=== PATIENT | male | born 1955 | race Caucasian/White ===

== ENCOUNTER → 2017-08-24 | Outpatient (CLI) | payer OTHER | END | disposition home or self-care (01) | LOC: RADCTMAIN 14:17 | PROVIDERS: ATTEND Internal Medicine Cardiovascular Disease | DX: I71.1 Thoracic aortic aneurysm, ruptured (principal) | CPT/HCPCS: 82565; 84520 ==

== ENCOUNTER → 2017-08-31 | Outpatient (CLI) | payer OTHER ==
--- NOTE | 2017-09-01 09:30 | CT ---
EXAMINATION TYPE: CT abdomen pelvis wo con DATE OF EXAM: 08/31/2017 COMPARISON: NONE INDICATION: History of stent, elevated bun/cr, no contrast. DLP: 1183 mGycm, Automated exposure control for dose reduction was used. CONTRAST: No IV contrast. Study performed without Oral Contrast TECHNIQUE: Axial images were obtained from above the diaphragm to the pubic rami in the axial plane a t 5 mm thick sections. Reconstructed images are reviewed on the computer in the coronal plane. FINDINGS: Limited CT sections are obtained the lung bases. The lung bases are clear. Coronary artery calcific ations present. CT ABDOMEN: Liver: There is moderate fatty infiltration present to the liver. No discrete masses or cysts are merlene dent. Spleen: Normal Pancreas: Normal Adrenal glands: The adrenal glands are normal. Gallbladder: Normal Kidneys: No masses are evident. No hydronephrosis is present. There is a 1.8 cm cyst on the superio r anterior left kidney measuring 1.6 Hounsfield units. Subtle cortical cyst may be on the medial righ t mid kidney. This too small to classify. Some vascular calcification may be within the right kidney Aorta: Vascular calcification is within the aorta. There is a prior aneurysm repair. Study could not be performed with intravenous contrast at this time due to elevated renal function and low GFR. [facility] attempts to reschedule this patient with a more normal renal function for contrast was unsuccess ful. Study was performed noncontrast for gross evaluation of endovascular leak. However, greatest AP diameter of the previous aneurysms 4.6 cm which is slightly smaller than the prior study suggesting s ignificant leaking into the aneurysm is not identified. Small subtle endovascular leak however is not excluded at this time. If renal function can be more normalized a later time, contrast evaluation ca n be performed. Inferior vena cava: Normal. CT PELVIS: Loops of bowel within the abdomen and pelvis are normal. There are scattered diverticular changes to the sigmoid colon. No acute diverticulitis is evident. Appendix: Normal as visualized. Urinary bladder: Decompressed with limited evaluation. Genitourinary structures: Prostate is prominent. Osseous structures: No suspicious lytic or sclerotic lesions. Facet degenerative changes are within t he lumbar spine. IMPRESSIONS: 1. Study is noncontrast due to continued poor renal function. 2. Status post aneurysm repair with stent placement. No increasing size of the aneurysm is evident. 3. Moderate fatty infiltration of the liver. 4 prostate hypertrophy. 5. Diverticulosis without acute diverticulitis. 6. 1.8 cm simple cyst superior left kidney.
== END | disposition home or self-care (01) ==
LOC: RADCTMAIN 16:09
PROVIDERS: ATTEND Internal Medicine Cardiovascular Disease
DX: K57.90 Diverticulosis of intestine, part unspecified, without perforation or abscess without bleeding (principal); K76.0 Fatty (change of) liver, not elsewhere classified; N40.0 Benign prostatic hyperplasia without lower urinary tract symptoms; N28.1 Cyst of kidney, acquired; Z95.828 Presence of other vascular implants and grafts; Z98.890 Other specified postprocedural states
CPT/HCPCS: 36415; 74176; 82565; 84520

== ENCOUNTER → 2018-05-21 | Outpatient (CLI) | payer MEDICARE ==
--- NOTE | 2018-05-21 16:13 | FL ---
EXAMINATION TYPE: FL sniff test without CXR DATE OF EXAM: 05/21/2018 COMPARISON: Radiograph 05/17/2018 HISTORY: 63-year-old male with disorder of diaphragm, long time shortness of breath, trouble breathin g. TECHNIQUE: Real-time fluoroscopy during quiet breathing, deep breathing, and sniffing maneuver. Total images: 6. FINDINGS: There is right hemidiaphragmatic elevation. During quiet breathing, there is delayed initiation in movement of the right hemidiaphragm but with s ymmetric movement of the hemidiaphragms and relatively similar excursion. During deep breathing, there is again delayed initiation in movement of the right hemidiaphragm and w ith decreased overall excursion on the right. During sniffing maneuver, there is tarah paradoxical movement of the right hemidiaphragm. IMPRESSION: Findings compatible with right hemidiaphragmatic paralysis.
== END | disposition home or self-care (01) ==
LOC: RADFLWHC 10:18
PROVIDERS: ATTEND Internal Medicine Critical Care Medicine
DX: J98.6 Disorders of diaphragm (principal)
CPT/HCPCS: 76000

== ENCOUNTER → 2019-10-09 | Outpatient (CLI) | payer MEDICARE ==
--- NOTE | 2019-10-09 13:53 | FL ---
EXAMINATION TYPE: FL sniff test without CXR DATE OF EXAM: 10/09/2019 COMPARISON: Chest x-ray October 03, 2019 and older x-rays. Prior fluoroscopic sniff test May 21, 2018. HISTORY: History of diaphragm paralysis with interval surgery to expand long presents with shortness of breath and recurrent abnormal x-ray suspicious for diaphragm paralysis. TECHNIQUE: Fluoroscopic assisted sniff test. Total 77 images saved to PACS. 16 seconds of fluoroscopi c time utilized. FINDINGS: There is redemonstration of elevated right hemidiaphragm correlating with most recent and o lder x-rays. Dynamic sniff test shows patient to have limited volume of inspiration and expiration. There is asymm etric diminished motion of the right hemidiaphragm versus left hemidiaphragm on attempted deep breath ing with similar findings noted on prior study report. IMPRESSION: Findings consistent with right hemidiaphragm paralysis redemonstrated.
== END | disposition home or self-care (01) ==
LOC: RADCTMAIN 10:21
PROVIDERS: ATTEND Internal Medicine Critical Care Medicine
DX: J98.6 Disorders of diaphragm (principal); R06.02 Shortness of breath
CPT/HCPCS: 76000

== ENCOUNTER → 2019-12-23 | Outpatient (CLI) | payer MEDICARE ==
--- NOTE | 2019-12-23 09:11 | CT ---
EXAMINATION TYPE: CT chest wo con DATE OF EXAM: 12/23/2019 COMPARISON: Sniff test dated 10/09/2019 and chest x-ray dated 06/07/2017. HISTORY: disorder of diaphragm CT DLP: 1178.4 mGycm. Automated Exposure Control for Dose Reduction was Utilized. TECHNIQUE: CT scan of the thorax is performed without IV contrast. High-resolution noncontiguous sli odessa technique limits evaluation for pulmonary nodules. FINDINGS: LUNGS: There is redemonstration of right hemidiaphragm elevation. Linear consolidation is seen within the right middle lobe on both prone and supine imaging likely on the basis of atelectasis from the r ight hemidiaphragm known paresis. Other strand-like areas of atelectasis are seen of the right lung base and within the lingula that appear linear in morphology. There is some respiratory and/or patien t motion at the lung bases slightly limiting evaluation. Within the peripheral right lower lobe there is a calcified granuloma measuring 6 mm on soft tissue algorithm series 7 image 15. There is no pleu ral effusion or pneumothorax seen. On the first prone image on series 4 there is a 7 mm nodule along the left lateral trachea. This could relate to secretions or polyp. Direct visualization recommended. There is a questionable 1.2 cm nodule at the right lung base on supine series 8 image 17 of lung algo rithm. This is closely opposed to other adjacent vasculature and CT with contrast would provide stephanie r characterization. Right basilar mild cylindrical bronchiectasis and right middle lobe mild cylindrical bronchiectasis a re present. No interlobular septal thickening or honeycombing seen. No pleural effusion or pneumothor ax. MEDIASTINUM: Lack of IV contrast is noted to limit evaluation for mediastinal and especially hilar ad enopathy. There are no definitive greater than 1 cm hilar or mediastinal lymph nodes. The heart is mi ldly enlarged. There are severe coronary artery calcifications. No pericardial effusion seen. OTHER: Portions of the known abdominal or aortic aneurysm with stent graft placement are seen. An exo phytic 2.1 cm left superior pole renal cyst is demonstrated. This is fluid attenuated. Hepatic steato sis is seen in combination with hepatomegaly with the elongated liver measuring over 26 cm. Degenerat bridger changes of the spine are only partially visualized with no coronal or sagittal reformats. IMPRESSION: 1. Right hemidiaphragm elevation partially relates to the known right hemidiaphragmatic paresis howev er hepatomegaly may also contribute to the elevation as there is hepatomegaly and hepatic steatosis. Resultant right lower lobe and right middle lobe atelectasis is seen. 2. 8mm nodular density along the left lateral supraclavicular trachea that could represent secretions or polyp. Endoscopy is recommended. 3. Possible 1.2 cm right basilar pulmonary nodule that is closely apposed with the adjacent poorly se parated unenhanced vasculature. CT thorax with contrast would better delineate this structure and pro vide better characterization. 4. Mild right lower lobe and middle lobe cylindrical bronchiectasis. 5. Partially visualized known abdominal aortic aneurysm with postsurgical change. 6. Severe coronary artery calcifications, a marker of coronary artery disease.
== END | disposition home or self-care (01) ==
LOC: RADCTMAIN 08:17
PROVIDERS: ATTEND Internal Medicine Critical Care Medicine
DX: J47.9 Bronchiectasis, uncomplicated (principal); J98.11 Atelectasis; R91.1 Solitary pulmonary nodule; I25.10 Atherosclerotic heart disease of native coronary artery without angina pectoris
CPT/HCPCS: 71250

== ENCOUNTER → 2019-12-31 | Outpatient (CLI) | payer MEDICARE | END | disposition home or self-care (01) | LOC: LABWHC1 12:27 | PROVIDERS: ATTEND Internal Medicine Critical Care Medicine | DX: Z11.59 Encounter for screening for other viral diseases (principal) | CPT/HCPCS: 87635 ==

== ENCOUNTER 2020-01-01 09:45 | Day surgery (SDC) | payer MEDICARE ==
[2019-12-31 09:06] VITALS: BMI 32.5
[~2020-01-01 09:45] MED LIST: ALBUTEROL NEB (CONC) 2.5 MG/0.5 ML INHALATION ONE; ATROPINE SULFATE 0.4 MG/ML 1 ML VIAL IM ONE; LIDOCAINE 2% (PF) 20 MG/ML 5 ML VIAL INHALATION ONE; LIDOCAINE VISCOUS 300 MG/15 ML CUP MUCOUS MEM ONE; SODIUM CHLORIDE 0.9% 1,000 ML IV SCH
[2020-01-01 10:43] LABS: Glucose,Whole Blood 146 mg/dL (75-99)
[2020-01-01] MEDS ORDERED: LACTATED RINGERS 1,000 ML IV ONE (10:47)
[2020-01-01 10:49] VITALS: TEMP 97.3
[2020-01-01] MEDS ORDERED: GLYCOPYRROLATE 0.2 MG/ML 2 ML VIAL ONE (11:32)
[2020-01-01] MEDS ORDERED: MIDAZOLAM 2 MG/2 ML VIAL ONE (11:32)
[2020-01-01] MEDS ORDERED: LIDOCAINE 1% INJ 10MG/ML (20 ML MDV) ONE (11:32)
[2020-01-01] MEDS ORDERED: ROCURONIUM BROMIDE 10 MG/ML 5 ML VIAL IV ONE (11:32)
[2020-01-01] MEDS ORDERED: PROPOFOL 10 MG/ML 20 ML VIAL IV ONE (11:32)
[2020-01-01] MEDS ORDERED: NEOSTIGMINE 1 MG/ML 10 ML VIAL ONE (11:32)
[2020-01-01] MEDS ORDERED: SUCCINYLCHOLINE CHLORIDE 100 MG/5 ML SYR IV ONE (11:32)
[2020-01-01] MEDS ORDERED: fentaNYL (PF) 50 MCG/ML 2 ML AMP ONE (11:32)
[2020-01-01] MEDS ORDERED: ePHEDrine SULFATE/0.9% NACL/PF 50 MG/5 ML SYRINGE IV ONE (11:32)
[2020-01-01] MEDS ORDERED: LACTATED RINGERS 1,000 ML IV SCH (12:10)
--- NOTE | 2020-01-01 12:47 | PCN ---
PROCEDURE NOTE PREOPERATIVE DIAGNOSIS: Bronchiectasis right middle lobe, right lower lobe, possible tracheal mass. POSTOPERATIVE DIAGNOSIS: Bronchiectasis right middle lobe, right lower lobe, possible tracheal mass. The patient's procedure was done in the endoscopy room #1 under general anesthesia. SECURITIES SUPERVISOR: Dr. Carlson and Zion Cornejo. There was informed consent, there was universal timeout. After the patient was anesthetized and on the mechanical ventilator, the bronchoscope was inserted through the bronchoscope adapter connected to the endotracheal tube. We did a quick inspection of both the left lung and the right lung. There was no mass in the trachea noted. The tracheal chencho was sharp. The left side, including the left upper lobe proper, lingula, left lower lobe appeared completely normal. On the right side, the right upper lobe appeared normal as was the right lower lobe. Interestingly, there was a fish-mouth deformity noted in the right middle lobe in this patient likely suffers from some right middle lobe syndrome. Anyway, under fluoroscopic guidance, brushes were performed in the right lower lobe. We did multiple transbronchial biopsies of the right lower lobe under fluoroscopic guidance. We got at least 7 good pieces. Finally, we did a BAL in the right lower lobe as well. The patient tolerated the procedure well. There were no immediate complication. There was minimal bleeding. The patient was stable throughout the procedure, according to the anesthesiologist and nurse general assignment reporter. I will talk to the family. The specimens we sent to the laboratory for analysis. There was no immediate complication. There was no obvious pneumothorax on fluoroscopy. A formal chest x-ray will be done. MMODL / IJN: [id number] /
--- NOTE | 2020-01-01 12:50 | FL ---
EXAMINATION TYPE: FL bronchoscopy DATE OF EXAM: 01/01/2020 COMPARISON: NONE HISTORY: Bronchoscopy TECHNIQUE: Fluoroscopy. FINDINGS: Fluoroscopy time of 25 seconds provided. IMPRESSION: As Above.
--- NOTE | 2020-01-01 13:27 | XR ---
EXAMINATION TYPE: XR chest 1V portable DATE OF EXAM: 01/01/2020 COMPARISON: 10/03/2019 HISTORY: POST BRONCHOSCOPY-RLL TECHNIQUE: Single frontal view of the chest is obtained. FINDINGS: Bilateral consolidation seen with right hilar prominence. Postsurgical change overlying th e cervical spine. No pneumothorax. Small right pleural effusion. Elevated right hemidiaphragm. IMPRESSION: 1. No evidence of pneumothorax. 2. Bilateral consolidation and right hilar soft tissue prominence.
[2020-01-01 13:51] LABS: Glucose,Whole Blood 120 mg/dL (75-99)
[2020-01-01 14:03] VITALS: BP 134/67; PULSE 67; RESP 18
[2020-01-02 00:43] LABS: Appearance,BF Hazy; Color,BF Colorless; Nucleated Cells, Body Fluid 1 /uL; RBC, Body Fluid 0 /uL
== END 2020-01-01 14:33 | disposition home or self-care (01) ==
LOC: ORWHC2ENDO 09:45
PROVIDERS: ATTEND Internal Medicine Critical Care Medicine
DX: J47.9 Bronchiectasis, uncomplicated (principal); I10 Essential (primary) hypertension; E78.5 Hyperlipidemia, unspecified; E11.9 Type 2 diabetes mellitus without complications; G25.81 Restless legs syndrome; I71.4 Abdominal aortic aneurysm, without rupture; J98.6 Disorders of diaphragm; M70.20 Olecranon bursitis, unspecified elbow; K21.9 Gastro-esophageal reflux disease without esophagitis; Z79.82 Long term (current) use of aspirin; Z79.899 Other long term (current) drug therapy; Z79.84 Long term (current) use of oral hypoglycemic drugs; Z83.3 Family history of diabetes mellitus; Z87.891 Personal history of nicotine dependence; Z98.1 Arthrodesis status; Z98.890 Other specified postprocedural states
CPT/HCPCS: 94640; 87798 ×3; 87496; 87498; 87529; 88104; 88108; 88305; 89050; 87252; 87502; 87634; 87070; 87205; 87116; 87102; 87206; 71045; 31628; 31623; 31624; J2250; J0461; J2710; J2001 ×2; J3010; J0330; J2704

== ENCOUNTER → 2020-01-13 | Outpatient (CLI) | payer MEDICARE | END | disposition home or self-care (01) | LOC: CPPFTMAIN 11:38 | PROVIDERS: ATTEND Internal Medicine Critical Care Medicine | DX: R94.2 Abnormal results of pulmonary function studies (principal); J98.4 Other disorders of lung | CPT/HCPCS: 94060; 94726; 94729 ==

== ENCOUNTER 2020-05-27 11:51 | Inpatient (IN) | payer MEDICARE ==
[2020-05-27 12:12] LABS: Glucose,Whole Blood 221 mg/dL (75-99)
[2020-05-27] MEDS ORDERED: IBUPROFEN 600 MG TAB PO STA (12:16)
--- NOTE | 2020-05-27 12:24 | ED ---
SOB HPI - General Chief Complaint: Shortness of Breath Stated Complaint: SOB, diarrhea Time Seen by Provider: 05/27/20 12:00 Source: patient Mode of arrival: ambulatory Limitations: no limitations - History of Present Illness Initial Comments: She is a 65-year-old male with past medical history of right paralyzed hemidiaphragm, bronchiectasis of the right middle and lower lobe, asthma who presents the emergency room with reported shortness of breath. States that yesterday he began having shortness of breath and chills. Denies sick contacts with similar symptoms. No recent travel. No covid exposure. Patient has had a mild cough. Denies chest pain. Patient presented to the hospital was found to have 102 fever. Pulse ox was in the 50s. Patient denies any nausea or vomiting. No diarrhea. No abdominal pain. Follows with Dr. Carlson from [facility]. Currently does not smoke. Denies previous cardiac history. No other alleviating, precipitating or modifying factors - Related Data Home Medications Medication Instructions Recorded Confirmed Acetaminophen-Codeine 300-30mg 1 tab PO Q6H PRN 12/31/19 05/27/20 [Tylenol w/codeine #3] Aspirin 325 mg PO BID 12/31/19 05/27/20 Atorvastatin [Lipitor] 20 mg PO HS 12/31/19 05/27/20 Budesonide-Formot 160-4.5 Mcg 2 puff INHALATION RT-BID 12/31/19 05/27/20 [Symbicort 160-4.5 Mcg Inhaler] Citalopram Hydrobromide 20 mg PO DAILY 12/31/19 05/27/20 [Citalopram HBr] Ergocalciferol [Vitamin D2] 50,000 unit PO QMONTH 12/31/19 05/27/20 Fenofibrate,Micronized 200 mg PO HS 12/31/19 05/27/20 [Fenofibrate] Gabapentin [Neurontin] 100 mg PO HS 12/31/19 05/27/20 Montelukast [Singulair] 10 mg PO DAILY 12/31/19 05/27/20 Niacin [Niaspan] 1,000 mg PO DAILY 12/31/19 05/27/20 Omeprazole 20 mg PO DAILY 12/31/19 05/27/20 Tiotropium [place] [Spiriva] 1 cap INHALATION RT-DAILY 12/31/19 05/27/20 amLODIPine [Norvasc] 10 mg PO DAILY 12/31/19 05/27/20 carvediloL [Coreg] 12.5 mg PO BID 12/31/19 05/27/20 metFORMIN HCL [Glucophage] 1,000 mg PO BID 12/31/19 05/27/20 rOPINIRole HCL [Requip] 5 mg PO HS 12/31/19 05/27/20 Allergies Allergy/AdvReac Type Severity Reaction Status Date / Time No Known Allergies Allergy Verified 05/27/20 12:34 Review of Systems ROS Statement: Those systems with pertinent positive or pertinent negative responses have been documented in the HPI. ROS Other: All systems not noted in ROS Statement are negative. Past Medical History Past Medical History: Asthma, Coronary Artery Disease (CAD), Diabetes Mellitus, GERD/Reflux, Hypertension, Sleep Apnea/CPAP/BIPAP Additional Past Medical History / Comment(s): HX OF AAA WITH STENT (2011), BACK PAIN, RLS, SOB, HX OF PARALYSIS OF DIAPHRAM WITH PLICATION. History of Any Multi-Drug Resistant Organisms: None Reported Past Surgical History: Back Surgery Additional Past Surgical History / Comment(s): BACK AND NECK SURGERY, AAA WITH 3 PIECE STENT (2011), LUNG SURGERY. PLICATION OF DIAPHRAM Past Anesthesia/Blood Transfusion Reactions: No Reported Reaction Past Psychological History: No Psychological Hx Reported Smoking Status: Former smoker Past Alcohol Use History: None Reported Past Drug Use History: None Reported - Past Family History Mother Family Medical History: No Reported History General Exam Limitations: no limitations General appearance: alert, in no apparent distress Head exam: Present: atraumatic, normocephalic, normal inspection Eye exam: Present: normal appearance, PERRL, EOMI. Absent: scleral icterus, conjunctival injection, periorbital swelling Neck exam: Present: normal inspection. Absent: tenderness, meningismus, lymphadenopathy Respiratory exam: Present: rales, decreased breath sounds, other (tachypneic) Cardiovascular Exam: Present: normal rhythm, tachycardia Neurological exam: Present: alert, oriented X3, CN II-XII intact Psychiatric exam: Present: normal affect, normal mood Skin exam: Present: diaphoretic, pallor Course Vital Signs 05/27/20 05/27/20 05/27/20 12:01 12:06 12:07 Temperature 102.2 F H Pulse Rate 115 H Respiratory 24 24 Rate Blood Pressure 165/98 O2 Sat by Pulse 54 L 71 L Oximetry 05/27/20 05/27/20 05/27/20 12:15 12:30 12:45 Temperature Pulse Rate 109 H 115 H 112 H Respiratory 40 H 40 H Rate Blood Pressure 155/93 149/83 156/87 O2 Sat by Pulse 82 L 80 L 87 L Oximetry 05/27/20 05/27/20 05/27/20 13:15 13:45 13:54 Temperature 99.1 F Pulse Rate 107 H 101 H Respiratory 34 H 34 H Rate Blood Pressure 144/78 156/88 O2 Sat by Pulse 86 L 84 L Oximetry 05/27/20 05/27/20 05/27/20 14:30 14:57 14:58 Temperature 99.3 F Pulse Rate 97 Respiratory 34 H 30 H Rate Blood Pressure 134/81 O2 Sat by Pulse 86 L 85 L Oximetry 05/27/20 05/27/20 15:00 15:16 Temperature 98.8 F Pulse Rate 96 Respiratory 32 H Rate Blood Pressure 136/82 O2 Sat by Pulse 87 L 88 L Oximetry Medical Decision Making - Medical Decision Making Upon arrival the patient is placed into trauma bay 2. A thorough history and physical exam was performed. Patient does have presenting pulse ox saturation of 51%. Because of this the patient was placed on a nonrebreather. Lung sounds are auscultated and demonstrate rales at the bases. Patient does not have a significant work of breathing. We do attempt him on BiPAP however the patient fails as his oxygen saturations go down to 69% from 75% which was achieved on a nonrebreather. The patient is then moved to an OptiFlow with a nonrebreather which does have improvement in saturations to 86%. Patient is given a dose of Decadron. Laboratory says her conducted and a chest x-ray was performed. Lab studies are remarkable for a lactic of 2.4. Troponin is 0.107. Influenza A and B are negative. Patient is swabbed for cold. Chest x-ray does demonstrate bilateral airspace disease correlating with pneumonia. There is a high concern for Covid and therefore patient's restricted. I recommended ICU admission for which patient did agree to. Discuss case with Dr. Hinds and Dr. Carlson. Patient remained with stable saturations around 86% and was transferred to the unit - Lab Data Result diagrams: 06/03/20 04:30 06/03/20 04:30 Lab Results 05/27/20 05/27/20 05/27/20 Range/Units 12:09 12:20 12:20 WBC 6.5 (3.8-10.6) k/uL RBC 4.54 (4.30-5.90) m/uL Hgb 14.8 (13.0-17.5) gm/dL Hct 44.1 (39.0-53.0) % MCV 97.0 (80.0-100.0) fL MCH 32.6 (25.0-35.0) pg MCHC 33.6 (31.0-37.0) g/dL RDW 13.1 (11.5-15.5) % Plt Count 230 (150-450) k/uL Neutrophils % 85 % Lymphocytes % 10 % Monocytes % 3 % Eosinophils % 0 % Basophils % 1 % Neutrophils # 5.5 (1.3-7.7) k/uL Lymphocytes # 0.7 L (1.0-4.8) k/uL Monocytes # 0.2 (0-1.0) k/uL Eosinophils # 0.0 (0-0.7) k/uL Basophils # 0.1 (0-0.2) k/uL PT 10.3 (9.0-12.0) sec INR 1.0 (<1.2) APTT 29.4 (22.0-30.0) sec D-Dimer 0.40 (<0.60) mg/L FEU Sodium (137-145) mmol/L Potassium (3.5-5.1) mmol/L Chloride (98-107) mmol/L Carbon Dioxide (22-30) mmol/L Anion Gap mmol/L BUN (9-20) mg/dL Creatinine (0.66-1.25) mg/dL Est GFR (CKD-EPI)AfAm (>60 ml/min/1.73 sqM) Est GFR (CKD-EPI)NonAf (>60 ml/min/1.73 sqM) Glucose (74-99) mg/dL POC Glucose (mg/dL) 221 H (75-99) mg/dL POC Glu Education Courses Sales Representative ID JackEnzo Lactic Ac Sepsis Rflx Plasma Lactic Acid Bak[place] (0.7-2.0) mmol/L Calcium (8.4-10.2) mg/dL Magnesium (1.6-2.3) mg/dL Ferritin (22.0-322.0) ng/mL Total Bilirubin (0.2-1.3) mg/dL AST (17-59) U/L ALT (4-49) U/L Alkaline Phosphatase (38-126) U/L Lactate Dehydrogenase (313-618) U/L Troponin I (0.000-0.034) ng/mL C-Reactive Protein (<10.0) mg/L NT-Pro-B Natriuret Pep pg/mL Total Protein (6.3-8.2) g/dL Albumin (3.5-5.0) g/dL Procalcitonin (0.02-0.09) ng/mL Coronavirus (PCR) (Not Detected) Influenza Type A RNA (Not Detectd) Influenza Type B (PCR) (Not Detectd) 05/27/20 05/27/20 05/27/20 Range/Units 12:20 12:20 12:20 WBC (3.8-10.6) k/uL RBC (4.30-5.90) m/uL Hgb (13.0-17.5) gm/dL Hct (39.0-53.0) % MCV (80.0-100.0) fL MCH (25.0-35.0) pg MCHC (31.0-37.0) g/dL RDW (11.5-15.5) % Plt Count (150-450) k/uL Neutrophils % % Lymphocytes % % Monocytes % % Eosinophils % % Basophils % % Neutrophils # (1.3-7.7) k/uL Lymphocytes # (1.0-4.8) k/uL Monocytes # (0-1.0) k/uL Eosinophils # (0-0.7) k/uL Basophils # (0-0.2) k/uL PT (9.0-12.0) sec INR (<1.2) APTT (22.0-30.0) sec D-Dimer (<0.60) mg/L FEU Sodium 136 L (137-145) mmol/L Potassium 4.7 (3.5-5.1) mmol/L Chloride 99 (98-107) mmol/L Carbon Dioxide 25 (22-30) mmol/L Anion Gap 12 mmol/L BUN 30 H (9-20) mg/dL Creatinine 1.76 H (0.66-1.25) mg/dL Est GFR (CKD-EPI)AfAm 45 (>60 ml/min/1.73 sqM) Est GFR (CKD-EPI)NonAf 39 (>60 ml/min/1.73 sqM) Glucose 220 H (74-99) mg/dL POC Glucose (mg/dL) (75-99) mg/dL POC Glu Education [employer] Sales Representative ID Lactic Ac Sepsis Rflx Plasma Lactic Acid Bakari 2.4 H* (0.7-2.0) mmol/L Calcium 9.2 (8.4-10.2) mg/dL Magnesium 1.1 L (1.6-2.3) mg/dL Ferritin 2053.0 H (22.0-322.0) ng/mL Total Bilirubin 0.7 (0.2-1.3) mg/dL AST 73 H (17-59) U/L ALT 59 H (4-49) U/L Alkaline Phosphatase 46 (38-126) U/L Lactate Dehydrogenase 1056 H (313-618) U/L Troponin I (0.000-0.034) ng/mL C-Reactive Protein 333.3 H (<10.0) mg/L NT-Pro-B Natriuret Pep pg/mL Total Protein 7.5 (6.3-8.2) g/dL Albumin 4.6 (3.5-5.0) g/dL Procalcitonin (0.02-0.09) ng/mL Coronavirus (PCR) Detected H (Not Detected) Influenza Type A RNA (Not Detectd) Influenza Type B (PCR) (Not Detectd) 05/27/20 05/27/20 05/27/20 Range/Units 12:20 12:20 12:20 WBC (3.8-10.6) k/uL RBC (4.30-5.90) m/uL Hgb (13.0-17.5) gm/dL Hct (39.0-53.0) % MCV (80.0-100.0) fL MCH (25.0-35.0) pg MCHC (31.0-37.0) g/dL RDW (11.5-15.5) % Plt Count (150-450) k/uL Neutrophils % % Lymphocytes % % Monocytes % % Eosinophils % % Basophils % % Neutrophils # (1.3-7.7) k/uL Lymphocytes # (1.0-4.8) k/uL Monocytes # (0-1.0) k/uL Eosinophils # (0-0.7) k/uL Basophils # (0-0.2) k/uL PT (9.0-12.0) sec INR (<1.2) APTT (22.0-30.0) sec D-Dimer (<0.60) mg/L FEU Sodium (137-145) mmol/L Potassium (3.5-5.1) mmol/L Chloride (98-107) mmol/L Carbon Dioxide (22-30) mmol/L Anion Gap mmol/L BUN (9-20) mg/dL Creatinine (0.66-1.25) mg/dL Est GFR (CKD-EPI)AfAm (>60 ml/min/1.73 sqM) Est GFR (CKD-EPI)NonAf (>60 ml/min/1.73 sqM) Glucose (74-99) mg/dL POC Glucose (mg/dL) (75-99) mg/dL POC Glu Education [employer]ourses Sales Representative ID Lactic Ac Sepsis Rflx Plasma Lactic Acid Bakari (0.7-2.0) mmol/L Calcium (8.4-10.2) mg/dL Magnesium (1.6-2.3) mg/dL Ferritin (22.0-322.0) ng/mL Total Bilirubin (0.2-1.3) mg/dL AST (17-59) U/L ALT (4-49) U/L Alkaline Phosphatase (38-126) U/L Lactate Dehydrogenase (313-618) U/L Troponin I (0.000-0.034) ng/mL C-Reactive Protein (<10.0) mg/L NT-Pro-B Natriuret Pep 615 pg/mL Total Protein (6.3-8.2) g/dL Albumin (3.5-5.0) g/dL Procalcitonin 0.72 H (0.02-0.09) ng/mL Coronavirus (PCR) (Not Detected) Influenza Type A RNA Not Detected (Not Detectd) Influenza Type B (PCR) Not Detected (Not Detectd) 05/27/20 05/27/20 Range/Units 12:20 12:56 WBC (3.8-10.6) k/uL RBC (4.30-5.90) m/uL Hgb (13.0-17.5) gm/dL Hct (39.0-53.0) % MCV (80.0-100.0) fL MCH (25.0-35.0) pg MCHC (31.0-37.0) g/dL RDW (11.5-15.5) % Plt Count (150-450) k/uL Neutrophils % % Lymphocytes % % Monocytes % % Eosinophils % % Basophils % % Neutrophils # (1.3-7.7) k/uL Lymphocytes # (1.0-4.8) k/uL Monocytes # (0-1.0) k/uL Eosinophils # (0-0.7) k/uL Basophils # (0-0.2) k/uL PT (9.0-12.0) sec INR (<1.2) APTT (22.0-30.0) sec D-Dimer (<0.60) mg/L FEU Sodium (137-145) mmol/L Potassium (3.5-5.1) mmol/L Chloride (98-107) mmol/L Carbon Dioxide (22-30) mmol/L Anion Gap mmol/L BUN (9-20) mg/dL Creatinine (0.66-1.25) mg/dL Est GFR (CKD-EPI)AfAm (>60 ml/min/1.73 sqM) Est GFR (CKD-EPI)NonAf (>60 ml/min/1.73 sqM) Glucose (74-99) mg/dL POC Glucose (mg/dL) (75-99) mg/dL POC Glu Education [employer] Sales Representative ID Lactic Ac Sepsis Rflx Y Plasma Lactic Acid Bakari (0.7-2.0) mmol/L Calcium (8.4-10.2) mg/dL Magnesium (1.6-2.3) mg/dL Ferritin (22.0-322.0) ng/mL Total Bilirubin (0.2-1.3) mg/dL AST (17-59) U/L ALT (4-49) U/L Alkaline Phosphatase (38-126) U/L Lactate Dehydrogenase (313-618) U/L Troponin I 0.107 H* (0.000-0.034) ng/mL C-Reactive Protein (<10.0) mg/L NT-Pro-B Natriuret Pep pg/mL Total Protein (6.3-8.2) g/dL Albumin (3.5-5.0) g/dL Procalcitonin (0.02-0.09) ng/mL Coronavirus (PCR) (Not Detected) Influenza Type A RNA (Not Detectd) Influenza Type B (PCR) (Not Detectd) - EKG Data EKG Comments: EKG demonstrates sinus tachycardia with a ventricular rate of 111. OH interval 172. QRS 90. QTC of 443. No acute ST segment elevations or depressions Critical Care Time Critical Care Time: Yes Critical Care Time: 45 minutes Disposition Clinical Impression: Shortness of breath, Suspected COVID-19 virus infection, Hypoxia, NSTEMI (non- ST elevated myocardial infarction), Asthma Disposition: ADMITTED IP TO THIS HOSP Condition: Serious Is patient prescribed a controlled substance at d/c from ED?: No Decision to Admit Reason: Admit from EC Decision Date: 05/27/20 Decision Time: 14:33
[2020-05-27 12:44] LABS: Basophils # (A) 0.1 k/uL (0-0.2); Basophils % (A) 1 %; Eosinophils % (A) 0 %; HCT 44.1 % (39.0-53.0); HGB 14.8 gm/dL (13.0-17.5); Lymphocytes # (A) 0.7 k/uL (1.0-4.8); Lymphocytes % (A) 10 %; MCH 32.6 pg (25.0-35.0); MCHC 33.6 g/dL (31.0-37.0); Mean Platelet Volume 7.7; Monocytes # (A) 0.2 k/uL (0-1.0); Monocytes % (A) 3 %; Neutrophils # (A) 5.5 k/uL (1.3-7.7); Neutrophils % (A) 85 %; Platelet Count 230 k/uL (150-450); RBC 4.54 m/uL (4.30-5.90); RDW 13.1 % (11.5-15.5); WBC 6.5 k/uL (3.8-10.6)
[2020-05-27 12:47] LABS: D-Dimer 0.4 mg/L FEU (<0.60); Partial Thromboplastin Time 29.4 sec (22.0-30.0); Prothrombin Time 10.3 sec (9.0-12.0)
[2020-05-27] MEDS ORDERED: DEXAMETHASONE SOD PHOSPHATE 4 MG/ML 1 ML VIAL IV STA (12:47)
[2020-05-27 12:55] LABS: Albumin 4.6 g/dL (3.5-5.0); Calcium 9.2 mg/dL (8.4-10.2); Magnesium 1.1 mg/dL (1.6-2.3); Potassium 4.7 mmol/L (3.5-5.1); Total Bilirubin 0.7 mg/dL (0.2-1.3); Total Protein 7.5 g/dL (6.3-8.2)
[2020-05-27] MEDS: SODIUM CHLORIDE 0.9% 1,000 ML IV SCH ×2 (13:09→20:56)
--- NOTE | 2020-05-27 13:11 | XR ---
EXAMINATION TYPE: XR chest 1V portable DATE OF EXAM: 05/27/2020 COMPARISON: Prior chest x-ray 01/01/2020 HISTORY: Shortness of breath, suspected Covid 19 pneumonia TECHNIQUE: Single frontal view of the chest is obtained. FINDINGS: Bilateral airspace disease is present. No evident pneumothorax or pleural effusion. There is persistent elevation of right hemidiaphragm. Heart size is likely accentuated by rotation. Postop changes are noted to the cervical spine. IMPRESSION: Correlate for pneumonia, edema
[2020-05-27 13:43] LABS: C Reactive Protein 333.3 mg/L (<10.0)
[2020-05-27] MEDS ORDERED: NALOXONE 0.4 MG/ML 1 ML VIAL IV PRN ×2 (14:33→15:46)
[2020-05-27 15:42] LABS: Glucose,Whole Blood 198 mg/dL (75-99)
[2020-05-27] MEDS ORDERED: AZITHROMYCIN 500 MG in SODIUM CHLORIDE 0.9% 250 ML IVPB STA (15:43)
[2020-05-27] MEDS ORDERED: ALBUTEROL HFA INHALER INHALATION PRN (15:45)
[2020-05-27 15:57] LABS: ABG Base Excess -1.9 mmol/L; ABG HCO3 23 mmol/L (21-25); ABG Oxygen Saturation 84.7 % (94-97); ABG PCO2 37 mmHg (35-45); ABG TCO2 24 mmol/L (19-24); Allen Test Performed? Yes
[2020-05-27 16:11] LABS: ABG PO2 49 mmHg (83-108)
--- NOTE | 2020-05-27 17:07 | P.CNPUL ---
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 She developed shortness of breath, chills yesterday. He's had no recent travel history, he denies any sick contacts or Covid 19 exposure. Patient reports a mild cough, he was febrile on presentation with a temp of 10 2F, his pulse ox was 51% on room air, he denied any nausea or vomiting, no diarrhea no abdominal pain. He does not smoke. His chest x-ray showed bilateral airspace disease, and persistent elevation of the right hemidiaphragm. His lab work shows normal white count of 6.5, lymphopenia with lymphocyte, 0.7, d-dimer was 0.4, sodium is 136, electrolytes are within normal limits, B1 is 30 creatinine is 1.76, plasma lactic acid was 2.4, AST was 73, ALT was 59, LDH was 1056, troponin was elevated at 0.107, CRP is 333, proBNP is 615, and influenza screen was negative, Covid 19 PCR was sent and pending at this time. Blood gas was obtained on aerosol currently at 60 L and FiO2 of 95% in addition to 100% per nonrebreather mask and patient's pO2 is 49, pCO2 37, pH is 7.40. he was started on antibiotics in the form of azithromycin and Rocephin, he was given a dose of IV dexamethasone in the emergency department he was started on IV hydration, and placed in the intensive care unit. Does not appear to be in any significant respiratory distress, Pox 84% on Airvo. Review of Systems All systems: negative Constitutional: Denies chills, Denies fever Eyes: denies blurred vision, denies pain Ears, nose, mouth and throat: Denies headache, Denies sore throat Cardiovascular: Denies chest pain, Denies shortness of breath Respiratory: Reports cough, Reports dyspnea Gastrointestinal: Denies abdominal pain, Denies diarrhea, Denies nausea, Denies vomiting Musculoskeletal: Denies myalgias Integumentary: Denies pruritus, Denies rash Neurological: Denies numbness, Denies weakness Psychiatric: Denies anxiety, Denies depression Endocrine: Denies fatigue, Denies weight change Past Medical History Past Medical History: Asthma, Coronary Artery Disease (CAD), Diabetes Mellitus, GERD/Reflux, Hypertension, Sleep Apnea/CPAP/BIPAP Additional Past Medical History / Comment(s): HX OF AAA WITH STENT (2011), BACK PAIN, RLS, SOB, HX OF PARALYSIS OF DIAPHRAM WITH PLICATION. History of Any Multi-Drug Resistant Organisms: None Reported Past Surgical History: Back Surgery Additional Past Surgical History / Comment(s): BACK AND NECK SURGERY, AAA WITH 3 PIECE STENT (2011), LUNG SURGERY. PLICATION OF DIAPHRAM Past Anesthesia/Blood Transfusion Reactions: No Reported Reaction Past Psychological History: No Psychological Hx Reported Smoking Status: Former smoker Past Alcohol Use History: None Reported Past Drug Use History: None Reported - Past Family History Mother Family Medical History: No Reported History Medications and Allergies Home Medications Medication Instructions Recorded Confirmed Type Acetaminophen-Codeine 300-30mg 1 tab PO Q6H PRN 12/31/19 05/27/20 History [Tylenol w/codeine #3] Aspirin 325 mg PO BID 12/31/19 05/27/20 History Atorvastatin [Lipitor] 20 mg PO HS 12/31/19 05/27/20 History Budesonide-Formot 160-4.5 Mcg 2 puff INHALATION RT-BID 12/31/19 05/27/20 History [Symbicort 160-4.5 Mcg Inhaler] Citalopram Hydrobromide 20 mg PO DAILY 12/31/19 05/27/20 History [Citalopram HBr] Ergocalciferol [Vitamin D2] 50,000 unit PO QMONTH 12/31/19 05/27/20 History Fenofibrate,Micronized 200 mg PO HS 12/31/19 05/27/20 History [Fenofibrate] Gabapentin [Neurontin] 100 mg PO HS 12/31/19 05/27/20 History Montelukast [Singulair] 10 mg PO DAILY 12/31/19 05/27/20 History Niacin [Niaspan] 1,000 mg PO DAILY 12/31/19 05/27/20 History Omeprazole 20 mg PO DAILY 12/31/19 05/27/20 History Tiotropium Barney [Spiriva] 1 cap INHALATION RT-DAILY 12/31/19 05/27/20 History amLODIPine [Norvasc] 10 mg PO DAILY 12/31/19 05/27/20 History carvediloL [Coreg] 12.5 mg PO BID 12/31/19 05/27/20 History metFORMIN HCL [Glucophage] 1,000 mg PO BID 12/31/19 05/27/20 History rOPINIRole HCL [Requip] 5 mg PO HS 12/31/19 05/27/20 History Allergies Allergy/AdvReac Type Severity Reaction Status Date / Time No Known Allergies Allergy Verified 05/27/20 12:34 Physical Exam Vitals: Vital Signs Temp Pulse Resp BP Pulse Ox 05/27/20 15:16 88 L 05/27/20 15:00 98.8 F 96 32 H 136/82 87 L 05/27/20 14:58 85 L 05/27/20 14:30 97 34 H 134/81 86 L 05/27/20 13:54 99.1 F 05/27/20 13:45 101 H 34 H 156/88 84 L 05/27/20 13:15 107 H 34 H 144/78 86 L 05/27/20 12:45 112 H 156/87 87 L 05/27/20 12:30 115 H 40 H 149/83 80 L 05/27/20 12:15 109 H 40 H 155/93 82 L 05/27/20 12:07 24 05/27/20 12:06 71 L 05/27/20 12:01 102.2 F H 115 H 24 165/98 54 L Intake and Output 05/27/20 05/27/20 05/27/20 06:59 14:59 22:59 Other: Weight 108.409 kg GENERAL EXAM: Alert, 65-year-old white male on Airvo at 60 L and FiO2 of 95% and 100% per NRB with a pulse ox of 84% comfortable in no apparent distress. HEAD: Normocephalic/atraumatic. EYES: Normal reaction of pupils, equal size. Conjunctiva pink, sclera white. NOSE: Clear with pink turbinates. THROAT: No erythema or exudates. NECK: No masses, no JVD, no thyroid enlargement, no adenopathy. CHEST: No chest wall deformity. Symmetrical expansion. LUNGS: Equal air entry with no crackles, wheeze, rhonchi or dullness. CVS: Regular rate and rhythm, normal S1 and S2, no gallops, no murmurs, no rubs ABDOMEN: Soft, nontender. No hepatosplenomegaly, normal bowel sounds, no guarding or rigidity. EXTREMITIES: No clubbing, no edema, no cyanosis, 2+ pulses and upper and lower extremities. MUSCULOSKELETAL: Muscle strength and tone normal. SPINE: No scoliosis or deformity SKIN: No rashes CENTRAL NERVOUS SYSTEM: Alert and oriented -3. No focal deficits, tone is normal in all 4 extremities. PSYCHIATRIC: Alert and oriented -3. Appropriate affect. Intact judgment and insight. Results - Laboratory Findings CBC and BMP: 05/27/20 12:20 05/27/20 12:20 ABG ABG pH 7.40 (7.35-7.45) 05/27/20 15:55 ABG pCO2 37 mmHg (35-45) 05/27/20 15:55 ABG pO2 49 mmHg (83-108) L* 05/27/20 15:55 ABG O2 Saturation 84.7 % (94-97) L 05/27/20 15:55 PT/INR, D-dimer PT 10.3 sec (9.0-12.0) 05/27/20 12:20 INR 1.0 (<1.2) 05/27/20 12:20 D-Dimer 0.40 mg/L FEU (<0.60) 05/27/20 12:20 Abnormal lab findings: Abnormal Labs 05/27/20 05/27/20 05/27/20 12:09 12:20 12:20 Lymphocytes # 0.7 L ABG pO2 ABG O2 Saturation Sodium 136 L BUN 30 H Creatinine 1.76 H Glucose 220 H POC Glucose (mg/dL) 221 H Plasma Lactic Acid Bakari Magnesium 1.1 L AST 73 H ALT 59 H Lactate Dehydrogenase 1056 H Troponin I C-Reactive Protein 333.3 H 05/27/20 05/27/20 05/27/20 12:20 12:20 15:40 Lymphocytes # ABG pO2 ABG O2 Saturation Sodium BUN Creatinine Glucose POC Glucose (mg/dL) 198 H Plasma Lactic Acid Bakari 2.4 H* Magnesium AST ALT Lactate Dehydrogenase Troponin I 0.107 H* C-Reactive Protein 05/27/20 15:55 Lymphocytes # ABG pO2 49 L* ABG O2 Saturation 84.7 L Sodium BUN Creatinine Glucose POC Glucose (mg/dL) Plasma Lactic Acid Bakari Magnesium AST ALT Lactate Dehydrogenase Troponin I C-Reactive Protein - Diagnostic Findings Chest x-ray: report reviewed, image reviewed Additional studies: EKG reviewed Assessment and Plan Plan: Assessment: #1. Acute and severe hypoxic respiratory failure related to bilateral pneumonia, possibly community acquired, rule out possibility of COVID 19 related pneumonia. Influenza screen was negative, Covid 19 is pending, chest x-ray shows bilateral airspace disease #2. History of right diaphragm paralysis status post surgical plication #3. Elevated inflammatory markers including LDH and CRP possibly related to COVID 19 pneumonia #4. Elevated troponin, possibly related to severe hypoxemia #5. History of chronic bronchial asthma, unspecified #6. History of coronary artery disease #7. GERD/reflux #8. History of sleep apnea #9. History of AAA with stenting in 2011 #10. History of back pain #11. Restless leg syndrome #12. Former smoker Plan: Awaiting results of the Covid 19 PCR, maintain droplet precautions, the patient in droplet isolation. Blood gas has been reviewed showing severe hypoxemia, patient remains on AIRVO at FiO2 of 95% in addition to her percent per a nonrebreather mask, and he is satting only 95%, but clinically patient does not appear to be in any acute respiratory distress, despite being severely hypoxic. We'll continue with azithromycin and Rocephin, will continue Decadron, we'll start the patient on prophylactic doses of Lovenox, IV hydration, zinc supplement, vitamin C supplement, vitamin D supplement, melatonin. Inflammatory markers have been noted. We'll send a pro-calcitonin, we'll send a Legionella urine antigen, follow-up CBC and CMP tomorrow, follow up chest x-ray in the morning. We'll start the patient on Remdesivir if his COVID 19 PCR comes back positive. We'll continue to closely follow I performed a history & physical examination of the patient and discussed their management with my nurse practitioner, Laura Cornejo. I reviewed the nurse practitioner's note and agree with the documented findings and plan of care. Lung sounds are positive for diminished breath sounds. The findings and the impression was discussed with the patient. I attest to the documentation by the nurse practitioner. Time with Patient: Greater than 30
[2020-05-27] MEDS: ENOXAPARIN 40 MG/0.4 ML SYRINGE SQ SCH (17:26)
[2020-05-27] MEDS: CHOLECALCIFEROL 400 UNIT TAB PO SCH (17:27)
[2020-05-27] MEDS: ZINC SULFATE 220 MG CAP PO SCH (17:27)
[2020-05-27] MEDS ORDERED: LORazepam 2 MG/ML INJ IV PRN (19:00)
[2020-05-27] MEDS: FAMOTIDINE 20 MG TAB PO SCH (20:56)
[2020-05-27 21:27] LABS: ABG Base Excess -2.1 mmol/L; ABG HCO3 23 mmol/L (21-25); ABG Oxygen Saturation 79.1 % (94-97); ABG PCO2 38 mmHg (35-45); ABG PH 7.39 (7.35-7.45); ABG TCO2 24 mmol/L (19-24); Allen Test Performed? Yes
[2020-05-27 21:35] LABS: ABG PO2 44 mmHg (83-108); Amorphous Sediment,Urine Rare /hpf; Appearance,Urine Clear (Clear); Bacteria,Urine Occasional /hpf; Bilirubin,Urine Negative (Negative); Blood,Urine Small (Negative); Color,Urine Yellow; Glucose,Urine (UA) 4+ (Negative); Granular Casts,Urine 7 /lpf (0); Hyaline Casts,Urine 6 /lpf (0-2); Ketones,Urine 1+ (Negative); Leukocyte Esterase,Urine Negative (Negative); Mucus,Urine Occasional /hpf; Nitrite,Urine Negative (Negative); PH, Urine 5.5 (5.0-8.0); Protein,Urine 1+ (Negative); RBC,Urine <1 /hpf (0-5); Specific Gravity,Urine 1.022 (1.001-1.035); Urobilinogen,Urine <2.0 mg/dL (<2.0); WBC,Urine 1 /hpf (0-5)
[2020-05-27] MEDS ORDERED: PROPOFOL 10 MG/ML 20 ML VIAL IV ONE (21:54)
[2020-05-27] MEDS ORDERED: SUCCINYLCHOLINE CHLORIDE VIAL 200 MG/10 ML VIAL IV ONE (21:54)
[2020-05-27] MEDS: MELATONIN 5 MG TABLET PO SCH (21:56)
--- NOTE | 2020-05-27 22:33 | XR ---
EXAMINATION TYPE: XR chest 1V portable DATE OF EXAM: 05/27/2020 COMPARISON: Today HISTORY: Tube placement TECHNIQUE: Single view FINDINGS: There is endotracheal tube 5 cm from the chencho. There is nasogastric tube with the tip madeleine se to the gastroesophageal junction. Tip is probably in the distal esophagus. There is extensive patchy airspace bilateral pulmonary edema. There are chest leads. IMPRESSION: Severe pulmonary edema unchanged compared to exam earlier today. This could relate to RDS . NG tube is not apparently in the stomach.
[2020-05-27 22:51] LABS: ABG Base Excess -3.4 mmol/L; ABG HCO3 25 mmol/L (21-25); ABG PCO2 62 mmHg (35-45); ABG TCO2 27 mmol/L (19-24); Allen Test Performed? Yes
[2020-05-27 23:55] LABS: ABG PO2 51 mmHg (83-108)
[2020-05-28] MEDS ORDERED: methylPREDNISolone SOD SUCCI 40 MG/ML 1 ML VIAL IV SCH
[2020-05-28 00:53] LABS: Glucose,Whole Blood 228 mg/dL (75-99)
[2020-05-28] MEDS: INSULIN ASPART (NovoLOG) 100 UNIT/ML VIAL SQ SCH ×5 (01:17→23:24)
[2020-05-28] MEDS: CISATRACURIUM 200 MG in SODIUM CHLORIDE 0.9% 180 ML IV SCH ×2 (01:28→23:27)
[2020-05-28 04:25] LABS: ABG Base Excess -2.6 mmol/L; ABG HCO3 25 mmol/L (21-25); ABG PCO2 57 mmHg (35-45); ABG PH 7.25 (7.35-7.45); ABG PO2 64 mmHg (83-108); ABG TCO2 26 mmol/L (19-24); Allen Test Performed? Yes
[2020-05-28] MEDS: SODIUM CHLORIDE 0.9% 1,000 ML IV SCH ×3 (05:06→20:07)
[2020-05-28 06:27] LABS: Glucose,Whole Blood 223 mg/dL (75-99)
[2020-05-28 06:39] LABS: Basophils % (A) 0 %; Eosinophils % (A) 0 %; HCT 41.8 % (39.0-53.0); HGB 13.8 gm/dL (13.0-17.5); Lymphocytes # (A) 0.4 k/uL (1.0-4.8); Lymphocytes % (A) 5 %; MCH 32.5 pg (25.0-35.0); MCHC 33.1 g/dL (31.0-37.0); MCV 98.3 fL (80.0-100.0); Mean Platelet Volume 7.5; Monocytes # (A) 0.2 k/uL (0-1.0); Monocytes % (A) 2 %; Neutrophils # (A) 7.8 k/uL (1.3-7.7); Neutrophils % (A) 92 %; Platelet Count 245 k/uL (150-450); RBC 4.26 m/uL (4.30-5.90); RDW 13.3 % (11.5-15.5); WBC 8.5 k/uL (3.8-10.6)
[2020-05-28 06:49] LABS: Calcium 7.9 mg/dL (8.4-10.2); Magnesium 1.3 mg/dL (1.6-2.3); Potassium 4.8 mmol/L (3.5-5.1)
--- NOTE | 2020-05-28 08:53 | XR ---
EXAMINATION TYPE: XR chest 1V portable DATE OF EXAM: 05/28/2020 Comparison: 05/27/2020 Clinical History: 65-year-old male Tube placement Findings: ET tube tip at the level of the medial clavicular heads. NG tube courses below the diaphragm. Heart l imits of normal in size. Patchy and confluent bilateral airspace opacity, left greater than right per sists. There is been slight improvement in aeration from prior exam. No sizable effusion. Impression: Redemonstrated patchy and confluent bilateral airspace disease, left greater than right with slight i nterval improvement.
[2020-05-28] MEDS ORDERED: REMDESIVIR (EUA) 200 MG in SODIUM CHLORIDE 0.9% 250 ML IVPB ONE (09:00)
[2020-05-28] MEDS ORDERED: dexAMETHasone 2 MG TAB PO SCH (09:00)
[2020-05-28] MEDS: DEXAMETHASONE SOD PHOSPHATE 4 MG/ML 1 ML VIAL IV SCH (09:09)
[2020-05-28] MEDS: FAMOTIDINE 20 MG TAB PO SCH ×2 (09:09→20:08)
[2020-05-28] MEDS: ENOXAPARIN 40 MG/0.4 ML SYRINGE SQ SCH (09:09)
[2020-05-28] MEDS: ZINC SULFATE 220 MG CAP PO SCH (09:10)
[2020-05-28] MEDS: CHOLECALCIFEROL 400 UNIT TAB PO SCH (09:10)
[2020-05-28] MEDS: CEFEPIME 1 GM in SODIUM CHLORIDE 0.9% 50 ML IVPB SCH ×2 (09:10→20:08)
[2020-05-28] MEDS: ASCORBIC ACID 500 MG TAB PO SCH (09:10)
[2020-05-28] MEDS: CHLORHEXIDINE GLUCONATE 15 ML CUP MUCOUS MEM SCH ×2 (09:10→20:08)
[2020-05-28 09:16] LABS: Albumin 3.6 g/dL (3.5-5.0); Calcium 7.9 mg/dL (8.4-10.2); Total Bilirubin 0.5 mg/dL (0.2-1.3); Total Protein 6.2 g/dL (6.3-8.2)
[2020-05-28] MEDS: MAGNESIUM SULFATE-D5W PMX 1 GM in DEXTROSE/WATER 1 100ML.BAG IVPB SCH ×3 (09:20→13:29)
[2020-05-28 09:36] LABS: D-Dimer 0.43 mg/L FEU (<0.60)
[2020-05-28 09:37] LABS: C Reactive Protein 219.1 mg/L (<10.0)
--- NOTE | 2020-05-28 11:20 | XR ---
EXAMINATION TYPE: XR chest 1V portable DATE OF EXAM: 05/28/2020 COMPARISON: 05/28/2020 HISTORY: Line placement TECHNIQUE: Single frontal view of the chest is obtained. FINDINGS: ET and NG tube in good position. PICC line noted. Diffuse bilateral airspace disease with cardiomegaly. Small bilateral effusions. No pneumothorax. Postsurgical change overlying the cervical spine. Left-sided central line appears new with tip overlying the SVC. No pneumothorax. IMPRESSION: 1. Diffuse pleural-parenchymal changes are stable. 2. New central line with tip overlying SVC and no sizable pneumothorax.
--- NOTE | 2020-05-28 11:59 | PN ---
PROGRESS NOTE PULMONARY/CRITICAL CARE PROGRESS NOTE: DATE OF SERVICE: 05/28/2020 Critical care time 34 minutes. This is a 65-year-old male who was admitted to the hospital with a diagnosis of respiratory failure and pneumonia. The patient has a history of right hemidiaphragm paralysis, status post diaphragmatic plication at [facility], bronchiectasis involving the right middle lobe and right lower lobe, asthma, who presented to the emergency department with shortness of breath. He also had some chills. He had symptoms for a couple days prior to admission. He apparently had no clear-cut exposure to COVID-19 patients. In addition, he had mild cough which was mostly nonproductive and also temperature of a 102 degrees. His pulse oximetry on room air was only 51%. He was admitted to the ICU after being evaluated by Dr. Antonio in the emergency department yesterday. We were very concerned that he might have COVID-19 pneumonia. This morning his COVID-19 test came back positive. Unfortunately, over the night, he became more short of breath, more tachypneic and dyspneic and eventually required intubation and mechanical ventilation. Prior to this, he was on AIRVO at 95% and a non- rebreather and was doing reasonably well. Currently, he is on the volume assist- control mode rate of 30, tidal volume 450, FiO2 of 100%, PEEP of 13. Blood gases show PO2 of 664, pCO2 of 57, and a pH of 7.23. He is getting saline at 130 mL an hour, propofol at 65 mcg/kg/per minute, Nimbex at 1 mcg/kg per minute with train of 4 monitoring. We are going to start tube feeds as well. His peak airway pressure is 33. His plateau pressure is 27. His COVID-19 test was positive. His chest x-ray this morning looks a bit better. Likely because of the positive-pressure ventilation. PAST MEDICAL HISTORY: Includes chronic bronchial asthma, CAD, diabetes, GERD, hypertension, sleep apnea, AAA with stent back in 2011, chronic back pain, restless legs syndrome, right diaphragm paralysis, status post plication, as well as bronchiectasis of the right middle and right lower lobe. SURGICAL HISTORY: Includes back and neck surgery, AAA stent placement, and plication of the right diaphragm. SOCIAL HISTORY: Positive for previous tobacco use. Denies any alcohol or illicit drug use. FAMILY HISTORY: Noncontributory. Mother was apparently healthy. HOME MEDICATIONS: Include Tylenol with codeine, aspirin, Lipitor, Symbicort, citalopram, vitamin D2, fenofibrate, gabapentin, Singulair, niacin, omeprazole, Spiriva, amlodipine, Coreg, metformin, and Requip. ALLERGIES: Denied. REVIEW OF SYSTEMS: Cannot be obtained. Current vital signs reviewed. Temperature 99.9, heart rate 88, respiratory rate 30, blood pressure 131/70 mean 90, saturations are in the mid to high 80s. Appears in no acute distress. Currently sedated and paralyzed. HEENT: Examination is grossly unremarkable. An orally placed endotracheal tube and NG tube. NECK: Supple, full range of motion. No adenopathy. Neck veins are flat. CARDIOVASCULAR: Examination reveals regular rhythm and rate. Heart rate mid to high 80s. LUNGS: Reveal diffuse coarse rhonchi. ABDOMEN: Soft. EXTREMITIES: Intact. No cyanosis, clubbing, or edema. SKIN: Without rash. NEUROLOGIC: Examination cannot be adequately assessed as he is currently sedated and paralyzed. His prior neurologic examination yesterday, was normal. CURRENT LABS: Reviewed. White count 8.5, hemoglobin 13.8, hematocrit 41.8, platelet count 345,000, blood gases have been noted. Blood gases prior to this included a pO2 of 51, pCO2 of 62, pH of 7.20. Sodium, potassium, chloride, CO2 normal. Anion gap normal. BUN and creatinine were 40 and 1.54. Most recent glucose was 215, magnesium 1.3, calcium 7.9. His urine was yellow and clear, 1+ protein, 1+ ketones, rare sediment, occasional bacteria. Inflammatory markers have been ordered. His most recent lactic acid was 1.1. His procalcitonin was elevated at 0.72. His C-reactive protein was 333. His most recent D- dimer was 0.4. Microbiology is currently negative. Chest x-ray shows improvement in bilateral infiltrates primarily because of positive- pressure ventilation. He has bilateral diffuse patchy infiltrates. Again, his COVID test by PCR was positive. CURRENT MEDICATIONS: Reviewed. He is on Tylenol, vitamin C, cefepime, chlorhexidine, vitamin D3, Nimbex, Decadron, Lovenox, famotidine, insulin p.r.n., melatonin, Narcan, propofol, Remdesivir, and zinc. ASSESSMENT: 1. Acute hypoxemic respiratory failure secondary to COVID-19 pneumonitis with intubation and mechanical ventilation this morning, May 28, 2020. 2. History of right diaphragm paralysis, status post plication at [facility]. 3. History of chronic bronchial asthma. 4. Bronchiectasis right middle, right lower lobe. 5. History of coronary artery disease. 6. Gastroesophageal reflux disease. 7. History of sleep apnea syndrome. 8. History of AAA stenting 2011. 9. History of chronic back pain. 10.Restless legs syndrome. 11.Previous history of tobacco use. PLAN: The patient was intubated based on worsening respiratory status and worsening arterial blood gases. The patient will have an art line and central line placed this morning. He was started on Remdesivir today. He will get 200 mg. He will get 100 mg IV for the next 4 days after today. We checked an L6 level to see if he would be a candidate for tocilizumab or Actemra. In addition, proinflammatory markers are measured. He was started on vitamin D, vitamin C, zinc, Pepcid, and melatonin. He is also on Decadron 6 mg IV daily. We are going to check with the blood bank about convalescent plasma. Additional recommendations and suggestions forthcoming. Critical care time 34 minutes. MMAJITL / ASHLEYN: [id number] /
[2020-05-28 12:04] LABS: Glucose,Whole Blood 228 mg/dL (75-99)
--- NOTE | 2020-05-28 14:50 | PCN ---
PROCEDURE NOTE RIGHT RADIAL ART LINE: OPERATORS: Dr. Carlson and Dr. Salinas PREOPERATIVE DIAGNOSIS: Frequent blood gases and blood gas monitoring POSTOPERATIVE DIAGNOSIS: Frequent blood gases and blood gas monitoring A time-out was completed verifying correct patient, procedure, site, positioning, and implant(s) or special equipment if applicable. Kofi's test was performed to ensure adequate perfusion. The patient's right/left wrist or right/left groin was prepped and draped in sterile fashion. 1% Lidocaine was used to anesthetize the area. An 18G Arrow arterial line was introduced into the radial/femoral artery. The catheter was threaded over the guide wire and the needle was removed with appropriate pulsatile blood return. Blood loss was minimal. The catheter was then sutured in place to the skin and a sterile dressing applied. Perfusion to the extremity distal to the point of catheter insertion was checked and found to be adequate. There was informed consent and universal timeout. The patient tolerated the procedure well. There was no immediate complication. The catheter was sutured in place and sterile dressing was applied by the nurse. LEFT SUBCLAVIAN TRIPLE-LUMEN CATHETER: Again, the operators were Dr. Carlson and Dr. Salinas. The left subclavian site was used. There was informed consent and universal timeout. The patient tolerated the procedure well. There was good blood return from all 3 ports. The catheter was sutured into place. A sterile dressing was applied by the nurse. The tip of the catheter was noted to be in the right atrium. A chest x-ray was ordered. There was no immediate complication. MMODL / IJN: [id number] /
[2020-05-28 16:43] LABS: Hemoglobin A1C 6.6 % (4.0-6.0)
[2020-05-28 17:17] LABS: Glucose,Whole Blood 226 mg/dL (75-99)
[2020-05-28 17:55] LABS: Ferritin 1808.3 ng/mL (22.0-322.0)
[2020-05-28] MEDS: MELATONIN 5 MG TABLET PO SCH (20:08)
[2020-05-28 23:20] LABS: Glucose,Whole Blood 192 mg/dL (75-99)
--- NOTE | 2020-05-29 00:02 | P.HPIM ---
History of Present Illness H&P Date: 05/27/20 Chief Complaint: Shortness of breath History of presenting complaint: This is a 65-year-old patient of Dr. Demond Harper. Chronic stable medical conditions include coronary artery disease, diabetes, GERD, hypertension, obstructive sleep apnea, chronic back pain, restless leg syndrome, history of diaphragmatic analysis. Patient presented to the ER with shortness of breath. Symptoms started about 24 hours ago. Also chills. He had no obvious cold exposure travel or contact with sick people. He's had a cough. She was febrile in the ER and hypoxic. No nausea vomiting or diarrhea. Has a history of diaphragmatic plication. He also has known bronchiectasis of the right middle and lower lobe. Patient was initially put on a nonrebreather mask start antibiotics steroids and over the ICU. Placed on Airvo Review of systems: GEN.: Tired EYES: None HEENT: None NECK: None RESPIRATORY: As above CARDIOVASCULAR: None GASTROINTESTINAL: None GENITOURINARY: None MUSCULOSKELETAL: Some joint pains] LYMPHATICS: None HEMATOLOGICAL: None PSYCHIATRY: None NEUROLOGICAL: None Past medical history to include: Asthma, coronary artery disease, diabetes, GERD, hypertension, obstructive sleep apnea, AAA with stent in 2012, restless leg syndrome, paralysis of diaphragmatic plication, back and neck surgery. Social history: Unable to obtain from the patient. Patient smoked pack and a half a day study age of 18 stop smoking 16 years ago. Family history: Unable to obtain because of patient's poor respiratory status Physical examination: VITAL SIGNS: 102.2, 115, 24, 165/98, 54% on room air-on presentation] GENERAL: BMI 32.4,. Short of breath on nonrebreather EYES: Pupils equal. Conjunctiva normal. HEENT: External appearance of nose and ears normal, oral cavity grossly normal. NECK: JVD unable to assess; masses not palpable. HEART: First and second heart sounds are normal; no edema. LUNGS: Respiratory rate increased, unable to speak in full sentences, poor air entry brown expiration. ABDOMEN: Soft, nontender, liver spleen not palpable, no masses palpable. PSYCH: Alert and oriented x3; mood and affect. Anxiousl. NEUROLOGICAL: Cranial nerves grossly intact; no facial asymmetry, power and sensation grossly intact. LYMPHATICS: No lymph nodes palpable in the axilla and neck INVESTIGATIONS, reviewed in the clinical context: White count 6.5 hemoglobin 14.8 platelets 2:30 Potassium 4.7 bun 30 creatinine 1.76 lactic acid 2.4 ferritin 2053 AST 73 ALT 59 LDH 1056 CRP 333 Influenza type A and type B both negative COVID 19 PCR pending EKG tracing personally reviewed by me-normal sinus rhythm Chest x-ray film personally reviewed by me-extensive bilateral infiltrates Assessment: -Bilateral pneumonia, suspect COVID 19 pneumonia, cannot rule out bacterial infection especially gram-negative -Acute hypoxic respiratory failure severe from above -Severe sepsis from pneumonia -Moderate persistent asthma with acute exacerbation -Coronary artery disease -Diabetes mellitus type 2 -GERD -Essential hypertension -Up sleep linda -History of right diaphragm paralysis with plication -Restless leg syndrome Plan: Patient placed in droplet precaution for COVID 19 pneumonia. Patient was initially placed on Airvo with FiO2 of 95%. Started on IV antibiotics steroids Lovenox IV fluids. Pulmonary Dr. Carlson was consulted. Placed in ICU. Progno sis guarded Past Medical History Past Medical History: Asthma, Coronary Artery Disease (CAD), Diabetes Mellitus, GERD/Reflux, Hypertension, Sleep Apnea/CPAP/BIPAP Additional Past Medical History / Comment(s): HX OF AAA WITH STENT (2011), BACK PAIN, RLS, SOB, HX OF PARALYSIS OF DIAPHRAM WITH PLICATION. History of Any Multi-Drug Resistant Organisms: None Reported Past Surgical History: Back Surgery Additional Past Surgical History / Comment(s): BACK AND NECK SURGERY, AAA WITH 3 PIECE STENT (2011), LUNG SURGERY. PLICATION OF DIAPHRAM Past Anesthesia/Blood Transfusion Reactions: No Reported Reaction Past Psychological History: No Psychological Hx Reported Smoking Status: Former smoker Past Alcohol Use History: None Reported Past Drug Use History: None Reported - Past Family History Mother Family Medical History: No Reported History Medications and Allergies Home Medications Medication Instructions Recorded Confirmed Type Acetaminophen-Codeine 300-30mg 1 tab PO Q6H PRN 12/31/19 05/27/20 History [Tylenol w/codeine #3] Aspirin 325 mg PO BID 12/31/19 05/27/20 History Atorvastatin [Lipitor] 20 mg PO HS 12/31/19 05/27/20 History Budesonide-Formot 160-4.5 Mcg 2 puff INHALATION RT-BID 12/31/19 05/27/20 History [Symbicort 160-4.5 Mcg Inhaler] Citalopram Hydrobromide 20 mg PO DAILY 12/31/19 05/27/20 History [Citalopram HBr] Ergocalciferol [Vitamin D2] 50,000 unit PO QMONTH 12/31/19 05/27/20 History Fenofibrate,Micronized 200 mg PO HS 12/31/19 05/27/20 History [Fenofibrate] Gabapentin [Neurontin] 100 mg PO HS 12/31/19 05/27/20 History Montelukast [Singulair] 10 mg PO DAILY 12/31/19 05/27/20 History Niacin [Niaspan] 1,000 mg PO DAILY 12/31/19 05/27/20 History Omeprazole 20 mg PO DAILY 12/31/19 05/27/20 History Tiotropium [place] [Spiriva] 1 cap INHALATION RT-DAILY 12/31/19 05/27/20 History amLODIPine [Norvasc] 10 mg PO DAILY 12/31/19 05/27/20 History carvediloL [Coreg] 12.5 mg PO BID 12/31/19 05/27/20 History metFORMIN HCL [Glucophage] 1,000 mg PO BID 12/31/19 05/27/20 History rOPINIRole HCL [Requip] 5 mg PO HS 12/31/19 05/27/20 History Allergies Allergy/AdvReac Type Severity Reaction Status Date / Time No Known Allergies Allergy Verified 05/27/20 12:34 Physical Exam Vitals: Vital Signs Temp Pulse Resp BP Pulse Ox 05/27/20 21:00 101 H 32 H 152/85 80 L 05/27/20 20:00 98.8 F 98 32 H 146/93 82 L 05/27/20 19:00 92 24 158/87 84 L 05/27/20 18:00 92 31 H 169/98 83 L 05/27/20 17:00 90 32 H 147/85 83 L 05/27/20 16:00 99.3 F 90 32 H 159/99 84 L 05/27/20 15:37 96 30 H 05/27/20 15:16 88 L 05/27/20 15:00 98.8 F 96 32 H 136/82 87 L 05/27/20 14:58 85 L 05/27/20 14:57 99.3 F 30 H 05/27/20 14:30 97 34 H 134/81 86 L 05/27/20 13:54 99.1 F 05/27/20 13:45 101 H 34 H 156/88 84 L 05/27/20 13:15 107 H 34 H 144/78 86 L 05/27/20 12:45 112 H 156/87 87 L 05/27/20 12:30 115 H 40 H 149/83 80 L 05/27/20 12:15 109 H 40 H 155/93 82 L 05/27/20 12:07 24 05/27/20 12:06 71 L 05/27/20 12:01 102.2 F H 115 H 24 165/98 54 L Intake and Output 05/27/20 05/27/20 05/27/20 06:59 14:59 22:59 Intake Total 1130 Output Total 1275 Balance -145 Intake: IV 1130 Azithromycin 500 mg In 250 Sodium Chloride 0.9% 250 ml @ 250 mls/hr IVPB ONCE STA Rx#:[id number] Sodium Chloride 0.9% 1, 780 000 ml @ 130 mls/hr IV . Q7H42M [facility] Rx#:[id number] cefTRIAXone 1 gm In 100 Sodium Chloride 0.9% 50 ml @ 100 mls/hr IVPB ONCE STA Rx#:[id number] Output: Urine 1275 Other: Voiding Method Indwelling Catheter Weight 107.7 kg Results CBC & Chem 7: 05/28/20 06:22 05/28/20 08:35 Labs: Abnormal Lab Results - Last 24 Hours (Table) 05/27/20 05/27/20 05/27/20 Range/Units 12:09 12:20 12:20 Lymphocytes # 0.7 L (1.0-4.8) k/uL ABG pO2 (83-108) mmHg ABG O2 Saturation (94-97) % Sodium 136 L (137-145) mmol/L BUN 30 H (9-20) mg/dL Creatinine 1.76 H (0.66-1.25) mg/dL Glucose 220 H (74-99) mg/dL POC Glucose (mg/dL) 221 H (75-99) mg/dL Plasma Lactic Acid Bakari (0.7-2.0) mmol/L Magnesium 1.1 L (1.6-2.3) mg/dL Ferritin 2053.0 H (22.0-322.0) ng/mL AST 73 H (17-59) U/L ALT 59 H (4-49) U/L Lactate Dehydrogenase 1056 H (313-618) U/L Troponin I (0.000-0.034) ng/mL C-Reactive Protein 333.3 H (<10.0) mg/L Procalcitonin (0.02-0.09) ng/mL Urine Protein (Negative) Urine Glucose (UA) (Negative) Urine Ketones (Negative) Urine Blood (Negative) Amorphous Sediment (None) /hpf Urine Bacteria (None) /hpf Hyaline Casts (0-2) /lpf Urine Mucus (None) /hpf 05/27/20 05/27/20 05/27/20 Range/Units 12:20 12:20 12:20 Lymphocytes # (1.0-4.8) k/uL ABG pO2 (83-108) mmHg ABG O2 Saturation (94-97) % Sodium (137-145) mmol/L BUN (9-20) mg/dL Creatinine (0.66-1.25) mg/dL Glucose (74-99) mg/dL POC Glucose (mg/dL) (75-99) mg/dL Plasma Lactic Acid Bakari 2.4 H* (0.7-2.0) mmol/L Magnesium (1.6-2.3) mg/dL Ferritin (22.0-322.0) ng/mL AST (17-59) U/L ALT (4-49) U/L Lactate Dehydrogenase (313-618) U/L Troponin I 0.107 H* (0.000-0.034) ng/mL C-Reactive Protein (<10.0) mg/L Procalcitonin 0.72 H (0.02-0.09) ng/mL Urine Protein (Negative) Urine Glucose (UA) (Negative) Urine Ketones (Negative) Urine Blood (Negative) Amorphous Sediment (None) /hpf Urine Bacteria (None) /hpf Hyaline Casts (0-2) /lpf Urine Mucus (None) /hpf 05/27/20 05/27/20 05/27/20 Range/Units 15:40 15:55 21:20 Lymphocytes # (1.0-4.8) k/uL ABG pO2 49 L* (83-108) mmHg ABG O2 Saturation 84.7 L (94-97) % Sodium (137-145) mmol/L BUN (9-20) mg/dL Creatinine (0.66-1.25) mg/dL Glucose (74-99) mg/dL POC Glucose (mg/dL) 198 H (75-99) mg/dL Plasma Lactic Acid Bakari (0.7-2.0) mmol/L Magnesium (1.6-2.3) mg/dL Ferritin (22.0-322.0) ng/mL AST (17-59) U/L ALT (4-49) U/L Lactate Dehydrogenase (313-618) U/L Troponin I (0.000-0.034) ng/mL C-Reactive Protein (<10.0) mg/L Procalcitonin (0.02-0.09) ng/mL Urine Protein 1+ H (Negative) Urine Glucose (UA) 4+ H (Negative) Urine Ketones 1+ H (Negative) Urine Blood Small H (Negative) Amorphous Sediment Rare H (None) /hpf Urine Bacteria Occasional H (None) /hpf Hyaline Casts 6 H (0-2) /lpf Urine Mucus Occasional H (None) /hpf 05/27/20 Range/Units 21:20 Lymphocytes # (1.0-4.8) k/uL ABG pO2 44 L* (83-108) mmHg ABG O2 Saturation 79.1 L (94-97) % Sodium (137-145) mmol/L BUN (9-20) mg/dL Creatinine (0.66-1.25) mg/dL Glucose (74-99) mg/dL POC Glucose (mg/dL) (75-99) mg/dL Plasma Lactic Acid Bakari (0.7-2.0) mmol/L Magnesium (1.6-2.3) mg/dL Ferritin (22.0-322.0) ng/mL AST (17-59) U/L ALT (4-49) U/L Lactate Dehydrogenase (313-618) U/L Troponin I (0.000-0.034) ng/mL C-Reactive Protein (<10.0) mg/L Procalcitonin (0.02-0.09) ng/mL Urine Protein (Negative) Urine Glucose (UA) (Negative) Urine Ketones (Negative) Urine Blood (Negative) Amorphous Sediment (None) /hpf Urine Bacteria (None) /hpf Hyaline Casts (0-2) /lpf Urine Mucus (None) /hpf Thrombosis Risk Factor Assmnt - Choose All That Apply Any of the Below Risk Factors Present?: Yes Each Factor Represents 1 point: Abnormal pulmonary function (COPD), Obesity (BMI >25), Sepsis (< 1month), Serious lung disease incl. pneumonia (< 1month) Other Risk Factors: Yes Each Risk Factor Represents 2 Points: Age 61-74 years Thrombosis Risk Factor Assessment Total Risk Factor Score: 6 Thrombosis Risk Factor Assessment Level: High Risk
--- NOTE | 2020-05-29 00:09 | P.PN ---
Progress Note - Text Progress Note Date: 05/28/20 Chief Complaint: Shortness of breath History of presenting complaint: This is a 65-year-old patient of Dr. Demond Harper. Chronic stable medical conditions include coronary artery disease, diabetes, GERD, hypertension, obstructive sleep apnea, chronic back pain, restless leg syndrome, history of diaphragmatic analysis. Patient presented to the ER with shortness of breath. Symptoms started about 24 hours ago. Also chills. He had no obvious cold exposure travel or contact with sick people. He's had a cough. She was febrile in the ER and hypoxic. No nausea vomiting or diarrhea. Has a history of diaphragmatic plication. He also has known bronchiectasis of the right middle and lower lobe. Patient was initially put on a nonrebreather mask start antibiotics steroids and over the ICU. Placed on Airvo Patient admitted with COVID 19 pneumonia, acute hypoxic respiratory failure- intubated. -Today-in the ICU. Prone position. Drips include Nimbex and propofol. Sitting at 130 mL an hour. 2 feeding at 10 mL an hour. FiO2 100 and a PEEP of 13 Review of systems-patient intubated Active Medications Acetaminophen (Acetaminophen Tab 325 Mg Tab) 650 mg PO Q4HR PRN PRN Reason: Fever and/or Mild Pain Ascorbic Acid (Ascorbic Acid 500 Mg Tab) 1,000 mg PO DAILY [facility] Last Admin: 05/28/20 09:10 Dose: 1,000 mg Documented by: Chlorhexidine Gluconate (Chlorhexidine Gluconate 15 Ml Cup) 15 ml MUCOUS MEM BID [facility] Last Admin: 05/28/20 20:08 Dose: 15 ml Documented by: Cholecalciferol (Cholecalciferol 400 Unit Tab) 400 unit PO DAILY [facility] Last Admin: 05/28/20 09:10 Dose: 400 unit Documented by: Dexamethasone Sodium Phosphate (Dexamethasone Sod Phosphate 4 Mg/Ml 1 Ml Vial) 6 mg IV DAILY [facility] Last Admin: 05/28/20 09:09 Dose: 6 mg Documented by: Enoxaparin Sodium (Enoxaparin 40 Mg/0.4 Ml Syringe) 40 mg SQ DAILY [facility] Last Admin: 05/28/20 09:09 Dose: 40 mg Documented by: Famotidine (Famotidine 20 Mg Tab) 20 mg PO BID [facility] Last Admin: 05/28/20 20:08 Dose: 20 mg Documented by: Sodium Chloride (Saline 0.9%) 1,000 mls @ 130 mls/hr IV .Q7H42M [facility] Last Admin: 05/28/20 20:07 Dose: 130 mls/hr Documented by: Cefepime HCl 1 gm/ Sodium (Chloride) 50 mls @ 12.5 mls/hr IVPB Q12HR [facility] Last Admin: 05/28/20 20:08 Dose: 12.5 mls/hr Documented by: Propofol 1,000 mg/ IV Solution 100 mls @ 0 mls/hr IV .Q0M [facility]; Protocol Last Admin: 05/28/20 22:16 Dose: 65 mcg/kg/min, 42.198 mls/hr Documented by: Cisatracurium Besylate 200 mg/ (Sodium Chloride) 200 mls @ 6.462 mls/hr IV .Q24H [facility]; Protocol Last Admin: 05/28/20 23:27 Dose: 1 mcg/kg/min, 6.462 mls/hr Documented by: Remdesivir 100 mg/ Sodium (Chloride) 250 mls @ 250 mls/hr IVPB DAILY [facility] Stop: 06/01/20 09:59 Insulin Aspart (Insulin Aspart (Novolog) 100 Unit/Ml Vial) 0 unit SQ 0000,0600,1200,1800 [facility]; Protocol Last Admin: 05/28/20 23:24 Dose: 5 unit Documented by: Melatonin (Melatonin 5 Mg Tablet) 5 mg PO HS [facility] Last Admin: 05/28/20 20:08 Dose: 5 mg Documented by: Naloxone HCl (Naloxone 0.4 Mg/Ml 1 Ml Vial) 0.2 mg IV Q2M PRN PRN Reason: Opioid Reversal Zinc Sulfate (Zinc Sulfate 220 Mg Cap) 220 mg PO DAILY [facility] Last Admin: 05/28/20 09:10 Dose: 220 mg Documented by: Physical examination: VITAL SIGNS: Height 8.8, 98, 28, 146.93, 82% GENERAL: Laying prone, intubated EYES: Pupils equal. Conjunctiva normal. NECK: JVD unable to assess; masses not palpable. HEART: Heart sounds distant; no edema. LUNGS: Respiratory rate increased, unable to speak in full sentences, poor air entry . ABDOMEN: Soft, nontender, liver spleen not palpable, no masses palpable. PSYCH: Sedated INVESTIGATIONS, reviewed in the clinical context: White count 8.5 hemoglobin 13.8 decreased lymphocytes potassium 4.8 creatinine 1.5 for magnesia 1.3 glucose 215 Admission testing: White count 6.5 hemoglobin 14.8 platelets 2:30 Potassium 4.7 bun 30 creatinine 1.76 lactic acid 2.4 ferritin 2053 AST 73 ALT 59 LDH 1056 CRP 333 Influenza type A and type B both negative COVID 19 PCR pending EKG tracing personally reviewed by me-normal sinus rhythm Chest x-ray film personally reviewed by me-extensive bilateral infiltrates Assessment: -Bilateral pneumonia, COVID 19 pneumonia, cannot rule out bacterial infection especially gram-negative slow to respond -Acute hypoxic respiratory failure severe from above-requiring ventilator support-slow to respond -Severe sepsis from pneumonia -Moderate persistent asthma with acute exacerbation-slow to respond -Coronary artery disease -Diabetes mellitus type 2 -GERD -Essential hypertension -Up sleep apnea -History of right diaphragm paralysis with plication -Restless leg syndrome Plan: currently on IV cefepime, vitamin C, IV Nimbex, IV Decadron, subcu Lovenox, IV propofol, Remdesivir air, zinc. In the ICU.
[2020-05-29] MEDS: SODIUM CHLORIDE 0.9% 1,000 ML IV SCH ×2 (03:07→11:33)
[2020-05-29 05:30] LABS: Basophils % (A) 1 %; Eosinophils % (A) 0 %; HCT 39.2 % (39.0-53.0); HGB 13.1 gm/dL (13.0-17.5); Lymphocytes # (A) 0.4 k/uL (1.0-4.8); Lymphocytes % (A) 5 %; MCH 33.2 pg (25.0-35.0); MCHC 33.4 g/dL (31.0-37.0); MCV 99.2 fL (80.0-100.0); Mean Platelet Volume 7.6; Monocytes # (A) 0.4 k/uL (0-1.0); Monocytes % (A) 5 %; Neutrophils # (A) 7.2 k/uL (1.3-7.7); Neutrophils % (A) 89 %; Platelet Count 265 k/uL (150-450); RBC 3.95 m/uL (4.30-5.90); RDW 13.6 % (11.5-15.5); WBC 8.1 k/uL (3.8-10.6)
[2020-05-29 05:36] LABS: Calcium 7.4 mg/dL (8.4-10.2); Magnesium 2.3 mg/dL (1.6-2.3); Potassium 5.4 mmol/L (3.5-5.1)
[2020-05-29 05:38] LABS: ABG HCO3 26 mmol/L (21-25); ABG Oxygen Saturation 90.8 % (94-97); ABG PCO2 61 mmHg (35-45); ABG PH 7.23 (7.35-7.45); ABG PO2 60 mmHg (83-108); ABG TCO2 27 mmol/L (19-24)
[2020-05-29 05:48] LABS: C Reactive Protein 236.5 mg/L (<10.0)
[2020-05-29 06:02] LABS: Glucose,Whole Blood 206 mg/dL (75-99)
[2020-05-29] MEDS: INSULIN ASPART (NovoLOG) 100 UNIT/ML VIAL SQ SCH ×3 (06:04→18:25)
[2020-05-29] MEDS ORDERED: FUROSEMIDE 10 MG/ML 4 ML VIAL IV STA (08:10)
[2020-05-29] MEDS: CHLORHEXIDINE GLUCONATE 15 ML CUP MUCOUS MEM SCH ×2 (08:42→20:59)
[2020-05-29] MEDS: CEFEPIME 1 GM in SODIUM CHLORIDE 0.9% 50 ML IVPB SCH ×2 (08:42→20:58)
[2020-05-29] MEDS: ENOXAPARIN 40 MG/0.4 ML SYRINGE SQ SCH (08:42)
[2020-05-29] MEDS: DEXAMETHASONE SOD PHOSPHATE 4 MG/ML 1 ML VIAL IV SCH (08:44)
[2020-05-29] MEDS: ASCORBIC ACID 500 MG TAB PO SCH (08:45)
[2020-05-29] MEDS: CHOLECALCIFEROL 400 UNIT TAB PO SCH (08:46)
[2020-05-29] MEDS: FAMOTIDINE 20 MG TAB PO SCH ×2 (08:46→20:59)
[2020-05-29] MEDS: ZINC SULFATE 220 MG CAP PO SCH (08:46)
[2020-05-29] MEDS: REMDESIVIR (EUA) 100 MG in SODIUM CHLORIDE 0.9% 250 ML IVPB SCH (09:41)
[2020-05-29] MEDS: CLEVIDIPINE BUTYRATE 25 MG in EMPTY BAG 1 BAG IV SCH ×4 (09:41→21:41)
--- NOTE | 2020-05-29 10:45 | PN ---
PROGRESS NOTE PULMONARY/CRITICAL CARE PROGRESS NOTE: DATE OF SERVICE: 05/29/2020 Critical care time 35 minutes. This is a 65-year-old male who was admitted to the hospital on May 27 with diagnosis of respiratory failure and pneumonia. The patient has a history of right diaphragm paralysis, status post diaphragmatic plication at [facility], bronchiectasis, which involves the right middle lobe and right lower lobe, chronic bronchial asthma, and other medical issues, who presented to the emergency department with shortness of breath. He also had some chills. He thought he had some fever and he had symptoms like this for a couple days prior to admission. He denied any clear- cut exposure to a COVID-19 patient. The patient also had some mild cough which is mostly nonproductive and as I mentioned temperature of 102 degrees. Initially, his pulse oximetry on room air was only 51%. He was admitted to the ICU. He was initially placed on 95% AIRVO and non-rebreather mask. Unfortunately, his COVID-19 test came back positive and because of worsening shortness of breath and profound hypoxemia, the patient was intubated on May 28. He currently remains on the ventilator. He is on the volume assist-control mode rate of 30, tidal volume 450, FiO2 of 100% PEEP of 13. Blood gases show a pO2 of 60, pCO2 of 61 and a pH of 7.23. He is getting saline at 130 to be dropped down to 40 mL an hour, propofol at 65 mcg/kg/per minute, Nimbex at 1 mcg/kg/per minute with train of 4 monitoring, and Vital high-protein at 23 with a goal of 23 mL an hour. The patient will get Lasix 40 mg IV push x1. We calculated his PaO2/FiO2 ratio which is only 60. This puts him in the range of severe ARDS. Yesterday, he was placed in a prone position on the bed for 16 hours. He will be prone again today. Essentially, his saturations have been hanging right around between 88% and 92%. His chest x-ray continues to show diffuse bilateral airspace disease. Current vital signs are reviewed, temperature 99.1, heart rate 82, respiratory rate 30, blood pressure 141/48, saturations are between 88% and 92% on 100% and 13 PEEP. Appears in no acute distress. HEENT: Examination is grossly unremarkable. NECK: Supple full range of motion. No adenopathy. Neck veins are flat. He does have an orally placed endotracheal tube and NG tube. NECK: Supple full range of motion. There is a left subclavian triple-lumen catheter. CARDIOVASCULAR: Examination reveals regular rhythm and rate. Heart rate 82 beats per minute. S1, S2 normal. Heart sounds are distant. LUNGS: Reveal diffuse bilateral rhonchi. No wheezes. No crackles. ABDOMEN: Soft, bowel sounds are heard. EXTREMITIES: Intact. No significant edema. SKIN: Without rash. NEUROLOGIC: Examination could not be adequately assessed. LABS: Reviewed. White count 8.1, hemoglobin 13.1, hematocrit 39.2, platelet count 205,000. Fibrinogen is 830. Blood gases have been noted. Sodium 137, potassium 5.4, chloride 105, CO2 is 27, anion gap is 5. BUN and creatinine 44 and 1.43, glucose 206, calcium 7.4. LDH 1088. CK of 168. C-reactive protein 236.5. We ordered an IO 6 level. It is not back yet. His procalcitonin level was 0.72. The most recent D-dimer was 0.43. Microbiology is currently negative. Chest x-ray shows diffuse bilateral airspace disease. MEDICATIONS: Reviewed. Currently, the patient is on Tylenol, vitamin C, cefepime, chlorhexidine, vitamin D3, Nimbex, Decadron, Lovenox, famotidine, insulin p.r.n., melatonin, Narcan, propofol, Remdesivir day #2, 0.9 at 40, and zinc. ASSESSMENT: 1. Acute hypoxemic respiratory failure secondary to COVID-19 pneumonitis with intubation, mechanical ventilation on May 28, 2020 and subsequent development of acute respiratory distress syndrome, which is severe, with a PaO2/FiO2 ratio that is 60. 2. History of right diaphragm paralysis, status post plication at [facility]. 3. History of chronic bronchial asthma. 4. Bronchiectasis right middle and right lower lobe. 5. History of coronary artery disease. 6. Gastroesophageal reflux disease. 7. History of sleep apnea syndrome. 8. History of AAA stenting, 2011. 9. History of chronic back pain. 10.Restless legs syndrome. 11.Previous history of tobacco use. PLAN: Currently, the patient has developed severe acute respiratory distress syndrome with a P/F ratio of 60. Currently, the patient is on all appropriate medications including Decadron, Remdesivir, vitamin C, vitamin D, melatonin, Pepcid, and antibiotics. The patient will get convalescent plasma. We did order an IL 6 level that was pending. If it comes back elevated, we will go ahead and get tocilizumab. Additional recommendations and suggestions are forthcoming. Prognosis is guarded. Will continue to follow. He will be proned again taper for 16 hours. Critical care time 35 minutes. SAURAV / ASHLEYN: [id number] / RONY
--- NOTE | 2020-05-29 11:28 | XR ---
EXAMINATION TYPE: XR chest 1V portable DATE OF EXAM: 05/29/2020 CLINICAL HISTORY: Tube placement. TECHNIQUE: Portable frontal view of the chest. COMPARISON: 08/28/2019 chest radiograph FINDINGS: Endotracheal tube distal tip just below the level of the clavicles. Left subclavian centra l venous catheter distal tip over the cavoatrial junction. Enteric tube over the left upper quadrant of the abdomen with nonvisualization of the distal tip. Spinal fusion hardware. Cardiomegaly. Diffuse patchy airspace opacities with some air bronchograms. Small right pleural effusion. No pneumothorax. IMPRESSION: Multilobar extensive airspace disease unchanged, likely pneumonia. Small right pleural e ffusion.
[2020-05-29 11:41] LABS: Glucose,Whole Blood 200 mg/dL (75-99)
[2020-05-29 12:30] LABS: Ferritin 2650.1 ng/mL (22.0-322.0)
[2020-05-29 18:26] LABS: Glucose,Whole Blood 210 mg/dL (75-99)
--- NOTE | 2020-05-29 20:15 | P.PN ---
Progress Note - Text Progress Note Date: 05/29/20 Chief Complaint: Shortness of breath History of presenting complaint: This is a 65-year-old patient of Dr. Demond Harper. Chronic stable medical conditions include coronary artery disease, diabetes, GERD, hypertension, obstructive sleep apnea, chronic back pain, restless leg syndrome, history of diaphragmatic analysis. Patient presented to the ER with shortness of breath. Symptoms started about 24 hours ago. Also chills. He had no obvious cold exposure travel or contact with sick people. He's had a cough. She was febrile in the ER and hypoxic. No nausea vomiting or diarrhea. Has a history of diaphragmatic plication. He also has known bronchiectasis of the right middle and lower lobe. Patient was initially put on a nonrebreather mask start antibiotics steroids and over the ICU. Placed on Airvo Patient admitted with COVID 19 pneumonia, acute hypoxic respiratory failure- intubated. On IV Nimbex and propofol. Prone position. ARDS. Today-ICU. (FiO2 100% PEEP of 13. Sinus rhythm. Dr. Carlson gave 1 dose of Lasix 40 mg. On IV clevidipine, propofol Review of systems-patient intubated Active Medications Acetaminophen (Acetaminophen Tab 325 Mg Tab) 650 mg PO Q4HR PRN PRN Reason: Fever and/or Mild Pain Ascorbic Acid (Ascorbic Acid 500 Mg Tab) 1,000 mg PO DAILY [facility] Last Admin: 05/29/20 08:45 Dose: 1,000 mg Documented by: Chlorhexidine Gluconate (Chlorhexidine Gluconate 15 Ml Cup) 15 ml MUCOUS MEM BID [facility] Last Admin: 05/29/20 08:42 Dose: 15 ml Documented by: Cholecalciferol (Cholecalciferol 400 Unit Tab) 400 unit PO DAILY [facility] Last Admin: 05/29/20 08:46 Dose: 400 unit Documented by: Dexamethasone Sodium Phosphate (Dexamethasone Sod Phosphate 4 Mg/Ml 1 Ml Vial) 6 mg IV DAILY [facility] Last Admin: 05/29/20 08:44 Dose: 6 mg Documented by: Enoxaparin Sodium (Enoxaparin 40 Mg/0.4 Ml Syringe) 40 mg SQ DAILY [facility] Last Admin: 05/29/20 08:42 Dose: 40 mg Documented by: Famotidine (Famotidine 20 Mg Tab) 20 mg PO BID [facility] Last Admin: 05/29/20 08:46 Dose: 20 mg Documented by: Sodium Chloride (Saline 0.9%) 1,000 mls @ 40 mls/hr IV .Q24H [facility] Last Admin: 05/29/20 11:33 Dose: 40 mls/hr Documented by: Cefepime HCl 1 gm/ Sodium (Chloride) 50 mls @ 12.5 mls/hr IVPB Q12HR [facility] Last Admin: 05/29/20 08:42 Dose: 12.5 mls/hr Documented by: Propofol 1,000 mg/ IV Solution 100 mls @ 0 mls/hr IV .Q0M [facility]; Protocol Last Admin: 05/29/20 18:26 Dose: 65 mcg/kg/min, 43.017 mls/hr Documented by: Cisatracurium Besylate 200 mg/ (Sodium Chloride) 200 mls @ 6.462 mls/hr IV .Q24H [facility]; Protocol Last Titration: 05/29/20 10:32 Dose: 2 mcg/kg/min, 12.924 mls/hr Documented by: Remdesivir 100 mg/ Sodium (Chloride) 250 mls @ 250 mls/hr IVPB DAILY [facility] Stop: 06/01/20 09:59 Last Admin: 05/29/20 09:41 Dose: 250 mls/hr Documented by: Clevidipine 25 mg/ IV Solution 50 mls @ 2 mls/hr IV .Q24H [facility]; Protocol Last Admin: 05/29/20 17:14 Dose: 8 mg/hr, 16 mls/hr Documented by: Insulin Aspart (Insulin Aspart (Novolog) 100 Unit/Ml Vial) 0 unit SQ 0000,0600,1200,1800 [facility]; Protocol Last Admin: 05/29/20 18:25 Dose: 6 unit Documented by: Melatonin (Melatonin 5 Mg Tablet) 5 mg PO HS [facility] Last Admin: 05/28/20 20:08 Dose: 5 mg Documented by: Naloxone HCl (Naloxone 0.4 Mg/Ml 1 Ml Vial) 0.2 mg IV Q2M PRN PRN Reason: Opioid Reversal Zinc Sulfate (Zinc Sulfate 220 Mg Cap) 220 mg PO DAILY [facility] Last Admin: 05/29/20 08:46 Dose: 220 mg Documented by: Physical examination: VITAL SIGNS: 9.9, 99, 30, 153/72, 86% on the ventilator GENERAL: Laying in bed, intubated Initial physical examination as per pulmonary EYES: Pupils equal. Conjunctiva normal. NECK: JVD unable to assess; masses not palpable. HEART: Heart sounds distant; no edema. LUNGS: Respiratory rate increased, decreased breath sounds. ABDOMEN: Soft, nontender, liver spleen not palpable, no masses palpable. PSYCH: Sedated INVESTIGATIONS, reviewed in the clinical context: White count 8.1 hemoglobin 13.1 platelets 265 potassium 5.4 creatinine 1.43 CRP 236 Admission testing: White count 6.5 hemoglobin 14.8 platelets 2:30 Potassium 4.7 bun 30 creatinine 1.76 lactic acid 2.4 ferritin 2053 AST 73 ALT 59 LDH 1056 CRP 333 Influenza type A and type B both negative COVID 19 PCR pending EKG tracing personally reviewed by me-normal sinus rhythm Chest x-ray film personally reviewed by me-extensive bilateral infiltrates Assessment: -Bilateral pneumonia, COVID 19 pneumonia, cannot rule out bacterial infection e specially gram-negative slow to respond -Moderate to severe ARDS-slow to respond -Acute hypoxic respiratory failure severe from above-requiring ventilator support-slow to respond -Severe sepsis from pneumonia -Moderate persistent asthma with acute exacerbation-slow to respond -Coronary artery disease -Diabetes mellitus type 2 -GERD -Essential hypertension -Up sleep apnea -History of right diaphragm paralysis with plication -Restless leg syndrome Plan: Continue IV cefepime, vitamin C, IV Nimbex, IV Decadron, subcu Lovenox, IV propofol, Remdesivir air, zinc. In the ICU. Prognosis guarded.
[2020-05-29] MEDS: CISATRACURIUM 200 MG in SODIUM CHLORIDE 0.9% 180 ML IV SCH (20:58)
[2020-05-29] MEDS: MELATONIN 5 MG TABLET PO SCH (21:16)
[2020-05-29] MEDS: ACETAMINOPHEN TAB 325 MG TAB PO PRN (21:16)
[2020-05-30 00:46] LABS: Glucose,Whole Blood 238 mg/dL (75-99)
[2020-05-30] MEDS: INSULIN ASPART (NovoLOG) 100 UNIT/ML VIAL SQ SCH ×2 (00:53→06:54)
[2020-05-30] MEDS: CLEVIDIPINE BUTYRATE 25 MG in EMPTY BAG 1 BAG IV SCH ×7 (01:00→21:39)
[2020-05-30 04:40] LABS: ABG Base Excess 2.6 mmol/L; ABG HCO3 31 mmol/L (21-25); ABG Oxygen Saturation 94.5 % (94-97); ABG PO2 77 mmHg (83-108); ABG TCO2 33 mmol/L (19-24)
[2020-05-30 04:44] LABS: ABG PCO2 78 mmHg (35-45)
[2020-05-30 04:45] LABS: Basophils # (A) 0.1 k/uL (0-0.2); Basophils % (A) 1 %; Eosinophils % (A) 0 %; HCT 42.5 % (39.0-53.0); HGB 14.1 gm/dL (13.0-17.5); Lymphocytes # (A) 0.3 k/uL (1.0-4.8); Lymphocytes % (A) 3 %; MCH 32.9 pg (25.0-35.0); MCHC 33.3 g/dL (31.0-37.0); MCV 98.9 fL (80.0-100.0); Mean Platelet Volume 7.2; Monocytes # (A) 0.6 k/uL (0-1.0); Monocytes % (A) 6 %; Neutrophils # (A) 8.3 k/uL (1.3-7.7); Neutrophils % (A) 89 %; Platelet Count 387 k/uL (150-450); RDW 13.4 % (11.5-15.5); WBC 9.4 k/uL (3.8-10.6)
[2020-05-30 05:00] LABS: Albumin 3.2 g/dL (3.5-5.0); Potassium 5.3 mmol/L (3.5-5.1); Total Bilirubin 0.6 mg/dL (0.2-1.3); Total Protein 6.1 g/dL (6.3-8.2)
[2020-05-30 05:04] LABS: D-Dimer 5.97 mg/L FEU (<0.60)
[2020-05-30 06:44] LABS: Glucose,Whole Blood 248 mg/dL (75-99)
--- NOTE | 2020-05-30 08:10 | XR ---
EXAMINATION TYPE: XR chest 1V portable DATE OF EXAM: 05/30/2020 CLINICAL HISTORY: Tube placement. TECHNIQUE: Portable semiupright view of the chest. COMPARISON: 05/29/2020 chest radiograph FINDINGS: Endotracheal tube distal tip midway between the clavicular heads and chencho. Left subclavi an central venous catheter and enteric tube redemonstrated. Nonvisualization of the distal tip of the enteric tube. Cardiomegaly. Multilobar patchy airspace disease, mildly improved on the right upper l obe versus 05/29/2020. No pneumothorax. Improved aeration of the right costophrenic angle. IMPRESSION: Multilobar pneumonia. Mildly improved aeration of the right upper lobe versus 05/29/2020 .
[2020-05-30] MEDS: DEXAMETHASONE SOD PHOSPHATE 4 MG/ML 1 ML VIAL IV SCH (08:43)
[2020-05-30] MEDS: ENOXAPARIN 40 MG/0.4 ML SYRINGE SQ SCH (08:44)
[2020-05-30] MEDS: ASCORBIC ACID 500 MG TAB PO SCH (08:44)
[2020-05-30] MEDS: CHLORHEXIDINE GLUCONATE 15 ML CUP MUCOUS MEM SCH ×2 (08:44→20:14)
[2020-05-30] MEDS: FAMOTIDINE 20 MG TAB PO SCH ×2 (08:44→20:14)
[2020-05-30] MEDS: CHOLECALCIFEROL 400 UNIT TAB PO SCH (08:45)
[2020-05-30] MEDS: ZINC SULFATE 220 MG CAP PO SCH (08:45)
[2020-05-30] MEDS: REMDESIVIR (EUA) 100 MG in SODIUM CHLORIDE 0.9% 250 ML IVPB SCH (09:11)
[2020-05-30] MEDS: CEFEPIME 1 GM in SODIUM CHLORIDE 0.9% 50 ML IVPB SCH ×2 (09:30→20:14)
[2020-05-30] MEDS: CISATRACURIUM 200 MG in SODIUM CHLORIDE 0.9% 180 ML IV SCH ×2 (09:31→18:42)
[2020-05-30 10:03] LABS: Ferritin 2515.3 ng/mL (22.0-322.0)
[2020-05-30] MEDS: TOCILIZUMAB 400 MG in SODIUM CHLORIDE 0.9% 80 ML IV SCH ×2 (10:14→21:07)
[2020-05-30] MEDS: SODIUM CHLORIDE 0.9% 1,000 ML IV SCH (12:44)
[2020-05-30 12:45] LABS: Glucose,Whole Blood 314 mg/dL (75-99)
[2020-05-30 12:45] LABS: Glucose,Whole Blood 310 mg/dL (75-99)
[2020-05-30] MEDS ORDERED: INSULIN REGULAR BOLUS (FROM DRIP BAG) IV PRN ×2 (12:45→13:17)
--- NOTE | 2020-05-30 13:09 | PN ---
PROGRESS NOTE DATE OF SERVICE: 05/30/2020. Critical care time is 34 minutes. HISTORY: This is a 65-year-old male who was admitted to the hospital May 27 with a diagnosis of respiratory failure and pneumonia. The patient does carry with him a diagnosis of right diaphragm paralysis, status post diaphragmatic plication at [facility], bronchiectasis of the right middle lobe and right lower lobe, chronic bronchial asthma, and a number of other medical issues. When he presented to the emergency room, he complained of shortness of breath, cough, chills, fever, and just not feeling well. Sure enough, the patient did test positive for COVID 19, although he states that there were no clear-cut exposures to patients with COVID 19. Anyway, the patient was initially reasonably stable. Since that time, the patient developed worsening hypoxemia at one point, was on both on AIRVO at 95% on non-rebreather, but unfortunately became more and more hypoxemic and developed more stay here is respiratory distress and required intubation and mechanical ventilation on May 28. Currently, the patient is in acute respiratory distress by definition. The patient is currently on the volume assist-control mode rate of 30, tidal volume 450, 100%, PEEP of 13 to be increased to 15. Blood gases today show a pO2 of 77, a pCO2 of 78, and a pH of 7.20. We will attempt to wean down the FiO2. The PEEP was increased so that we might be able to do that. Currently, the patient remains paralyzed on Nimbex 2.5 mcg/kg per minute, Cleviprex at 8 mg an hour, Diprivan at 65 mcg/kg/per minute, 0.9 at 40 mL an hour and Vital high-protein at 23 with a goal of 23 mL an hour. The patient is on day #3 of Remdesivir 100 mg IV, the patient will get tocilizumab 400 mg, and the patient did receive 1 unit of convalescent plasma. His situation is stable but very critically ill. His PaO2 FiO2 ratio is 60. PHYSICAL EXAMINATION: Current vital signs are reviewed temperature is 99.3 heart rate 91, respiratory rate is 30 blood pressure 150/70, mean is 96, saturations are mid to high 80s. Appears in no acute distress. He is currently sedated and paralyzed. HEENT: Examination is grossly unremarkable. There is an orally placed endotracheal tube and NG tube. NECK: Supple, full range of motion. No adenopathy. Neck veins are flat. CARDIOVASCULAR: Examination reveals regular rhythm rate. Heart rate 91, S1, S2 normal. No S3, S4, or murmur. Heart sounds are distant. LUNGS: Reveal diffuse coarse rhonchi. ABDOMEN: Soft, bowel sounds are noted. EXTREMITIES are intact. No cyanosis, clubbing, or edema. SKIN: Without rash. NEUROLOGIC: Examination cannot be adequately assessed. LAB DATA: Reviewed. White count 9.4, hemoglobin 14.1, hematocrit 42.5, platelet count 387,000. His fibrinogen today was 724. His D-dimer was 5.97. His blood gases have been noted. Sodium 140, potassium 5.3, chloride 105 CO2 of 30 anion gap is 5, BUN and creatinine were 40 and 1.22. Calcium is 8. His ferritin was 2515. His AST is 71, ALT 60. His LDH is increased to 1270. Creatine kinase 165. Troponin 0.107m, 0.112 and 0.029. C- reactive protein 174, total protein 6.1, interleukin-6 level is quite elevated at 185.9, and procalcitonin level 0.72. His COVID 19 test was positive. Microbiologic studies including blood and sputum sampling are negative. Chest x-ray shows maybe a slight improvement in aeration bilaterally. MEDICATIONS: Reviewed. Currently, he is on Tylenol, vitamin C, cefepime, chlorhexidine, vitamin D3, Nimbex, Cleviprex, Decadron, Lovenox, famotidine, Lasix p.r.n., insulin, melatonin, Narcan, propofol, Remdesivir day 3, 0.9, tocilizumab start today, and zinc. ASSESSMENT: 1. Acute hypoxemic respiratory failure secondary to COVID-19 pneumonitis with intubation and mechanical ventilation beginning on May 28 and subsequent development of acute respiratory distress syndrome, which is severe, with a PaO2/FiO2 ratio of 60. 2. History of right diaphragm paralysis, status post plication at [facility]. 3. History of chronic bronchial asthma. 4. Bronchiectasis, right middle and right lower lobe. 5. History of coronary artery disease. 6. Gastroesophageal reflux disease. 7. History of sleep apnea syndrome. 8. History of AAA stenting, 2011. 9. History of chronic back pain. 10.Restless legs syndrome. 11.Previous history of tobacco use. PLAN: Currently, the patient unfortunately has developed severe acute respiratory distress syndrome with a P/F ratio of 60. The patient is currently on appropriate medications including Decadron, Remdesivir day #3, vitamin C, vitamin D, melatonin, Pepcid, and antibiotics. In addition, the patient got 1 unit convalescent plasma and also will get tocilizumab today. His IL-6 level was quite high. The only other thing that we are going to add for the patient is therapeutic doses of Lovenox and see status significant rise in his D-dimer. His overall prognosis remains guarded. We will continue to follow. He continues with nourishment. The patient will continue with sedation and paralysis. Critical care time 34 minutes. MMAJITL / ASHLEYN: [id number] / MTDD
[2020-05-30] MEDS: INSULIN REGULAR 100 UNIT in SODIUM CHLORIDE 0.9% 100 ML IV SCH ×2 (13:28→18:42)
[2020-05-30 14:34] LABS: Glucose,Whole Blood 287 mg/dL (75-99)
[2020-05-30 15:04] LABS: Glucose,Whole Blood 276 mg/dL (75-99)
[2020-05-30 16:01] LABS: Glucose,Whole Blood 232 mg/dL (75-99)
[2020-05-30 17:05] LABS: Glucose,Whole Blood 240 mg/dL (75-99)
[2020-05-30 18:13] LABS: Glucose,Whole Blood 200 mg/dL (75-99)
[2020-05-30 19:09] LABS: Glucose,Whole Blood 179 mg/dL (75-99)
[2020-05-30] MEDS: MELATONIN 5 MG TABLET PO SCH (20:14)
[2020-05-30] MEDS: ENOXAPARIN 100 MG/ML SYRINGE SQ SCH (20:15)
[2020-05-30 20:22] LABS: Glucose,Whole Blood 185 mg/dL (75-99)
--- NOTE | 2020-05-30 21:12 | PN ---
PROGRESS NOTE DATE OF SERVICE: 05/30/2020 I am covering for Dr. Hinds. This 65-year-old gentleman who was admitted with bilateral pneumonia with Covid- 19 pneumonia is being closely monitored. The patient is on Remdesivir. The patient mechanically ventilated and sedated. Dr. Carlson is following the patient closely. The most recent chest x-ray which was evaluated personally by me showed extensive bilateral lesions, left more than the right. PAST MEDICAL HISTORY: Reviewed. REVIEW OF SYSTEM: Could not be taken, the patient on mechanical ventilation. MEDICATIONS: Current medications include Tylenol, vitamin C, Cefepime, Peridex, clevidipine, Lovenox 100 mg b.i.d., Pepcid, melatonin, Narcan, propofol, Remdesivir, and zinc and as well as Tocilizumab 400 mg. PHYSICAL EXAM: Patient is mechanically sedated. Pulse is 95, blood pressure is 120/62, respiration 13, temperature 99.4, pulse ox 92% on mechanical ventilation. Vent settings are noted. HEENT: Conjunctivae normal. Oral mucosa moist. CARDIOVASCULAR systems: S1, S2 muffled. RESPIRATIONS: A few scattered rhonchi. ABDOMEN: Soft. NERVOUS SYSTEM: Patient is mechanically sedated. LABS: Accu-Cheks 191, 185. CBC: WBC 9.2, hemoglobin 14.1. D-dimer is 5.97. Sodium 140, potassium 5.3 and procalcitonin 0.72. IL6 is 185. ASSESSMENT: 1. Acute bilateral Covid-19 interstitial pneumonia, left more than the right with acute hypoxic respiratory failure on mechanical ventilation. 2. Moderate to severe ARDS. 3. Severe sepsis from pneumonia. 4. Moderate persistent asthma acute exacerbation. 5. Coronary artery disease. 6. Diabetes mellitus type 2. 7. Gastroesophageal reflux disease. 8. Hypertension. 9. Sleep apnea. 10.History of right diaphragmatic paralysis. 11.History of restless leg syndrome. 12.Elevated inflammatory markers for Covid. 13.Hypomagnesemia. 14.Hyponatremia. 15.Hyperkalemia mild. 16.Lymphopenia. 17.Elevated D-dimer . 18.FULL CODE. RECOMMENDATIONS AND DISCUSSION: This 65-year-old gentleman who presented with multiple complex medical issues, we will monitor the patient closely, continue the current medications, management and symptomatic treatment. Continue with mechanical ventilation. Continue with steroids. Continue with Lovenox. Continue with Remdesivir. Continue with tocilizumab. Overall prognosis guarded because of multiple complex medical issues and further recommendations to follow. We will closely follow with Dr. Carlson. SAURAV / BRIAN: [id number] / MTDD
[2020-05-30 21:19] LABS: Glucose,Whole Blood 170 mg/dL (75-99)
[2020-05-30 22:24] LABS: Glucose,Whole Blood 177 mg/dL (75-99)
[2020-05-30 23:19] LABS: Glucose,Whole Blood 181 mg/dL (75-99)
[2020-05-31 00:20] LABS: Glucose,Whole Blood 179 mg/dL (75-99)
[2020-05-31 01:17] LABS: Glucose,Whole Blood 166 mg/dL (75-99)
[2020-05-31 02:19] LABS: Glucose,Whole Blood 181 mg/dL (75-99)
[2020-05-31 03:18] LABS: Glucose,Whole Blood 187 mg/dL (75-99)
[2020-05-31] MEDS: CLEVIDIPINE BUTYRATE 25 MG in EMPTY BAG 1 BAG IV SCH ×3 (03:38→22:19)
[2020-05-31 04:35] LABS: Glucose,Whole Blood 175 mg/dL (75-99)
[2020-05-31 04:48] LABS: Basophils # (A) 0.1 k/uL (0-0.2); Basophils % (A) 1 %; Eosinophils % (A) 0 %; HCT 40.6 % (39.0-53.0); HGB 13.6 gm/dL (13.0-17.5); Lymphocytes # (A) 0.5 k/uL (1.0-4.8); Lymphocytes % (A) 6 %; MCH 33.5 pg (25.0-35.0); MCHC 33.5 g/dL (31.0-37.0); MCV 99.8 fL (80.0-100.0); Mean Platelet Volume 7.4; Monocytes # (A) 0.5 k/uL (0-1.0); Monocytes % (A) 7 %; Neutrophils # (A) 6.4 k/uL (1.3-7.7); Neutrophils % (A) 84 %; Platelet Count 425 k/uL (150-450); RBC 4.07 m/uL (4.30-5.90); RDW 13.7 % (11.5-15.5); WBC 7.6 k/uL (3.8-10.6)
[2020-05-31 05:23] LABS: Glucose,Whole Blood 172 mg/dL (75-99)
[2020-05-31 05:55] LABS: ABG Base Excess 0.5 mmol/L; ABG HCO3 29 mmol/L (21-25); ABG PO2 140 mmHg (83-108); ABG TCO2 32 mmol/L (19-24); Allen Test Performed? Yes
[2020-05-31 05:58] LABS: ABG PCO2 86 mmHg (35-45); ABG PH 7.14 (7.35-7.45)
[2020-05-31 06:24] LABS: Glucose,Whole Blood 167 mg/dL (75-99)
[2020-05-31 06:25] LABS: Potassium 5.8 mmol/L (3.5-5.1)
[2020-05-31 06:26] LABS: Calcium 8.5 mg/dL (8.4-10.2)
[2020-05-31] MEDS: SODIUM CHLORIDE 0.9% 1,000 ML IV SCH (07:00)
[2020-05-31 07:09] LABS: Glucose,Whole Blood 180 mg/dL (75-99)
[2020-05-31 07:59] LABS: Glucose,Whole Blood 161 mg/dL (75-99)
[2020-05-31] MEDS: ASCORBIC ACID 500 MG TAB PO SCH (09:12)
[2020-05-31] MEDS: CHLORHEXIDINE GLUCONATE 15 ML CUP MUCOUS MEM SCH ×2 (09:13→20:03)
[2020-05-31] MEDS: FAMOTIDINE 20 MG TAB PO SCH ×2 (09:13→20:03)
[2020-05-31] MEDS: ZINC SULFATE 220 MG CAP PO SCH (09:13)
[2020-05-31] MEDS: ENOXAPARIN 100 MG/ML SYRINGE SQ SCH ×2 (09:13→20:03)
[2020-05-31] MEDS: DEXAMETHASONE SOD PHOSPHATE 4 MG/ML 1 ML VIAL IV SCH (09:13)
[2020-05-31] MEDS: CHOLECALCIFEROL 400 UNIT TAB PO SCH (09:13)
[2020-05-31 09:22] LABS: Glucose,Whole Blood 154 mg/dL (75-99)
[2020-05-31] MEDS: CISATRACURIUM 200 MG in SODIUM CHLORIDE 0.9% 180 ML IV SCH ×2 (09:27→18:06)
[2020-05-31] MEDS: REMDESIVIR (EUA) 100 MG in SODIUM CHLORIDE 0.9% 250 ML IVPB SCH (09:43)
[2020-05-31] MEDS: CEFEPIME 1 GM in SODIUM CHLORIDE 0.9% 50 ML IVPB SCH ×2 (09:44→20:03)
[2020-05-31 10:43] LABS: Glucose,Whole Blood 163 mg/dL (75-99)
--- NOTE | 2020-05-31 11:05 | PN ---
PROGRESS NOTE PULMONARY/CRITICAL CARE PROGRESS NOTE. DATE OF SERVICE: May 31, 2020. Critical care time 34 minutes. HISTORY: A 65-year-old male who was admitted back on May 27 with a diagnosis of respiratory failure and pneumonia. The patient does have a history of right diaphragm paralysis, status post diaphragmatic plication at [facility], bronchiectasis involving the right middle lobe and right lower lobe, chronic bronchial asthma, as well as another number of other medical issues. He presented to the emergency room on the complaining of shortness of breath, cough, chills, fever, and just not feeling well. The patient did test positive for COVID-19. Initially, the patient was reasonably stable but then developed worsening hypoxemia. At one point, he was on AIRVO at 95% along with a non-rebreather, but unfortunately developed tarah respiratory failure, required intubation and mechanical ventilation on May 28. Currently, the patient remains on the mechanical ventilator. He is on the volume assist-control mode rate of 30, tidal volume 450, FiO2 100%, PEEP of 15. Blood gases showed a pO2 of 140, pCO2 of 86, pH of 7.14. At that point, the rate was increased from 30 to 36 and the FiO2 is dropped down to 80%. He remains on saline at 40 mL an hour, Cleviprex has been weaned off, Nimbex at 2.5 mcg/kg per minute with train of 4 monitoring, propofol at 65 mcg/kg/per minute and Vital high-protein at 23 with a goal of 23 mL an hour. He is on all the usual medications for COVID-19 pneumonitis. He has received 1 unit of convalescent plasma, he has taken 4 days of his Remdesivir and he has received 2 doses of tocilizumab. Currently, his x-ray is about the same or slightly improved. PHYSICAL EXAMINATION: VITAL SIGNS: Current vital signs temperature 100.3, heart rate 102, respiratory rate 36, blood pressure 119/60, mean 79 saturations are 95%. Appears in no acute distress. Currently sedated and paralyzed. HEENT: Examination is grossly unremarkable. He has an orally placed endotracheal tube and NG tube. NECK: Supple, full range of motion. CARDIOVASCULAR: Examination reveals mild tachycardia. Heart rate 102. S1, S2 normal. No murmur. LUNGS: Reveal diffuse coarse rhonchi. No wheezes. No crackles. Breath sounds equal. ABDOMEN: Soft, bowel sounds are heard. EXTREMITIES are intact. Minimal edema. SKIN: Without rash. NEUROLOGIC: Examination could not be adequately assessed. LAB DATA: Reviewed. White count 7.6, hemoglobin 13.6, hematocrit 40.6, platelet count 425,000. His fibrinogen is 724. D-dimer 5.97. Blood gases have been noted. Sodium 140, potassium 5.8, chloride 108, CO2 27, anion gap 5 BUN and creatinine 75 and 1.89. Hemoglobin A1c is 6.6, calcium 8.5. His most recent ferritin was 2515. AST 71, ALT 60, LDH 1270. C-reactive protein 174 and procalcitonin level 0.72. Microbiology is currently all negative. No chest x-rays yet today. He is currently still prone. His chest x-ray from yesterday shows multi global airspace disease. CURRENT MEDICATIONS: Reviewed. He is currently on Tylenol, vitamin C, cefepime, chlorhexidine, vitamin D3, Nimbex, Cleviprex p.r.n., the Decadron, Lovenox, famotidine, insulin p.r.n., melatonin, Narcan, Diprivan, Remdesivir day #4, saline, and zinc. ASSESSMENT: 1. Acute hypoxemic respiratory failure secondary to COVID-19 pneumonitis with intubation and mechanical ventilation beginning on May 28, and subsequent development of acute respiratory distress syndrome, which is which is severe. 2. History of right diaphragm paralysis, status post plication at [facility]. 3. History of chronic bronchial asthma. 4. Right middle lobe and right lower lobe bronchiectasis. 5. History of coronary artery disease. 6. History of gastroesophageal reflux disease. 7. History of sleep apnea syndrome. 8. History of AAA stenting 2011. 9. History of chronic back pain. 10.Restless legs syndrome. 11.Previous history of tobacco use. PLAN: The patient will continue on his current regimen. He is day 4 5 on Remdesivir. The patient's FiO2 is dropped from 180%. The rate was increased to 36 from 30. Currently, the Cleviprex is off. He is being nourished with Vital high-protein at goal. We will continue with sedation and paralysis. The patient will be prone again today for 16 hours. No additional recommendations are made. Prognosis is guarded. The patient has received 1 unit of convalescent plasma, Remdesivir as mentioned, and 2 doses of tocilizumab. Critical care time 34 minutes. SAURAV / ASHLEYN: [id number] /
[2020-05-31 11:49] LABS: Glucose,Whole Blood 181 mg/dL (75-99)
[2020-05-31] MEDS: ACETAMINOPHEN TAB 325 MG TAB PO PRN (12:40)
[2020-05-31] MEDS ORDERED: SODIUM POLYSTYRENE SULFONATE 15 GM/60 ML BOTTLE PO ONE (12:48)
[2020-05-31 13:51] LABS: Glucose,Whole Blood 194 mg/dL (75-99)
--- NOTE | 2020-05-31 15:35 | XR ---
EXAMINATION TYPE: XR chest 1V portable DATE OF EXAM: 05/31/2020 COMPARISON: 05/30/2020 HISTORY: Check tube placement TECHNIQUE: Single view upright FINDINGS: Endotracheal tube is 7 cm from the chencho. There is diffuse patchy pulmonary edema. There i s left subclavian catheter with tip in the superior vena cava. There is nasogastric tube in the stoma ch. There are chest leads. Heart size is normal. IMPRESSION: Patchy bilateral pulmonary edema shows a changing pattern compared to yesterday and consi stent with RDS. There is improvement on the left side and worsening on the right side compared to yes terday.
[2020-05-31 16:10] LABS: Glucose,Whole Blood 185 mg/dL (75-99)
[2020-05-31 17:06] LABS: Glucose,Whole Blood 162 mg/dL (75-99)
--- NOTE | 2020-05-31 17:11 | PN ---
PROGRESS NOTE DATE OF SERVICE: 05/31/2020 I am covering for Dr. Hinds. This 65-year-old gentleman with a past medical history of COVID-19 pneumonia also had features of ARDS. Patient on mechanical ventilation. Dr. Carlson is following the patient closely. The patient is also receiving Cleviprex drip at this time. The most recent chest x-ray which was reviewed personally by me showed significant bilateral lesions, right more than the left. The patient also given Remdesivir. Dr. Carlson is following the patient closely. The past medical history reviewed. REVIEW OF SYSTEMS: Could not be taken. The patient is mechanically ventilated and sedated. MEDICATIONS: Current medications reviewed and include: 1. Tylenol. 2. Vitamins. 3. Cefepime. 4. Peridex. 5. Vitamin D3. 7. Clevidipine. 8. Decadron. 9. Lovenox. 10.Pepcid. 11.Melatonin. 12.Propofol. 13.Remdesivir. PHYSICAL EXAM: Patient is mechanically sedated. Pulse is 98. Blood pressure is 120/60, respirations 30, temperature 100.1, pulse ox 87 percent on mechanical ventilation. HEENT: Conjunctivae normal. NECK: No JVD. CARDIOVASCULAR: S1, S2 muffled. RESPIRATION: Breath sounds diminished in the bases. Bilateral scattered rhonchi and crackles. ABDOMEN: Soft. NERVOUS SYSTEM: No focal deficits. LABS: At this time shows Accu-Cheks 185. WBC 7.2, hemoglobin 13.6. ABG showed pH of 7.14. ASSESSMENT: 1. Acute bilateral Covid-19 pneumonia, left more than the right with acute hypoxic respiratory failure with possible sepsis, on mechanical ventilation. 2. Moderate to severe ARDS. 3. Severe sepsis from pneumonia. 4. Moderate persistent asthma, acute exacerbation. 5. Right diaphragmatic paralysis with plication at [facility] previously. 6. History of coronary artery disease. 7. Diabetes mellitus type 2. 8. History of gastroesophageal reflux disease. 9. Hypertension. 10.Obstructive sleep apnea. 11.History of restless legs syndrome. 12.Elevated inflammatory markers with Covid. 13.Hypomagnesemia. 14.Hyponatremia. 15.Hyperkalemia mild. 16.Leukopenia. 17.Elevated D-dimer. 18.FULL CODE. RECOMMENDATIONS AND DISCUSSION: I recommend to continue current management and symptomatic treatment. Continue the bronchodilators. Continue the current medications and Remdesivir. The patient has finished a course of tocilizumab, prone ventilation for 16 hours. The prognosis is guarded because of multiple complex medical issues. Closely follow with Dr. Carlson. Chest x-ray reviewed. Further recommendations to follow. MMODL / IJN: [id number] / MTDD
[2020-05-31 18:05] LABS: Glucose,Whole Blood 150 mg/dL (75-99)
[2020-05-31] MEDS: INSULIN REGULAR 100 UNIT in SODIUM CHLORIDE 0.9% 100 ML IV SCH (18:07)
[2020-05-31] MEDS: MELATONIN 5 MG TABLET PO SCH (20:03)
[2020-05-31 20:51] LABS: Glucose,Whole Blood 208 mg/dL (75-99)
[2020-05-31 22:15] LABS: Glucose,Whole Blood 189 mg/dL (75-99)
[2020-06-01 00:24] LABS: Glucose,Whole Blood 185 mg/dL (75-99)
[2020-06-01] MEDS: ACETAMINOPHEN TAB 325 MG TAB PO PRN ×2 (00:37→18:51)
[2020-06-01] MEDS: CISATRACURIUM 200 MG in SODIUM CHLORIDE 0.9% 180 ML IV SCH ×2 (01:43→19:52)
[2020-06-01 01:54] LABS: Glucose,Whole Blood 174 mg/dL (75-99)
[2020-06-01 03:50] LABS: Glucose,Whole Blood 166 mg/dL (75-99)
[2020-06-01 04:11] LABS: Albumin 2.7 g/dL (3.5-5.0); C Reactive Protein 58.8 mg/L (<10.0); Calcium 8.1 mg/dL (8.4-10.2); Potassium 5.5 mmol/L (3.5-5.1); Total Bilirubin 0.6 mg/dL (0.2-1.3); Total Protein 5.3 g/dL (6.3-8.2)
[2020-06-01 04:22] LABS: Basophils # (A) 0.1 k/uL (0-0.2); Basophils % (A) 1 %; Eosinophils # (A) 0.1 k/uL (0-0.7); Eosinophils % (A) 1 %; HCT 41.1 % (39.0-53.0); HGB 14.4 gm/dL (13.0-17.5); Lymphocytes % (A) 9 %; MCH 34.5 pg (25.0-35.0); MCV 98.6 fL (80.0-100.0); Mean Platelet Volume 7.9; Monocytes # (A) 0.5 k/uL (0-1.0); Monocytes % (A) 5 %; Neutrophils # (A) 9.1 k/uL (1.3-7.7); Neutrophils % (A) 83 %; Platelet Count 460 k/uL (150-450); RBC 4.17 m/uL (4.30-5.90); RDW 13.8 % (11.5-15.5); WBC 11.1 k/uL (3.8-10.6)
[2020-06-01] MEDS: CLEVIDIPINE BUTYRATE 25 MG in EMPTY BAG 1 BAG IV SCH (04:23)
[2020-06-01 04:25] LABS: D-Dimer 7.41 mg/L FEU (<0.60)
[2020-06-01 04:42] LABS: Polychromasia Present
[2020-06-01 04:43] LABS: Large Platelets Present
[2020-06-01 05:23] LABS: ABG Base Excess 2.6 mmol/L; ABG HCO3 29 mmol/L (21-25); ABG Oxygen Saturation 90.8 % (94-97); ABG PCO2 57 mmHg (35-45); ABG PH 7.31 (7.35-7.45); ABG PO2 63 mmHg (83-108); ABG TCO2 31 mmol/L (19-24); Allen Test Performed? Yes
[2020-06-01 05:51] LABS: Glucose,Whole Blood 159 mg/dL (75-99)
[2020-06-01] MEDS: ASCORBIC ACID 500 MG TAB PO SCH (08:01)
[2020-06-01] MEDS: FAMOTIDINE 20 MG TAB PO SCH ×2 (08:01→20:22)
[2020-06-01] MEDS: ENOXAPARIN 100 MG/ML SYRINGE SQ SCH ×2 (08:01→20:22)
[2020-06-01] MEDS: ZINC SULFATE 220 MG CAP PO SCH (08:01)
[2020-06-01] MEDS: CHLORHEXIDINE GLUCONATE 15 ML CUP MUCOUS MEM SCH ×2 (08:01→20:22)
[2020-06-01] MEDS: DEXAMETHASONE SOD PHOSPHATE 4 MG/ML 1 ML VIAL IV SCH (08:02)
[2020-06-01] MEDS: CEFEPIME 1 GM in SODIUM CHLORIDE 0.9% 50 ML IVPB SCH ×2 (08:02→20:37)
[2020-06-01] MEDS: CHOLECALCIFEROL 400 UNIT TAB PO SCH (08:02)
[2020-06-01] MEDS ORDERED: FUROSEMIDE 10 MG/ML 4 ML VIAL IV STA (08:02)
[2020-06-01] MEDS: amLODIPine 10 MG TAB PO SCH (08:10)
[2020-06-01] MEDS: carvediloL 12.5 MG TAB PO SCH ×2 (08:10→17:09)
[2020-06-01 08:23] LABS: Glucose,Whole Blood 168 mg/dL (75-99)
[2020-06-01 08:45] LABS: ABG Base Excess 0.6 mmol/L; ABG HCO3 28 mmol/L (21-25); ABG Oxygen Saturation 91.4 % (94-97); ABG PCO2 63 mmHg (35-45); ABG PH 7.25 (7.35-7.45); ABG PO2 66 mmHg (83-108); ABG TCO2 30 mmol/L (19-24)
[2020-06-01 08:47] LABS: Allen Test Performed? no
[2020-06-01] MEDS: REMDESIVIR (EUA) 100 MG in SODIUM CHLORIDE 0.9% 250 ML IVPB SCH (10:21)
[2020-06-01 10:31] LABS: Glucose,Whole Blood 192 mg/dL (75-99)
--- NOTE | 2020-06-01 12:07 | P.PN ---
Subjective Progress Note Date: 06/01/20 This is a 65-year-old male patient was admitted on 05/27/2020 for respiratory failure and pneumonia. The patient has a history of right hemidiaphragmatic paralysis for which she has undergone a diaphragmatic plication at [facility]. The patient also has chronic bronchiectasis involving the right middle lobe and right lower lobe in addition to bronchial asthma. The patient presented to the ED on 05/27/2024 shortness of breath, cough and chills and fever and not feeling well and he was tested positive for coronavirus Covid 19. The patient was initially treated with high flow oxygen along with nonrebreather mask. Unfortunately, he continued to have difficulty breathing and respiratory failure and he required intubation and mechanical ventilation on 05/28/2020. The patient currently is on mechanical ventilation, sedated and he remains on assist control mode at the rate of 36, tidal volume of 450, FiO2 of 80% and PEEP of 15. The patient is also paralyzed with Nimbex at 3.5 g per KG per minute and propofol currently is running at 65 g per KG per minute. The patient is receiving enteral feeding for nutritional support with vital high protein running at 20 mL an hour. The patient is currently on Remdesivir, 2 doses of Tocilizumab and received convelescent plasma and Decadron, pepsid, melatonin and Zinc and the patient is receiving emperic antibiotics with IV Cefepime. . The patient is also on clevidipine drip for blood pressure control. Insulin is being utilized for blood sugar control. the patient has she will the patient has a triple-lumen catheter in the left subclavian. Noted the patient is also receiving intermittent phoning and he was on for a total of 16 hours yesterday and this morning he was still prolonged and I was able to put him back in a supine body position. He had a fever of 100.2 this morning. He is essentially on the same vent setting. His blood gases from today showed a pH of 7.31 with a pCO2 of 57 and pO2 of 63. Peak air pressure was around 42. Static pressure was 35. Based on that, I dropped his tidal volume to 400 and this brought on the static pressure down to 27. A subsequent blood gases showed a pH of 7.25 with a pCO2 of 63 and pO2 of 66. The patient otherwise has diffuse bilateral pulmonary infiltrates consistent with Covid 19 pneumonia. He is on x Cleviprex drip at 4 mg an hour for blood pressure control. The fluid balance is positive around 1.7 L over the past 24 hours. He would benefit from diuresis. Enteral feeding with vital high protein only when the patient is in supine body position. Objective - Vital Signs Vital signs: Vital Signs Temp 99.7 F H 06/01/20 06:00 Pulse 105 H 06/01/20 07:00 Resp 28 H 06/01/20 07:00 BP 119/67 06/01/20 07:00 Pulse Ox 87 L 06/01/20 07:00 Intake & Output 05/31/20 06/01/20 06/01/20 18:59 06:59 18:59 Intake Total 2124.694 1300.872 40 Output Total 925 770 60 Balance 1199.694 530.872 -20 Weight 108.2 kg Intake: IV 660 530 40 Cefepime 1 gm In Sodium 50 50 Chloride 0.9% 50 ml @ 12. 5 mls/hr IVPB Q12HR MARCELINO Rx#:[id number] Remdesivir (Eua) 100 mg 250 In Sodium Chloride 0.9% 250 ml @ 250 mls/hr IVPB DAILY MARCELINO Rx#:[id number] Sodium Chloride 0.9% 1, 360 480 40 000 ml @ 40 mls/hr IV . Q24H MARCELINO Rx#:[id number] Intake, IV Titration 928.694 747.872 Amount Cisatracurium 200 mg In 316.746 172.266 Sodium Chloride 0.9% 180 ml @ 1 MCG/KG/MIN 6.462 mls/hr IV .Q24H MARCELION Rx#: [id number] Clevidipine Butyrate 25 0.600 76.000 mg In Empty Bag 1 bag @ 1 MG/HR 2 mls/hr IV .Q24H MARCELINO Rx#:[id number] Insulin Regular 100 unit 51.812 41.848 In Sodium Chloride 0.9% 100 ml @ Per Protocol IV .Q0M MARCELINO Rx#:[id number] propofoL 1,000 mg In 559.536 457.758 Empty Bag 1 bag @ Titrate IV .Q0M MARCELINO Rx#: [id number] Tube Feeding 276 23 Other 260 Output: Urine 925 770 60 Other: Voiding Method Indwelling Catheter Indwelling Catheter ABP, PAP, CO, CI - Last Documented Arterial Blood Pressure 147/55 - Exam Gen. appearance the patient is calm and comfortable sedated and paralyzed on her stress synchronous with the mechanical ventilator. Earlier this morning the patient was in a prone body position and the patient was subsequently switched to supine. Head exam was generally normal. There was no scleral icterus or corneal arcus. Mucous membranes were moist. Neck was supple and without jugular venous distension, thyromegaly, or carotid bruits. Carotids were easily palpable bilaterally. There was no adenopathy.Roxanne gastric and orotracheal tube are both in place. Lungs sounds are diminished and the patient has some crackles in lung bases bilaterally. Cardiac exam revealed the PMI to be normally situated and sized. The rhythm was regular and no extrasystoles were noted during several minutes of auscultation. The first and second heart sounds were normal and physiologic splitting of the second heart sound was noted. There were no murmurs, rubs, clicks, or gallops. Abdominal exam revealed normal bowel sounds. The abdomen was soft, non-tender, and without masses, organomegaly, or appreciable enlargement of the abdominal aorta. Examination of the extremities revealed easily palpable radial, femoral and pedal pulses. There was no cyanosis, clubbing or edema. Examination of the skin revealed no evidence of significant rashes, suspicious appearing nevi or other concerning lesions. Neurologicallythe patient sedated a paralyzed. - Labs CBC & Chem 7: 06/01/20 03:50 06/01/20 03:50 Labs: Abnormal Lab Results - Last 24 Hours (Table) 05/31/20 05/31/20 05/31/20 Range/Units 07:57 09:20 10:41 WBC (3.8-10.6) k/uL RBC (4.30-5.90) m/uL Plt Count (150-450) k/uL Neutrophils # (1.3-7.7) k/uL Fibrinogen (200-500) mg/dL D-Dimer (<0.60) mg/L FEU ABG pH (7.35-7.45) ABG pCO2 (35-45) mmHg ABG pO2 (83-108) mmHg ABG HCO3 (21-25) mmol/L ABG Total CO2 (19-24) mmol/L ABG O2 Saturation (94-97) % Potassium (3.5-5.1) mmol/L Chloride (98-107) mmol/L BUN (9-20) mg/dL Creatinine (0.66-1.25) mg/dL Glucose (74-99) mg/dL POC Glucose (mg/dL) 161 H 154 H 163 H (75-99) mg/dL Calcium (8.4-10.2) mg/dL AST (17-59) U/L ALT (4-49) U/L Lactate Dehydrogenase (313-618) U/L Creatine Kinase (55-170) U/L Troponin I (0.000-0.034) ng/mL C-Reactive Protein (<10.0) mg/L Total Protein (6.3-8.2) g/dL Albumin (3.5-5.0) g/dL 05/31/20 05/31/20 05/31/20 Range/Units 11:48 13:49 16:09 WBC (3.8-10.6) k/uL RBC (4.30-5.90) m/uL Plt Count (150-450) k/uL Neutrophils # (1.3-7.7) k/uL Fibrinogen (200-500) mg/dL D-Dimer (<0.60) mg/L FEU ABG pH (7.35-7.45) ABG pCO2 (35-45) mmHg ABG pO2 (83-108) mmHg ABG HCO3 (21-25) mmol/L ABG Total CO2 (19-24) mmol/L ABG O2 Saturation (94-97) % Potassium (3.5-5.1) mmol/L Chloride (98-107) mmol/L BUN (9-20) mg/dL Creatinine (0.66-1.25) mg/dL Glucose (74-99) mg/dL POC Glucose (mg/dL) 181 H 194 H 185 H (75-99) mg/dL Calcium (8.4-10.2) mg/dL AST (17-59) U/L ALT (4-49) U/L Lactate Dehydrogenase (313-618) U/L Creatine Kinase (55-170) U/L Troponin I (0.000-0.034) ng/mL C-Reactive Protein (<10.0) mg/L Total Protein (6.3-8.2) g/dL Albumin (3.5-5.0) g/dL 05/31/20 05/31/20 05/31/20 Range/Units 17:01 18:04 20:50 WBC (3.8-10.6) k/uL RBC (4.30-5.90) m/uL Plt Count (150-450) k/uL Neutrophils # (1.3-7.7) k/uL Fibrinogen (200-500) mg/dL D-Dimer (<0.60) mg/L FEU ABG pH (7.35-7.45) ABG pCO2 (35-45) mmHg ABG pO2 (83-108) mmHg ABG HCO3 (21-25) mmol/L ABG Total CO2 (19-24) mmol/L ABG O2 Saturation (94-97) % Potassium (3.5-5.1) mmol/L Chloride (98-107) mmol/L BUN (9-20) mg/dL Creatinine (0.66-1.25) mg/dL Glucose (74-99) mg/dL POC Glucose (mg/dL) 162 H 150 H 208 H (75-99) mg/dL Calcium (8.4-10.2) mg/dL AST (17-59) U/L ALT (4-49) U/L Lactate Dehydrogenase (313-618) U/L Creatine Kinase (55-170) U/L Troponin I (0.000-0.034) ng/mL C-Reactive Protein (<10.0) mg/L Total Protein (6.3-8.2) g/dL Albumin (3.5-5.0) g/dL 05/31/20 06/01/20 06/01/20 Range/Units 22:12 00:22 01:52 WBC (3.8-10.6) k/uL RBC (4.30-5.90) m/uL Plt Count (150-450) k/uL Neutrophils # (1.3-7.7) k/uL Fibrinogen (200-500) mg/dL D-Dimer (<0.60) mg/L FEU ABG pH (7.35-7.45) ABG pCO2 (35-45) mmHg ABG pO2 (83-108) mmHg ABG HCO3 (21-25) mmol/L ABG Total CO2 (19-24) mmol/L ABG O2 Saturation (94-97) % Potassium (3.5-5.1) mmol/L Chloride (98-107) mmol/L BUN (9-20) mg/dL Creatinine (0.66-1.25) mg/dL Glucose (74-99) mg/dL POC Glucose (mg/dL) 189 H 185 H 174 H (75-99) mg/dL Calcium (8.4-10.2) mg/dL AST (17-59) U/L ALT (4-49) U/L Lactate Dehydrogenase (313-618) U/L Creatine Kinase (55-170) U/L Troponin I (0.000-0.034) ng/mL C-Reactive Protein (<10.0) mg/L Total Protein (6.3-8.2) g/dL Albumin (3.5-5.0) g/dL 06/01/20 06/01/20 06/01/20 Range/Units 03:48 03:50 03:50 WBC (3.8-10.6) k/uL RBC (4.30-5.90) m/uL Plt Count (150-450) k/uL Neutrophils # (1.3-7.7) k/uL Fibrinogen 519 H (200-500) mg/dL D-Dimer 7.41 H (<0.60) mg/L FEU ABG pH (7.35-7.45) ABG pCO2 (35-45) mmHg ABG pO2 (83-108) mmHg ABG HCO3 (21-25) mmol/L ABG Total CO2 (19-24) mmol/L ABG O2 Saturation (94-97) % Potassium 5.5 H (3.5-5.1) mmol/L Chloride 112 H (98-107) mmol/L BUN 100 H (9-20) mg/dL Creatinine 2.11 H (0.66-1.25) mg/dL Glucose 161 H (74-99) mg/dL POC Glucose (mg/dL) 166 H (75-99) mg/dL Calcium 8.1 L (8.4-10.2) mg/dL AST 67 H (17-59) U/L ALT 59 H (4-49) U/L Lactate Dehydrogenase 949 H (313-618) U/L Creatine Kinase 725 H (55-170) U/L Troponin I (0.000-0.034) ng/mL C-Reactive Protein 58.8 H (<10.0) mg/L Total Protein 5.3 L (6.3-8.2) g/dL Albumin 2.7 L (3.5-5.0) g/dL 06/01/20 06/01/20 06/01/20 Range/Units 03:50 03:50 05:18 WBC 11.1 H (3.8-10.6) k/uL RBC 4.17 L (4.30-5.90) m/uL Plt Count 460 H (150-450) k/uL Neutrophils # 9.1 H (1.3-7.7) k/uL Fibrinogen (200-500) mg/dL D-Dimer (<0.60) mg/L FEU ABG pH 7.31 L (7.35-7.45) ABG pCO2 57 H (35-45) mmHg ABG pO2 63 L (83-108) mmHg ABG HCO3 29 H (21-25) mmol/L ABG Total CO2 31 H (19-24) mmol/L ABG O2 Saturation 90.8 L (94-97) % Potassium (3.5-5.1) mmol/L Chloride (98-107) mmol/L BUN (9-20) mg/dL Creatinine (0.66-1.25) mg/dL Glucose (74-99) mg/dL POC Glucose (mg/dL) (75-99) mg/dL Calcium (8.4-10.2) mg/dL AST (17-59) U/L ALT (4-49) U/L Lactate Dehydrogenase (313-618) U/L Creatine Kinase (55-170) U/L Troponin I 0.038 H* (0.000-0.034) ng/mL C-Reactive Protein (<10.0) mg/L Total Protein (6.3-8.2) g/dL Albumin (3.5-5.0) g/dL 06/01/20 Range/Units 05:49 WBC (3.8-10.6) k/uL RBC (4.30-5.90) m/uL Plt Count (150-450) k/uL Neutrophils # (1.3-7.7) k/uL Fibrinogen (200-500) mg/dL D-Dimer (<0.60) mg/L FEU ABG pH (7.35-7.45) ABG pCO2 (35-45) mmHg ABG pO2 (83-108) mmHg ABG HCO3 (21-25) mmol/L ABG Total CO2 (19-24) mmol/L ABG O2 Saturation (94-97) % Potassium (3.5-5.1) mmol/L Chloride (98-107) mmol/L BUN (9-20) mg/dL Creatinine (0.66-1.25) mg/dL Glucose (74-99) mg/dL POC Glucose (mg/dL) 159 H (75-99) mg/dL Calcium (8.4-10.2) mg/dL AST (17-59) U/L ALT (4-49) U/L Lactate Dehydrogenase (313-618) U/L Creatine Kinase (55-170) U/L Troponin I (0.000-0.034) ng/mL C-Reactive Protein (<10.0) mg/L Total Protein (6.3-8.2) g/dL Albumin (3.5-5.0) g/dL Microbiology - Last 24 Hours (Table) 05/31/20 12:30 Urine Culture - Preliminary Urine,Catheterized 05/27/20 12:20 Blood Culture - Preliminary Blood No Growth after 96 hours Assessment and Plan Plan: 1 acute hypoxic respiratory failure secondary to Covid 19 pneumonitis. The patient remains intubated on a mechanical ventilator. The patient was intubated on 05/28/2020. The patient is profoundly hypoxic. The patient is being positioned in a prone position for several hours on a daily basis and for yesterday was prone for a total of 16 hours and early this morning the patient was switched back to supine by repositioning. The patient remains on a combination of propofol and then backs for sedation and paralysis. Blood gases was noted. Chest x-ray was noted. The patient should/early pneumonia. The patient is still having borderline oxygenation. Peak and static pressure quite elevated indicating poor lung compliance. Consider possibility of an underlying evolving ARDS. 2 acute Covid 19 pneumonitis, completed Remdesivir and Tocilizumab, and currently the patient is on IV Decadron, zinc sulfate, melatonin, and vitamin C. 3 chronic right hemidiaphragmatic paralysis post plication 4 chronic bronchial asthma 5 history of right middle lobe/right lower lobe bronchiectasis 6 coronary artery disease 7 obstructive sleep apnea 8 AAA with a previous endovascular stent grafting that was done 2011 9 chronic back pain 10 RLS Plan Continue ventilator support and drop the tidal volume down to 400 as mentioned and monitor the blood gases Monitor peak and static pressure Prone body positioning intermittently during the day Continue enteral feeding for nutritional support Continue Decadron Monitor fever pattern Add Norvasc and Coreg for blood pressure control and gradually wean off the clevidipine drip given a dose of Lasix 40 mg IV push on a daily basis to maintain a adequate fluid balance Condition remains critical. The family will be updated in the condition and will make further recommendations based on his progress. There is a critically care evaluation that was done more than 30 minutes. Time with Patient: Greater than 30
[2020-06-01 12:09] LABS: Glucose,Whole Blood 186 mg/dL (75-99)
--- NOTE | 2020-06-01 12:13 | XR ---
EXAMINATION TYPE: XR chest 1V portable DATE OF EXAM: 06/01/2020 COMPARISON: Prior chest x-ray 05/31/2020 HISTORY: Intubated TECHNIQUE: Single frontal view of the chest is obtained. FINDINGS: Left subclavian central venous catheter has withdrawn slightly in the interval, distal tip is overlying the left innominate vein. Bilateral airspace disease is present. Endotracheal tube and N G tube are overlying appropriate positions, distal tip of the gastric tube is not included on exam. T here are overlying cardiac leads. No evident pneumothorax or pleural effusion. Heart is stable. Posto p changes are noted to the cervical spine. IMPRESSION: Findings are similar to prior exam with slight interval repositioning of the central dennis ous catheter. Correlate for edema, pneumonia, ARDS.
[2020-06-01 13:56] LABS: Glucose,Whole Blood 199 mg/dL (75-99)
[2020-06-01 15:31] LABS: Ferritin 2057.4 ng/mL (22.0-322.0)
[2020-06-01] MEDS ORDERED: VANCOMYCIN IV PER PHARMACY 1 EACH MISC MISCELLANE PRN (15:35)
[2020-06-01 15:47] LABS: ABG Base Excess 2.2 mmol/L; ABG HCO3 29 mmol/L (21-25); ABG Oxygen Saturation 87.5 % (94-97); ABG PCO2 64 mmHg (35-45); ABG PH 7.27 (7.35-7.45); ABG TCO2 31 mmol/L (19-24)
[2020-06-01 15:49] LABS: ABG PO2 59 mmHg (83-108); Allen Test Performed? no
[2020-06-01] MEDS: SODIUM CHLORIDE 0.9% 1,000 ML IV SCH (15:52)
[2020-06-01] MEDS ORDERED: VANCOMYCIN 1,750 MG in SODIUM CHLORIDE 0.9% 500 ML 500 ML IVPB SCH (16:00)
[2020-06-01 16:26] LABS: Glucose,Whole Blood 157 mg/dL (75-99)
[2020-06-01] MEDS: INSULIN REGULAR 100 UNIT in SODIUM CHLORIDE 0.9% 100 ML IV SCH (16:26)
[2020-06-01 17:24] LABS: Glucose,Whole Blood 163 mg/dL (75-99)
[2020-06-01 18:30] LABS: Glucose,Whole Blood 153 mg/dL (75-99)
[2020-06-01] MEDS ORDERED: DEXTROSE 50% SYRINGE 50 ML IVP STA (18:37)
[2020-06-01] MEDS ORDERED: INSULIN REGULAR 100 UNIT/ML VIAL IV ONE (18:37)
[2020-06-01] MEDS ORDERED: SODIUM BICARB 8.4% 50 ML SYR (1 MEQ/ML) IV STA ×2 (18:37→18:51)
[2020-06-01 19:15] LABS: Glucose,Whole Blood 247 mg/dL (75-99)
[2020-06-01] MEDS: MELATONIN 5 MG TABLET PO SCH (20:22)
[2020-06-01 20:47] LABS: Glucose,Whole Blood 174 mg/dL (75-99)
--- NOTE | 2020-06-01 21:47 | P.PN ---
Subjective This is the first day I am taking care of the patient on 06/01 This is a 65 years old male with past medical history of coronary artery disease, asthma, diabetes mellitus, GERD, hypertension, sleep apnea. Presents with respiratory distress found to have bilateral covid pneumonia with some elements of ARDS. Patient is currently in the ICU intubated and on mechanical ventilation and is followed closely by pulmonary/critical care team. Patient looks critically, he's undergoing prone position per pulmonary team several hours a day. No weaning trial currently Vitals and labs were reviewed, Creatinine today is trending up to 2.1, he got 1 dose of Lasix will keep monitor creatinine. He has mild leukocytosis around 11 K. Potassium was elevated. Patient is currently on cefepime and IV vancomycin. Kayexalate is given and we will monitor potassium Review of systems: N/a Active Medications Generic Name Dose Route Start Last Admin Trade Name Freq PRN Reason Stop Dose Admin Acetaminophen 650 mg 05/27/20 14:33 06/01/20 18:51 Acetaminophen Tab 325 Mg Tab PO 650 mg Q4HR PRN Administration Fever and/or Mild Pain Amlodipine Besylate 10 mg 06/01/20 09:00 06/01/20 08:10 Amlodipine 10 Mg Tab PO 10 mg DAILY MARCELINO Administration Ascorbic Acid 1,000 mg 05/28/20 09:00 06/01/20 08:01 Ascorbic Acid 500 Mg Tab PO 1,000 mg DAILY MARCELINO Administration Carvedilol 12.5 mg 06/01/20 09:00 06/01/20 17:09 Carvedilol 12.5 Mg Tab PO 12.5 mg BID-W/MEALS MARCELINO Administration Chlorhexidine Gluconate 15 ml 05/28/20 09:00 06/01/20 20:22 Chlorhexidine Gluconate 15 Ml Cup MUCOUS MEM 15 ml BID MARCELINO Administration Cholecalciferol 400 unit 05/27/20 16:15 06/01/20 08:02 Cholecalciferol 400 Unit Tab PO 400 unit DAILY MARCELINO Administration Dexamethasone Sodium Phosphate 6 mg 05/28/20 09:00 06/01/20 08:02 Dexamethasone Sod Phosphate 4 Mg/Ml 1 Ml Vial IV 6 mg DAILY MARCELINO Administration Enoxaparin Sodium 100 mg 05/30/20 21:00 06/01/20 20:22 Enoxaparin 100 Mg/Ml Syringe SQ 100 mg Q12HR MARCELINO Administration Famotidine 20 mg 05/27/20 21:00 06/01/20 20:22 Famotidine 20 Mg Tab PO 20 mg BID MARCELINO Administration Sodium Chloride 1,000 mls @ 40 mls/hr 05/27/20 13:00 06/01/20 15:52 Saline 0.9% IV 40 mls/hr .Q24H MACRELINO Administration Cefepime HCl 1 gm/ Sodium 50 mls @ 12.5 mls/hr 05/28/20 09:00 06/01/20 20:37 Chloride IVPB 12.5 mls/hr Q12HR MARCELINO Administration Propofol 1,000 mg/ IV Solution 100 mls @ 0 mls/hr 05/27/20 21:45 06/01/20 20:23 IV 60 mcg/kg/min .Q0M MARCELINO 38.952 mls/hr Administration Protocol Titrate Cisatracurium Besylate 200 mg/ 200 mls @ 6.462 mls/hr 05/28/20 01:15 06/01/20 19:52 Sodium Chloride IV 3.5 mcg/kg/min .Q24H MARCELINO 22.617 mls/hr Administration Protocol 1 MCG/KG/MIN Clevidipine 25 mg/ IV Solution 50 mls @ 2 mls/hr 05/29/20 09:45 06/01/20 09:45 IV 0 mg/hr .Q24H MARCELINO 0 mls/hr Titration Protocol 1 MG/HR Insulin Human Regular 100 unit 101 mls @ 0 mls/hr 05/30/20 13:30 06/01/20 20:47 / Sodium Chloride IV 6 units/hr .Q0M MARCELINO 6.06 mls/hr Titration Protocol Per Protocol Vancomycin HCl 1,750 mg/ 500 mls @ 167 mls/hr 06/01/20 16:00 06/01/20 16:27 Sodium Chloride IVPB 167 mls/hr Q24H MARCELINO Administration Melatonin 5 mg 05/27/20 21:00 06/01/20 20:22 Melatonin 5 Mg Tablet PO 5 mg HS MARCELINO Administration Naloxone HCl 0.2 mg 05/27/20 15:46 Naloxone 0.4 Mg/Ml 1 Ml Vial IV Q2M PRN Opioid Reversal Zinc Sulfate 220 mg 05/27/20 16:15 06/01/20 08:01 Zinc Sulfate 220 Mg Cap PO 220 mg DAILY MARCELINO Administration Objective - Vital Signs Vital signs: Vital Signs Temp 100.4 F H 06/01/20 12:00 Pulse 86 06/01/20 12:00 Resp 36 H 06/01/20 12:00 BP 129/70 06/01/20 09:00 Pulse Ox 84 L 06/01/20 12:00 Intake & Output 05/31/20 06/01/20 06/01/20 18:59 06:59 18:59 Intake Total 2124.694 1300.872 774.943 Output Total 925 770 585 Balance 1199.694 530.872 189.943 Weight 108.2 kg 108.2 kg Intake: IV 660 530 520 Cefepime 1 gm In Sodium 50 50 50 Chloride 0.9% 50 ml @ 12. 5 mls/hr IVPB Q12HR MARCELINO Rx#:[id number] Remdesivir (Eua) 100 mg 250 250 In Sodium Chloride 0.9% 250 ml @ 250 mls/hr IVPB DAILY MARCELINO Rx#:[id number] Sodium Chloride 0.9% 1, 360 480 220 000 ml @ 40 mls/hr IV . Q24H MARCELINO Rx#:[id number] Intake, IV Titration 928.694 747.872 254.943 Amount Cisatracurium 200 mg In 316.746 172.266 Sodium Chloride 0.9% 180 ml @ 1 MCG/KG/MIN 6.462 mls/hr IV .Q24H MARCELINO Rx#: [id number] Clevidipine Butyrate 25 0.600 76.000 35.933 mg In Empty Bag 1 bag @ 1 MG/HR 2 mls/hr IV .Q24H MARCELINO Rx#:[id number] Insulin Regular 100 unit 51.812 41.848 22.658 In Sodium Chloride 0.9% 100 ml @ Per Protocol IV .Q0M MARCELINO Rx#:[id number] propofoL 1,000 mg In 559.536 457.758 196.352 Empty Bag 1 bag @ Titrate IV .Q0M MARCELINO Rx#: [id number] Tube Feeding 276 23 Other 260 Output: Urine 925 770 585 Other: Voiding Method Indwelling Catheter Indwelling Catheter ABP, PAP, CO, CI - Last Documented Arterial Blood Pressure 133/54 - Exam GENERAL: The patient is intubated and sedated HEENT: Pupils are round and equally reacting to light. EOMI. No scleral icterus. No conjunctival pallor. Normocephalic, atraumatic. No pharyngeal erythema. No thyromegaly. CARDIOVASCULAR: S1 and S2 present. No murmurs, rubs, or gallops. -PULMONARY: Chest is clear to auscultation, bilateral scattered crackles. ABDOMEN: Soft, nontender, nondistended, normoactive bowel sounds. No palpable organomegaly. MUSCULOSKELETAL: No joint swelling or deformity. EXTREMITIES: No cyanosis, clubbing, or pedal edema. -NEUROLOGICAL: Gross neurological examination did not reveal any focal deficits. Limited by the patient condition SKIN: No rashes. no petechiae. - Labs CBC & Chem 7: 06/01/20 03:50 06/01/20 21:00 Labs: Abnormal Lab Results - Last 24 Hours (Table) 05/31/20 05/31/20 05/31/20 Range/Units 13:49 16:09 17:01 WBC (3.8-10.6) k/uL RBC (4.30-5.90) m/uL Plt Count (150-450) k/uL Neutrophils # (1.3-7.7) k/uL Fibrinogen (200-500) mg/dL D-Dimer (<0.60) mg/L FEU ABG pH (7.35-7.45) ABG pCO2 (35-45) mmHg ABG pO2 (83-108) mmHg ABG HCO3 (21-25) mmol/L ABG Total CO2 (19-24) mmol/L ABG O2 Saturation (94-97) % Potassium (3.5-5.1) mmol/L Chloride (98-107) mmol/L BUN (9-20) mg/dL Creatinine (0.66-1.25) mg/dL Glucose (74-99) mg/dL POC Glucose (mg/dL) 194 H 185 H 162 H (75-99) mg/dL Calcium (8.4-10.2) mg/dL AST (17-59) U/L ALT (4-49) U/L Lactate Dehydrogenase (313-618) U/L Creatine Kinase (55-170) U/L Troponin I (0.000-0.034) ng/mL C-Reactive Protein (<10.0) mg/L Total Protein (6.3-8.2) g/dL Albumin (3.5-5.0) g/dL 05/31/20 05/31/20 05/31/20 Range/Units 18:04 20:50 22:12 WBC (3.8-10.6) k/uL RBC (4.30-5.90) m/uL Plt Count (150-450) k/uL Neutrophils # (1.3-7.7) k/uL Fibrinogen (200-500) mg/dL D-Dimer (<0.60) mg/L FEU ABG pH (7.35-7.45) ABG pCO2 (35-45) mmHg ABG pO2 (83-108) mmHg ABG HCO3 (21-25) mmol/L ABG Total CO2 (19-24) mmol/L ABG O2 Saturation (94-97) % Potassium (3.5-5.1) mmol/L Chloride (98-107) mmol/L BUN (9-20) mg/dL Creatinine (0.66-1.25) mg/dL Glucose (74-99) mg/dL POC Glucose (mg/dL) 150 H 208 H 189 H (75-99) mg/dL Calcium (8.4-10.2) mg/dL AST (17-59) U/L ALT (4-49) U/L Lactate Dehydrogenase (313-618) U/L Creatine Kinase (55-170) U/L Troponin I (0.000-0.034) ng/mL C-Reactive Protein (<10.0) mg/L Total Protein (6.3-8.2) g/dL Albumin (3.5-5.0) g/dL 06/01/20 06/01/20 06/01/20 Range/Units 00:22 01:52 03:48 WBC (3.8-10.6) k/uL RBC (4.30-5.90) m/uL Plt Count (150-450) k/uL Neutrophils # (1.3-7.7) k/uL Fibrinogen (200-500) mg/dL D-Dimer (<0.60) mg/L FEU ABG pH (7.35-7.45) ABG pCO2 (35-45) mmHg ABG pO2 (83-108) mmHg ABG HCO3 (21-25) mmol/L ABG Total CO2 (19-24) mmol/L ABG O2 Saturation (94-97) % Potassium (3.5-5.1) mmol/L Chloride (98-107) mmol/L BUN (9-20) mg/dL Creatinine (0.66-1.25) mg/dL Glucose (74-99) mg/dL POC Glucose (mg/dL) 185 H 174 H 166 H (75-99) mg/dL Calcium (8.4-10.2) mg/dL AST (17-59) U/L ALT (4-49) U/L Lactate Dehydrogenase (313-618) U/L Creatine Kinase (55-170) U/L Troponin I (0.000-0.034) ng/mL C-Reactive Protein (<10.0) mg/L Total Protein (6.3-8.2) g/dL Albumin (3.5-5.0) g/dL 06/01/20 06/01/20 06/01/20 Range/Units 03:50 03:50 03:50 WBC (3.8-10.6) k/uL RBC (4.30-5.90) m/uL Plt Count (150-450) k/uL Neutrophils # (1.3-7.7) k/uL Fibrinogen 519 H (200-500) mg/dL D-Dimer 7.41 H (<0.60) mg/L FEU ABG pH (7.35-7.45) ABG pCO2 (35-45) mmHg ABG pO2 (83-108) mmHg ABG HCO3 (21-25) mmol/L ABG Total CO2 (19-24) mmol/L ABG O2 Saturation (94-97) % Potassium 5.5 H (3.5-5.1) mmol/L Chloride 112 H (98-107) mmol/L BUN 100 H (9-20) mg/dL Creatinine 2.11 H (0.66-1.25) mg/dL Glucose 161 H (74-99) mg/dL POC Glucose (mg/dL) (75-99) mg/dL Calcium 8.1 L (8.4-10.2) mg/dL AST 67 H (17-59) U/L ALT 59 H (4-49) U/L Lactate Dehydrogenase 949 H (313-618) U/L Creatine Kinase 725 H (55-170) U/L Troponin I 0.038 H* (0.000-0.034) ng/mL C-Reactive Protein 58.8 H (<10.0) mg/L Total Protein 5.3 L (6.3-8.2) g/dL Albumin 2.7 L (3.5-5.0) g/dL 06/01/20 06/01/20 06/01/20 Range/Units 03:50 05:18 05:49 WBC 11.1 H (3.8-10.6) k/uL RBC 4.17 L (4.30-5.90) m/uL Plt Count 460 H (150-450) k/uL Neutrophils # 9.1 H (1.3-7.7) k/uL Fibrinogen (200-500) mg/dL D-Dimer (<0.60) mg/L FEU ABG pH 7.31 L (7.35-7.45) ABG pCO2 57 H (35-45) mmHg ABG pO2 63 L (83-108) mmHg ABG HCO3 29 H (21-25) mmol/L ABG Total CO2 31 H (19-24) mmol/L ABG O2 Saturation 90.8 L (94-97) % Potassium (3.5-5.1) mmol/L Chloride (98-107) mmol/L BUN (9-20) mg/dL Creatinine (0.66-1.25) mg/dL Glucose (74-99) mg/dL POC Glucose (mg/dL) 159 H (75-99) mg/dL Calcium (8.4-10.2) mg/dL AST (17-59) U/L ALT (4-49) U/L Lactate Dehydrogenase (313-618) U/L Creatine Kinase (55-170) U/L Troponin I (0.000-0.034) ng/mL C-Reactive Protein (<10.0) mg/L Total Protein (6.3-8.2) g/dL Albumin (3.5-5.0) g/dL 06/01/20 06/01/20 06/01/20 Range/Units 08:22 08:43 10:29 WBC (3.8-10.6) k/uL RBC (4.30-5.90) m/uL Plt Count (150-450) k/uL Neutrophils # (1.3-7.7) k/uL Fibrinogen (200-500) mg/dL D-Dimer (<0.60) mg/L FEU ABG pH 7.25 L (7.35-7.45) ABG pCO2 63 H (35-45) mmHg ABG pO2 66 L (83-108) mmHg ABG HCO3 28 H (21-25) mmol/L ABG Total CO2 30 H (19-24) mmol/L ABG O2 Saturation 91.4 L (94-97) % Potassium (3.5-5.1) mmol/L Chloride (98-107) mmol/L BUN (9-20) mg/dL Creatinine (0.66-1.25) mg/dL Glucose (74-99) mg/dL POC Glucose (mg/dL) 168 H 192 H (75-99) mg/dL Calcium (8.4-10.2) mg/dL AST (17-59) U/L ALT (4-49) U/L Lactate Dehydrogenase (313-618) U/L Creatine Kinase (55-170) U/L Troponin I (0.000-0.034) ng/mL C-Reactive Protein (<10.0) mg/L Total Protein (6.3-8.2) g/dL Albumin (3.5-5.0) g/dL 06/01/20 Range/Units 12:08 WBC (3.8-10.6) k/uL RBC (4.30-5.90) m/uL Plt Count (150-450) k/uL Neutrophils # (1.3-7.7) k/uL Fibrinogen (200-500) mg/dL D-Dimer (<0.60) mg/L FEU ABG pH (7.35-7.45) ABG pCO2 (35-45) mmHg ABG pO2 (83-108) mmHg ABG HCO3 (21-25) mmol/L ABG Total CO2 (19-24) mmol/L ABG O2 Saturation (94-97) % Potassium (3.5-5.1) mmol/L Chloride (98-107) mmol/L BUN (9-20) mg/dL Creatinine (0.66-1.25) mg/dL Glucose (74-99) mg/dL POC Glucose (mg/dL) 186 H (75-99) mg/dL Calcium (8.4-10.2) mg/dL AST (17-59) U/L ALT (4-49) U/L Lactate Dehydrogenase (313-618) U/L Creatine Kinase (55-170) U/L Troponin I (0.000-0.034) ng/mL C-Reactive Protein (<10.0) mg/L Total Protein (6.3-8.2) g/dL Albumin (3.5-5.0) g/dL Microbiology - Last 24 Hours (Table) 05/31/20 12:30 Urine Culture - Final Urine,Catheterized 05/27/20 12:20 Blood Culture - Preliminary Blood No Growth after 96 hours Assessment and Plan Assessment: Bilateral Covid 19 pneumonitis with possibly some elements of ARDS Acute hypoxic respiratory failure Jodi on mechanical ventilation Acute kidney injury Hyperkalemia That 2 diabetes mellitus Hypertension Sleep apnea History of GERD History of asthma Plan: This is a 65 years old male with bilateral Covid pneumonia. Continue with mechanical ventilation and management as per pulmonary/critical care team who are following the patient closely. I'll follow the recommendation. Continue with broad-spectrum antibiotics. Continue with prone position as per pulmonary services recommendation. Continue with therapeutic dose of Lovenox. Deep potassium level and creatinine and if it's worsening may consider nephrology consult Labs and medication were reviewed.. Continue same treatment. Continue with symptomatic treatment. Resume home medication. Monitor lytes and vitals. DVT and GI prophylaxis. Further recommendationsas per clinical course of the patient DVT prophylaxis: Subcutaneous Lovenox GI Prophylaxis: Pepcid Prognosis is guarded
[2020-06-01 22:06] LABS: Glucose,Whole Blood 175 mg/dL (75-99)
[2020-06-02 00:20] LABS: Glucose,Whole Blood 134 mg/dL (75-99)
[2020-06-02 02:06] LABS: Glucose,Whole Blood 122 mg/dL (75-99)
[2020-06-02 04:30] LABS: Glucose,Whole Blood 144 mg/dL (75-99)
[2020-06-02 05:20] LABS: ABG Base Excess 1.5 mmol/L; ABG HCO3 29 mmol/L (21-25); ABG Oxygen Saturation 90.5 % (94-97); ABG PCO2 67 mmHg (35-45); ABG PH 7.24 (7.35-7.45); ABG PO2 64 mmHg (83-108); ABG TCO2 31 mmol/L (19-24); Allen Test Performed? Yes
[2020-06-02 05:20] LABS: Calcium 8.1 mg/dL (8.4-10.2); Potassium 6.2 mmol/L (3.5-5.1)
[2020-06-02 05:21] LABS: Albumin 2.6 g/dL (3.5-5.0); HCT 41.3 % (39.0-53.0); Hypochromasia Slight; MCH 34.3 pg (25.0-35.0); MCV 100.9 fL (80.0-100.0); Macrocytosis Slight; Mean Platelet Volume 8.4; Platelet Count 448 k/uL (150-450); RBC 4.09 m/uL (4.30-5.90); Total Bilirubin 0.5 mg/dL (0.2-1.3); Total Protein 4.9 g/dL (6.3-8.2)
[2020-06-02] MEDS: CISATRACURIUM 200 MG in SODIUM CHLORIDE 0.9% 180 ML IV SCH (05:36)
[2020-06-02 05:46] LABS: Band Neutrophils % 11 %; Eosinophils # (M) 0.14 k/uL (0-0.7); Metamyelocytes # (M) 0.42 k/uL (0); Metamyelocytes % 3 %; Myelocytes # (M) 0.14 k/uL (0); Myelocytes % 1 %; Neutrophils % (M) 72 %; Nucleated Red Blood Cells 1 /100 WBC (0-0); Total Cells Counted 200
[2020-06-02 05:47] LABS: Lymphocytes # (M) 1.26 k/uL (1.0-4.8); Monocytes # (M) 0.84 k/uL (0-1.0)
[2020-06-02] MEDS ORDERED: INSULIN REGULAR 100 UNIT/ML VIAL IV ONE (06:03)
[2020-06-02] MEDS ORDERED: SODIUM POLYSTYRENE SULFONATE 15 GM/60 ML BOTTLE PO STA (06:03)
[2020-06-02] MEDS ORDERED: SODIUM BICARB 8.4% 50 ML SYR (1 MEQ/ML) IV STA (06:03)
[2020-06-02] MEDS ORDERED: DEXTROSE 50% SYRINGE 50 ML IVP STA (06:03)
[2020-06-02 06:35] LABS: Glucose,Whole Blood 141 mg/dL (75-99)
[2020-06-02] MEDS: carvediloL 12.5 MG TAB PO SCH ×2 (06:53→16:39)
[2020-06-02 08:09] LABS: Glucose,Whole Blood 192 mg/dL (75-99)
[2020-06-02] MEDS: amLODIPine 10 MG TAB PO SCH (08:34)
[2020-06-02] MEDS: FAMOTIDINE 20 MG TAB PO SCH ×2 (08:34→20:29)
[2020-06-02] MEDS: ASCORBIC ACID 500 MG TAB PO SCH (08:34)
[2020-06-02] MEDS: DEXAMETHASONE SOD PHOSPHATE 4 MG/ML 1 ML VIAL IV SCH (08:34)
[2020-06-02] MEDS: CEFEPIME 1 GM in SODIUM CHLORIDE 0.9% 50 ML IVPB SCH ×2 (08:36→20:30)
[2020-06-02] MEDS: CHOLECALCIFEROL 400 UNIT TAB PO SCH (08:36)
[2020-06-02] MEDS: CHLORHEXIDINE GLUCONATE 15 ML CUP MUCOUS MEM SCH ×2 (08:36→20:29)
[2020-06-02] MEDS: ENOXAPARIN 100 MG/ML SYRINGE SQ SCH ×2 (08:37→20:29)
[2020-06-02] MEDS: ZINC SULFATE 220 MG CAP PO SCH (08:37)
[2020-06-02] MEDS ORDERED: FUROSEMIDE 10 MG/ML 4 ML VIAL IV SCH (09:00)
[2020-06-02 10:19] LABS: Glucose,Whole Blood 169 mg/dL (75-99)
[2020-06-02] MEDS: INSULIN REGULAR 100 UNIT in SODIUM CHLORIDE 0.9% 100 ML IV SCH (10:19)
[2020-06-02] MEDS: SODIUM CHLORIDE 0.9% 1,000 ML IV SCH (10:22)
[2020-06-02 12:04] LABS: Glucose,Whole Blood 177 mg/dL (75-99)
--- NOTE | 2020-06-02 13:06 | P.PN ---
Subjective Progress Note Date: 06/02/20 This is a 65-year-old male patient was admitted on 05/27/2020 for respiratory failure and pneumonia. The patient has a history of right hemidiaphragmatic paralysis for which she has undergone a diaphragmatic plication at [facility]. The patient also has chronic bronchiectasis involving the right middle lobe and right lower lobe in addition to bronchial asthma. The patient presented to the ED on 05/27/2024 shortness of breath, cough and chills and fever and not feeling well and he was tested positive for coronavirus Covid 19. The patient was initially treated with high flow oxygen along with nonrebreather mask. Unfortunately, he continued to have difficulty breathing and respiratory failure and he required intubation and mechanical ventilation on 05/28/2020. The patient currently is on mechanical ventilation, sedated and he remains on assist control mode at the rate of 36, tidal volume of 450, FiO2 of 80% and PEEP of 15. The patient is also paralyzed with Nimbex at 3.5 g per KG per minute and propofol currently is running at 65 g per KG per minute. The patient is receiving enteral feeding for nutritional support with vital high protein running at 20 mL an hour. The patient is currently on Remdesivir, 2 doses of Tocilizumab and received convelescent plasma and Decadron, pepsid, melatonin and Zinc and the patient is receiving emperic antibiotics with IV Cefepime. . The patient is also on clevidipine drip for blood pressure control. Insulin is being utilized for blood sugar control. the patient has she will the patient has a triple-lumen catheter in the left subclavian. Noted the patient is also receiving intermittent phoning and he was on for a total of 16 hours yesterday and this morning he was still prolonged and I was able to put him back in a supine body position. He had a fever of 100.2 this morning. He is essentially on the same vent setting. His blood gases from today showed a pH of 7.31 with a pCO2 of 57 and pO2 of 63. Peak air pressure was around 42. Static pressure was 35. Based on that, I dropped his tidal volume to 400 and this brought on the static pressure down to 27. A subsequent blood gases showed a pH of 7.25 with a pCO2 of 63 and pO2 of 66. The patient otherwise has diffuse bilateral pulmonary infiltrates consistent with Covid 19 pneumonia. He is on x Cleviprex drip at 4 mg an hour for blood pressure control. The fluid balance is positive around 1.7 L over the past 24 hours. He would benefit from diuresis. Enteral feeding with vital high protein only when the patient is in supine body position. 06/02/2020 the patient is being seen for a follow-up. The patient remains intubated on a mechanical ventilator and his alternating between prone and supine body positioning. He was performed again yesterday evening and he will be placed supine around 2 PM this afternoon. The patient remains on a mechanical ventilator. The patient is sedated and paralyzed. In terms of his sedation, the patient is on propofol at 60 mg per KG per minute, he is on Nimbex at 3 g and he remains on a mechanical ventilator on assist control mode at the rate of 30 with a tidal volume of 400 and FiO2 of 80% with a PEEP of 17. Chest x-ray findings are essentially stable with diffuse bilateral pulmonary infiltrates unchanged compared to yesterday's chest x-ray. I was having difficulties with the patient's elevated potassium level. The patient continued to have some high potassium level due to his underlying metabolic acidosis.note that the highest potassium level is at 6.2. I give the patient bicarb on multiple occasions and form of IV push as him on 50 mEq each, and I also gave the patient D50 with insulin and and he was also given a dose of Kayexalate and the subsequent potassium level came down to 5.5. The patient was also given Lasix. Most recent blood work shows a BUN of 115, creatinine of 2.1, potassium level of 5.5, serum bicarb of 28, and most recent blood his showed a pH of 7.24 with a pCO2 of 67 and pO2 of 64. The patient is hemodynamically stable. The patient does oxygenate better whenever he is switched to a prone body position improvement in the order of 3-4% and his oxygenation on his saturation while being prone. The patient remains on IV cefepime. Blood culture was positive for coagulase-negative staph and he was given a dose of vancomycin that was subsequently discontinued. He remains on Decadron 6 mg IV. I started him on daily Lasix 40 mg IV push to maintain his fluid balance. Otherwise, no other significant events. Enterofeeding is being provided while the patient being in a supine body position. No fever. The white cell count is at 14. The patient's ferritin level was dropping it was down to 2057. Liver function tests are essentially normal and today's evaluation. Objective - Vital Signs Vital signs: Vital Signs Temp 101.1 F H 06/02/20 12:00 Pulse 101 H 06/02/20 12:00 Resp 36 H 06/02/20 12:00 BP 129/70 06/01/20 09:00 Pulse Ox 95 06/02/20 12:00 Intake & Output 06/01/20 06/02/20 06/02/20 18:59 06:59 18:59 Intake Total 2103.029 1209.237 486.655 Output Total 994 068 1689 Balance 1193.029 379.237 -523.345 Weight 108.2 kg Intake: IV 700 530 250 Cefepime 1 gm In Sodium 50 50 50 Chloride 0.9% 50 ml @ 12. 5 mls/hr IVPB Q12HR [facility] Rx#:[id number] Remdesivir (Eua) 100 mg 250 In Sodium Chloride 0.9% 250 ml @ 250 mls/hr IVPB DAILY M[facility] Rx#:[id number] Sodium Chloride 0.9% 1, 400 480 200 000 ml @ 40 mls/hr IV . Q24H [facility] Rx#:[id number] Intake, IV Titration 1203.029 553.237 236.655 Amount Cisatracurium 200 mg In 200 200 98.545 Sodium Chloride 0.9% 180 ml @ 1 MCG/KG/MIN 6.462 mls/hr IV .Q24H [facility] Rx#: [id number] Clevidipine Butyrate 25 35.933 mg In Empty Bag 1 bag @ 1 MG/HR 2 mls/hr IV .Q24H [facility] Rx#:[id number] Insulin Regular 100 unit 54.187 52.588 38.110 In Sodium Chloride 0.9% 100 ml @ Per Protocol IV .Q0M [facility] Rx#:[id number] Vancomycin 1,750 mg In 501 Sodium Chloride 0.9% 500 ml 500 ml @ 167 mls/hr IVPB Q24H [facility] Rx#: [id number] propofoL 1,000 mg In 411.909 300.649 100 Empty Bag 1 bag @ Titrate IV .Q0M [facility] Rx#: [id number] Tube Feeding 160 96 Other 40 30 Output: Urine 407 864 8050 Other: Voiding Method Indwelling Catheter Indwelling Catheter Indwelling Catheter ABP, PAP, CO, CI - Last Documented Arterial Blood Pressure 135/55 - Exam Gen. appearance the patient is calm and comfortable sedated and paralyzed on her stress synchronous with the mechanical ventilator. Earlier this morning the patient was in a prone body position and the patient was subsequently switched to supine. Head exam was generally normal. There was no scleral icterus or corneal arcus. Mucous membranes were moist. Neck was supple and without jugular venous distension, thyromegaly, or carotid bruits. Carotids were easily palpable bilaterally. There was no ad enopathy.Orogastric and orotracheal tube are both in place. Lungs sounds are diminished and the patient has some crackles in lung bases bilaterally. Cardiac exam revealed the PMI to be normally situated and sized. The rhythm was regular and no extrasystoles were noted during several minutes of auscultation. The first and second heart sounds were normal and physiologic splitting of the second heart sound was noted. There were no murmurs, rubs, clicks, or gallops. Abdominal exam revealed normal bowel sounds. The abdomen was soft, non-tender, and without masses, organomegaly, or appreciable enlargement of the abdominal aorta. Examination of the extremities revealed easily palpable radial, femoral and pedal pulses. There was no cyanosis, clubbing or edema. Examination of the skin revealed no evidence of significant rashes, suspicious appearing nevi or other concerning lesions. Neurologicallythe patient sedated a paralyzed. - Labs CBC & Chem 7: 06/02/20 04:30 06/02/20 09:12 Labs: Abnormal Lab Results - Last 24 Hours (Table) 06/01/20 06/01/20 06/01/20 Range/Units 03:50 13:54 15:44 WBC (3.8-10.6) k/uL RBC (4.30-5.90) m/uL MCV (80.0-100.0) fL Neutrophils # (Manual) (1.3-7.7) k/uL Metamyelocytes # (Man) (0) k/uL Myelocytes # (Manual) (0) k/uL Nucleated RBCs (0-0) /100 WBC ABG pH 7.27 L (7.35-7.45) ABG pCO2 64 H (35-45) mmHg ABG pO2 59 L* (83-108) mmHg ABG HCO3 29 H (21-25) mmol/L ABG Total CO2 31 H (19-24) mmol/L ABG O2 Saturation 87.5 L (94-97) % Potassium (3.5-5.1) mmol/L Chloride (98-107) mmol/L BUN (9-20) mg/dL Creatinine (0.66-1.25) mg/dL Glucose (74-99) mg/dL POC Glucose (mg/dL) 199 H (75-99) mg/dL Calcium (8.4-10.2) mg/dL Ferritin 2057.4 H (22.0-322.0) ng/mL Total Protein (6.3-8.2) g/dL Albumin (3.5-5.0) g/dL 06/01/20 06/01/20 06/01/20 Range/Units 16:24 17:20 17:25 WBC (3.8-10.6) k/uL RBC (4.30-5.90) m/uL MCV (80.0-100.0) fL Neutrophils # (Manual) (1.3-7.7) k/uL Metamyelocytes # (Man) (0) k/uL Myelocytes # (Manual) (0) k/uL Nucleated RBCs (0-0) /100 WBC ABG pH (7.35-7.45) ABG pCO2 (35-45) mmHg ABG pO2 (83-108) mmHg ABG HCO3 (21-25) mmol/L ABG Total CO2 (19-24) mmol/L ABG O2 Saturation (94-97) % Potassium 6.1 H* (3.5-5.1) mmol/L Chloride (98-107) mmol/L BUN (9-20) mg/dL Creatinine (0.66-1.25) mg/dL Glucose (74-99) mg/dL POC Glucose (mg/dL) 157 H 163 H (75-99) mg/dL Calcium (8.4-10.2) mg/dL Ferritin (22.0-322.0) ng/mL Total Protein (6.3-8.2) g/dL Albumin (3.5-5.0) g/dL 06/01/20 06/01/20 06/01/20 Range/Units 18:29 19:13 20:46 WBC (3.8-10.6) k/uL RBC (4.30-5.90) m/uL MCV (80.0-100.0) fL Neutrophils # (Manual) (1.3-7.7) k/uL Metamyelocytes # (Man) (0) k/uL Myelocytes # (Manual) (0) k/uL Nucleated RBCs (0-0) /100 WBC ABG pH (7.35-7.45) ABG pCO2 (35-45) mmHg ABG pO2 (83-108) mmHg ABG HCO3 (21-25) mmol/L ABG Total CO2 (19-24) mmol/L ABG O2 Saturation (94-97) % Potassium (3.5-5.1) mmol/L Chloride (98-107) mmol/L BUN (9-20) mg/dL Creatinine (0.66-1.25) mg/dL Glucose (74-99) mg/dL POC Glucose (mg/dL) 153 H 247 H 174 H (75-99) mg/dL Calcium (8.4-10.2) mg/dL Ferritin (22.0-322.0) ng/mL Total Protein (6.3-8.2) g/dL Albumin (3.5-5.0) g/dL 06/01/20 06/01/20 06/02/20 Range/Units 21:00 22:05 00:19 WBC (3.8-10.6) k/uL RBC (4.30-5.90) m/uL MCV (80.0-100.0) fL Neutrophils # (Manual) (1.3-7.7) k/uL Metamyelocytes # (Man) (0) k/uL Myelocytes # (Manual) (0) k/uL Nucleated RBCs (0-0) /100 WBC ABG pH (7.35-7.45) ABG pCO2 (35-45) mmHg ABG pO2 (83-108) mmHg ABG HCO3 (21-25) mmol/L ABG Total CO2 (19-24) mmol/L ABG O2 Saturation (94-97) % Potassium 5.9 H (3.5-5.1) mmol/L Chloride (98-107) mmol/L BUN (9-20) mg/dL Creatinine (0.66-1.25) mg/dL Glucose (74-99) mg/dL POC Glucose (mg/dL) 175 H 134 H (75-99) mg/dL Calcium (8.4-10.2) mg/dL Ferritin (22.0-322.0) ng/mL Total Protein (6.3-8.2) g/dL Albumin (3.5-5.0) g/dL 06/02/20 06/02/20 06/02/20 Range/Units 02:04 04:28 04:30 WBC 14.0 H (3.8-10.6) k/uL RBC 4.09 L (4.30-5.90) m/uL MCV 100.9 H (80.0-100.0) fL Neutrophils # (Manual) 11.60 H (1.3-7.7) k/uL Metamyelocytes # (Man) 0.42 H (0) k/uL Myelocytes # (Manual) 0.14 H (0) k/uL Nucleated RBCs 1 H (0-0) /100 WBC ABG pH (7.35-7.45) ABG pCO2 (35-45) mmHg ABG pO2 (83-108) mmHg ABG HCO3 (21-25) mmol/L ABG Total CO2 (19-24) mmol/L ABG O2 Saturation (94-97) % Potassium (3.5-5.1) mmol/L Chloride (98-107) mmol/L BUN (9-20) mg/dL Creatinine (0.66-1.25) mg/dL Glucose (74-99) mg/dL POC Glucose (mg/dL) 122 H 144 H (75-99) mg/dL Calcium (8.4-10.2) mg/dL Ferritin (22.0-322.0) ng/mL Total Protein (6.3-8.2) g/dL Albumin (3.5-5.0) g/dL 06/02/20 06/02/20 06/02/20 Range/Units 04:30 05:14 06:34 WBC (3.8-10.6) k/uL RBC (4.30-5.90) m/uL MCV (80.0-100.0) fL Neutrophils # (Manual) (1.3-7.7) k/uL Metamyelocytes # (Man) (0) k/uL Myelocytes # (Manual) (0) k/uL Nucleated RBCs (0-0) /100 WBC ABG pH 7.24 L (7.35-7.45) ABG pCO2 67 H (35-45) mmHg ABG pO2 64 L (83-108) mmHg ABG HCO3 29 H (21-25) mmol/L ABG Total CO2 31 H (19-24) mmol/L ABG O2 Saturation 90.5 L (94-97) % Potassium 6.2 H* (3.5-5.1) mmol/L Chloride 112 H (98-107) mmol/L BUN 115 H* (9-20) mg/dL Creatinine 2.15 H (0.66-1.25) mg/dL Glucose 155 H (74-99) mg/dL POC Glucose (mg/dL) 141 H (75-99) mg/dL Calcium 8.1 L (8.4-10.2) mg/dL Ferritin (22.0-322.0) ng/mL Total Protein 4.9 L (6.3-8.2) g/dL Albumin 2.6 L (3.5-5.0) g/dL 06/02/20 06/02/20 06/02/20 Range/Units 08:08 09:12 10:17 WBC (3.8-10.6) k/uL RBC (4.30-5.90) m/uL MCV (80.0-100.0) fL Neutrophils # (Manual) (1.3-7.7) k/uL Metamyelocytes # (Man) (0) k/uL Myelocytes # (Manual) (0) k/uL Nucleated RBCs (0-0) /100 WBC ABG pH (7.35-7.45) ABG pCO2 (35-45) mmHg ABG pO2 (83-108) mmHg ABG HCO3 (21-25) mmol/L ABG Total CO2 (19-24) mmol/L ABG O2 Saturation (94-97) % Potassium 5.5 H (3.5-5.1) mmol/L Chloride (98-107) mmol/L BUN (9-20) mg/dL Creatinine (0.66-1.25) mg/dL Glucose (74-99) mg/dL POC Glucose (mg/dL) 192 H 169 H (75-99) mg/dL Calcium (8.4-10.2) mg/dL Ferritin (22.0-322.0) ng/mL Total Protein (6.3-8.2) g/dL Albumin (3.5-5.0) g/dL 06/02/20 Range/Units 12:02 WBC (3.8-10.6) k/uL RBC (4.30-5.90) m/uL MCV (80.0-100.0) fL Neutrophils # (Manual) (1.3-7.7) k/uL Metamyelocytes # (Man) (0) k/uL Myelocytes # (Manual) (0) k/uL Nucleated RBCs (0-0) /100 WBC ABG pH (7.35-7.45) ABG pCO2 (35-45) mmHg ABG pO2 (83-108) mmHg ABG HCO3 (21-25) mmol/L ABG Total CO2 (19-24) mmol/L ABG O2 Saturation (94-97) % Potassium (3.5-5.1) mmol/L Chloride (98-107) mmol/L BUN (9-20) mg/dL Creatinine (0.66-1.25) mg/dL Glucose (74-99) mg/dL POC Glucose (mg/dL) 177 H (75-99) mg/dL Calcium (8.4-10.2) mg/dL Ferritin (22.0-322.0) ng/mL Total Protein (6.3-8.2) g/dL Albumin (3.5-5.0) g/dL Microbiology - Last 24 Hours (Table) 05/31/20 12:30 Blood Culture Gram Stain - Preliminary Blood Blood Culture - Preliminary Coagulase Negative Staph 05/31/20 12:30 Blood Culture - Final Blood 05/31/20 12:30 Blood Culture - Preliminary Blood No Growth after 24 hours 05/27/20 12:20 Blood Culture - Preliminary Blood No Growth after 120 hours 05/31/20 12:30 Urine Culture - Final Urine,Catheterized Assessment and Plan Plan: 1 acute hypoxic respiratory failure secondary to Covid 19 pneumonitis. The patient remains intubated on a mechanical ventilator. The patient was intubated on 05/28/2020. The patient is profoundly hypoxic. The patient is being positioned in a prone position for several hours on a daily basis and for yesterday was prone for a total of 16 hours and early this morning the patient was switched back to supine by repositioning. The patient remains on a combinat ion of propofol and then backs for sedation and paralysis. Blood gases was noted. Chest x-ray was noted. There is no significant improvement in the chest x-ray finding. Oxygenation remains borderline and the patient is still requiring high FiO2, high PEEP and a peak and static pressures are quite elevated considering Covid 19 pneumonia and possible ARDS. The patient has not done much of an improvement over the past 24-48 hours. 2 acute Covid 19 pneumonitis, completed Remdesivir and Tocilizumab, and currently the patient is on IV Decadron, zinc sulfate, melatonin, and vitamin C. 3 chronic right hemidiaphragmatic paralysis post plication 4 chronic bronchial asthma 5 history of right middle lobe/right lower lobe bronchiectasis 6 coronary artery disease 7 obstructive sleep apnea 8 AAA with a previous endovascular stent grafting that was done 2011 9 chronic back pain 10 RLS 11 hyperlipidemia, treated. This is probably related to potential due to metabolic acidosis 12 abnormal LFTs, improved 13 coagulase-negative staph in the blood likely contaminant and vancomycin were discontinued Plan Continue ventilator support and keep the same ventilator setting Monitor peak and static pressure Prone body positioning intermittently during the day Continue enteral feeding for nutritional support Continue Decadron Monitor fever pattern The blood pressure is under better control and patient is currently off the Celebrex drip. Monitor the potassium level. Daily Lasix dose 40 mg IV every 24 hours Discontinue vancomycin Continue IV cefepime and empiric antibiotics coverage Condition remains critical. The family will be updated in the condition and will make further recommendations based on his progress. There is a critically care evaluation that was done more than 30 minutes. Time with Patient: Greater than 30
[2020-06-02 14:05] LABS: Glucose,Whole Blood 180 mg/dL (75-99)
[2020-06-02 16:37] LABS: Glucose,Whole Blood 180 mg/dL (75-99)
--- NOTE | 2020-06-02 17:51 | XR ---
EXAMINATION TYPE: XR chest 1V portable DATE OF EXAM: 06/02/2020 COMPARISON: Today HISTORY: Line placement TECHNIQUE: FINDINGS: There is endotracheal tube is 6 cm from the chencho. There is left jugular catheter with tip in the superior vena cava. There is pulmonary interstitial edema. There is nasogastric tube in the s tomach. There is consolidation in the right lower lobe. There is right pleural effusion. There are ch est leads. IMPRESSION: Pulmonary edema with right lower lobe airspace consolidation and pleural fluid unchanged compared to exam 4 hours ago. This could be combined pneumonia and heart failure.
--- NOTE | 2020-06-02 17:57 | XR ---
EXAMINATION TYPE: XR chest 1V portable DATE OF EXAM: 06/02/2020 COMPARISON: Yesterday HISTORY: Tube placement TECHNIQUE: FINDINGS: There is endotracheal tube 8 cm from the chencho. There is left subclavian catheter with tip in the left subclavian vein. There is nasogastric tube in the stomach. There is pulmonary interstiti al edema. There is airspace consolidation and pleural fluid at the right lung base. IMPRESSION: Diffuse pulmonary edema with right lower lobe airspace consolidation and pleural fluid un changed compared to yesterday. This could be combined pneumonia and heart failure.
--- NOTE | 2020-06-02 18:22 | P.PCN ---
Date of Procedure: 06/02/20 Preoperative Diagnosis: Acute hypoxic respiratory failure, Covid 19 pneumonia Postoperative Diagnosis: Acute hypoxic respiratory failure, Covid 19 pneumonia Procedure(s) Performed: Insertion of a triple-lumen catheter Anesthesia: local Surgeon: Raquel Hobson Estimated Blood Loss (ml): 0 Pathology: none sent Condition: critical Disposition: ICU Operative Findings: Indication: Hemodynamic monitoring/Intravenous access. A time-out was completed verifying correct patient, procedure, site, positioning, and implant(s) or special equipment if applicable. The patient was placed in a dependent position appropriate for central line placement based on the vein to be cannulated. The patients left neck was prepped and draped in sterile fashion. 1% Lidocaine was used to anesthetize the surrounding skin area. A triple lumen 9F Cordis catheter was introduced into the internal jugular vein using Seldinger technique. The catheter was threaded smoothly over the guide wire and appropriate blood return was obtained. Each lumen of the catheter was evacuated of air and flushed with sterile saline. The catheter was then sutured in place to the skin and a sterile dressing applied. Perfusion to the extremity distal to the point of catheter insertion was checked and found to be adequate. The patient tolerated the procedure well and there were no complications.
[2020-06-02 18:23] LABS: ABG Base Excess 7.6 mmol/L; ABG HCO3 34 mmol/L (21-25); ABG Oxygen Saturation 86.9 % (94-97); ABG PCO2 65 mmHg (35-45); ABG PH 7.32 (7.35-7.45); ABG TCO2 36 mmol/L (19-24); Allen Test Performed? Yes
[2020-06-02 18:26] LABS: ABG PO2 54 mmHg (83-108)
[2020-06-02] MEDS ORDERED: NOREPINEPHRIN 4 MG-0.9% NS PMX 4 MG/250 ML ML IV ONE (18:43)
[2020-06-02 18:54] LABS: Glucose,Whole Blood 147 mg/dL (75-99)
[2020-06-02 20:09] LABS: Glucose,Whole Blood 127 mg/dL (75-99)
[2020-06-02] MEDS: MELATONIN 5 MG TABLET PO SCH (20:30)
--- NOTE | 2020-06-02 21:30 | P.PN ---
Subjective This is the first day I am taking care of the patient on 06/01 This is a 65 years old male with past medical history of coronary artery disease, asthma, diabetes mellitus, GERD, hypertension, sleep apnea. Presents with respiratory distress found to have bilateral covid pneumonia with some elements of ARDS. Patient is currently in the ICU intubated and on mechanical ventilation and is followed closely by pulmonary/critical care team. Patient looks critically, he's undergoing prone position per pulmonary team several hours a day. No weaning trial currently Vitals and labs were reviewed, Creatinine today is trending up to 2.1, he got 1 dose of Lasix will keep monitor creatinine. He has mild leukocytosis around 11 K. Potassium was elevated. Patient is currently on cefepime and IV vancomycin. Kayexalate is given and we will monitor potassium 06/02/2020 Patient is still running fever at 101. Tachypneic. His oxygen saturation is 100%. Has leukocytosis of 14.0 K. Potassium this is still elevated at 6.2 and 5.5 today. Chest x-ray showing pulmonary congestion, IV Lasix is given. For hyperkalemia is also provided. Including sodium bicarb, glucose/insulin, Kayexalate. Patient to continue also on steroids and prone position. Also with broad- spectrum antibiotic with cefepime. vancomycin Discontinued by pulmonary/critical care team however monitor the patient closely in the ICU Prognosis remains guarded Review of systems: N/a Active Medications Generic Name Dose Route Start Last Admin Trade Name Freq PRN Reason Stop Dose Admin Acetaminophen 650 mg 05/27/20 14:33 06/01/20 18:51 Acetaminophen Tab 325 Mg Tab PO 650 mg Q4HR PRN Administration Fever and/or Mild Pain Amlodipine Besylate 10 mg 06/01/20 09:00 06/02/20 08:34 Amlodipine 10 Mg Tab PO 10 mg DAILY MARCELINO Administration Ascorbic Acid 1,000 mg 05/28/20 09:00 06/02/20 08:34 Ascorbic Acid 500 Mg Tab PO 1,000 mg DAILY MARCELINO Administration Carvedilol 12.5 mg 06/01/20 09:00 06/02/20 16:39 Carvedilol 12.5 Mg Tab PO Not Given BID-W/MEALS MARCELINO Chlorhexidine Gluconate 15 ml 05/28/20 09:00 06/02/20 20:29 Chlorhexidine Gluconate 15 Ml Cup MUCOUS MEM 15 ml BID MARCELINO Administration Cholecalciferol 400 unit 05/27/20 16:15 06/02/20 08:36 Cholecalciferol 400 Unit Tab PO 400 unit DAILY MARCELINO Administration Dexamethasone Sodium Phosphate 6 mg 05/28/20 09:00 06/02/20 08:34 Dexamethasone Sod Phosphate 4 Mg/Ml 1 Ml Vial IV 6 mg DAILY MARCELINO Administration Enoxaparin Sodium 100 mg 05/30/20 21:00 06/02/20 20:29 Enoxaparin 100 Mg/Ml Syringe SQ 100 mg Q12HR MARCELINO Administration Famotidine 20 mg 05/27/20 21:00 06/02/20 20:29 Famotidine 20 Mg Tab PO 20 mg BID MARCELINO Administration Furosemide 40 mg 06/02/20 09:00 06/02/20 10:23 Furosemide 10 Mg/Ml 4 Ml Vial IV 40 mg DAILY MARCELINO Administration Sodium Chloride 1,000 mls @ 40 mls/hr 05/27/20 13:00 06/02/20 10:22 Saline 0.9% IV 40 mls/hr .Q24H MARCELINO Administration Cefepime HCl 1 gm/ Sodium 50 mls @ 12.5 mls/hr 05/28/20 09:00 06/02/20 20:30 Chloride IVPB 12.5 mls/hr Q12HR MARCELINO Administration Propofol 1,000 mg/ IV Solution 100 mls @ 0 mls/hr 05/27/20 21:45 06/02/20 19:16 IV 50 mcg/kg/min .Q0M MARCELINO 33.51 mls/hr Administration Protocol Titrate Cisatracurium Besylate 200 mg/ 200 mls @ 6.462 mls/hr 05/28/20 01:15 06/02/20 14:12 Sodium Chloride IV 0 mcg/kg/min .Q24H MARCELINO 0 mls/hr Titration Protocol 1 MCG/KG/MIN Clevidipine 25 mg/ IV Solution 50 mls @ 2 mls/hr 05/29/20 09:45 06/01/20 09:45 IV 0 mg/hr .Q24H MARCELINO 0 mls/hr Titration Protocol 1 MG/HR Insulin Human Regular 100 unit 101 mls @ 0 mls/hr 05/30/20 13:30 06/02/20 20:24 / Sodium Chloride IV 0 units/hr .Q0M MARCELINO 0 mls/hr Titration Protocol Per Protocol Norepinephrine Bitartrate 4 mg 254 mls @ 21.279 mls/hr 06/02/20 18:45 / Sodium Chloride IV .[id number] MARCELINO Protocol 0.05 MCG/KG/MIN Melatonin 5 mg 05/27/20 21:00 06/02/20 20:30 Melatonin 5 Mg Tablet PO 5 mg HS MARCELINO Administration Naloxone HCl 0.2 mg 05/27/20 15:46 Naloxone 0.4 Mg/Ml 1 Ml Vial IV Q2M PRN Opioid Reversal Zinc Sulfate 220 mg 05/27/20 16:15 06/02/20 08:37 Zinc Sulfate 220 Mg Cap PO 220 mg DAILY MARCELINO Administration Objective - Vital Signs Vital signs: Vital Signs Temp 101.1 F H 06/02/20 12:00 Pulse 101 H 06/02/20 14:00 Resp 36 H 06/02/20 14:00 BP 98/55 06/02/20 14:00 Pulse Ox 91 L 06/02/20 14:00 Intake & Output 06/01/20 06/02/20 06/02/20 18:59 06:59 18:59 Intake Total 2103.029 1209.237 584.325 Output Total 612 642 0571 Balance 1193.029 379.237 -500.675 Weight 108.2 kg 111.7 kg Intake: IV 700 530 290 Cefepime 1 gm In Sodium 50 50 50 Chloride 0.9% 50 ml @ 12. 5 mls/hr IVPB Q12HR MARCELINO Rx#:[id number] Remdesivir (Eua) 100 mg 250 In Sodium Chloride 0.9% 250 ml @ 250 mls/hr IVPB DAILY MARCELINO Rx#:[id number] Sodium Chloride 0.9% 1, 400 480 240 000 ml @ 40 mls/hr IV . Q24H MARCELINO Rx#:[id number] Intake, IV Titration 1203.029 553.237 294.325 Amount Cisatracurium 200 mg In 200 200 143.994 Sodium Chloride 0.9% 180 ml @ 1 MCG/KG/MIN 6.462 mls/hr IV .Q24H MARCELINO Rx#: [id number] Clevidipine Butyrate 25 35.933 mg In Empty Bag 1 bag @ 1 MG/HR 2 mls/hr IV .Q24H MARCELINO Rx#:[id number] Insulin Regular 100 unit 54.187 52.588 50.331 In Sodium Chloride 0.9% 100 ml @ Per Protocol IV .Q0M MARCELINO Rx#:[id number] Vancomycin 1,750 mg In 501 Sodium Chloride 0.9% 500 ml 500 ml @ 167 mls/hr IVPB Q24H MARCELINO Rx#: [id number] propofoL 1,000 mg In 411.909 300.649 100 Empty Bag 1 bag @ Titrate IV .Q0M MARCELINO Rx#: [id number] Tube Feeding 160 96 Other 40 30 Output: Urine 061 195 4940 Other: Voiding Method Indwelling Catheter Indwelling Catheter Indwelling Catheter ABP, PAP, CO, CI - Last Documented Arterial Blood Pressure 99/44 - Exam GENERAL: The patient is intubated and sedated HEENT: Pupils are round and equally reacting to light. EOMI. No scleral icterus. No conjunctival pallor. Normocephalic, atraumatic. No pharyngeal erythema. No thyromegaly. CARDIOVASCULAR: S1 and S2 present. No murmurs, rubs, or gallops. -PULMONARY: Chest is clear to auscultation, bilateral scattered crackles. ABDOMEN: Soft, nontender, nondistended, normoactive bowel sounds. No palpable organomegaly. MUSCULOSKELETAL: No joint swelling or deformity. EXTREMITIES: No cyanosis, clubbing, or pedal edema. -NEUROLOGICAL: Gross neurological examination did not reveal any focal deficits. Limited by the patient condition SKIN: No rashes. no petechiae. - Labs CBC & Chem 7: 06/02/20 04:30 06/02/20 09:12 Labs: Abnormal Lab Results - Last 24 Hours (Table) 06/01/20 06/01/20 06/01/20 Range/Units 03:50 15:44 16:24 WBC (3.8-10.6) k/uL RBC (4.30-5.90) m/uL MCV (80.0-100.0) fL Neutrophils # (Manual) (1.3-7.7) k/uL Metamyelocytes # (Man) (0) k/uL Myelocytes # (Manual) (0) k/uL Nucleated RBCs (0-0) /100 WBC ABG pH 7.27 L (7.35-7.45) ABG pCO2 64 H (35-45) mmHg ABG pO2 59 L* (83-108) mmHg ABG HCO3 29 H (21-25) mmol/L ABG Total CO2 31 H (19-24) mmol/L ABG O2 Saturation 87.5 L (94-97) % Potassium (3.5-5.1) mmol/L Chloride (98-107) mmol/L BUN (9-20) mg/dL Creatinine (0.66-1.25) mg/dL Glucose (74-99) mg/dL POC Glucose (mg/dL) 157 H (75-99) mg/dL Calcium (8.4-10.2) mg/dL Ferritin 2057.4 H (22.0-322.0) ng/mL Total Protein (6.3-8.2) g/dL Albumin (3.5-5.0) g/dL 06/01/20 06/01/20 06/01/20 Range/Units 17:20 17:25 18:29 WBC (3.8-10.6) k/uL RBC (4.30-5.90) m/uL MCV (80.0-100.0) fL Neutrophils # (Manual) (1.3-7.7) k/uL Metamyelocytes # (Man) (0) k/uL Myelocytes # (Manual) (0) k/uL Nucleated RBCs (0-0) /100 WBC ABG pH (7.35-7.45) ABG pCO2 (35-45) mmHg ABG pO2 (83-108) mmHg ABG HCO3 (21-25) mmol/L ABG Total CO2 (19-24) mmol/L ABG O2 Saturation (94-97) % Potassium 6.1 H* (3.5-5.1) mmol/L Chloride (98-107) mmol/L BUN (9-20) mg/dL Creatinine (0.66-1.25) mg/dL Glucose (74-99) mg/dL POC Glucose (mg/dL) 163 H 153 H (75-99) mg/dL Calcium (8.4-10.2) mg/dL Ferritin (22.0-322.0) ng/mL Total Protein (6.3-8.2) g/dL Albumin (3.5-5.0) g/dL 06/01/20 06/01/20 06/01/20 Range/Units 19:13 20:46 21:00 WBC (3.8-10.6) k/uL RBC (4.30-5.90) m/uL MCV (80.0-100.0) fL Neutrophils # (Manual) (1.3-7.7) k/uL Metamyelocytes # (Man) (0) k/uL Myelocytes # (Manual) (0) k/uL Nucleated RBCs (0-0) /100 WBC ABG pH (7.35-7.45) ABG pCO2 (35-45) mmHg ABG pO2 (83-108) mmHg ABG HCO3 (21-25) mmol/L ABG Total CO2 (19-24) mmol/L ABG O2 Saturation (94-97) % Potassium 5.9 H (3.5-5.1) mmol/L Chloride (98-107) mmol/L BUN (9-20) mg/dL Creatinine (0.66-1.25) mg/dL Glucose (74-99) mg/dL POC Glucose (mg/dL) 247 H 174 H (75-99) mg/dL Calcium (8.4-10.2) mg/dL Ferritin (22.0-322.0) ng/mL Total Protein (6.3-8.2) g/dL Albumin (3.5-5.0) g/dL 06/01/20 06/02/20 06/02/20 Range/Units 22:05 00:19 02:04 WBC (3.8-10.6) k/uL RBC (4.30-5.90) m/uL MCV (80.0-100.0) fL Neutrophils # (Manual) (1.3-7.7) k/uL Metamyelocytes # (Man) (0) k/uL Myelocytes # (Manual) (0) k/uL Nucleated RBCs (0-0) /100 WBC ABG pH (7.35-7.45) ABG pCO2 (35-45) mmHg ABG pO2 (83-108) mmHg ABG HCO3 (21-25) mmol/L ABG Total CO2 (19-24) mmol/L ABG O2 Saturation (94-97) % Potassium (3.5-5.1) mmol/L Chloride (98-107) mmol/L BUN (9-20) mg/dL Creatinine (0.66-1.25) mg/dL Glucose (74-99) mg/dL POC Glucose (mg/dL) 175 H 134 H 122 H (75-99) mg/dL Calcium (8.4-10.2) mg/dL Ferritin (22.0-322.0) ng/mL Total Protein (6.3-8.2) g/dL Albumin (3.5-5.0) g/dL 06/02/20 06/02/20 06/02/20 Range/Units 04:28 04:30 04:30 WBC 14.0 H (3.8-10.6) k/uL RBC 4.09 L (4.30-5.90) m/uL MCV 100.9 H (80.0-100.0) fL Neutrophils # (Manual) 11.60 H (1.3-7.7) k/uL Metamyelocytes # (Man) 0.42 H (0) k/uL Myelocytes # (Manual) 0.14 H (0) k/uL Nucleated RBCs 1 H (0-0) /100 WBC ABG pH (7.35-7.45) ABG pCO2 (35-45) mmHg ABG pO2 (83-108) mmHg ABG HCO3 (21-25) mmol/L ABG Total CO2 (19-24) mmol/L ABG O2 Saturation (94-97) % Potassium 6.2 H* (3.5-5.1) mmol/L Chloride 112 H (98-107) mmol/L BUN 115 H* (9-20) mg/dL Creatinine 2.15 H (0.66-1.25) mg/dL Glucose 155 H (74-99) mg/dL POC Glucose (mg/dL) 144 H (75-99) mg/dL Calcium 8.1 L (8.4-10.2) mg/dL Ferritin (22.0-322.0) ng/mL Total Protein 4.9 L (6.3-8.2) g/dL Albumin 2.6 L (3.5-5.0) g/dL 06/02/20 06/02/20 06/02/20 Range/Units 05:14 06:34 08:08 WBC (3.8-10.6) k/uL RBC (4.30-5.90) m/uL MCV (80.0-100.0) fL Neutrophils # (Manual) (1.3-7.7) k/uL Metamyelocytes # (Man) (0) k/uL Myelocytes # (Manual) (0) k/uL Nucleated RBCs (0-0) /100 WBC ABG pH 7.24 L (7.35-7.45) ABG pCO2 67 H (35-45) mmHg ABG pO2 64 L (83-108) mmHg ABG HCO3 29 H (21-25) mmol/L ABG Total CO2 31 H (19-24) mmol/L ABG O2 Saturation 90.5 L (94-97) % Potassium (3.5-5.1) mmol/L Chloride (98-107) mmol/L BUN (9-20) mg/dL Creatinine (0.66-1.25) mg/dL Glucose (74-99) mg/dL POC Glucose (mg/dL) 141 H 192 H (75-99) mg/dL Calcium (8.4-10.2) mg/dL Ferritin (22.0-322.0) ng/mL Total Protein (6.3-8.2) g/dL Albumin (3.5-5.0) g/dL 06/02/20 06/02/20 06/02/20 Range/Units 09:12 10:17 12:02 WBC (3.8-10.6) k/uL RBC (4.30-5.90) m/uL MCV (80.0-100.0) fL Neutrophils # (Manual) (1.3-7.7) k/uL Metamyelocytes # (Man) (0) k/uL Myelocytes # (Manual) (0) k/uL Nucleated RBCs (0-0) /100 WBC ABG pH (7.35-7.45) ABG pCO2 (35-45) mmHg ABG pO2 (83-108) mmHg ABG HCO3 (21-25) mmol/L ABG Total CO2 (19-24) mmol/L ABG O2 Saturation (94-97) % Potassium 5.5 H (3.5-5.1) mmol/L Chloride (98-107) mmol/L BUN (9-20) mg/dL Creatinine (0.66-1.25) mg/dL Glucose (74-99) mg/dL POC Glucose (mg/dL) 169 H 177 H (75-99) mg/dL Calcium (8.4-10.2) mg/dL Ferritin (22.0-322.0) ng/mL Total Protein (6.3-8.2) g/dL Albumin (3.5-5.0) g/dL 06/02/20 Range/Units 14:03 WBC (3.8-10.6) k/uL RBC (4.30-5.90) m/uL MCV (80.0-100.0) fL Neutrophils # (Manual) (1.3-7.7) k/uL Metamyelocytes # (Man) (0) k/uL Myelocytes # (Manual) (0) k/uL Nucleated RBCs (0-0) /100 WBC ABG pH (7.35-7.45) ABG pCO2 (35-45) mmHg ABG pO2 (83-108) mmHg ABG HCO3 (21-25) mmol/L ABG Total CO2 (19-24) mmol/L ABG O2 Saturation (94-97) % Potassium (3.5-5.1) mmol/L Chloride (98-107) mmol/L BUN (9-20) mg/dL Creatinine (0.66-1.25) mg/dL Glucose (74-99) mg/dL POC Glucose (mg/dL) 180 H (75-99) mg/dL Calcium (8.4-10.2) mg/dL Ferritin (22.0-322.0) ng/mL Total Protein (6.3-8.2) g/dL Albumin (3.5-5.0) g/dL Microbiology - Last 24 Hours (Table) 05/31/20 12:30 Blood Culture Gram Stain - Preliminary Blood Blood Culture - Preliminary Coagulase Negative Staph 05/31/20 12:30 Blood Culture - Final Blood 05/31/20 12:30 Blood Culture - Preliminary Blood No Growth after 24 hours 05/27/20 12:20 Blood Culture - Preliminary Blood No Growth after 120 hours 05/31/20 12:30 Urine Culture - Final Urine,Catheterized Assessment and Plan Assessment: Bilateral Covid 19 pneumonitis with possibly some elements of ARDS Acute hypoxic respiratory failure Jodi on mechanical ventilation Acute kidney injury Hyperkalemia That 2 diabetes mellitus Hypertension Sleep apnea History of GERD History of asthma Plan: This is a 65 years old male with bilateral Covid pneumonia. Continue with tx chanical ventilation and management as per pulmonary/critical care team who are following the patient closely.. Continue with broad-spectrum antibiotics. Continue with prone position as per pulmonary services recommendation. Continue with therapeutic dose of Lovenox. Closely monitor potassium level and creatinine Labs and medication were reviewed.. Continue same treatment. Continue with sym ptomatic treatment. Resume home medication. Monitor lytes and vitals. DVT and GI prophylaxis. Further recommendationsas per clinical course of the patient DVT prophylaxis: Subcutaneous Lovenox GI Prophylaxis: Pepcid Prognosis is guarded
[2020-06-02] MEDS: NOREPINEPHRINE 4 MG in SODIUM CHLORIDE 0.9% 250 ML IV SCH (21:35)
[2020-06-02 22:33] LABS: Glucose,Whole Blood 146 mg/dL (75-99)
[2020-06-03 00:09] LABS: Glucose,Whole Blood 145 mg/dL (75-99)
[2020-06-03 02:07] LABS: Glucose,Whole Blood 133 mg/dL (75-99)
[2020-06-03 04:01] LABS: Glucose,Whole Blood 142 mg/dL (75-99)
[2020-06-03 05:06] LABS: ABG Base Excess 7.7 mmol/L; ABG HCO3 35 mmol/L (21-25); ABG Oxygen Saturation 92.2 % (94-97); ABG PH 7.24 (7.35-7.45); ABG PO2 70 mmHg (83-108); ABG TCO2 38 mmol/L (19-24)
[2020-06-03 05:09] LABS: ABG PCO2 81 mmHg (35-45); Allen Test Performed? y
[2020-06-03 05:33] LABS: Albumin 2.5 g/dL (3.5-5.0); Calcium 7.9 mg/dL (8.4-10.2); Total Bilirubin 0.5 mg/dL (0.2-1.3); Total Protein 4.9 g/dL (6.3-8.2)
[2020-06-03 05:41] LABS: HCT 38.5 % (39.0-53.0); HGB 12.7 gm/dL (13.0-17.5); Hypochromasia Slight; MCH 33.8 pg (25.0-35.0); MCV 102.5 fL (80.0-100.0); Macrocytosis Slight; Mean Platelet Volume 8.7; Platelet Count 431 k/uL (150-450); RBC 3.76 m/uL (4.30-5.90); RDW 14.3 % (11.5-15.5)
[2020-06-03] MEDS: NOREPINEPHRINE 4 MG in SODIUM CHLORIDE 0.9% 250 ML IV SCH ×4 (06:02→18:16)
[2020-06-03 06:19] LABS: Glucose,Whole Blood 157 mg/dL (75-99)
[2020-06-03 06:37] LABS: Band Neutrophils % 32 %; Eosinophils # (M) 0.16 k/uL (0-0.7); Lymphocytes # (M) 1.11 k/uL (1.0-4.8); Metamyelocytes # (M) 0.32 k/uL (0); Metamyelocytes % 2 %; Monocytes # (M) 0.16 k/uL (0-1.0); Neutrophils % (M) 59 %; Nucleated Red Blood Cells 1 /100 WBC (0-0); Total Cells Counted 200; WBC 15.8 k/uL (3.8-10.6)
[2020-06-03 06:42] LABS: Anisocytosis (M) Present; Poikilocytosis (M) Present; Polychromasia Present
[2020-06-03] MEDS: carvediloL 12.5 MG TAB PO SCH ×2 (06:46→16:25)
[2020-06-03 08:35] LABS: Glucose,Whole Blood 166 mg/dL (75-99)
[2020-06-03] MEDS: CLEVIDIPINE BUTYRATE 25 MG in EMPTY BAG 1 BAG IV SCH (08:41)
[2020-06-03] MEDS: INSULIN REGULAR 100 UNIT in SODIUM CHLORIDE 0.9% 100 ML IV SCH ×2 (08:45→22:14)
[2020-06-03] MEDS: CEFEPIME 1 GM in SODIUM CHLORIDE 0.9% 50 ML IVPB SCH ×2 (08:45→20:09)
[2020-06-03] MEDS: DEXTROSE 5% IN WATER 1,000 ML IV SCH (08:45)
--- NOTE | 2020-06-03 09:07 | XR ---
EXAMINATION TYPE: XR chest 1V portable DATE OF EXAM: 06/03/2020 CLINICAL HISTORY: ET tube placement . TECHNIQUE: Two AP portable supine views of the chest are obtained. COMPARISON: Chest x-ray from one day earlier and older studies. FINDINGS: Endotracheal tube now terminates at superior aortic knob level, approximately 4 to 5 cm ab ove the chencho. Oral gastric tube redemonstrated projecting below diaphragm. Stable left internal jug ular central venous catheter. Overlying EKG leads redemonstrated. Persistent right lung opacities and left upper lung opacities shane ng with patchy left basilar opacities. Stable small right pleural effusion. Cardiac silhouette size s table and within normal limits. Osseous structures are intact. IMPRESSION: 1. Improved positioning of endotracheal tube after repositioning. 2. Other findings stable with multifocal right lung edema and/or infiltrates in the left upper lung a cute infiltrate. Small right pleural effusion noted.
[2020-06-03 09:08] LABS: Glucose,Whole Blood 163 mg/dL (75-99)
[2020-06-03 09:11] LABS: ABG Base Excess 6.5 mmol/L; ABG HCO3 32 mmol/L (21-25); ABG Oxygen Saturation 93.4 % (94-97); ABG PCO2 56 mmHg (35-45); ABG PH 7.36 (7.35-7.45); ABG PO2 67 mmHg (83-108); ABG TCO2 34 mmol/L (19-24)
[2020-06-03] MEDS: ACETAMINOPHEN TAB 325 MG TAB PO PRN ×3 (09:12→22:06)
[2020-06-03 09:14] LABS: Allen Test Performed? NO
[2020-06-03] MEDS: amLODIPine 10 MG TAB PO SCH (10:21)
[2020-06-03] MEDS: ASCORBIC ACID 500 MG TAB PO SCH (10:37)
[2020-06-03] MEDS: CHOLECALCIFEROL 400 UNIT TAB PO SCH (10:37)
[2020-06-03] MEDS: ZINC SULFATE 220 MG CAP PO SCH (10:37)
[2020-06-03] MEDS: DEXAMETHASONE SOD PHOSPHATE 4 MG/ML 1 ML VIAL IV SCH (10:37)
[2020-06-03] MEDS: CHLORHEXIDINE GLUCONATE 15 ML CUP MUCOUS MEM SCH ×2 (10:37→20:09)
[2020-06-03] MEDS: FAMOTIDINE 20 MG TAB PO SCH ×2 (10:38→20:09)
[2020-06-03] MEDS: ENOXAPARIN 100 MG/ML SYRINGE SQ SCH ×2 (10:38→20:09)
[2020-06-03 10:50] LABS: Glucose,Whole Blood 165 mg/dL (75-99)
[2020-06-03 11:00] LABS: C Reactive Protein 24.5 mg/L (<10.0)
[2020-06-03] MEDS ORDERED: SODIUM CHLORIDE 0.9% 500 ML 500 ML IV ONE (11:33)
[2020-06-03 12:07] LABS: African American GFR (CKD) 31.2 (60.0-200.0); Anion Gap 20.4 mmol/L (4.00-12.00); Calcium 6.8 mg/dL (8.7-10.3); Carbon Dioxide 18.6 mmol/L (21.6-31.8); Non-African American GFR(CKD) 26.9 (60.0-200.0); Potassium 5.7 mmol/L (3.5-5.5)
[2020-06-03 12:13] LABS: Glucose,Whole Blood 160 mg/dL (75-99)
--- NOTE | 2020-06-03 12:20 | P.PN ---
Subjective Progress Note Date: 06/03/20 This is a 65-year-old male patient was admitted on 05/27/2020 for respiratory failure and pneumonia. The patient has a history of right hemidiaphragmatic paralysis for which she has undergone a diaphragmatic plication at . The patient also has chronic bronchiectasis involving the right middle lobe and right lower lobe in addition to bronchial asthma. The patient presented to the ED on 05/27/2024 shortness of breath, cough and chills and fever and not feeling well and he was tested positive for coronavirus Covid 19. The patient was initially treated with high flow oxygen along with nonrebreather mask. Unfortunately, he continued to have difficulty breathing and respiratory failure and he required intubation and mechanical ventilation on 05/28/2020. The patient currently is on mechanical ventilation, sedated and he remains on assist control mode at the rate of 36, tidal volume of 450, FiO2 of 80% and PEEP of 15. The patient is also paralyzed with Nimbex at 3.5 g per KG per minute and propofol currently is running at 65 g per KG per minute. The patient is receiving enteral feeding for nutritional support with vital high protein running at 20 mL an hour. The patient is currently on Remdesivir, 2 doses of Tocilizumab and received convelescent plasma and Decadron, pepsid, melatonin and Zinc and the patient is receiving emperic antibiotics with IV Cefepime. . The patient is also on clevidipine drip for blood pressure control. Insulin is being utilized for blood sugar control. the patient has she will the patient has a triple-lumen catheter in the left subclavian. Noted the patient is also receiving intermittent phoning and he was on for a total of 16 hours yesterday and this morning he was still prolonged and I was able to put him back in a supine body position. He had a fever of 100.2 this morning. He is essentially on the same vent setting. His blood gases from today showed a pH of 7.31 with a pCO2 of 57 and pO2 of 63. Peak air pressure was around 42. Static pressure was 35. Based on that, I dropped his tidal volume to 400 and this brought on the static pressure down to 27. A subsequent blood gases showed a pH of 7.25 with a pCO2 of 63 and pO2 of 66. The patient otherwise has diffuse bilateral pulmonary infiltrates consistent with Covid 19 pneumonia. He is on x Cleviprex drip at 4 mg an hour for blood pressure control. The fluid balance is positive around 1.7 L over the past 24 hours. He would benefit from diuresis. Enteral feeding with vital high protein only when the patient is in supine body position. 06/02/2020 the patient is being seen for a follow-up. The patient remains intubated on a mechanical ventilator and his alternating between prone and supine body positioning. He was performed again yesterday evening and he will be placed supine around 2 PM this afternoon. The patient remains on a mechanical ventilator. The patient is sedated and paralyzed. In terms of his sedation, the patient is on propofol at 60 mg per KG per minute, he is on Nimbex at 3 g and he remains on a mechanical ventilator on assist control mode at the rate of 30 with a tidal volume of 400 and FiO2 of 80% with a PEEP of 17. Chest x-ray findings are essentially stable with diffuse bilateral pulmonary infiltrates unchanged compared to yesterday's chest x-ray. I was having difficulties with the patient's elevated potassium level. The patient continued to have some high potassium level due to his underlying metabolic acidosis.note that the highest potassium level is at 6.2. I give the patient bicarb on multiple occasions and form of IV push as him on 50 mEq each, and I also gave the patient D50 with insulin and and he was also given a dose of Kayexalate and the subsequent potassium level came down to 5.5. The patient was also given Lasix. Most recent blood work shows a BUN of 115, creatinine of 2.1, potassium level of 5.5, serum bicarb of 28, and most recent blood his showed a pH of 7.24 with a pCO2 of 67 and pO2 of 64. The patient is hemodynamically stable. The patient does oxygenate better whenever he is switched to a prone body position improvement in the order of 3-4% and his oxygenation on his saturation while being prone. The patient remains on IV cefepime. Blood culture was positive for coagulase-negative staph and he was given a dose of vancomycin that was subsequently discontinued. He remains on Decadron 6 mg IV. I started him on daily Lasix 40 mg IV push to maintain his fluid balance. Otherwise, no other significant events. Enterofeeding is being provided while the patient being in a supine body position. No fever. The white cell count is at 14. The patient's ferritin level was dropping it was down to 2056. Liver function tests are essentially normal and today's evaluation. 06/03/2020, the patient remains intubated on a mechanical ventilator. Earlier this morning the patient was in a prone body position. I noted that the patient was having significant amount of leak around the ET tube and based on that I switch this patient back to a supine body position and made appropriate adjustments on the orotracheal tube to prevent the leak. The patient was subsequently placed on assist control mode at the rate of 36 with a tidal volume of 450 and FiO2 of 80% with a PEEP of 17. The peak airway pressure 32. Static pressure is 28. The morning blood gases were noted and there were somewhat abnormal as the patient was having significant amount of air leak on the o rotracheal tube. The blood gases were repeated and the patient was noted to have a pH of 7.36 with a pCO2 of 56 and pO2 of 67. Chest x-ray still showing diffuse but the pulmonary infiltrates consistent with Covid 19 related pneumonia. The patient was started on daily Lasix. The patient's has an input of a balance of -300 mL over the past 24 hours. Nevertheless, the patient developed some degree of hypotension and the patient was started on pressors after being given a bolus of 500 mL this morning of normal saline without any improvement. Currently norepinephrine is running at 0.07 micrograms per KG per minute. The patient continues to have episodes of fever. The chest x-ray still showing diffuse bilateral pulmonary infiltrates with significant consolidation of the right lower lobe. The patient remains on IV cefepime as an empiric antibiotic coverage. The patient is on IV Decadron 6 mg on a daily basis. Norepinephrine infusion is being is affected the blood pressure control. Sodium level is up to 148. The patient will be given D5 water to replace the free water deficit. C reatinine is up to 2.4 with a BUN of 19. The inflammatory markers show a drop in his CRP level is up to 24, LDH is elevated at 1059 and the patient is still having episodic fever requiring Tylenol for ongoing fever activity. Probable regarding at 65 g per KG per minute and the triglyceride level from today was 2313 patient is receiving vital high protein at the rate of 60 mL an hour 8 hours on a 24 hour.. The patient's CVP of 19 and the triple-lumen catheter was inserted yesterday and the left IJ with adequate positioning. Objective - Vital Signs Vital signs: Vital Signs Temp 102.0 F H 06/03/20 09:00 Pulse 109 H 06/03/20 11:00 Resp 36 H 06/03/20 11:00 BP 100/67 06/03/20 09:00 Pulse Ox 96 06/03/20 11:00 Intake & Output 06/02/20 06/03/20 06/03/20 18:59 06:59 18:59 Intake Total 1015.109 528.288 4462.773 Output Total 1345 890 410 Balance -329.891 27.270 744.773 Weight 111.7 kg 111.7 kg Intake: IV 450 490 90 Cefepime 1 gm In Sodium 50 50 50 Chloride 0.9% 50 ml @ 12. 5 mls/hr IVPB Q12HR [facility] Rx#:[id number] Sodium Chloride 0.9% 1, 400 440 40 000 ml @ 40 mls/hr IV . Q24H [facility] Rx#:[id number] Intake, IV Titration 533.109 512.475 6798.773 Amount Cisatracurium 200 mg In 143.994 Sodium Chloride 0.9% 180 ml @ 1 MCG/KG/MIN 6.462 mls/hr IV .Q24H [facility] Rx#: [id number] Dextrose 5% in Water 1, 200 000 ml @ 50 mls/hr IV . Q20H [facility] Rx#:[id number] Insulin Regular 100 unit 89.115 22.068 10.773 In Sodium Chloride 0.9% 100 ml @ Per Protocol IV .Q0M [facility] Rx#:[id number] Norepinephrine 4 mg In 254.000 Sodium Chloride 0.9% 250 ml @ 0.05 MCG/KG/MIN 21. 279 mls/hr IV .[id number] [facility] Rx#:[id number] Sodium Chloride 0.9% 500 500 ml 500 ml @ 999 mls/hr IV .Q31M ONE Rx#:[id number] propofoL 1,000 mg In 300 279.202 100 Empty Bag 1 bag @ Titrate IV .Q0M [facility] Rx#: [id number] Tube Feeding 32 96 Other 30 Output: Urine 1345 890 410 Other: Voiding Method Indwelling Catheter Indwelling Catheter Indwelling Catheter ABP, PAP, CO, CI - Last Documented Arterial Blood Pressure 101/57 - Exam Gen. appearance the patient is calm and comfortable sedated and paralyzed on her stress synchronous with the mechanical ventilator. Earlier this morning the patient was in a prone body position and the patient was subsequently switched to supine. The patient has developed a skin abrasion from being positioned in a prone body position and this has on his left cheek. Head exam was generally normal. There was no scleral icterus or corneal arcus. Mucous membranes were moist. Neck was supple and without jugular venous distension, thyromegaly, or carotid bruits. Carotids were easily palpable bilaterally. There was no adeno christiana.Orogastric and orotracheal tube are both in place. The patient has a left IJ triple-lumen catheter in place Lungs sounds are diminished and the patient has some crackles in lung bases bilaterally. Cardiac exam revealed the PMI to be normally situated and sized. The rhythm was regular and no extrasystoles were noted during several minutes of auscultation. The first and second heart sounds were normal and physiologic splitting of the second heart sound was noted. There were no murmurs, rubs, clicks, or gallops. Abdominal exam revealed normal bowel sounds. The abdomen was soft, non-tender, and without masses, organomegaly, or appreciable enlargement of the abdominal aorta. Examination of the extremities revealed easily palpable radial, femoral and pedal pulses. There was no cyanosis, clubbing or edema. Examination of the skin revealed no evidence of significant rashes, suspicious appearing nevi or other concerning lesions. Neurologically the patient sedated and the paralytics have been discontinued. - Labs CBC & Chem 7: 06/03/20 04:30 06/03/20 08:27 Labs: Abnormal Lab Results - Last 24 Hours (Table) 06/02/20 06/02/20 06/02/20 Range/Units 14:03 16:36 18:20 WBC (3.8-10.6) k/uL RBC (4.30-5.90) m/uL Hgb (13.0-17.5) gm/dL Hct (39.0-53.0) % MCV (80.0-100.0) fL Neutrophils # (Manual) (1.3-7.7) k/uL Metamyelocytes # (Man) (0) k/uL Nucleated RBCs (0-0) /100 WBC D-Dimer (<0.60) mg/L FEU ABG pH 7.32 L (7.35-7.45) ABG pCO2 65 H (35-45) mmHg ABG pO2 54 L* (83-108) mmHg ABG HCO3 34 H (21-25) mmol/L ABG Total CO2 36 H (19-24) mmol/L ABG O2 Saturation 86.9 L (94-97) % Sodium (137-145) mmol/L Potassium (3.5-5.1) mmol/L Chloride (98-107) mmol/L Carbon Dioxide (22-30) mmol/L Anion Gap (4.00-12.00) mmol/L BUN (9-20) mg/dL Creatinine (0.66-1.25) mg/dL Est GFR (CKD-EPI)AfAm (60.0-200.0) Est GFR (CKD-EPI)NonAf (60.0-200.0) Glucose (74-99) mg/dL POC Glucose (mg/dL) 180 H 180 H (75-99) mg/dL Calcium (8.4-10.2) mg/dL Lactate Dehydrogenase (313-618) U/L C-Reactive Protein (<10.0) mg/L Total Protein (6.3-8.2) g/dL Albumin (3.5-5.0) g/dL Triglycerides (<150) mg/dL 06/02/20 06/02/20 06/02/20 Range/Units 18:52 20:08 22:31 WBC (3.8-10.6) k/uL RBC (4.30-5.90) m/uL Hgb (13.0-17.5) gm/dL Hct (39.0-53.0) % MCV (80.0-100.0) fL Neutrophils # (Manual) (1.3-7.7) k/uL Metamyelocytes # (Man) (0) k/uL Nucleated RBCs (0-0) /100 WBC D-Dimer (<0.60) mg/L FEU ABG pH (7.35-7.45) ABG pCO2 (35-45) mmHg ABG pO2 (83-108) mmHg ABG HCO3 (21-25) mmol/L ABG Total CO2 (19-24) mmol/L ABG O2 Saturation (94-97) % Sodium (137-145) mmol/L Potassium (3.5-5.1) mmol/L Chloride (98-107) mmol/L Carbon Dioxide (22-30) mmol/L Anion Gap (4.00-12.00) mmol/L BUN (9-20) mg/dL Creatinine (0.66-1.25) mg/dL Est GFR (CKD-EPI)AfAm (60.0-200.0) Est GFR (CKD-EPI)NonAf (60.0-200.0) Glucose (74-99) mg/dL POC Glucose (mg/dL) 147 H 127 H 146 H (75-99) mg/dL Calcium (8.4-10.2) mg/dL Lactate Dehydrogenase (313-618) U/L C-Reactive Protein (<10.0) mg/L Total Protein (6.3-8.2) g/dL Albumin (3.5-5.0) g/dL Triglycerides (<150) mg/dL 06/03/20 06/03/20 06/03/20 Range/Units 00:08 02:05 03:59 WBC (3.8-10.6) k/uL RBC (4.30-5.90) m/uL Hgb (13.0-17.5) gm/dL Hct (39.0-53.0) % MCV (80.0-100.0) fL Neutrophils # (Manual) (1.3-7.7) k/uL Metamyelocytes # (Man) (0) k/uL Nucleated RBCs (0-0) /100 WBC D-Dimer (<0.60) mg/L FEU ABG pH (7.35-7.45) ABG pCO2 (35-45) mmHg ABG pO2 (83-108) mmHg ABG HCO3 (21-25) mmol/L ABG Total CO2 (19-24) mmol/L ABG O2 Saturation (94-97) % Sodium (137-145) mmol/L Potassium (3.5-5.1) mmol/L Chloride (98-107) mmol/L Carbon Dioxide (22-30) mmol/L Anion Gap (4.00-12.00) mmol/L BUN (9-20) mg/dL Creatinine (0.66-1.25) mg/dL Est GFR (CKD-EPI)AfAm (60.0-200.0) Est GFR (CKD-EPI)NonAf (60.0-200.0) Glucose (74-99) mg/dL POC Glucose (mg/dL) 145 H 133 H 142 H (75-99) mg/dL Calcium (8.4-10.2) mg/dL Lactate Dehydrogenase (313-618) U/L C-Reactive Protein (<10.0) mg/L Total Protein (6.3-8.2) g/dL Albumin (3.5-5.0) g/dL Triglycerides (<150) mg/dL 06/03/20 06/03/20 06/03/20 Range/Units 04:30 04:30 05:03 WBC 15.8 H (3.8-10.6) k/uL RBC 3.76 L (4.30-5.90) m/uL Hgb 12.7 L (13.0-17.5) gm/dL Hct 38.5 L (39.0-53.0) % MCV 102.5 H (80.0-100.0) fL Neutrophils # (Manual) 14.30 H (1.3-7.7) k/uL Metamyelocytes # (Man) 0.32 H (0) k/uL Nucleated RBCs 1 H (0-0) /100 WBC D-Dimer (<0.60) mg/L FEU ABG pH 7.24 L (7.35-7.45) ABG pCO2 81 H* (35-45) mmHg ABG pO2 70 L (83-108) mmHg ABG HCO3 35 H (21-25) mmol/L ABG Total CO2 38 H (19-24) mmol/L ABG O2 Saturation 92.2 L (94-97) % Sodium 147 H (137-145) mmol/L Potassium 6.0 H (3.5-5.1) mmol/L Chloride 112 H (98-107) mmol/L Carbon Dioxide 35 H (22-30) mmol/L Anion Gap (4.00-12.00) mmol/L BUN 120 H* (9-20) mg/dL Creatinine 2.11 H (0.66-1.25) mg/dL Est GFR (CKD-EPI)AfAm (60.0-200.0) Est GFR (CKD-EPI)NonAf (60.0-200.0) Glucose 145 H (74-99) mg/dL POC Glucose (mg/dL) (75-99) mg/dL Calcium 7.9 L (8.4-10.2) mg/dL Lactate Dehydrogenase (313-618) U/L C-Reactive Protein (<10.0) mg/L Total Protein 4.9 L (6.3-8.2) g/dL Albumin 2.5 L (3.5-5.0) g/dL Triglycerides (<150) mg/dL 06/03/20 06/03/20 06/03/20 Range/Units 06:18 08:27 08:27 WBC (3.8-10.6) k/uL RBC (4.30-5.90) m/uL Hgb (13.0-17.5) gm/dL Hct (39.0-53.0) % MCV (80.0-100.0) fL Neutrophils # (Manual) (1.3-7.7) k/uL Metamyelocytes # (Man) (0) k/uL Nucleated RBCs (0-0) /100 WBC D-Dimer 8.21 H (<0.60) mg/L FEU ABG pH (7.35-7.45) ABG pCO2 (35-45) mmHg ABG pO2 (83-108) mmHg ABG HCO3 (21-25) mmol/L ABG Total CO2 (19-24) mmol/L ABG O2 Saturation (94-97) % Sodium (137-145) mmol/L Potassium (3.5-5.1) mmol/L Chloride (98-107) mmol/L Carbon Dioxide (22-30) mmol/L Anion Gap (4.00-12.00) mmol/L BUN (9-20) mg/dL Creatinine (0.66-1.25) mg/dL Est GFR (CKD-EPI)AfAm (60.0-200.0) Est GFR (CKD-EPI)NonAf (60.0-200.0) Glucose (74-99) mg/dL POC Glucose (mg/dL) 157 H (75-99) mg/dL Calcium (8.4-10.2) mg/dL Lactate Dehydrogenase 1059 H (313-618) U/L C-Reactive Protein 24.5 H (<10.0) mg/L Total Protein (6.3-8.2) g/dL Albumin (3.5-5.0) g/dL Triglycerides 2313 H (<150) mg/dL 06/03/20 06/03/20 06/03/20 Range/Units 08:27 08:33 09:02 WBC (3.8-10.6) k/uL RBC (4.30-5.90) m/uL Hgb (13.0-17.5) gm/dL Hct (39.0-53.0) % MCV (80.0-100.0) fL Neutrophils # (Manual) (1.3-7.7) k/uL Metamyelocytes # (Man) (0) k/uL Nucleated RBCs (0-0) /100 WBC D-Dimer (<0.60) mg/L FEU ABG pH (7.35-7.45) ABG pCO2 56 H (35-45) mmHg ABG pO2 67 L (83-108) mmHg ABG HCO3 32 H (21-25) mmol/L ABG Total CO2 34 H (19-24) mmol/L ABG O2 Saturation 93.4 L (94-97) % Sodium 148 H (137-145) mmol/L Potassium 5.7 H (3.5-5.1) mmol/L Chloride (98-107) mmol/L Carbon Dioxide 18.6 L (22-30) mmol/L Anion Gap 20.40 H (4.00-12.00) mmol/L BUN 90.0 H (9-20) mg/dL Creatinine 2.4 H (0.66-1.25) mg/dL Est GFR (CKD-EPI)AfAm 31.2 L (60.0-200.0) Est GFR (CKD-EPI)NonAf 26.9 L (60.0-200.0) Glucose 165 H (74-99) mg/dL POC Glucose (mg/dL) 166 H (75-99) mg/dL Calcium 6.8 L (8.4-10.2) mg/dL Lactate Dehydrogenase (313-618) U/L C-Reactive Protein (<10.0) mg/L Total Protein (6.3-8.2) g/dL Albumin (3.5-5.0) g/dL Triglycerides (<150) mg/dL 06/03/20 06/03/20 Range/Units 09:07 10:49 WBC (3.8-10.6) k/uL RBC (4.30-5.90) m/uL Hgb (13.0-17.5) gm/dL Hct (39.0-53.0) % MCV (80.0-100.0) fL Neutrophils # (Manual) (1.3-7.7) k/uL Metamyelocytes # (Man) (0) k/uL Nucleated RBCs (0-0) /100 WBC D-Dimer (<0.60) mg/L FEU ABG pH (7.35-7.45) ABG pCO2 (35-45) mmHg ABG pO2 (83-108) mmHg ABG HCO3 (21-25) mmol/L ABG Total CO2 (19-24) mmol/L ABG O2 Saturation (94-97) % Sodium (137-145) mmol/L Potassium (3.5-5.1) mmol/L Chloride (98-107) mmol/L Carbon Dioxide (22-30) mmol/L Anion Gap (4.00-12.00) mmol/L BUN (9-20) mg/dL Creatinine (0.66-1.25) mg/dL Est GFR (CKD-EPI)AfAm (60.0-200.0) Est GFR (CKD-EPI)NonAf (60.0-200.0) Glucose (74-99) mg/dL POC Glucose (mg/dL) 163 H 165 H (75-99) mg/dL Calcium (8.4-10.2) mg/dL Lactate Dehydrogenase (313-618) U/L C-Reactive Protein (<10.0) mg/L Total Protein (6.3-8.2) g/dL Albumin (3.5-5.0) g/dL Triglycerides (<150) mg/dL Microbiology - Last 24 Hours (Table) 05/31/20 12:30 Blood Culture - Preliminary Blood No Growth after 48 hours 05/27/20 12:20 Blood Culture - Final Blood No Growth after 144 hours 05/31/20 12:30 Blood Culture Gram Stain - Preliminary Blood Blood Culture - Preliminary Coagulase Negative Staph Assessment and Plan Plan: 1 acute hypoxic respiratory failure secondary to Covid 19 pneumonitis. The patient remains intubated on a mechanical ventilator. The patient was intubated on 05/28/2020. The patient remains intubated on a mechanical ventilator utilizing prone positioning episodically during the day. The patient continues to have elevated LDH, the CRP level has dropped, the patient continues to have episodes of fever and there are diffuse but the pulmonary infiltrates with worsening consolidation of the right lower lobe and some improvement of the infiltrates on the left lung. The patient has completed antiviral treatment and currently the patient on IV Decadron in addition to zinc sulfate and minutes on a vitamin C. The patient is on assist control mode of ventilation with adequate oxygenation and ventilation at this point in time. 2 acute Covid 19 pneumonitis, completed Remdesivir and Tocilizumab, and currently the patient is on IV Decadron, zinc sulfate, melatonin, and vitamin C. 3 chronic right hemidiaphragmatic paralysis post plication 4 chronic bronchial asthma 5 history of right middle lobe/right lower lobe bronchiectasis 6 coronary artery disease 7 obstructive sleep apnea 8 AAA with a previous endovascular stent grafting that was done 2011 9 chronic back pain 10 RLS 11 hyperlipidemia, and the patient has developed severe hypertriglyceridemia secondary to propofol infusion 12 abnormal LFTs, improved 13 coagulase-negative staph in the blood likely contaminant and vancomycin were discontinued Plan Continue ventilator support and vent setting was adjusted to improve the acidosis that this was contributing to the patient's hyperkalemia. I increased the tidal volume to 450 and the repeat blood gases showed improvement in the acidosis and repeat potassium level is to follow and will continue to monitor the peak and static pressures. We'll also monitor the blood gases. Tidal Volumes of 450. Will stop the propofol and switch this patient to Precedex if possible and we will utilize Versed if needed Vital high protein intermittent feeding 8 hours a day Prone body positioning intermittently during the day Continue enteral feeding for nutritional support Continue Decadron Monitor fever pattern Repeat blood cultures peripheral and from the central line. Noted the patient has a new left IJ triple-lumen catheter in place. CPAP is elevated and will continue using Lasix 40 mg every 24 hours Utilized norepinephrine infusion for blood pressure control and norepinephrine currently is running at 0.0; respiratory per minute. Hold antihypertensive medications Monitor the potassium level. Daily Lasix dose 40 mg IV every 24 hours Continue IV cefepime and empiric antibiotics coverage Continue Lovenox Condition remains critical. The family will be updated in the condition and alec coello make further recommendations based on his progress. There is a critically care evaluation that was done more than 30 minutes. Time with Patient: Greater than 30
[2020-06-03] MEDS: DEXMEDETOMIDINE/0.9% NACL(PMX) 400 MCG in EMPTY BAG 1 BAG IV SCH ×2 (13:05→18:22)
[2020-06-03 14:01] LABS: Glucose,Whole Blood 195 mg/dL (75-99)
[2020-06-03] MEDS ORDERED: FUROSEMIDE 10 MG/ML 4 ML VIAL IV STA (15:11)
[2020-06-03 16:07] LABS: Glucose,Whole Blood 225 mg/dL (75-99)
[2020-06-03 16:23] LABS: ABG Base Excess 4.4 mmol/L; ABG HCO3 30 mmol/L (21-25); ABG Oxygen Saturation 96.5 % (94-97); ABG PCO2 53 mmHg (35-45); ABG PH 7.36 (7.35-7.45); ABG PO2 93 mmHg (83-108); ABG TCO2 32 mmol/L (19-24)
[2020-06-03 16:26] LABS: Allen Test Performed? no
[2020-06-03 17:17] LABS: Glucose,Whole Blood 236 mg/dL (75-99)
[2020-06-03 18:15] LABS: Glucose,Whole Blood 207 mg/dL (75-99)
[2020-06-03 19:15] LABS: Glucose,Whole Blood 213 mg/dL (75-99)
[2020-06-03] MEDS: MELATONIN 5 MG TABLET PO SCH (20:09)
[2020-06-03 20:37] LABS: Glucose,Whole Blood 196 mg/dL (75-99)
[2020-06-03 22:09] LABS: Glucose,Whole Blood 160 mg/dL (75-99)
--- NOTE | 2020-06-03 23:39 | P.PN ---
Subjective This is the first day I am taking care of the patient on 06/01 This is a 65 years old male with past medical history of coronary artery disease, asthma, diabetes mellitus, GERD, hypertension, sleep apnea. Presents with respiratory distress found to have bilateral covid pneumonia with some elements of ARDS. Patient is currently in the ICU intubated and on mechanical ventilation and is followed closely by pulmonary/critical care team. Patient looks critically, he's undergoing prone position per pulmonary team several hours a day. No weaning trial currently Vitals and labs were reviewed, Creatinine today is trending up to 2.1, he got 1 dose of Lasix will keep monitor creatinine. He has mild leukocytosis around 11 K. Potassium was elevated. Patient is currently on cefepime and IV vancomycin. Kayexalate is given and we will monitor potassium 06/02/2020 Patient is still running fever at 101. Tachypneic. His oxygen saturation is 100%. Has leukocytosis of 14.0 K. Potassium this is still elevated at 6.2 and 5.5 today. Chest x-ray showing pulmonary congestion, IV Lasix is given. For hyperkalemia is also provided. Including sodium bicarb, glucose/insulin, Kayexalate. Patient to continue also on steroids and prone position. Also with broad- spectrum antibiotic with cefepime. vancomycin Discontinued by pulmonary/critical care team however monitor the patient closely in the ICU Prognosis remains guarded 06/03/2020 Patient remains in the ICU intubated and sedated, under going a prone position. Hours per day, patient is followed closely by pulmonary/critical care team Patient still febrile at 102, tachycardic and tachypneic. Leukocytosis with 15.8, hypernatremia with sodium 148, hyperkalemia potassium 5.7, creatinine is 2.4.pro-Calcitonin is trending down 0.7 down to 0.5, inflammatory markers with ferritin, lactate dehydrogenase and C-reactive protein are elevated and trending down slowly and mildly. Patient remains on steroids, broad-spectrum antibiotics with cefepime, also he is on daily Lasix and Lovenox Review of systems: N/ Active Medications Generic Name Dose Route Start Last Admin Trade Name Freq PRN Reason Stop Dose Admin Acetaminophen 650 mg 05/27/20 14:33 06/03/20 22:06 Acetaminophen Tab 325 Mg Tab PO 650 mg Q4HR PRN Administration Fever and/or Mild Pain Amlodipine Besylate 10 mg 06/01/20 09:00 06/03/20 10:21 Amlodipine 10 Mg Tab PO Not Given DAILY [facility] Ascorbic Acid 1,000 mg 05/28/20 09:00 06/03/20 10:37 Ascorbic Acid 500 Mg Tab PO 1,000 mg DAILY MARCELINO Administration Carvedilol 12.5 mg 06/01/20 09:00 06/03/20 16:25 Carvedilol 12.5 Mg Tab PO Not Given BID-W/MEALS MARCELINO Chlorhexidine Gluconate 15 ml 05/28/20 09:00 06/03/20 20:09 Chlorhexidine Gluconate 15 Ml Cup MUCOUS MEM 15 ml BID MARCELINO Administration Cholecalciferol 400 unit 05/27/20 16:15 06/03/20 10:37 Cholecalciferol 400 Unit Tab PO 400 unit DAILY MARCELINO Administration Dexamethasone Sodium Phosphate 6 mg 05/28/20 09:00 06/03/20 10:37 Dexamethasone Sod Phosphate 4 Mg/Ml 1 Ml Vial IV 6 mg DAILY MARCELINO Administration Enoxaparin Sodium 100 mg 05/30/20 21:00 06/03/20 20:09 Enoxaparin 100 Mg/Ml Syringe SQ 100 mg Q12HR MARCELINO Administration Famotidine 20 mg 05/27/20 21:00 06/03/20 20:09 Famotidine 20 Mg Tab PO 20 mg BID MARCELINO Administration Cefepime HCl 1 gm/ Sodium 50 mls @ 12.5 mls/hr 05/28/20 09:00 06/03/20 20:09 Chloride IVPB 12.5 mls/hr Q12HR MARCELINO Administration Propofol 1,000 mg/ IV Solution 100 mls @ 0 mls/hr 05/27/20 21:45 06/03/20 14:59 IV 0 mcg/kg/min .Q0M MARCELINO 0 mls/hr Titration Protocol Titrate Cisatracurium Besylate 200 mg/ 200 mls @ 6.462 mls/hr 05/28/20 01:15 06/02/20 14:12 Sodium Chloride IV 0 mcg/kg/min .Q24H MARCELINO 0 mls/hr Titration Protocol 1 MCG/KG/MIN Insulin Human Regular 100 unit 101 mls @ 0 mls/hr 05/30/20 13:30 06/03/20 22:14 / Sodium Chloride IV 8 units/hr .Q0M MARCELINO 8.08 mls/hr Administration Protocol Per Protocol Norepinephrine Bitartrate 4 mg 254 mls @ 21.279 mls/hr 06/02/20 18:45 06/03/20 18:16 / Sodium Chloride IV 0.05 mcg/kg/min .[id number] MARCELINO 21.279 mls/hr Administration Protocol 0.05 MCG/KG/MIN Dextrose/Water 1,000 mls @ 50 mls/hr 06/03/20 07:45 06/03/20 08:45 Dextrose 5%-Water Iv Soln IV 50 mls/hr .Q20H MARCELINO Administration Dexmedetomidine HCl 400 mcg/ 100 mls @ 0 mls/hr 06/03/20 12:30 06/03/20 18:22 IV Solution IV 06/04/20 12:16 0.5 mcg/kg/hr .Q0M MARCELINO 13.963 mls/hr Administration Protocol Titrate Melatonin 5 mg 05/27/20 21:00 06/03/20 20:09 Melatonin 5 Mg Tablet PO 5 mg HS MARCELINO Administration Naloxone HCl 0.2 mg 05/27/20 15:46 Naloxone 0.4 Mg/Ml 1 Ml Vial IV Q2M PRN Opioid Reversal Zinc Sulfate 220 mg 05/27/20 16:15 06/03/20 10:37 Zinc Sulfate 220 Mg Cap PO 220 mg DAILY MARCELINO Administration Objective - Vital Signs Vital signs: Vital Signs Temp 102.0 F H 06/03/20 09:00 Pulse 113 H 06/03/20 09:00 Resp 36 H 06/03/20 09:00 BP 100/67 06/03/20 09:00 Pulse Ox 95 06/03/20 09:00 Intake & Output 06/02/20 06/03/20 06/03/20 18:59 06:59 18:59 Intake Total 1015.109 917.270 300.773 Output Total 1345 890 320 Balance -329.891 27.270 -19.227 Weight 111.7 kg Intake: IV 450 490 90 Cefepime 1 gm In Sodium 50 50 50 Chloride 0.9% 50 ml @ 12. 5 mls/hr IVPB Q12HR MARCELINO Rx#:[id number] Sodium Chloride 0.9% 1, 400 440 40 000 ml @ 40 mls/hr IV . Q24H MARCELINO Rx#:[id number] Intake, IV Titration 533.109 301.270 210.773 Amount Cisatracurium 200 mg In 143.994 Sodium Chloride 0.9% 180 ml @ 1 MCG/KG/MIN 6.462 mls/hr IV .Q24H MARCELINO Rx#: [id number] Dextrose 5% in Water 1, 100 000 ml @ 50 mls/hr IV . Q20H MARCELINO Rx#:[id number] Insulin Regular 100 unit 89.115 22.068 10.773 In Sodium Chloride 0.9% 100 ml @ Per Protocol IV .Q0M MARCELINO Rx#:[id number] propofoL 1,000 mg In 300 279.202 100 Empty Bag 1 bag @ Titrate IV .Q0M MARCELINO Rx#: [id number] Tube Feeding 32 96 Other 30 Output: Urine 1345 890 320 Other: Voiding Method Indwelling Catheter Indwelling Catheter ABP, PAP, CO, CI - Last Documented Arterial Blood Pressure 126/57 - Exam GENERAL: The patient is intubated and sedated HEENT: Pupils are round and equally reacting to light. EOMI. No scleral icterus. No conjunctival pallor. Normocephalic, atraumatic. No pharyngeal erythema. No thyromegaly. CARDIOVASCULAR: S1 and S2 present. No murmurs, rubs, or gallops. -PULMONARY: Chest is clear to auscultation, bilateral scattered crackles. ABDOMEN: Soft, nontender, nondistended, normoactive bowel sounds. No palpable organomegaly. MUSCULOSKELETAL: No joint swelling or deformity. EXTREMITIES: No cyanosis, clubbing, or pedal edema. -NEUROLOGICAL: Gross neurological examination did not reveal any focal deficits. Limited by the patient condition SKIN: No rashes. no petechiae. - Labs CBC & Chem 7: 06/03/20 04:30 06/03/20 12:00 Labs: Abnormal Lab Results - Last 24 Hours (Table) 06/02/20 06/02/20 06/02/20 Range/Units 10:17 12:02 14:03 WBC (3.8-10.6) k/uL RBC (4.30-5.90) m/uL Hgb (13.0-17.5) gm/dL Hct (39.0-53.0) % MCV (80.0-100.0) fL Neutrophils # (Manual) (1.3-7.7) k/uL Metamyelocytes # (Man) (0) k/uL Nucleated RBCs (0-0) /100 WBC D-Dimer (<0.60) mg/L FEU ABG pH (7.35-7.45) ABG pCO2 (35-45) mmHg ABG pO2 (83-108) mmHg ABG HCO3 (21-25) mmol/L ABG Total CO2 (19-24) mmol/L ABG O2 Saturation (94-97) % Sodium (137-145) mmol/L Potassium (3.5-5.1) mmol/L Chloride (98-107) mmol/L Carbon Dioxide (22-30) mmol/L BUN (9-20) mg/dL Creatinine (0.66-1.25) mg/dL Glucose (74-99) mg/dL POC Glucose (mg/dL) 169 H 177 H 180 H (75-99) mg/dL Calcium (8.4-10.2) mg/dL Total Protein (6.3-8.2) g/dL Albumin (3.5-5.0) g/dL Triglycerides (<150) mg/dL 06/02/20 06/02/20 06/02/20 Range/Units 16:36 18:20 18:52 WBC (3.8-10.6) k/uL RBC (4.30-5.90) m/uL Hgb (13.0-17.5) gm/dL Hct (39.0-53.0) % MCV (80.0-100.0) fL Neutrophils # (Manual) (1.3-7.7) k/uL Metamyelocytes # (Man) (0) k/uL Nucleated RBCs (0-0) /100 WBC D-Dimer (<0.60) mg/L FEU ABG pH 7.32 L (7.35-7.45) ABG pCO2 65 H (35-45) mmHg ABG pO2 54 L* (83-108) mmHg ABG HCO3 34 H (21-25) mmol/L ABG Total CO2 36 H (19-24) mmol/L ABG O2 Saturation 86.9 L (94-97) % Sodium (137-145) mmol/L Potassium (3.5-5.1) mmol/L Chloride (98-107) mmol/L Carbon Dioxide (22-30) mmol/L BUN (9-20) mg/dL Creatinine (0.66-1.25) mg/dL Glucose (74-99) mg/dL POC Glucose (mg/dL) 180 H 147 H (75-99) mg/dL Calcium (8.4-10.2) mg/dL Total Protein (6.3-8.2) g/dL Albumin (3.5-5.0) g/dL Triglycerides (<150) mg/dL 06/02/20 06/02/20 06/03/20 Range/Units 20:08 22:31 00:08 WBC (3.8-10.6) k/uL RBC (4.30-5.90) m/uL Hgb (13.0-17.5) gm/dL Hct (39.0-53.0) % MCV (80.0-100.0) fL Neutrophils # (Manual) (1.3-7.7) k/uL Metamyelocytes # (Man) (0) k/uL Nucleated RBCs (0-0) /100 WBC D-Dimer (<0.60) mg/L FEU ABG pH (7.35-7.45) ABG pCO2 (35-45) mmHg ABG pO2 (83-108) mmHg ABG HCO3 (21-25) mmol/L ABG Total CO2 (19-24) mmol/L ABG O2 Saturation (94-97) % Sodium (137-145) mmol/L Potassium (3.5-5.1) mmol/L Chloride (98-107) mmol/L Carbon Dioxide (22-30) mmol/L BUN (9-20) mg/dL Creatinine (0.66-1.25) mg/dL Glucose (74-99) mg/dL POC Glucose (mg/dL) 127 H 146 H 145 H (75-99) mg/dL Calcium (8.4-10.2) mg/dL Total Protein (6.3-8.2) g/dL Albumin (3.5-5.0) g/dL Triglycerides (<150) mg/dL 06/03/20 06/03/20 06/03/20 Range/Units 02:05 03:59 04:30 WBC 15.8 H (3.8-10.6) k/uL RBC 3.76 L (4.30-5.90) m/uL Hgb 12.7 L (13.0-17.5) gm/dL Hct 38.5 L (39.0-53.0) % MCV 102.5 H (80.0-100.0) fL Neutrophils # (Manual) 14.30 H (1.3-7.7) k/uL Metamyelocytes # (Man) 0.32 H (0) k/uL Nucleated RBCs 1 H (0-0) /100 WBC D-Dimer (<0.60) mg/L FEU ABG pH (7.35-7.45) ABG pCO2 (35-45) mmHg ABG pO2 (83-108) mmHg ABG HCO3 (21-25) mmol/L ABG Total CO2 (19-24) mmol/L ABG O2 Saturation (94-97) % Sodium (137-145) mmol/L Potassium (3.5-5.1) mmol/L Chloride (98-107) mmol/L Carbon Dioxide (22-30) mmol/L BUN (9-20) mg/dL Creatinine (0.66-1.25) mg/dL Glucose (74-99) mg/dL POC Glucose (mg/dL) 133 H 142 H (75-99) mg/dL Calcium (8.4-10.2) mg/dL Total Protein (6.3-8.2) g/dL Albumin (3.5-5.0) g/dL Triglycerides (<150) mg/dL 06/03/20 06/03/20 06/03/20 Range/Units 04:30 05:03 06:18 WBC (3.8-10.6) k/uL RBC (4.30-5.90) m/uL Hgb (13.0-17.5) gm/dL Hct (39.0-53.0) % MCV (80.0-100.0) fL Neutrophils # (Manual) (1.3-7.7) k/uL Metamyelocytes # (Man) (0) k/uL Nucleated RBCs (0-0) /100 WBC D-Dimer (<0.60) mg/L FEU ABG pH 7.24 L (7.35-7.45) ABG pCO2 81 H* (35-45) mmHg ABG pO2 70 L (83-108) mmHg ABG HCO3 35 H (21-25) mmol/L ABG Total CO2 38 H (19-24) mmol/L ABG O2 Saturation 92.2 L (94-97) % Sodium 147 H (137-145) mmol/L Potassium 6.0 H (3.5-5.1) mmol/L Chloride 112 H (98-107) mmol/L Carbon Dioxide 35 H (22-30) mmol/L BUN 120 H* (9-20) mg/dL Creatinine 2.11 H (0.66-1.25) mg/dL Glucose 145 H (74-99) mg/dL POC Glucose (mg/dL) 157 H (75-99) mg/dL Calcium 7.9 L (8.4-10.2) mg/dL Total Protein 4.9 L (6.3-8.2) g/dL Albumin 2.5 L (3.5-5.0) g/dL Triglycerides (<150) mg/dL 06/03/20 06/03/20 06/03/20 Range/Units 08:27 08:27 08:33 WBC (3.8-10.6) k/uL RBC (4.30-5.90) m/uL Hgb (13.0-17.5) gm/dL Hct (39.0-53.0) % MCV (80.0-100.0) fL Neutrophils # (Manual) (1.3-7.7) k/uL Metamyelocytes # (Man) (0) k/uL Nucleated RBCs (0-0) /100 WBC D-Dimer 8.21 H (<0.60) mg/L FEU ABG pH (7.35-7.45) ABG pCO2 (35-45) mmHg ABG pO2 (83-108) mmHg ABG HCO3 (21-25) mmol/L ABG Total CO2 (19-24) mmol/L ABG O2 Saturation (94-97) % Sodium (137-145) mmol/L Potassium (3.5-5.1) mmol/L Chloride (98-107) mmol/L Carbon Dioxide (22-30) mmol/L BUN (9-20) mg/dL Creatinine (0.66-1.25) mg/dL Glucose (74-99) mg/dL POC Glucose (mg/dL) 166 H (75-99) mg/dL Calcium (8.4-10.2) mg/dL Total Protein (6.3-8.2) g/dL Albumin (3.5-5.0) g/dL Triglycerides 2313 H (<150) mg/dL 06/03/20 06/03/20 Range/Units 09:02 09:07 WBC (3.8-10.6) k/uL RBC (4.30-5.90) m/uL Hgb (13.0-17.5) gm/dL Hct (39.0-53.0) % MCV (80.0-100.0) fL Neutrophils # (Manual) (1.3-7.7) k/uL Metamyelocytes # (Man) (0) k/uL Nucleated RBCs (0-0) /100 WBC D-Dimer (<0.60) mg/L FEU ABG pH (7.35-7.45) ABG pCO2 56 H (35-45) mmHg ABG pO2 67 L (83-108) mmHg ABG HCO3 32 H (21-25) mmol/L ABG Total CO2 34 H (19-24) mmol/L ABG O2 Saturation 93.4 L (94-97) % Sodium (137-145) mmol/L Potassium (3.5-5.1) mmol/L Chloride (98-107) mmol/L Carbon Dioxide (22-30) mmol/L BUN (9-20) mg/dL Creatinine (0.66-1.25) mg/dL Glucose (74-99) mg/dL POC Glucose (mg/dL) 163 H (75-99) mg/dL Calcium (8.4-10.2) mg/dL Total Protein (6.3-8.2) g/dL Albumin (3.5-5.0) g/dL Triglycerides (<150) mg/dL Microbiology - Last 24 Hours (Table) 05/31/20 12:30 Blood Culture - Preliminary Blood No Growth after 48 hours 05/27/20 12:20 Blood Culture - Final Blood No Growth after 144 hours 05/31/20 12:30 Blood Culture Gram Stain - Preliminary Blood Blood Culture - Preliminary Coagulase Negative Staph Assessment and Plan Assessment: Bilateral Covid 19 pneumonitis with possibly some elements of ARDS Acute hypoxic respiratory failure Jodi on mechanical ventilation Acute kidney injury Hyperkalemia Hypernatremia That 2 diabetes mellitus Hypertension Sleep apnea History of GERD History of asthma Plan: This is a 65 years old male with bilateral Covid pneumonia. Continue with mechanical ventilation and management as per pulmonary/critical care team who are following the patient closely.. Continue with broad-spectrum antibiotics. Continue with prone position as per pulmonary services recommendation. Continue with therapeutic dose of Lovenox. Closely monitor potassium level and creatinine , monitor telemetry markers Labs and medication were reviewed.. Continue same treatment. Continue with symptomatic treatment. Resume home medication. Monitor lytes and vitals. DVT and GI prophylaxis. Further recommendationsas per clinical course of the patient DVT prophylaxis: Subcutaneous Lovenox GI Prophylaxis: Pepcid Prognosis is guarded
[2020-06-04] MEDS: DEXMEDETOMIDINE/0.9% NACL(PMX) 400 MCG in EMPTY BAG 1 BAG IV SCH ×4 (00:32→18:23)
[2020-06-04 01:18] LABS: Glucose,Whole Blood 161 mg/dL (75-99)
[2020-06-04] MEDS: NOREPINEPHRINE 4 MG in SODIUM CHLORIDE 0.9% 250 ML IV SCH ×3 (02:41→11:00)
[2020-06-04] MEDS: DEXTROSE 5% IN WATER 1,000 ML IV SCH ×3 (02:48→20:06)
[2020-06-04 03:05] LABS: Glucose,Whole Blood 174 mg/dL (75-99)
[2020-06-04 05:05] LABS: ABG Base Excess 6.3 mmol/L; ABG HCO3 32 mmol/L (21-25); ABG Oxygen Saturation 88.2 % (94-97); ABG PCO2 56 mmHg (35-45); ABG PH 7.36 (7.35-7.45); ABG TCO2 33 mmol/L (19-24)
[2020-06-04 05:12] LABS: HCT 35.2 % (39.0-53.0); HGB 11.5 gm/dL (13.0-17.5); Hypochromasia Slight; MCH 33.5 pg (25.0-35.0); MCHC 32.5 g/dL (31.0-37.0); MCV 102.9 fL (80.0-100.0); Macrocytosis Slight; Mean Platelet Volume 9.6; Platelet Count 311 k/uL (150-450); RBC 3.42 m/uL (4.30-5.90); RDW 14.1 % (11.5-15.5)
[2020-06-04 05:23] LABS: Allen Test Performed? no
[2020-06-04] MEDS: carvediloL 12.5 MG TAB PO SCH ×2 (05:38→17:31)
[2020-06-04] MEDS: ACETAMINOPHEN TAB 325 MG TAB PO PRN ×3 (05:38→14:28)
[2020-06-04 05:50] LABS: Glucose,Whole Blood 161 mg/dL (75-99)
[2020-06-04 05:59] LABS: Albumin 2.7 g/dL (3.5-5.0); C Reactive Protein 21.9 mg/L (<10.0); Calcium 7.9 mg/dL (8.4-10.2); Potassium 5.3 mmol/L (3.5-5.1); Total Bilirubin 0.6 mg/dL (0.2-1.3)
[2020-06-04 06:20] LABS: Band Neutrophils % 24 %; Eosinophils # (M) 0.29 k/uL (0-0.7); Lymphocytes # (M) 0.15 k/uL (1.0-4.8); Metamyelocytes # (M) 0.73 k/uL (0); Metamyelocytes % 5 %; Monocytes # (M) 0.44 k/uL (0-1.0); Myelocytes # (M) 0.15 k/uL (0); Myelocytes % 1 %; Neutrophils % (M) 65 %; Nucleated Red Blood Cells 2 /100 WBC (0-0); Total Cells Counted 200; WBC 14.6 k/uL (3.8-10.6)
[2020-06-04 06:22] LABS: Poikilocytosis (M) Present; Toxic Granulation Present
[2020-06-04 07:14] LABS: Glucose,Whole Blood 209 mg/dL (75-99)
[2020-06-04 08:19] LABS: Glucose,Whole Blood 191 mg/dL (75-99)
[2020-06-04] MEDS: ZINC SULFATE 220 MG CAP PO SCH (08:39)
[2020-06-04] MEDS: CHLORHEXIDINE GLUCONATE 15 ML CUP MUCOUS MEM SCH ×2 (08:40→20:06)
[2020-06-04] MEDS: LACTULOSE 20 GM/30 ML CUP PO SCH ×2 (08:40→20:06)
[2020-06-04] MEDS: ENOXAPARIN 100 MG/ML SYRINGE SQ SCH ×2 (08:40→20:07)
[2020-06-04] MEDS: FAMOTIDINE 20 MG TAB PO SCH ×2 (08:40→20:06)
[2020-06-04] MEDS: CHOLECALCIFEROL 400 UNIT TAB PO SCH (08:41)
[2020-06-04] MEDS: ASCORBIC ACID 500 MG TAB PO SCH (08:41)
[2020-06-04] MEDS: DEXAMETHASONE SOD PHOSPHATE 4 MG/ML 1 ML VIAL IV SCH (08:41)
[2020-06-04] MEDS: amLODIPine 10 MG TAB PO SCH (08:42)
[2020-06-04 08:50] LABS: ABG HCO3 33 mmol/L (21-25); ABG Oxygen Saturation 85.2 % (94-97); ABG PCO2 61 mmHg (35-45); ABG PH 7.34 (7.35-7.45); ABG TCO2 35 mmol/L (19-24)
[2020-06-04 09:00] LABS: ABG PO2 52 mmHg (83-108); Allen Test Performed? No
--- NOTE | 2020-06-04 09:20 | XR ---
EXAMINATION TYPE: XR chest 1V portable DATE OF EXAM: 06/04/2020 COMPARISON: Prior chest x-ray 06/03/2020 HISTORY: Abnormal chest x-ray, intubated, Covid 19 TECHNIQUE: Single frontal view of the chest is obtained. FINDINGS: Endotracheal tube, NG tube, left jugular central venous catheter are stable and overlying appropriate positions. Bilateral airspace disease persists. There is no evident pneumothorax, difficu lt to exclude pleural effusion. Heart size is stable. Patient is rotated. IMPRESSION: Correlate for pneumonia, ARDS.
[2020-06-04] MEDS: MEROPENEM 2 GM in SODIUM CHLORIDE 0.9% 100 ML IVPB SCH ×2 (09:23→20:06)
[2020-06-04 09:40] LABS: ABG HCO3 32 mmol/L (21-25); ABG Oxygen Saturation 81.5 % (94-97); ABG PCO2 64 mmHg (35-45); ABG PH 7.31 (7.35-7.45); ABG TCO2 34 mmol/L (19-24)
[2020-06-04 09:46] LABS: ABG PO2 49 mmHg (83-108); Allen Test Performed? no
[2020-06-04 10:13] LABS: Glucose,Whole Blood 158 mg/dL (75-99)
[2020-06-04 10:17] LABS: Ferritin 2166.2 ng/mL (22.0-322.0)
[2020-06-04 10:50] LABS: Appearance,Urine Cloudy (Clear); Bacteria,Urine Rare /hpf; Bilirubin,Urine Negative (Negative); Blood,Urine Moderate (Negative); Color,Urine Yellow; Glucose,Urine (UA) Negative (Negative); Granular Casts,Urine 6 /lpf (0); Hyaline Casts,Urine 8 /lpf (0-2); Ketones,Urine Negative (Negative); Leukocyte Esterase,Urine Negative (Negative); Mucus,Urine Rare /hpf; Nitrite,Urine Negative (Negative); Protein,Urine 1+ (Negative); RBC,Urine 3 /hpf (0-5); Specific Gravity,Urine 1.022 (1.001-1.035); Urobilinogen,Urine <2.0 mg/dL (<2.0); WBC,Urine 1 /hpf (0-5)
[2020-06-04 11:03] LABS: ABG Base Excess 6.3 mmol/L; ABG HCO3 33 mmol/L (21-25); ABG Oxygen Saturation 84.8 % (94-97); ABG PH 7.28 (7.35-7.45); ABG TCO2 35 mmol/L (19-24)
[2020-06-04 11:08] LABS: ABG PCO2 71 mmHg (35-45)
[2020-06-04 11:09] LABS: ABG PO2 54 mmHg (83-108)
[2020-06-04 12:04] LABS: Glucose,Whole Blood 189 mg/dL (75-99)
[2020-06-04] MEDS: INSULIN REGULAR 100 UNIT in SODIUM CHLORIDE 0.9% 100 ML IV SCH ×2 (12:09→19:05)
--- NOTE | 2020-06-04 12:38 | P.PN ---
Subjective Progress Note Date: 06/04/20 This is a 65-year-old male patient was admitted on 05/27/2020 for respiratory failure and pneumonia. The patient has a history of right hemidiaphragmatic paralysis for which she has undergone a diaphragmatic plication at [facility]. The patient also has chronic bronchiectasis involving the right middle lobe and right lower lobe in addition to bronchial asthma. The patient presented to the ED on 05/27/2024 shortness of breath, cough and chills and fever and not feeling well and he was tested positive for coronavirus Covid 19. The patient was initially treated with high flow oxygen along with nonrebreather mask. Unfortunately, he continued to have difficulty breathing and respiratory failure and he required intubation and mechanical ventilation on 05/28/2020. The patient currently is on mechanical ventilation, sedated and he remains on assist control mode at the rate of 36, tidal volume of 450, FiO2 of 80% and PEEP of 15. The patient is also paralyzed with Nimbex at 3.5 g per KG per minute and propofol currently is running at 65 g per KG per minute. The patient is receiving enteral feeding for nutritional support with vital high protein running at 20 mL an hour. The patient is currently on Remdesivir, 2 doses of Tocilizumab and received convelescent plasma and Decadron, pepsid, melatonin and Zinc and the patient is receiving emperic antibiotics with IV Cefepime. . The patient is also on clevidipine drip for blood pressure control. Insulin is being utilized for blood sugar control. the patient has she will the patient has a triple-lumen catheter in the left subclavian. Noted the patient is also receiving intermittent phoning and he was on for a total of 16 hours yesterday and this morning he was still prolonged and I was able to put him back in a supine body position. He had a fever of 100.2 this morning. He is essentially on the same vent setting. His blood gases from today showed a pH of 7.31 with a pCO2 of 57 and pO2 of 63. Peak air pressure was around 42. Static pressure was 35. Based on that, I dropped his tidal volume to 400 and this brought on the static pressure down to 27. A subsequent blood gases showed a pH of 7.25 with a pCO2 of 63 and pO2 of 66. The patient otherwise has diffuse bilateral pulmonary infiltrates consistent with Covid 19 pneumonia. He is on x Cleviprex drip at 4 mg an hour for blood pressure control. The fluid balance is positive around 1.7 L over the past 24 hours. He would benefit from diuresis. Enteral feeding with vital high protein only when the patient is in supine body position. 06/02/2020 the patient is being seen for a follow-up. The patient remains intubated on a mechanical ventilator and his alternating between prone and supine body positioning. He was performed again yesterday evening and he will be placed supine around 2 PM this afternoon. The patient remains on a mechanical ventilator. The patient is sedated and paralyzed. In terms of his sedation, the patient is on propofol at 60 mg per KG per minute, he is on Nimbex at 3 g and he remains on a mechanical ventilator on assist control mode at the rate of 30 with a tidal volume of 400 and FiO2 of 80% with a PEEP of 17. Chest x-ray findings are essentially stable with diffuse bilateral pulmonary infiltrates unchanged compared to yesterday's chest x-ray. I was having difficulties with the patient's elevated potassium level. The patient continued to have some high potassium level due to his underlying metabolic acidosis.note that the highest potassium level is at 6.2. I give the patient bicarb on multiple occasions and form of IV push as him on 50 mEq each, and I also gave the patient D50 with insulin and and he was also given a dose of Kayexalate and the subsequent potassium level came down to 5.5. The patient was also given Lasix. Most recent blood work shows a BUN of 115, creatinine of 2.1, potassium level of 5.5, serum bicarb of 28, and most recent blood his showed a pH of 7.24 with a pCO2 of 67 and pO2 of 64. The patient is hemodynamically stable. The patient does oxygenate better whenever he is switched to a prone body position improvement in the order of 3-4% and his oxygenation on his saturation while being prone. The patient remains on IV cefepime. Blood culture was positive for coagulase-negative staph and he was given a dose of vancomycin that was subsequently discontinued. He remains on Decadron 6 mg IV. I started him on daily Lasix 40 mg IV push to maintain his fluid balance. Otherwise, no other significant events. Enterofeeding is being provided while the patient being in a supine body position. No fever. The white cell count is at 14. The patient's ferritin level was dropping it was down to 2056. Liver function tests are essentially normal and today's evaluation. 06/03/2020, the patient remains intubated on a mechanical ventilator. Earlier this morning the patient was in a prone body position. I noted that the patient was having significant amount of leak around the ET tube and based on that I switch this patient back to a supine body position and made appropriate adjustments on the orotracheal tube to prevent the leak. The patient was subsequently placed on assist control mode at the rate of 36 with a tidal volume of 450 and FiO2 of 80% with a PEEP of 17. The peak airway pressure 32. Static pressure is 28. The morning blood gases were noted and there were somewhat abnormal as the patient was having significant amount of air leak on the o rotracheal tube. The blood gases were repeated and the patient was noted to have a pH of 7.36 with a pCO2 of 56 and pO2 of 67. Chest x-ray still showing diffuse but the pulmonary infiltrates consistent with Covid 19 related pneumonia. The patient was started on daily Lasix. The patient's has an input of a balance of -300 mL over the past 24 hours. Nevertheless, the patient developed some degree of hypotension and the patient was started on pressors after being given a bolus of 500 mL this morning of normal saline without any improvement. Currently norepinephrine is running at 0.07 micrograms per KG per minute. The patient continues to have episodes of fever. The chest x-ray still showing diffuse bilateral pulmonary infiltrates with significant consolidation of the right lower lobe. The patient remains on IV cefepime as an empiric antibiotic coverage. The patient is on IV Decadron 6 mg on a daily basis. Norepinephrine infusion is being is affected the blood pressure control. Sodium level is up to 148. The patient will be given D5 water to replace the free water deficit. C reatinine is up to 2.4 with a BUN of 19. The inflammatory markers show a drop in his CRP level is up to 24, LDH is elevated at 1059 and the patient is still having episodic fever requiring Tylenol for ongoing fever activity. Probable regarding at 65 g per KG per minute and the triglyceride level from today was 2313 patient is receiving vital high protein at the rate of 60 mL an hour 8 hours on a 24 hour.. The patient's CVP of 19 and the triple-lumen catheter was inserted yesterday and the left IJ with adequate positioning. 06/04/2020, the patient remains on a mechanical ventilator. The patient was taken off the propofol infusion because of hypertriglyceridemia and currently Precedex which is running at 0.5 g. The patient is doing well. Suggest a mechanical ventilator. On today's evaluation, the patient was an assist-control mode at the rate of 36 with a tidal volume of 450 and FiO2 of 50% with a PEEP of 17. The blood gases at that point was showing a pH of 7.36 with a pCO2 of 56 and pO2 of 54. Peak air pressure was 32 with a platelet however pressure of 30. I reviewed her chest x-ray and I noted no major interval change. There was significant consolidation of the right lower lobe and some infiltration of the right upper lobe. Infiltrates on the left side seemed to be improved. The patient has been diagnosed having Covid 19 related pneumonia. The patient has completed treatment and this included Remsedivir, Decadron and convalescent immunoglobulins. The patient also received 2 doses of tocilizumab. Based on the morning blood gases and chest x-ray findings, and based on my review of the mechanical ventilator, I did a trial with right lower PEEP and increased FiO2 to assess the patient's ability to maintain oxygenation. To me this did not look like a typical of ARDS. The child failed and the patient became hypoxic. Ultimately I switched him ventilator and put the PEEP back to 17 and The tidal volume of 450. Repeat gases is to follow. Noted the patient continues to be febrile. The patient is is having temperatures all along and repeat cultures will be sent. I'm not sure if this is an infectious/bacterial fever or is related to Covid 19. The patient will have urine and blood culture sent. Sputum culture was sent. The patient is requiring pressors and currently is on levo fed running at 11 g per minute. He is on insulin drip at 10 units an hour. Sodium level is on the rise and septal wall 49 and the patient is on D5 water at the rate of 50 mL an hour and this will be increased up to 100 mL. The patient remains on Lovenox 1 mg subcu every 12 hours. The patient is in a sinus rhythm. Antibiotics coverage has been cefepime all along. He is tolerating his enteral feeding for nutritional support and the patient is on vital high protein running at 70 mL an hour. Objective - Vital Signs Vital signs: Vital Signs Temp 103.1 F H 06/04/20 11:00 Pulse 89 06/04/20 11:00 Resp 30 H 06/04/20 11:00 BP 109/52 06/04/20 09:00 Pulse Ox 86 L 06/04/20 11:00 Intake & Output 06/03/20 06/04/20 06/04/20 18:59 06:59 18:59 Intake Total 2493.330 1460.289 0877.967 Output Total 1390 815 540 Balance 3492.926 4366.822 1184.967 Weight 111.7 kg Intake: IV 90 100 Cefepime 1 gm In Sodium 50 Chloride 0.9% 50 ml @ 12. 5 mls/hr IVPB Q12HR [facility] Rx#:[id number] Meropenem 2 gm In Sodium 100 Chloride 0.9% 100 ml @ 33 .3 mls/hr IVPB Q12HR [facility] Rx#:[id number] Sodium Chloride 0.9% 1, 40 000 ml @ 40 mls/hr IV . Q24H [facility] Rx#:[id number] Intake, IV Titration 1902.330 980.313 1189.967 Amount Dexmedetomidine/0.9% NaCl 78.796 160.574 87.967 (Pmx) 400 mcg In Empty Bag 1 bag @ Titrate IV . Q0M [facility] Rx#:[id number] Dextrose 5% in Water 1, 300 000 ml @ 100 mls/hr IV . Q10H [facility] Rx#:[id number] Dextrose 5% in Water 1, 550 600 150 000 ml @ 50 mls/hr IV . Q20H [facility] Rx#:[id number] Insulin Regular 100 unit 66.171 42.150 101.000 In Sodium Chloride 0.9% 100 ml @ Per Protocol IV .Q0M [facility] Rx#:[id number] Norepinephrine 4 mg In 482.677 179.098 508.000 Sodium Chloride 0.9% 250 ml @ 0.05 MCG/KG/MIN 21. 279 mls/hr IV .[id number] [facility] Rx#:[id number] Sodium Chloride 0.9% 500 500 ml 500 ml @ 999 mls/hr IV .Q31M [facility] Rx#:[id number] propofoL 1,000 mg In 224.686 Empty Bag 1 bag @ Titrate IV .Q0M [facility] Rx#: [id number] Tube Feeding 441 796 418 Other 60 60 60 Output: Urine 1390 815 540 Other: Voiding Method Indwelling Catheter Indwelling Catheter Indwelling Catheter ABP, PAP, CO, CI - Last Documented Arterial Blood Pressure 102/58 - Exam Gen. appearance the patient is calm and comfortable sedated and paralyzed on her stress synchronous with the mechanical ventilator. Earlier this morning the patient was in a prone body position and the patient was subsequently switched to supine. The patient has developed a skin abrasion from being positioned in a prone body position and this has on his left cheek. Head exam was generally normal. There was no scleral icterus or corneal arcus. Mucous membranes were moist. Neck was supple and without jugular venous distension, thyromegaly, or carotid bruits. Carotids were easily palpable bilaterally. There was no adenopathy.Orogastric and orotracheal tube are both in place. The patient has a left IJ triple-lumen catheter in place Lungs sounds are diminished and the patient has some crackles in lung bases bilaterally. Cardiac exam revealed the PMI to be normally situated and sized. The rhythm was regular and no extrasystoles were noted during several minutes of auscultation. The first and second heart sounds were normal and physiologic splitting of the second heart sound was noted. There were no murmurs, rubs, clicks, or gallops. Abdominal exam revealed normal bowel sounds. The abdomen was soft, non-tender, and without masses, organomegaly, or appreciable enlargement of the abdominal aorta. Examination of the extremities revealed easily palpable radial, femoral and pedal pulses. There was no cyanosis, clubbing or edema. Examination of the skin revealed no evidence of significant rashes, suspicious appearing nevi or other concerning lesions. Neurologically the patient sedated and the paralytics have been discontinued. - Labs CBC & Chem 7: 06/04/20 04:30 06/04/20 04:30 Labs: Abnormal Lab Results - Last 24 Hours (Table) 06/03/20 06/03/20 06/03/20 Range/Units 08:27 12:00 14:00 WBC (3.8-10.6) k/uL RBC (4.30-5.90) m/uL Hgb (13.0-17.5) gm/dL Hct (39.0-53.0) % MCV (80.0-100.0) fL Neutrophils # (Manual) (1.3-7.7) k/uL Lymphocytes # (Manual) (1.0-4.8) k/uL Metamyelocytes # (Man) (0) k/uL Myelocytes # (Manual) (0) k/uL Nucleated RBCs (0-0) /100 WBC D-Dimer (<0.60) mg/L FEU ABG pH (7.35-7.45) ABG pCO2 (35-45) mmHg ABG pO2 (83-108) mmHg ABG HCO3 (21-25) mmol/L ABG Total CO2 (19-24) mmol/L ABG O2 Saturation (94-97) % Sodium (137-145) mmol/L Potassium 5.2 H (3.5-5.1) mmol/L Chloride (98-107) mmol/L Carbon Dioxide (22-30) mmol/L BUN (9-20) mg/dL Creatinine (0.66-1.25) mg/dL Glucose (74-99) mg/dL POC Glucose (mg/dL) 195 H (75-99) mg/dL Calcium (8.4-10.2) mg/dL Ferritin (22.0-322.0) ng/mL AST (17-59) U/L Lactate Dehydrogenase (313-618) U/L Creatine Kinase (55-170) U/L C-Reactive Protein (<10.0) mg/L Total Protein (6.3-8.2) g/dL Albumin (3.5-5.0) g/dL Procalcitonin 0.51 H (0.02-0.09) ng/mL Urine Protein (Negative) Urine Blood (Negative) Urine Bacteria (None) /hpf Hyaline Casts (0-2) /lpf Urine Mucus (None) /hpf 06/03/20 06/03/20 06/03/20 Range/Units 16:05 16:21 17:13 WBC (3.8-10.6) k/uL RBC (4.30-5.90) m/uL Hgb (13.0-17.5) gm/dL Hct (39.0-53.0) % MCV (80.0-100.0) fL Neutrophils # (Manual) (1.3-7.7) k/uL Lymphocytes # (Manual) (1.0-4.8) k/uL Metamyelocytes # (Man) (0) k/uL Myelocytes # (Manual) (0) k/uL Nucleated RBCs (0-0) /100 WBC D-Dimer (<0.60) mg/L FEU ABG pH (7.35-7.45) ABG pCO2 53 H (35-45) mmHg ABG pO2 (83-108) mmHg ABG HCO3 30 H (21-25) mmol/L ABG Total CO2 32 H (19-24) mmol/L ABG O2 Saturation (94-97) % Sodium (137-145) mmol/L Potassium (3.5-5.1) mmol/L Chloride (98-107) mmol/L Carbon Dioxide (22-30) mmol/L BUN (9-20) mg/dL Creatinine (0.66-1.25) mg/dL Glucose (74-99) mg/dL POC Glucose (mg/dL) 225 H 236 H (75-99) mg/dL Calcium (8.4-10.2) mg/dL Ferritin (22.0-322.0) ng/mL AST (17-59) U/L Lactate Dehydrogenase (313-618) U/L Creatine Kinase (55-170) U/L C-Reactive Protein (<10.0) mg/L Total Protein (6.3-8.2) g/dL Albumin (3.5-5.0) g/dL Procalcitonin (0.02-0.09) ng/mL Urine Protein (Negative) Urine Blood (Negative) Urine Bacteria (None) /hpf Hyaline Casts (0-2) /lpf Urine Mucus (None) /hpf 06/03/20 06/03/20 06/03/20 Range/Units 18:13 19:13 20:33 WBC (3.8-10.6) k/uL RBC (4.30-5.90) m/uL Hgb (13.0-17.5) gm/dL Hct (39.0-53.0) % MCV (80.0-100.0) fL Neutrophils # (Manual) (1.3-7.7) k/uL Lymphocytes # (Manual) (1.0-4.8) k/uL Metamyelocytes # (Man) (0) k/uL Myelocytes # (Manual) (0) k/uL Nucleated RBCs (0-0) /100 WBC D-Dimer (<0.60) mg/L FEU ABG pH (7.35-7.45) ABG pCO2 (35-45) mmHg ABG pO2 (83-108) mmHg ABG HCO3 (21-25) mmol/L ABG Total CO2 (19-24) mmol/L ABG O2 Saturation (94-97) % Sodium (137-145) mmol/L Potassium (3.5-5.1) mmol/L Chloride (98-107) mmol/L Carbon Dioxide (22-30) mmol/L BUN (9-20) mg/dL Creatinine (0.66-1.25) mg/dL Glucose (74-99) mg/dL POC Glucose (mg/dL) 207 H 213 H 196 H (75-99) mg/dL Calcium (8.4-10.2) mg/dL Ferritin (22.0-322.0) ng/mL AST (17-59) U/L Lactate Dehydrogenase (313-618) U/L Creatine Kinase (55-170) U/L C-Reactive Protein (<10.0) mg/L Total Protein (6.3-8.2) g/dL Albumin (3.5-5.0) g/dL Procalcitonin (0.02-0.09) ng/mL Urine Protein (Negative) Urine Blood (Negative) Urine Bacteria (None) /hpf Hyaline Casts (0-2) /lpf Urine Mucus (None) /hpf 06/03/20 06/04/20 06/04/20 Range/Units 22:08 01:17 03:03 WBC (3.8-10.6) k/uL RBC (4.30-5.90) m/uL Hgb (13.0-17.5) gm/dL Hct (39.0-53.0) % MCV (80.0-100.0) fL Neutrophils # (Manual) (1.3-7.7) k/uL Lymphocytes # (Manual) (1.0-4.8) k/uL Metamyelocytes # (Man) (0) k/uL Myelocytes # (Manual) (0) k/uL Nucleated RBCs (0-0) /100 WBC D-Dimer (<0.60) mg/L FEU ABG pH (7.35-7.45) ABG pCO2 (35-45) mmHg ABG pO2 (83-108) mmHg ABG HCO3 (21-25) mmol/L ABG Total CO2 (19-24) mmol/L ABG O2 Saturation (94-97) % Sodium (137-145) mmol/L Potassium (3.5-5.1) mmol/L Chloride (98-107) mmol/L Carbon Dioxide (22-30) mmol/L BUN (9-20) mg/dL Creatinine (0.66-1.25) mg/dL Glucose (74-99) mg/dL POC Glucose (mg/dL) 160 H 161 H 174 H (75-99) mg/dL Calcium (8.4-10.2) mg/dL Ferritin (22.0-322.0) ng/mL AST (17-59) U/L Lactate Dehydrogenase (313-618) U/L Creatine Kinase (55-170) U/L C-Reactive Protein (<10.0) mg/L Total Protein (6.3-8.2) g/dL Albumin (3.5-5.0) g/dL Procalcitonin (0.02-0.09) ng/mL Urine Protein (Negative) Urine Blood (Negative) Urine Bacteria (None) /hpf Hyaline Casts (0-2) /lpf Urine Mucus (None) /hpf 06/04/20 06/04/20 06/04/20 Range/Units 04:30 04:30 04:30 WBC 14.6 H (3.8-10.6) k/uL RBC 3.42 L (4.30-5.90) m/uL Hgb 11.5 L (13.0-17.5) gm/dL Hct 35.2 L (39.0-53.0) % MCV 102.9 H (80.0-100.0) fL Neutrophils # (Manual) 12.90 H (1.3-7.7) k/uL Lymphocytes # (Manual) 0.15 L (1.0-4.8) k/uL Metamyelocytes # (Man) 0.73 H (0) k/uL Myelocytes # (Manual) 0.15 H (0) k/uL Nucleated RBCs 2 H (0-0) /100 WBC D-Dimer 4.27 H (<0.60) mg/L FEU ABG pH (7.35-7.45) ABG pCO2 (35-45) mmHg ABG pO2 (83-108) mmHg ABG HCO3 (21-25) mmol/L ABG Total CO2 (19-24) mmol/L ABG O2 Saturation (94-97) % Sodium 149 H (137-145) mmol/L Potassium 5.3 H (3.5-5.1) mmol/L Chloride 116 H (98-107) mmol/L Carbon Dioxide 31 H (22-30) mmol/L BUN 130 H* (9-20) mg/dL Creatinine 2.30 H (0.66-1.25) mg/dL Glucose 190 H (74-99) mg/dL POC Glucose (mg/dL) (75-99) mg/dL Calcium 7.9 L (8.4-10.2) mg/dL Ferritin 2166.2 H (22.0-322.0) ng/mL AST 62 H (17-59) U/L Lactate Dehydrogenase 1315 H (313-618) U/L Creatine Kinase 588 H (55-170) U/L C-Reactive Protein 21.9 H (<10.0) mg/L Total Protein 5.0 L (6.3-8.2) g/dL Albumin 2.7 L (3.5-5.0) g/dL Procalcitonin (0.02-0.09) ng/mL Urine Protein (Negative) Urine Blood (Negative) Urine Bacteria (None) /hpf Hyaline Casts (0-2) /lpf Urine Mucus (None) /hpf 06/04/20 06/04/20 06/04/20 Range/Units 05:05 05:48 07:12 WBC (3.8-10.6) k/uL RBC (4.30-5.90) m/uL Hgb (13.0-17.5) gm/dL Hct (39.0-53.0) % MCV (80.0-100.0) fL Neutrophils # (Manual) (1.3-7.7) k/uL Lymphocytes # (Manual) (1.0-4.8) k/uL Metamyelocytes # (Man) (0) k/uL Myelocytes # (Manual) (0) k/uL Nucleated RBCs (0-0) /100 WBC D-Dimer (<0.60) mg/L FEU ABG pH (7.35-7.45) ABG pCO2 56 H (35-45) mmHg ABG pO2 54 L* (83-108) mmHg ABG HCO3 32 H (21-25) mmol/L ABG Total CO2 33 H (19-24) mmol/L ABG O2 Saturation 88.2 L (94-97) % Sodium (137-145) mmol/L Potassium (3.5-5.1) mmol/L Chloride (98-107) mmol/L Carbon Dioxide (22-30) mmol/L BUN (9-20) mg/dL Creatinine (0.66-1.25) mg/dL Glucose (74-99) mg/dL POC Glucose (mg/dL) 161 H 209 H (75-99) mg/dL Calcium (8.4-10.2) mg/dL Ferritin (22.0-322.0) ng/mL AST (17-59) U/L Lactate Dehydrogenase (313-618) U/L Creatine Kinase (55-170) U/L C-Reactive Protein (<10.0) mg/L Total Protein (6.3-8.2) g/dL Albumin (3.5-5.0) g/dL Procalcitonin (0.02-0.09) ng/mL Urine Protein (Negative) Urine Blood (Negative) Urine Bacteria (None) /hpf Hyaline Casts (0-2) /lpf Urine Mucus (None) /hpf 06/04/20 06/04/20 06/04/20 Range/Units 08:18 08:44 09:25 WBC (3.8-10.6) k/uL RBC (4.30-5.90) m/uL Hgb (13.0-17.5) gm/dL Hct (39.0-53.0) % MCV (80.0-100.0) fL Neutrophils # (Manual) (1.3-7.7) k/uL Lymphocytes # (Manual) (1.0-4.8) k/uL Metamyelocytes # (Man) (0) k/uL Myelocytes # (Manual) (0) k/uL Nucleated RBCs (0-0) /100 WBC D-Dimer (<0.60) mg/L FEU ABG pH 7.34 L (7.35-7.45) ABG pCO2 61 H (35-45) mmHg ABG pO2 52 L* (83-108) mmHg ABG HCO3 33 H (21-25) mmol/L ABG Total CO2 35 H (19-24) mmol/L ABG O2 Saturation 85.2 L (94-97) % Sodium (137-145) mmol/L Potassium (3.5-5.1) mmol/L Chloride (98-107) mmol/L Carbon Dioxide (22-30) mmol/L BUN (9-20) mg/dL Creatinine (0.66-1.25) mg/dL Glucose (74-99) mg/dL POC Glucose (mg/dL) 191 H (75-99) mg/dL Calcium (8.4-10.2) mg/dL Ferritin (22.0-322.0) ng/mL AST (17-59) U/L Lactate Dehydrogenase (313-618) U/L Creatine Kinase (55-170) U/L C-Reactive Protein (<10.0) mg/L Total Protein (6.3-8.2) g/dL Albumin (3.5-5.0) g/dL Procalcitonin (0.02-0.09) ng/mL Urine Protein 1+ H (Negative) Urine Blood Moderate H (Negative) Urine Bacteria Rare H (None) /hpf Hyaline Casts 8 H (0-2) /lpf Urine Mucus Rare H (None) /hpf 06/04/20 06/04/20 06/04/20 Range/Units 09:32 10:12 10:58 WBC (3.8-10.6) k/uL RBC (4.30-5.90) m/uL Hgb (13.0-17.5) gm/dL Hct (39.0-53.0) % MCV (80.0-100.0) fL Neutrophils # (Manual) (1.3-7.7) k/uL Lymphocytes # (Manual) (1.0-4.8) k/uL Metamyelocytes # (Man) (0) k/uL Myelocytes # (Manual) (0) k/uL Nucleated RBCs (0-0) /100 WBC D-Dimer (<0.60) mg/L FEU ABG pH 7.31 L 7.28 L (7.35-7.45) ABG pCO2 64 H 71 H* (35-45) mmHg ABG pO2 49 L* 54 L* (83-108) mmHg ABG HCO3 32 H 33 H (21-25) mmol/L ABG Total CO2 34 H 35 H (19-24) mmol/L ABG O2 Saturation 81.5 L 84.8 L (94-97) % Sodium (137-145) mmol/L Potassium (3.5-5.1) mmol/L Chloride (98-107) mmol/L Carbon Dioxide (22-30) mmol/L BUN (9-20) mg/dL Creatinine (0.66-1.25) mg/dL Glucose (74-99) mg/dL POC Glucose (mg/dL) 158 H (75-99) mg/dL Calcium (8.4-10.2) mg/dL Ferritin (22.0-322.0) ng/mL AST (17-59) U/L Lactate Dehydrogenase (313-618) U/L Creatine Kinase (55-170) U/L C-Reactive Protein (<10.0) mg/L Total Protein (6.3-8.2) g/dL Albumin (3.5-5.0) g/dL Procalcitonin (0.02-0.09) ng/mL Urine Protein (Negative) Urine Blood (Negative) Urine Bacteria (None) /hpf Hyaline Casts (0-2) /lpf Urine Mucus (None) /hpf 06/04/20 Range/Units 12:01 WBC (3.8-10.6) k/uL RBC (4.30-5.90) m/uL Hgb (13.0-17.5) gm/dL Hct (39.0-53.0) % MCV (80.0-100.0) fL Neutrophils # (Manual) (1.3-7.7) k/uL Lymphocytes # (Manual) (1.0-4.8) k/uL Metamyelocytes # (Man) (0) k/uL Myelocytes # (Manual) (0) k/uL Nucleated RBCs (0-0) /100 WBC D-Dimer (<0.60) mg/L FEU ABG pH (7.35-7.45) ABG pCO2 (35-45) mmHg ABG pO2 (83-108) mmHg ABG HCO3 (21-25) mmol/L ABG Total CO2 (19-24) mmol/L ABG O2 Saturation (94-97) % Sodium (137-145) mmol/L Potassium (3.5-5.1) mmol/L Chloride (98-107) mmol/L Carbon Dioxide (22-30) mmol/L BUN (9-20) mg/dL Creatinine (0.66-1.25) mg/dL Glucose (74-99) mg/dL POC Glucose (mg/dL) 189 H (75-99) mg/dL Calcium (8.4-10.2) mg/dL Ferritin (22.0-322.0) ng/mL AST (17-59) U/L Lactate Dehydrogenase (313-618) U/L Creatine Kinase (55-170) U/L C-Reactive Protein (<10.0) mg/L Total Protein (6.3-8.2) g/dL Albumin (3.5-5.0) g/dL Procalcitonin (0.02-0.09) ng/mL Urine Protein (Negative) Urine Blood (Negative) Urine Bacteria (None) /hpf Hyaline Casts (0-2) /lpf Urine Mucus (None) /hpf Microbiology - Last 24 Hours (Table) 05/31/20 12:30 Blood Culture Gram Stain - Final Blood Blood Culture - Final Staphylococcus epidermidis 06/03/20 13:00 Gram Stain - Preliminary Sputum Sputum Culture - Preliminary 05/31/20 12:30 Blood Culture - Preliminary Blood No Growth after 72 hours Assessment and Plan Plan: 1 acute hypoxic respiratory failure secondary to Covid 19 pneumonitis. The patient remains intubated on a mechanical ventilator. The patient was intubated on 05/28/2020. The patient remains intubated on a mechanical ventilator utilizing prone positioning episodically during the day. The chest x-ray findings are essentially stable. There is a dense consolidation right lower lobe. Is also bilateral pulmonary infiltrates more so on the right and more so in the right lower lobe. The patient is continuing to have episodes of fever. Fever workup will be done again. The patient will have his antibiotics broaden him to Merrem. IV cefepime was discontinued. The patient remains on high PEEP. Tidal volumes of 450 with a PEEP of 17. We'll monitor the blood gases. We'll monitor oxygenation. We have allowed some permissive hypercapnia this patient. 2 acute Covid 19 pneumonitis, completed Remdesivir and Tocilizumab, and currently the patient is on IV Decadron, zinc sulfate, melatonin, and vitamin C. 3 chronic right hemidiaphragmatic paralysis post plication 4 chronic bronchial asthma 5 history of right middle lobe/right lower lobe bronchiectasis 6 coronary artery disease 7 obstructive sleep apnea 8 AAA with a previous endovascular stent grafting that was done 2011 9 chronic back pain 10 RLS 11 hyperlipidemia, and the patient has developed severe hypertriglyceridemia secondary to propofol infusion 12 abnormal LFTs, improved 13 coagulase-negative staph in the blood likely contaminant and vancomycin were discontinued 14 hyperlipidemia 15 persistent fever, under investigation 16 acute kidney injury with a creatinine being stable at 2.3 Plan Continue ventilator support and vent setting will be kept unchanged for now Wean off pressors if possible and the patient is currently on norepinephrine infusion at 11 mics per minute Stop the IV cefepime and switch her to IV Merrem for a broader antibiotic c overage Obtain sputum and blood cultures and urine cultures Continue Precedex and propofol has been discontinued Continue Decadron Increase his IV fluids with D5 water at the rate of 100 mL an hour and monitor the sodium level potassium level Supportive care with prone positioning if needed for any further action desaturation Enteral feeding for nutritional support Repeat cultures as part of fever workup Tylenol for fever We'll continue to follow Continue Lovenox Condition remains critical. The family will be updated in the condition and will make further recommendations based on his progress. There is a critically care evaluation that was done more than 30 minutes. Time with Patient: Greater than 30
[2020-06-04 14:21] LABS: Glucose,Whole Blood 203 mg/dL (75-99)
[2020-06-04] MEDS: NOREPINEPHRINE 8 MG in SODIUM CHLORIDE 0.9% 250 ML IV SCH ×3 (15:38→20:24)
[2020-06-04 16:42] LABS: Glucose,Whole Blood 191 mg/dL (75-99)
--- NOTE | 2020-06-04 17:15 | P.PN ---
Progress Note - Text Progress Note Date: 06/04/20 [facility] Complaint: Shortness of breath History of presenting complaint: This is a 65-year-old patient of Dr. Demond Harper. Chronic stable medical conditions include coronary artery disease, diabetes, GERD, hypertension, obstructive sleep apnea, chronic back pain, restless leg syndrome, history of diaphragmatic analysis. Patient presented to the ER with shortness of breath. Symptoms started about 24 hours ago. Also chills. He had no obvious cold exposure travel or contact with sick people. He's had a cough. She was febrile in the ER and hypoxic. No nausea vomiting or diarrhea. Has a history of diaphragmatic plication. He also has known bronchiectasis of the right middle and lower lobe. Patient was initially put on a nonrebreather mask start antibiotics steroids and over the ICU. Placed on Airvo Patient admitted with COVID 19 pneumonia, acute hypoxic respiratory failure- intubated. On IV Nimbex and propofol. Prone position. ARDS. He received Remdesivir, Decadron and convalescent immunoglobulin. Today-ICU. Started on Lasix by bar tacker sewing machine today. On IV norepinephrine. Fevers. IV antibiotics. IV Decadron. Insulin drip. Review of systems-patient intubated Active Medications Acetaminophen (Acetaminophen Tab 325 Mg Tab) 650 mg PO Q4HR PRN PRN Reason: Fever and/or Mild Pain Last Admin: 06/04/20 14:28 Dose: 650 mg Documented by: Amlodipine Besylate (Amlodipine 10 Mg Tab) 10 mg PO DAILY [facility] Last Admin: 06/04/20 08:42 Dose: Not Given Documented by: Ascorbic Acid (Ascorbic Acid 500 Mg Tab) 1,000 mg PO DAILY [facility] Last Admin: 06/04/20 08:41 Dose: 1,000 mg Documented by: Carvedilol (Carvedilol 12.5 Mg Tab) 12.5 mg PO BID-W/MEALS [facility] Last Admin: 06/04/20 05:38 Dose: 12.5 mg Documented by: Chlorhexidine Gluconate (Chlorhexidine Gluconate 15 Ml Cup) 15 ml MUCOUS MEM BID [facility] Last Admin: 06/04/20 08:40 Dose: 15 ml Documented by: Cholecalciferol (Cholecalciferol 400 Unit Tab) 400 unit PO DAILY [facility] Last Admin: 06/04/20 08:41 Dose: 400 unit Documented by: Dexamethasone Sodium Phosphate (Dexamethasone Sod Phosphate 4 Mg/Ml 1 Ml Vial) 6 mg IV DAILY [facility] Last Admin: 06/04/20 08:41 Dose: 6 mg Documented by: Enoxaparin Sodium (Enoxaparin 100 Mg/Ml Syringe) 100 mg SQ Q12HR [facility] Last Admin: 06/04/20 08:40 Dose: 100 mg Documented by: Famotidine (Famotidine 20 Mg Tab) 20 mg PO BID [facility] Last Admin: 06/04/20 08:40 Dose: 20 mg Documented by: Propofol 1,000 mg/ IV Solution 100 mls @ 0 mls/hr IV .Q0M [facility]ARCELINO; Protocol Last Titration: 06/03/20 14:59 Dose: 0 mcg/kg/min, 0 mls/hr Documented by: Cisatracurium Besylate 200 mg/ (Sodium Chloride) 200 mls @ 6.462 mls/hr IV .Q24H [facility]INO; Protocol Last Titration: 06/02/20 14:12 Dose: 0 mcg/kg/min, 0 mls/hr Documented by: Insulin Human Regular 100 unit (/ Sodium Chloride) 101 mls @ 0 mls/hr IV .Q0M [facility]ELINO; Protocol Last Titration: 06/04/20 16:42 Dose: 12 units/hr, 12.12 mls/hr Documented by: Norepinephrine Bitartrate 4 mg (/ Sodium Chloride) 254 mls @ 21.279 mls/hr IV .[id number] [facility]; Protocol Last Admin: 06/04/20 11:00 Dose: 0.2 mcg/kg/min, 85.115 mls/hr Documented by: Meropenem 2 gm/ Sodium (Chloride) 100 mls @ 33.3 mls/hr IVPB Q12HR [facility]ELINO; Protocol Last Admin: 06/04/20 09:23 Dose: 33.3 mls/hr Documented by: Dextrose/Water (Dextrose 5%-Water Iv Soln) 1,000 mls @ 100 mls/hr IV .Q10H [facility] Last Admin: 06/04/20 09:23 Dose: 100 mls/hr Documented by: Norepinephrine Bitartrate 8 mg (/ Sodium Chloride) 258 mls @ 10.807 mls/hr IV .[id number] [facility]; Protocol Last Admin: 06/04/20 15:38 Dose: 0.18 mcg/kg/min, 38.905 mls/hr Documented by: Lactulose (Lactulose 20 Gm/30 Ml Cup) 30 gm PO BID [facility] Last Admin: 06/04/20 08:40 Dose: 30 gm Documented by: Melatonin (Melatonin 5 Mg Tablet) 5 mg PO HS [facility] Last Admin: 06/03/20 20:09 Dose: 5 mg Documented by: Naloxone HCl (Naloxone 0.4 Mg/Ml 1 Ml Vial) 0.2 mg IV Q2M PRN PRN Reason: Opioid Reversal Zinc Sulfate (Zinc Sulfate 220 Mg Cap) 220 mg PO DAILY [facility] Last Admin: 06/04/20 08:39 Dose: 220 mg Documented by: Physical examination: VITAL SIGNS: 102.4, 88, 36, 98/49, 95% on ventilator GENERAL: Laying in bed, intubated Initial physical examination as per pulmonary EYES: Pupils equal. Conjunctiva normal. NECK: JVD unable to assess; masses not palpable. HEART: Heart sounds distant; no edema. LUNGS: Respiratory rate increased, decreased breath sounds. ABDOMEN: Soft, nontender, liver spleen not palpable, no masses palpable. PSYCH: Sedated INVESTIGATIONS, reviewed in the clinical context: White count 14.6 hemoglobin 11.5 platelets 311 sodium 149 potassium 5.3 bun 1:30 creatinine 2.30 ferritin 2166 LDH 1315, CRP 21.9 Chest x-ray film personally reviewed by me-areas of infiltrate, ET tube Admission testing: White count 6.5 hemoglobin 14.8 platelets 2:30 Potassium 4.7 bun 30 creatinine 1.76 lactic acid 2.4 ferritin 2053 AST 73 ALT 59 LDH 1056 CRP 333 Influenza type A and type B both negative COVID 19 PCR present EKG tracing personally reviewed by me-normal sinus rhythm Chest x-ray film personally reviewed by me-extensive bilateral infiltrates Assessment: -Bilateral pneumonia, COVID 19 pneumonia, cannot rule out bacterial infection especially gram-negative slow to respond -Moderate to severe ARDS-slow to respond -Acute hypoxic respiratory failure severe from above-requiring ventilator support-slow to respond -Severe sepsis from pneumonia -Moderate persistent asthma with acute exacerbation-slow to respond -Coronary artery disease -Diabetes mellitus type 2 -GERD -Essential hypertension -Obstructive sleep apnea -History of right diaphragm paralysis with plication -Restless leg syndrome -Hypernatremia-from free water deficit -HPI from ATN from sepsis Plan: Patient's currently on Norvasc, vitamin C, Coreg,cisatracurium-iv, IV Decadron, insulin drip, IV meropenem, IV norepinephrine, IV propofol. We'll send a fungal blood culture. We do not have ID service currently in the hospital. Consult nephrology.
[2020-06-04 17:47] LABS: Creatine Kinase 696 U/L (55-170); Lipase 369 U/L (23-300)
[2020-06-04 17:55] LABS: Glucose,Whole Blood 232 mg/dL (75-99)
[2020-06-04 18:42] LABS: ABG Base Excess 3.2 mmol/L; ABG HCO3 30 mmol/L (21-25); ABG Oxygen Saturation 98.1 % (94-97); ABG PCO2 67 mmHg (35-45); ABG PH 7.26 (7.35-7.45); ABG PO2 100 mmHg (83-108); ABG TCO2 32 mmol/L (19-24)
[2020-06-04 18:46] LABS: Allen Test Performed? no
[2020-06-04 19:01] LABS: Glucose,Whole Blood 231 mg/dL (75-99)
[2020-06-04] MEDS: MELATONIN 5 MG TABLET PO SCH (20:08)
[2020-06-04 20:29] LABS: Glucose,Whole Blood 190 mg/dL (75-99)
[2020-06-04 21:56] LABS: Glucose,Whole Blood 178 mg/dL (75-99)
[2020-06-04 22:52] LABS: Glucose,Whole Blood 169 mg/dL (75-99)
[2020-06-04] MEDS: CISATRACURIUM 200 MG in SODIUM CHLORIDE 0.9% 180 ML IV SCH (22:56)
[2020-06-05 01:05] LABS: Glucose,Whole Blood 157 mg/dL (75-99)
[2020-06-05 03:53] LABS: Glucose,Whole Blood 149 mg/dL (75-99)
[2020-06-05 05:32] LABS: ABG Base Excess 4.3 mmol/L; ABG HCO3 32 mmol/L (21-25); ABG Oxygen Saturation 95.9 % (94-97); ABG PH 7.25 (7.35-7.45); ABG PO2 80 mmHg (83-108); ABG TCO2 34 mmol/L (19-24)
[2020-06-05 05:50] LABS: Allen Test Performed? no
[2020-06-05 06:29] LABS: Glucose,Whole Blood 153 mg/dL (75-99)
[2020-06-05 06:48] LABS: HCT 33.9 % (39.0-53.0); Hypochromasia Marked; MCHC 29.3 g/dL (31.0-37.0); MCV 106.1 fL (80.0-100.0); Macrocytosis Moderate; Mean Platelet Volume 11.1; Platelet Count 210 k/uL (150-450); RDW 14.5 % (11.5-15.5)
[2020-06-05 06:52] LABS: Calcium 7.9 mg/dL (8.4-10.2); Potassium 5.2 mmol/L (3.5-5.1)
[2020-06-05 07:16] LABS: HGB 9.9 gm/dL (13.0-17.5)
[2020-06-05] MEDS: carvediloL 12.5 MG TAB PO SCH (07:51)
[2020-06-05] MEDS: amLODIPine 10 MG TAB PO SCH (07:51)
[2020-06-05 08:18] LABS: Glucose,Whole Blood 142 mg/dL (75-99)
[2020-06-05] MEDS: ASCORBIC ACID 500 MG TAB PO SCH (08:22)
--- NOTE | 2020-06-05 08:22 | XR ---
EXAMINATION TYPE: XR chest 1V portable DATE OF EXAM: 06/05/2020 COMPARISON: Prior chest x-ray 06/04/2020 HISTORY: Intubated TECHNIQUE: Single frontal view of the chest is obtained. FINDINGS: Endotracheal tube, orogastric tube, left jugular central venous catheter are overlying naren ropriate positions. Bilateral airspace disease is again seen, there may be some slight interval impro vement in aeration. Heart is stable. No evident pneumothorax or pleural effusion. IMPRESSION: There may be some interval improved aeration. There are differences in technique however .
[2020-06-05] MEDS: INSULIN REGULAR 100 UNIT in SODIUM CHLORIDE 0.9% 100 ML IV SCH ×2 (08:23→17:46)
[2020-06-05] MEDS: FAMOTIDINE 20 MG TAB PO SCH ×2 (08:24→20:52)
[2020-06-05] MEDS: ENOXAPARIN 100 MG/ML SYRINGE SQ SCH ×2 (08:25→20:52)
[2020-06-05] MEDS: CHLORHEXIDINE GLUCONATE 15 ML CUP MUCOUS MEM SCH ×2 (08:25→20:52)
[2020-06-05] MEDS: DEXTROSE 5% IN WATER 1,000 ML IV SCH ×2 (08:26→16:22)
[2020-06-05] MEDS: ZINC SULFATE 220 MG CAP PO SCH (08:26)
[2020-06-05 08:27] LABS: Band Neutrophils % 2 %; Eosinophils # (M) 0.16 k/uL (0-0.7); Metamyelocytes # (M) 0.16 k/uL (0); Metamyelocytes % 1 %; Myelocytes % 2 %; Neutrophils % (M) 89 %; Nucleated Red Blood Cells 2 /100 WBC (0-0); Total Cells Counted 200
[2020-06-05 08:28] LABS: Lymphocytes # (M) 0.62 k/uL (1.0-4.8); Monocytes # (M) 0.31 k/uL (0-1.0); Myelocytes # (M) 0.31 k/uL (0); WBC 15.6 k/uL (3.8-10.6)
[2020-06-05] MEDS: LACTULOSE 20 GM/30 ML CUP PO SCH ×2 (08:28→21:54)
[2020-06-05] MEDS: NOREPINEPHRINE 8 MG in SODIUM CHLORIDE 0.9% 250 ML IV SCH (08:30)
[2020-06-05 08:31] LABS: Poikilocytosis (M) Present
[2020-06-05] MEDS: CHOLECALCIFEROL 400 UNIT TAB PO SCH (08:42)
[2020-06-05] MEDS: MEROPENEM 2 GM in SODIUM CHLORIDE 0.9% 100 ML IVPB SCH ×2 (08:42→21:53)
[2020-06-05] MEDS: DEXAMETHASONE SOD PHOSPHATE 4 MG/ML 1 ML VIAL IV SCH (08:53)
[2020-06-05 09:03] LABS: ABG Base Excess 3.1 mmol/L; ABG HCO3 30 mmol/L (21-25); ABG Oxygen Saturation 93.7 % (94-97); ABG PH 7.24 (7.35-7.45); ABG PO2 71 mmHg (83-108); ABG TCO2 33 mmol/L (19-24)
[2020-06-05 09:05] LABS: ABG PCO2 71 mmHg (35-45); Allen Test Performed? no
[2020-06-05 10:11] LABS: Glucose,Whole Blood 153 mg/dL (75-99)
[2020-06-05] MEDS: DEXMEDETOMIDINE/0.9% NACL(PMX) 400 MCG in EMPTY BAG 1 BAG IV SCH ×3 (10:15→20:52)
--- NOTE | 2020-06-05 10:51 | CDI ---
Documentation Clarification Form Date: 06/05/2020 10:30:53 AM From: Priscilla Mederos CCS, CCDS Admit Date: 05/27/2020 02:33:00 PM Patient Name: Jovi Booth Visit Number: [id number] Discharge Date: ATTENTION: The Clinical Documentation Specialists (CDI) and [facility] Coding Staff appreciate your assistance in clarifying documentation. Please respond to the clarification below the line at the bottom and electronically sign. The CDI & [facility] Coding staff will review the response and follow-up if needed. Please note: Queries are made part of the Legal Health Record. If you have any questions, please contact the author of this message via ITS. Dr. Raquel Hobson: Per the 06/03 Pulmonary/Critical Care Progress Note: "...the patient developed some degree of hypotension and the patient was started on pressors after being given a bolus of 500 mL this morning of normal saline without any improvement." Patient history/risk factors: CAD, IDDM, GERD, Hypertension, MIMI, Asthma, GERD, Chronic back pain, Restless leg syndrome, AAA w/stent. Former smoker. BMI 32.4. Clinical Indicators: Presented to the ED on 05/27 with SOB & diarrhea. Admitted with COVID-19 pneumonia, Acute hypoxic respiratory failure, Severe sepsis from pneumonia, Moderate persistent asthma with acute exacerbation. Patient was intubated & remains on the vent since 05/27, remains febrile, remains on Levophed. 05/29: Developed moderate-severe ARDS, slow to respond. Vitals 05/27: 102.6^, P 115^, R 24-40 (sob, labored), BP 165/98 - 128/71, PO 54 RA - 87 nrb. Vital 06/02: T 101.1^, P 105^, R 36 - 45^, BP 80/57* - 120/68, PO 94 - 86 on vent. Treatment 05/27: IV Decadron, IV fluid 1,000 mls @ 40 mls/hr, IV Azithromycin, IV Rocephin, INH Ventolin, IV Propofol, IV Solumedrol. 05/28: IV Remdesivir, IV Lasix, IV MagSulfate, IV Cefepime, Enteral feeding. 05/29: Convalescent Plasma transfusion 05/30: IV Insulin, IV Tocilizumab 06/01: IV Vancomycin, IV Dextrose, IV Insulin, IV NaBicarb 06/04: Pulm/CC orders: Increase his IV fluids with D5 water at the rate of 100 mL an hour and monitor the sodium level potassium level. In your professional opinion, can you please specify the type of shock if known? Septic Shock o Suspected or known causative organism o Any associated organ failure Hypovolemic Shock o Cause Other, please specify Unable to determine (Last Revision: May 2017) Unable to determine MTDD
--- NOTE | 2020-06-05 11:18 | CONS ---
CONSULTATION REASON FOR CONSULT: Renal failure. HISTORY OF PRESENT ILLNESS: Patient is a 65-year-old male who was admitted to the hospital with complaints of shortness of breath and fever and chills. He was found to be COVID positive and he is currently being treated for COVID-19 pneumonia. The patient has been intubated. He has received Remdesivir. He is on steroids. He has also received one unit of convalscent sera Patient has had large oxygen requirements. He has developed ARDS. Currently maintained on 18 of PEEP and FiO2 at about 95%-80%. Patient's serum creatinine has been at about 1.5-1.8 mg/dL. However, more recently it has been around 2 mg/dL. It looks like patient has chronic kidney disease as his previous creatinine in 2018 and 2017 was 1.5 and 1.7 mg/dL. Renal function has been fairly stable over the last 5 days with creatinine staying at 2.1-2.3 mg/dL. BUN is elevated at 133 today. Patient has fair urine output with urine output at about 75-40 mL an hour. He is maintained on Levophed, although this is significantly lower today. Chest x-ray is somewhat improved from yesterday. Patient has not received any IV Lasix over the last couple of days. PAST MEDICAL HISTORY: Significant for asthma, history of coronary artery disease, type 2 diabetes, gastroesophageal reflux disease, hypertension, obstructive sleep apnea, history of paralysis of diaphragm with plication. PAST SURGICAL HISTORY: AAA repair with stent placement, plication of diaphragm, back and neck surgery. SOCIAL HISTORY: Patient is a former smoker. No history of drug abuse or alcohol abuse. MEDICATIONS: Prior to admission included aspirin, Lipitor, vitamin D2, fenofibrate, Neurontin, Singulair, Norvasc, Coreg, Glucophage, Requip. ALLERGIES: None. REVIEW OF SYSTEMS: No active GI bleed, currently maintained on the vent requiring high amounts of oxygen with PEEP of 18. Tolerating tube feeds. Levophed has been decreasing. Urine output is maintained at 75-40 mL an hour. PHYSICAL EXAMINATION: Patient is currently sedated, he is on the vent. Blood pressure is 118/64, heart rate 86 per minute, he has a temp of 100.6 degrees Fahrenheit. Examination of the heart S1, S2. Examination of the lungs, bilateral breath sounds are heard. Abdomen is soft, distended, nontender. Examination of the lower extremities shows no significant edema. STAGE SET DESIGNER exam cannot be performed, patient is sedated. LABS: Show sodium 152, potassium 5.2, chloride 118. CO2 is 31, BUN 133, creatinine 2.32, hemoglobin 9.9 g/dL. ASSESSMENT: 1. Acute kidney injury secondary to ATN with underlying COVID-19 infection currently nonoliguric with fairly stable renal function over the past 4-5 days with creatinine staying at about 2.1-2.3 mg/dL. 2. Disproportionately elevated BUN, mostly associated with hypercatabolic state and use of steroids. Continue to monitor for now. 3. Hypernatremia associated with free water deficit, started on free water down the feeding tube and D5W has been increased to 150 mL an hour. 4. Mild hyperkalemia associated with acute kidney injury hypercatabolic state. Continue to monitor for now. Urine output is maintained at 75-40 mL an hour. 5. ARDS with hypoxic respiratory failure currently on the vent requiring high PEEP and oxygen and FiO2 at 85%-100%. Patient's chest x-ray is somewhat improved and at this time, there is no indication for dialysis. 6. Hypotension, sepsis from underlying COVID-19 infection and pneumonia. Levophed dose has been decreasing. Patient is status post treatment with Remdesivir, tocilizumab, Decadron, and 1 unit of convalescent Sera. 7. Chronic right hemidiaphragmatic paralysis, status post plication. 8. History of abdominal aortic aneurysm with endovascular stent. 9. Chronic kidney disease with creatinine at 1.7-1.6 mg/dL previously in 2018 and 2019 as well. Etiology is likely nephrosclerosis and possible diabetic nephropathy. PLAN: Agree with adding free water down the feeding tube for hypernatremia. Urine output is maintained at 40-75 cc an hour. Creatinine is stable. However, BUN is further elevated and if there is further worsening of his renal function or volume status, we can consider [employer] ELECTRICAL ENGINEER. Continue to monitor for now. Repeat labs in a.m. Thank you for the consultation. Will continue to follow the patient with you during hospitalization. MMODL / IJN: [id number] / RONY
[2020-06-05 11:42] LABS: Glucose,Whole Blood 177 mg/dL (75-99)
--- NOTE | 2020-06-05 12:33 | P.PN ---
Subjective Progress Note Date: 06/05/20 This is a 65-year-old male patient was admitted on 05/27/2020 for respiratory failure and pneumonia. The patient has a history of right hemidiaphragmatic paralysis for which she has undergone a diaphragmatic plication at [facility]. The patient also has chronic bronchiectasis involving the right middle lobe and right lower lobe in addition to bronchial asthma. The patient presented to the ED on 05/27/2024 shortness of breath, cough and chills and fever and not feeling well and he was tested positive for coronavirus Covid 19. The patient was initially treated with high flow oxygen along with nonrebreather mask. Unfortunately, he continued to have difficulty breathing and respiratory failure and he required intubation and mechanical ventilation on 05/28/2020. The patient currently is on mechanical ventilation, sedated and he remains on assist control mode at the rate of 36, tidal volume of 450, FiO2 of 80% and PEEP of 15. The patient is also paralyzed with Nimbex at 3.5 g per KG per minute and propofol currently is running at 65 g per KG per minute. The patient is receiving enteral feeding for nutritional support with vital high protein running at 20 mL an hour. The patient is currently on Remdesivir, 2 doses of Tocilizumab and received convelescent plasma and Decadron, pepsid, melatonin and Zinc and the patient is receiving emperic antibiotics with IV Cefepime. . The patient is also on clevidipine drip for blood pressure control. Insulin is being utilized for blood sugar control. the patient has she will the patient has a triple-lumen catheter in the left subclavian. Noted the patient is also receiving intermittent phoning and he was on for a total of 16 hours yesterday and this morning he was still prolonged and I was able to put him back in a supine body position. He had a fever of 100.2 this morning. He is essentially on the same vent setting. His blood gases from today showed a pH of 7.31 with a pCO2 of 57 and pO2 of 63. Peak air pressure was around 42. Static pressure was 35. Based on that, I dropped his tidal volume to 400 and this brought on the static pressure down to 27. A subsequent blood gases showed a pH of 7.25 with a pCO2 of 63 and pO2 of 66. The patient otherwise has diffuse bilateral pulmonary infiltrates consistent with Covid 19 pneumonia. He is on x Cleviprex drip at 4 mg an hour for blood pressure control. The fluid balance is positive around 1.7 L over the past 24 hours. He would benefit from diuresis. Enteral feeding with vital high protein only when the patient is in supine body position. 06/02/2020 the patient is being seen for a follow-up. The patient remains intubated on a mechanical ventilator and his alternating between prone and supine body positioning. He was performed again yesterday evening and he will be placed supine around 2 PM this afternoon. The patient remains on a mechanical ventilator. The patient is sedated and paralyzed. In terms of his sedation, the patient is on propofol at 60 mg per KG per minute, he is on Nimbex at 3 g and he remains on a mechanical ventilator on assist control mode at the rate of 30 with a tidal volume of 400 and FiO2 of 80% with a PEEP of 17. Chest x-ray findings are essentially stable with diffuse bilateral pulmonary infiltrates unchanged compared to yesterday's chest x-ray. I was having difficulties with the patient's elevated potassium level. The patient continued to have some high potassium level due to his underlying metabolic acidosis.note that the highest potassium level is at 6.2. I give the patient bicarb on multiple occasions and form of IV push as him on 50 mEq each, and I also gave the patient D50 with insulin and and he was also given a dose of Kayexalate and the subsequent potassium level came down to 5.5. The patient was also given Lasix. Most recent blood work shows a BUN of 115, creatinine of 2.1, potassium level of 5.5, serum bicarb of 28, and most recent blood his showed a pH of 7.24 with a pCO2 of 67 and pO2 of 64. The patient is hemodynamically stable. The patient does oxygenate better whenever he is switched to a prone body position improvement in the order of 3-4% and his oxygenation on his saturation while being prone. The patient remains on IV cefepime. Blood culture was positive for coagulase-negative staph and he was given a dose of vancomycin that was subsequently discontinued. He remains on Decadron 6 mg IV. I started him on daily Lasix 40 mg IV push to maintain his fluid balance. Otherwise, no other significant events. Enterofeeding is being provided while the patient being in a supine body position. No fever. The white cell count is at 14. The patient's ferritin level was dropping it was down to 2056. Liver function tests are essentially normal and today's evaluation. 06/03/2020, the patient remains intubated on a mechanical ventilator. Earlier this morning the patient was in a prone body position. I noted that the patient was having significant amount of leak around the ET tube and based on that I switch this patient back to a supine body position and made appropriate adjustments on the orotracheal tube to prevent the leak. The patient was subsequently placed on assist control mode at the rate of 36 with a tidal volume of 450 and FiO2 of 80% with a PEEP of 17. The peak airway pressure 32. Static pressure is 28. The morning blood gases were noted and there were somewhat abnormal as the patient was having significant amount of air leak on the o rotracheal tube. The blood gases were repeated and the patient was noted to have a pH of 7.36 with a pCO2 of 56 and pO2 of 67. Chest x-ray still showing diffuse but the pulmonary infiltrates consistent with Covid 19 related pneumonia. The patient was started on daily Lasix. The patient's has an input of a balance of -300 mL over the past 24 hours. Nevertheless, the patient developed some degree of hypotension and the patient was started on pressors after being given a bolus of 500 mL this morning of normal saline without any improvement. Currently norepinephrine is running at 0.07 micrograms per KG per minute. The patient continues to have episodes of fever. The chest x-ray still showing diffuse bilateral pulmonary infiltrates with significant consolidation of the right lower lobe. The patient remains on IV cefepime as an empiric antibiotic coverage. The patient is on IV Decadron 6 mg on a daily basis. Norepinephrine infusion is being is affected the blood pressure control. Sodium level is up to 148. The patient will be given D5 water to replace the free water deficit. C reatinine is up to 2.4 with a BUN of 19. The inflammatory markers show a drop in his CRP level is up to 24, LDH is elevated at 1059 and the patient is still having episodic fever requiring Tylenol for ongoing fever activity. Probable regarding at 65 g per KG per minute and the triglyceride level from today was 2313 patient is receiving vital high protein at the rate of 60 mL an hour 8 hours on a 24 hour.. The patient's CVP of 19 and the triple-lumen catheter was inserted yesterday and the left IJ with adequate positioning. 06/04/2020, the patient remains on a mechanical ventilator. The patient was taken off the propofol infusion because of hypertriglyceridemia and currently Precedex which is running at 0.5 g. The patient is doing well. Suggest a mechanical ventilator. On today's evaluation, the patient was an assist-control mode at the rate of 36 with a tidal volume of 450 and FiO2 of 50% with a PEEP of 17. The blood gases at that point was showing a pH of 7.36 with a pCO2 of 56 and pO2 of 54. Peak air pressure was 32 with a platelet however pressure of 30. I reviewed her chest x-ray and I noted no major interval change. There was significant consolidation of the right lower lobe and some infiltration of the right upper lobe. Infiltrates on the left side seemed to be improved. The patient has been diagnosed having Covid 19 related pneumonia. The patient has completed treatment and this included Remsedivir, Decadron and convalescent immunoglobulins. The patient also received 2 doses of tocilizumab. Based on the morning blood gases and chest x-ray findings, and based on my review of the mechanical ventilator, I did a trial with right lower PEEP and increased FiO2 to assess the patient's ability to maintain oxygenation. To me this did not look like a typical of ARDS. The child failed and the patient became hypoxic. Ultimately I switched him ventilator and put the PEEP back to 17 and The tidal volume of 450. Repeat gases is to follow. Noted the patient continues to be febrile. The patient is is having temperatures all along and repeat cultures will be sent. I'm not sure if this is an infectious/bacterial fever or is related to Covid 19. The patient will have urine and blood culture sent. Sputum culture was sent. The patient is requiring pressors and currently is on levo fed running at 11 g per minute. He is on insulin drip at 10 units an hour. Sodium level is on the rise and septal wall 49 and the patient is on D5 water at the rate of 50 mL an hour and this will be increased up to 100 mL. The patient remains on Lovenox 1 mg subcu every 12 hours. The patient is in a sinus rhythm. Antibiotics coverage has been cefepime all along. He is tolerating his enteral feeding for nutritional support and the patient is on vital high protein running at 70 mL an hour. 06/05/2020, the patient is on Precedex sedated and intubated on a mechanical ventilator. He is on a assist-control mode at a rate of 30 with a tidal volume of 450 and FiO2 of 95% with a PEEP of 19. Blood gases from today showed a pH of 7.25 with a pCO2 of 73 and pO2 of 80. FiO2 was dropped down to 80% and the repeat blood gases showed a pH of 7.24 with a pCO2 of 70 and pO2 of 71. Chest x-ray showing some improvement in the consolidation of the right lower lobe. There is still diffuse bilateral pulmonary infiltration. Precedex is running at 0.07 g. The patient was weaned off the pressors and the patient is currently only on levo fed running at 0.02 mg per KG per minute. Sodium level is on the rise and the patient has also elevation of BUN/creatinine. I placed this patient on D5 water at 100 mL an hour and this will be further increased based on his underlying free water deficit. She'll feeds are running with vital high protein at the rate of 63 mL an hour and the patient is also on insulin drip at 11 units an hour. The patient's antibiotics have been broadened and is currently included IV Merrem. Blood culture been sent and results are still pending for now. He is still having low-grade fever on and off throughout the day.the neck fluid balance is +1.3 L over the past 24 hours. Objective - Vital Signs Vital signs: Vital Signs Temp 100.2 F H 06/05/20 10:00 Pulse 92 06/05/20 11:00 Resp 30 H 06/05/20 11:00 BP 118/64 06/05/20 08:00 Pulse Ox 91 L 06/05/20 11:00 Intake & Output 06/04/20 06/05/20 06/05/20 18:59 06:59 18:59 Intake Total 3250.632 2140.613 1203.551 Output Total 1090 735 142 Balance 2160.632 4778.086 7242.551 Weight 111.7 kg Intake: IV 100 1200 600 Dextrose 5% in Water 1, 1100 500 000 ml @ 150 mls/hr IV . Q6H40M [facility] Rx#:[id number] Meropenem 2 gm In Sodium 100 100 100 Chloride 0.9% 100 ml @ 33 .3 mls/hr IVPB Q12HR [facility] Rx#:[id number] Intake, IV Titration 2201.632 157.613 258.551 Amount Dexmedetomidine/0.9% NaCl 87.967 (Pmx) 400 mcg In Empty Bag 1 bag @ Titrate IV . Q0M [facility] Rx#:[id number] Dexmedetomidine/0.9% NaCl 100 (Pmx) 400 mcg In Empty Bag 1 bag @ Titrate IV . Q0M [facility] Rx#:[id number] Dextrose 5% in Water 1, 1000 000 ml @ 150 mls/hr IV . Q6H40M [facility] Rx#:[id number] Dextrose 5% in Water 1, 150 000 ml @ 50 mls/hr IV . Q20H [facility] Rx#:[id number] Insulin Regular 100 unit 167.947 117.699 37.219 In Sodium Chloride 0.9% 100 ml @ Per Protocol IV .Q0M [facility] Rx#:[id number] Norepinephrine 4 mg In 762.000 Sodium Chloride 0.9% 250 ml @ 0.05 MCG/KG/MIN 21. 279 mls/hr IV .[id number] [facility] Rx#:[id number] Norepinephrine 8 mg In 33.718 39.914 121.332 Sodium Chloride 0.9% 250 ml @ 0.05 MCG/KG/MIN 10. 807 mls/hr IV .[id number] [facility] Rx#:[id number] Tube Feeding 859 693 315 Other 90 90 30 Output: Urine 1090 735 142 Other: Voiding Method Indwelling Catheter Indwelling Catheter # Bowel Movements 1 ABP, PAP, CO, CI - Last Documented Arterial Blood Pressure 141/51 - Exam Gen. appearance the patient is calm and comfortable sedated with Precedex on her stress synchronous with the mechanical ventilator. Earlier this morning the patient was in a prone body position and the patient was subsequently switched to supine. The patient has developed a skin abrasion from being positioned in a prone body position and this has on his left cheek. Noted the patient is currently off paralytics. Head exam was generally normal. There was no scleral icterus or corneal arcus. Mucous membranes were moist. Neck was supple and without jugular venous distension, thyromegaly, or carotid bruits. Carotids were easily palpable bilaterally. There was no adenopathy.Orogastric and orotracheal tube are both in place. The patient has a left IJ triple-lumen catheter in place Lungs sounds are diminished and the patient has some crackles in lung bases bilaterally. Cardiac exam revealed the PMI to be normally situated and sized. The rhythm was regular and no extrasystoles were noted during several minutes of auscultation. The first and second heart sounds were normal and physiologic splitting of the second heart sound was noted. There were no murmurs, rubs, clicks, or gallops. Abdominal exam revealed normal bowel sounds. The abdomen was soft, non-tender, and without masses, organomegaly, or appreciable enlargement of the abdominal aorta. Examination of the extremities revealed easily palpable radial, femoral and pedal pulses. There was no cyanosis, clubbing or edema. Examination of the skin revealed no evidence of significant rashes, suspicious appearing nevi or other concerning lesions. Neurologically the patient sedated and the patient is calm and comfortable synchronous with the mechanical ventilator. - Labs CBC & Chem 7: 06/05/20 04:00 06/05/20 04:00 Labs: Abnormal Lab Results - Last 24 Hours (Table) 06/04/20 06/04/20 06/04/20 Range/Units 14:18 16:08 16:41 WBC (3.8-10.6) k/uL RBC (4.30-5.90) m/uL Hgb (13.0-17.5) gm/dL Hct (39.0-53.0) % MCV (80.0-100.0) fL MCHC (31.0-37.0) g/dL Neutrophils # (Manual) (1.3-7.7) k/uL Lymphocytes # (Manual) (1.0-4.8) k/uL Metamyelocytes # (Man) (0) k/uL Myelocytes # (Manual) (0) k/uL Nucleated RBCs (0-0) /100 WBC ABG pH (7.35-7.45) ABG pCO2 (35-45) mmHg ABG pO2 (83-108) mmHg ABG HCO3 (21-25) mmol/L ABG Total CO2 (19-24) mmol/L ABG O2 Saturation (94-97) % Sodium (137-145) mmol/L Potassium (3.5-5.1) mmol/L Chloride (98-107) mmol/L Carbon Dioxide (22-30) mmol/L BUN (9-20) mg/dL Creatinine (0.66-1.25) mg/dL Glucose (74-99) mg/dL POC Glucose (mg/dL) 203 H 191 H (75-99) mg/dL Calcium (8.4-10.2) mg/dL Creatine Kinase 696 H (55-170) U/L Lipase 369 H (23-300) U/L Procalcitonin (0.02-0.09) ng/mL 06/04/20 06/04/20 06/04/20 Range/Units 17:54 18:32 18:59 WBC (3.8-10.6) k/uL RBC (4.30-5.90) m/uL Hgb (13.0-17.5) gm/dL Hct (39.0-53.0) % MCV (80.0-100.0) fL MCHC (31.0-37.0) g/dL Neutrophils # (Manual) (1.3-7.7) k/uL Lymphocytes # (Manual) (1.0-4.8) k/uL Metamyelocytes # (Man) (0) k/uL Myelocytes # (Manual) (0) k/uL Nucleated RBCs (0-0) /100 WBC ABG pH 7.26 L (7.35-7.45) ABG pCO2 67 H (35-45) mmHg ABG pO2 (83-108) mmHg ABG HCO3 30 H (21-25) mmol/L ABG Total CO2 32 H (19-24) mmol/L ABG O2 Saturation 98.1 H (94-97) % Sodium (137-145) mmol/L Potassium (3.5-5.1) mmol/L Chloride (98-107) mmol/L Carbon Dioxide (22-30) mmol/L BUN (9-20) mg/dL Creatinine (0.66-1.25) mg/dL Glucose (74-99) mg/dL POC Glucose (mg/dL) 232 H 231 H (75-99) mg/dL Calcium (8.4-10.2) mg/dL Creatine Kinase (55-170) U/L Lipase (23-300) U/L Procalcitonin (0.02-0.09) ng/mL 06/04/20 06/04/20 06/04/20 Range/Units 20:28 21:55 22:51 WBC (3.8-10.6) k/uL RBC (4.30-5.90) m/uL Hgb (13.0-17.5) gm/dL Hct (39.0-53.0) % MCV (80.0-100.0) fL MCHC (31.0-37.0) g/dL Neutrophils # (Manual) (1.3-7.7) k/uL Lymphocytes # (Manual) (1.0-4.8) k/uL Metamyelocytes # (Man) (0) k/uL Myelocytes # (Manual) (0) k/uL Nucleated RBCs (0-0) /100 WBC ABG pH (7.35-7.45) ABG pCO2 (35-45) mmHg ABG pO2 (83-108) mmHg ABG HCO3 (21-25) mmol/L ABG Total CO2 (19-24) mmol/L ABG O2 Saturation (94-97) % Sodium (137-145) mmol/L Potassium (3.5-5.1) mmol/L Chloride (98-107) mmol/L Carbon Dioxide (22-30) mmol/L BUN (9-20) mg/dL Creatinine (0.66-1.25) mg/dL Glucose (74-99) mg/dL POC Glucose (mg/dL) 190 H 178 H 169 H (75-99) mg/dL Calcium (8.4-10.2) mg/dL Creatine Kinase (55-170) U/L Lipase (23-300) U/L Procalcitonin (0.02-0.09) ng/mL 06/05/20 06/05/20 06/05/20 Range/Units 01:04 03:50 04:00 WBC (3.8-10.6) k/uL RBC (4.30-5.90) m/uL Hgb (13.0-17.5) gm/dL Hct (39.0-53.0) % MCV (80.0-100.0) fL MCHC (31.0-37.0) g/dL Neutrophils # (Manual) (1.3-7.7) k/uL Lymphocytes # (Manual) (1.0-4.8) k/uL Metamyelocytes # (Man) (0) k/uL Myelocytes # (Manual) (0) k/uL Nucleated RBCs (0-0) /100 WBC ABG pH (7.35-7.45) ABG pCO2 (35-45) mmHg ABG pO2 (83-108) mmHg ABG HCO3 (21-25) mmol/L ABG Total CO2 (19-24) mmol/L ABG O2 Saturation (94-97) % Sodium (137-145) mmol/L Potassium (3.5-5.1) mmol/L Chloride (98-107) mmol/L Carbon Dioxide (22-30) mmol/L BUN (9-20) mg/dL Creatinine (0.66-1.25) mg/dL Glucose (74-99) mg/dL POC Glucose (mg/dL) 157 H 149 H (75-99) mg/dL Calcium (8.4-10.2) mg/dL Creatine Kinase (55-170) U/L Lipase (23-300) U/L Procalcitonin 0.65 H (0.02-0.09) ng/mL 06/05/20 06/05/20 06/05/20 Range/Units 04:00 04:00 05:31 WBC 15.6 H (3.8-10.6) k/uL RBC 3.20 L (4.30-5.90) m/uL Hgb 9.9 L D (13.0-17.5) gm/dL Hct 33.9 L (39.0-53.0) % MCV 106.1 H (80.0-100.0) fL MCHC 29.3 L (31.0-37.0) g/dL Neutrophils # (Manual) 14.10 H (1.3-7.7) k/uL Lymphocytes # (Manual) 0.62 L (1.0-4.8) k/uL Metamyelocytes # (Man) 0.16 H (0) k/uL Myelocytes # (Manual) 0.31 H (0) k/uL Nucleated RBCs 2 H (0-0) /100 WBC ABG pH 7.25 L (7.35-7.45) ABG pCO2 73 H* (35-45) mmHg ABG pO2 80 L (83-108) mmHg ABG HCO3 32 H (21-25) mmol/L ABG Total CO2 34 H (19-24) mmol/L ABG O2 Saturation (94-97) % Sodium 152 H (137-145) mmol/L Potassium 5.2 H (3.5-5.1) mmol/L Chloride 118 H (98-107) mmol/L Carbon Dioxide 31 H (22-30) mmol/L BUN 133 H* (9-20) mg/dL Creatinine 2.32 H (0.66-1.25) mg/dL Glucose 148 H (74-99) mg/dL POC Glucose (mg/dL) (75-99) mg/dL Calcium 7.9 L (8.4-10.2) mg/dL Creatine Kinase (55-170) U/L Lipase (23-300) U/L Procalcitonin (0.02-0.09) ng/mL 06/05/20 06/05/20 06/05/20 Range/Units 06:27 08:16 08:54 WBC (3.8-10.6) k/uL RBC (4.30-5.90) m/uL Hgb (13.0-17.5) gm/dL Hct (39.0-53.0) % MCV (80.0-100.0) fL MCHC (31.0-37.0) g/dL Neutrophils # (Manual) (1.3-7.7) k/uL Lymphocytes # (Manual) (1.0-4.8) k/uL Metamyelocytes # (Man) (0) k/uL Myelocytes # (Manual) (0) k/uL Nucleated RBCs (0-0) /100 WBC ABG pH 7.24 L (7.35-7.45) ABG pCO2 71 H* (35-45) mmHg ABG pO2 71 L (83-108) mmHg ABG HCO3 30 H (21-25) mmol/L ABG Total CO2 33 H (19-24) mmol/L ABG O2 Saturation 93.7 L (94-97) % Sodium (137-145) mmol/L Potassium (3.5-5.1) mmol/L Chloride (98-107) mmol/L Carbon Dioxide (22-30) mmol/L BUN (9-20) mg/dL Creatinine (0.66-1.25) mg/dL Glucose (74-99) mg/dL POC Glucose (mg/dL) 153 H 142 H (75-99) mg/dL Calcium (8.4-10.2) mg/dL Creatine Kinase (55-170) U/L Lipase (23-300) U/L Procalcitonin (0.02-0.09) ng/mL 06/05/20 06/05/20 Range/Units 10: 11:41 WBC (3.8-10.6) k/uL RBC (4.30-5.90) m/uL Hgb (13.0-17.5) gm/dL Hct (39.0-53.0) % MCV (80.0-100.0) fL MCHC (31.0-37.0) g/dL Neutrophils # (Manual) (1.3-7.7) k/uL Lymphocytes # (Manual) (1.0-4.8) k/uL Metamyelocytes # (Man) (0) k/uL Myelocytes # (Manual) (0) k/uL Nucleated RBCs (0-0) /100 WBC ABG pH (7.35-7.45) ABG pCO2 (35-45) mmHg ABG pO2 (83-108) mmHg ABG HCO3 (21-25) mmol/L ABG Total CO2 (19-24) mmol/L ABG O2 Saturation (94-97) % Sodium (137-145) mmol/L Potassium (3.5-5.1) mmol/L Chloride (98-107) mmol/L Carbon Dioxide (22-30) mmol/L BUN (9-20) mg/dL Creatinine (0.66-1.25) mg/dL Glucose (74-99) mg/dL POC Glucose (mg/dL) 153 H 177 H (75-99) mg/dL Calcium (8.4-10.2) mg/dL Creatine Kinase (55-170) U/L Lipase (23-300) U/L Procalcitonin (0.02-0.09) ng/mL Microbiology - Last 24 Hours (Table) 06/04/20 09:05 Blood Culture - Preliminary Blood No Growth after 24 hours 06/03/20 13:00 Gram Stain - Final Sputum Sputum Culture - Final Litzy albicans 06/05/20 01:15 Blood Fungal Culture - Preliminary Blood 06/04/20 09:00 Gram Stain - Preliminary Sputum Sputum Culture - Preliminary 06/04/20 09:25 Urine Culture - Preliminary Urine,Catheterized 06/04/20 17:58 Nasal Screen MRSA/MSSA - Preliminary Nasopharyngeal Swab 06/03/20 12:58 Blood Culture - Preliminary Blood No Growth after 24 hours 06/03/20 12:50 Blood Culture - Preliminary Blood No Growth after 24 hours 05/31/20 12:30 Blood Culture - Preliminary Blood No Growth after 96 hours 05/31/20 12:30 Blood Culture Gram Stain - Final Blood Blood Culture - Final Staphylococcus epidermidis Assessment and Plan Plan: 1 acute hypoxic respiratory failure secondary to Covid 19 pneumonitis with secondary ARDS.. The patient remains intubated on a mechanical ventilator. The patient was intubated on 05/28/2020. The patient remains intubated on a mechanical ventilator utilizing prone positioning episodically during the day. The chest x-ray findings are essentially stable. There is a dense consolidation right lower lobe. Is also bilateral pulmonary infiltrates more so on the right and more so in the right lower lobe. The patient is continuing to have episodes of fever. Fever workup will be done again. The patient will have his antibiotics broaden him to Merrem. IV cefepime was discontinued. The patient remains on high PEEP. Tidal volumes of 450 with a PEEP of 19. We'll monitor the blood gases. We'll monitor oxygenation. We have allowed some permissive hypercapnia this patient. Note that on today's evaluation, the patient was weaned down to 80% FiO2. Chest x-ray shows interval improvement infiltration of the right lung base. Despite this chest x-ray findings, the patient remains to be quite hypoxic and still requiring high levels of PEEP and FiO2. Obviously, he has an acute lung injury/ARDS in association with Covid 19 related pneumonia. 2 acute Covid 19 pneumonitis, completed Remdesivir and Tocilizumab, and currently the patient is on IV Decadron, zinc sulfate, melatonin, and vitamin C. 3 chronic right hemidiaphragmatic paralysis post plication 4 chronic bronchial asthma 5 history of right middle lobe/right lower lobe bronchiectasis 6 coronary artery disease 7 obstructive sleep apnea 8 AAA with a previous endovascular stent grafting that was done 2011 9 chronic back pain 10 RLS 11 hyperlipidemia, and the patient has developed severe hypertriglyceridemia secondary to propofol infusion 12 abnormal LFTs, improved 13 coagulase-negative staph in the blood likely contaminant and vancomycin were discontinued 14 hyperlipidemia with significant rise and a triglyceride level and the patient was taken off the propofol infusion. Currently is on Precedex. 15 persistent fever, under investigation. Repeat blood cultures of been sent and the results are still negative for now. The patient remains on IV Merrem. 16 acute kidney injury with a creatinine being stable at 2.3 Plan Continue ventilator support and vent setting will be kept at a tidal volume of 450 with a rate of 30 and FiO2 is down to 80% Wean off pressors if possible and the patient is currently on norepinephrine infusion has been drop down significantly and currently is on 0.02 g per KG per minute. IV Merrem for a broader antibiotic coverage sputum and blood cultures and urine cultures are still pending for now Continue Precedex for sedation Continue Decadron 6 mg by mouth on a daily basis Increase his IV fluids with D5 water at the rate of 150mL an hour and monitor the sodium level potassium level Supportive care with prone positioning if needed for any further action desaturation Enteral feeding for nutritional support Tylenol for fever We'll continue to follow Continue [facility] has been involved in regards to his acute kidney injury Unable to tolerate tracheostomy tube yet because of his high FiO2 and PEEP requirement Condition remains critical. The family will be updated in the condition and will make further recommendations based on his progress. There is a critically care evaluation that was done more than 30 minutes.
[2020-06-05 12:42] LABS: ABG HCO3 31 mmol/L (21-25); ABG Oxygen Saturation 96.2 % (94-97); ABG PH 7.23 (7.35-7.45); ABG PO2 82 mmHg (83-108); ABG TCO2 33 mmol/L (19-24)
[2020-06-05 12:46] LABS: ABG PCO2 73 mmHg (35-45)
[2020-06-05 13:48] LABS: Glucose,Whole Blood 135 mg/dL (75-99)
[2020-06-05 15:19] LABS: Glucose,Whole Blood 192 mg/dL (75-99)
[2020-06-05 16:36] LABS: Glucose,Whole Blood 179 mg/dL (75-99)
[2020-06-05 18:05] LABS: Glucose,Whole Blood 151 mg/dL (75-99)
[2020-06-05 21:17] LABS: Glucose,Whole Blood 114 mg/dL (75-99)
--- NOTE | 2020-06-05 21:26 | P.PN ---
Progress Note - Text Progress Note Date: 06/05/20 [facility] Complaint: Shortness of breath History of presenting complaint: This is a 65-year-old patient of Dr. Demond Harper. Chronic stable medical conditions include coronary artery disease, diabetes, GERD, hypertension, obstructive sleep apnea, chronic back pain, restless leg syndrome, history of diaphragmatic analysis. Patient presented to the ER with shortness of breath. Symptoms started about 24 hours ago. Also chills. He had no obvious cold exposure travel or contact with sick people. He's had a cough. She was febrile in the ER and hypoxic. No nausea vomiting or diarrhea. Has a history of diaphragmatic plication. He also has known bronchiectasis of the right middle and lower lobe. Patient was initially put on a nonrebreather mask start antibiotics steroids and over the ICU. Placed on Airvo Patient admitted with COVID 19 pneumonia, acute hypoxic respiratory failure- intubated. On IV Nimbex and propofol. Prone position. ARDS. He received Remdesivir, Decadron and convalescent immunoglobulin. Today-ICU. on the ventilator-FiO2 6 and a PEEP of 19. Telemetry-sinus rhythm. Hasn't FMS in place. Drips include deep levo fed, D5W at 150 mL an hour, Precedex, insulin.continues to have low-grade fever. Review of systems-patient intubated Active Medications Acetaminophen (Acetaminophen Tab 325 Mg Tab) 650 mg PO Q4HR PRN PRN Reason: Fever and/or Mild Pain Last Admin: 06/04/20 14:28 Dose: 650 mg Documented by: Ascorbic Acid (Ascorbic Acid 500 Mg Tab) 1,000 mg PO DAILY [facility] Last Admin: 06/05/20 08:22 Dose: 1,000 mg Documented by: Chlorhexidine Gluconate (Chlorhexidine Gluconate 15 Ml Cup) 15 ml MUCOUS MEM BID [facility] Last Admin: 06/05/20 20:52 Dose: 15 ml Documented by: Cholecalciferol (Cholecalciferol 400 Unit Tab) 400 unit PO DAILY [facility] Last Admin: 06/05/20 08:42 Dose: 400 unit Documented by: Dexamethasone Sodium Phosphate (Dexamethasone Sod Phosphate 4 Mg/Ml 1 Ml Vial) 6 mg IV DAILY [facility] Last Admin: 06/05/20 08:53 Dose: 6 mg Documented by: Enoxaparin Sodium (Enoxaparin 100 Mg/Ml Syringe) 100 mg SQ Q12HR [facility] Last Admin: 06/05/20 20:52 Dose: 100 mg Documented by: Famotidine (Famotidine 20 Mg Tab) 20 mg PO BID [facility] Last Admin: 06/05/20 20:52 Dose: 20 mg Documented by: Propofol 1,000 mg/ IV Solution 100 mls @ 0 mls/hr IV .Q0M [facility]; Protocol Last Titration: 06/03/20 14:59 Dose: 0 mcg/kg/min, 0 mls/hr Documented by: Insulin Human Regular 100 unit (/ Sodium Chloride) 101 mls @ 0 mls/hr IV .Q0M [facility]; Protocol Last Admin: 06/05/20 17:46 Dose: 11 units/hr, 11.11 mls/hr Documented by: Meropenem 2 gm/ Sodium (Chloride) 100 mls @ 33.3 mls/hr IVPB Q12HR [facility]; Protoco l Last Admin: 06/05/20 08:42 Dose: 33.3 mls/hr Documented by: Dextrose/Water (Dextrose 5%-Water Iv Soln) 1,000 mls @ 150 mls/hr IV .Q6H40M [facility] Last Admin: 06/05/20 16:22 Dose: 150 mls/hr Documented by: Norepinephrine Bitartrate 8 mg (/ Sodium Chloride) 258 mls @ 10.807 mls/hr IV .[id number] [facility]; Protocol Last Titration: 06/05/20 19:12 Dose: 0 mcg/kg/min, 0 mls/hr Documented by: Dexmedetomidine HCl 400 mcg/ (IV Solution) 100 mls @ 0 mls/hr IV .Q0M [facility]; Protocol Last Admin: 06/05/20 20:52 Dose: 0.5 mcg/kg/hr, 13.963 mls/hr Documented by: Lactulose (Lactulose 20 Gm/30 Ml Cup) 30 gm PO BID [facility] Last Admin: 06/05/20 08:28 Dose: 30 gm Documented by: Melatonin (Melatonin 5 Mg Tablet) 5 mg PO HS [facility] Last Admin: 06/04/20 20:08 Dose: 5 mg Documented by: Naloxone HCl (Naloxone 0.4 Mg/Ml 1 Ml Vial) 0.2 mg IV Q2M PRN PRN Reason: Opioid Reversal Zinc Sulfate (Zinc Sulfate 220 Mg Cap) 220 mg PO DAILY [facility] Last Admin: 06/05/20 08:26 Dose: 220 mg Documented by: Physical examination: VITAL SIGNS: 100.2, 87, 30, 130/52, 99% on the ventilator GENERAL: Laying in bed, intubated Initial physical examination as per pulmonary EYES: Pupils equal. Conjunctiva normal. NECK: JVD unable to assess; masses not palpable. HEART: Heart sounds distant; no edema. LUNGS: Respiratory rate increased, decreased breath sounds. ABDOMEN: Soft, nontender, liver spleen not palpable, no masses palpable. PSYCH: Sedated INVESTIGATIONS, reviewed in the clinical context: white count 15.6 hemoglobin 9.9 platelets 210sodium 152 potassium 5.2 bun 133 creatinine 2.3 to pro-calcitonin 0.65 Admission testing: White count 6.5 hemoglobin 14.8 platelets 2:30 Potassium 4.7 bun 30 creatinine 1.76 lactic acid 2.4 ferritin 2053 AST 73 ALT 59 LDH 1056 CRP 333 Influenza type A and type B both negative COVID 19 PCR present EKG tracing personally reviewed by me-normal sinus rhythm Chest x-ray film personally reviewed by me-extensive bilateral infiltrates Assessment: -Bilateral pneumonia, COVID 19 pneumonia, cannot rule out bacterial infection especially gram-negative slow to respond -Moderate to severe ARDS-slow to respond -Acute hypoxic respiratory failure severe from above-requiring ventilator support-slow to respond -Severe sepsis from pneumonia -Moderate persistent asthma with acute exacerbation-slow to respond -Coronary artery disease -Diabetes mellitus type 2 -GERD -Essential hypertension -Obstructive sleep apnea -History of right diaphragm paralysis with plication -Restless leg syndrome -Hypernatremia-from free water deficit-worsening -acute kidney injury from ATN from sepsis Plan: repeat cultures done last 2 days of pending including blood cultures, urine culture, fungal culture and nasal MRSA screen. Free water is being increased.prognosis guarded.
[2020-06-05] MEDS: MELATONIN 5 MG TABLET PO SCH (21:51)
[2020-06-05 22:56] LABS: Glucose,Whole Blood 123 mg/dL (75-99)
[2020-06-06 01:09] LABS: Glucose,Whole Blood 151 mg/dL (75-99)
[2020-06-06 02:47] LABS: Glucose,Whole Blood 193 mg/dL (75-99)
[2020-06-06] MEDS: DEXTROSE 5% IN WATER 1,000 ML IV SCH ×2 (02:49→05:34)
[2020-06-06 04:22] LABS: Albumin 2.8 g/dL (3.5-5.0); C Reactive Protein 15.7 mg/L (<10.0); Calcium 8.1 mg/dL (8.4-10.2); HCT 30.9 % (39.0-53.0); HGB 9.4 gm/dL (13.0-17.5); Hypochromasia Marked; MCH 32.2 pg (25.0-35.0); MCHC 30.3 g/dL (31.0-37.0); Macrocytosis Moderate; Mean Platelet Volume 11.9; Platelet Count 164 k/uL (150-450); RBC 2.91 m/uL (4.30-5.90); RDW 14.5 % (11.5-15.5); Total Bilirubin 0.9 mg/dL (0.2-1.3); Total Protein 5.4 g/dL (6.3-8.2)
[2020-06-06] MEDS: DEXMEDETOMIDINE/0.9% NACL(PMX) 400 MCG in EMPTY BAG 1 BAG IV SCH ×2 (04:27→11:03)
[2020-06-06 04:35] LABS: Glucose,Whole Blood 210 mg/dL (75-99)
[2020-06-06 05:22] LABS: Band Neutrophils % 16 %; Eosinophils # (M) 0.18 k/uL (0-0.7); Lymphocytes # (M) 1.05 k/uL (1.0-4.8); Metamyelocytes % 4 %; Monocytes # (M) 0.53 k/uL (0-1.0); Neutrophils % (M) 70 %; Nucleated Red Blood Cells 3 /100 WBC (0-0); Total Cells Counted 200; WBC 17.5 k/uL (3.8-10.6)
[2020-06-06 05:23] LABS: Toxic Granulation Present; Toxic Vacuolation Present
[2020-06-06 05:52] LABS: Glucose,Whole Blood 200 mg/dL (75-99)
[2020-06-06 05:52] LABS: ABG Base Excess 3.4 mmol/L; ABG HCO3 30 mmol/L (21-25); ABG PCO2 66 mmHg (35-45); ABG PH 7.27 (7.35-7.45); ABG PO2 69 mmHg (83-108); ABG TCO2 32 mmol/L (19-24); Allen Test Performed? Yes
[2020-06-06] MEDS: INSULIN REGULAR 100 UNIT in SODIUM CHLORIDE 0.9% 100 ML IV SCH ×2 (06:35→15:34)
--- NOTE | 2020-06-06 07:03 | XR ---
EXAMINATION TYPE: XR chest 1V portable DATE OF EXAM: 06/06/2020 CLINICAL HISTORY: Difficulty breathing progress study. TECHNIQUE: Single AP portable frontal view of the chest is obtained. COMPARISON: Chest x-ray from one day earlier and older studies. FINDINGS: Stable endotracheal tube, orogastric tube, and left internal jugular central venous cathet er. Persistent right upper and lower lung opacities on current study. Likely small to tiny bilateral pleu ral effusions. Cardiac silhouette size stable and within normal limits. Osseous structures are intact . IMPRESSION: Worsening right basilar acute infiltrate. Stable right upper lung acute infiltrate. Left lung remains predominantly clear.
[2020-06-06] MEDS: ASCORBIC ACID 500 MG TAB PO SCH (08:17)
[2020-06-06] MEDS: LACTULOSE 20 GM/30 ML CUP PO SCH ×2 (08:17→20:42)
[2020-06-06] MEDS: CHOLECALCIFEROL 400 UNIT TAB PO SCH (08:17)
[2020-06-06] MEDS: DEXAMETHASONE SOD PHOSPHATE 4 MG/ML 1 ML VIAL IV SCH (08:17)
[2020-06-06] MEDS: MEROPENEM 2 GM in SODIUM CHLORIDE 0.9% 100 ML IVPB SCH ×2 (08:18→20:44)
[2020-06-06] MEDS: FAMOTIDINE 20 MG TAB PO SCH (08:18)
[2020-06-06] MEDS: CHLORHEXIDINE GLUCONATE 15 ML CUP MUCOUS MEM SCH ×2 (08:18→20:42)
[2020-06-06] MEDS: ZINC SULFATE 220 MG CAP PO SCH (08:49)
[2020-06-06] MEDS: ENOXAPARIN 100 MG/ML SYRINGE SQ SCH (08:49)
[2020-06-06 09:07] LABS: Glucose,Whole Blood 169 mg/dL (75-99)
--- NOTE | 2020-06-06 09:27 | P.PN ---
Subjective Patient is seen in follow-up for acute kidney injury on chronic kidney disease. Intubated. Currently on 50% FiO2. Levophed paused. Per nurse, he's been oozing from the sites of skin breakdown. Urine output 45-75 mL an hour for the last few hours. Sodium level down to 143 this morning. Being treated for COVID-19 pneumonia. Vital signs are stable. Currently intubated. No gross edema noted. Discussed with the nurse. Objective - Vital Signs Vital signs: Vital Signs Temp 98.5 F 06/06/20 04:00 Pulse 87 06/06/20 07:00 Resp 30 H 06/06/20 07:00 BP 135/64 06/06/20 07:00 Pulse Ox 95 06/06/20 07:00 Intake & Output 06/05/20 06/06/20 06/06/20 18:59 06:59 18:59 Intake Total 3430.567 2808.976 185.586 Output Total 697 745 45 Balance 2733.567 2063.976 140.586 Weight 111.7 kg Intake: IV 1800 1800 150 Dextrose 5% in Water 1, 1700 1800 150 000 ml @ 150 mls/hr IV . Q6H40M [facility] Rx#:[id number] Meropenem 2 gm In Sodium 100 Chloride 0.9% 100 ml @ 33 .3 mls/hr IVPB Q12HR [facility] Rx#:[id number] Intake, IV Titration 365.567 398.976 35.586 Amount Dexmedetomidine/0.9% NaCl 148.638 212.170 (Pmx) 400 mcg In Empty Bag 1 bag @ Titrate IV . Q0M [facility] Rx#:[id number] Insulin Regular 100 unit 95.597 80.682 35.586 In Sodium Chloride 0.9% 100 ml @ Per Protocol IV .Q0M [facility] Rx#:[id number] Meropenem 2 gm In Sodium 100 Chloride 0.9% 100 ml @ 33 .3 mls/hr IVPB Q12HR [facility] Rx#:[id number] Norepinephrine 8 mg In 121.332 6.124 Sodium Chloride 0.9% 250 ml @ 0.05 MCG/KG/MIN 10. 807 mls/hr IV .[id number] [facility] Rx#:[id number] Tube Feeding 635 280 Other 630 330 Output: Urine 497 545 45 Stool 200 200 Other: Voiding Method Indwelling Catheter Indwelling Catheter # Bowel Movements 1 ABP, PAP, CO, CI - Last Documented Arterial Blood Pressure 129/51 - Labs CBC & Chem 7: 06/06/20 03:01 06/06/20 06:07 Labs: Abnormal Lab Results - Last 24 Hours (Table) 06/05/20 06/05/20 06/05/20 Range/Units 04:00 10:09 11:41 WBC (3.8-10.6) k/uL RBC (4.30-5.90) m/uL Hgb (13.0-17.5) gm/dL Hct (39.0-53.0) % MCV (80.0-100.0) fL MCHC (31.0-37.0) g/dL Neutrophils # (Manual) (1.3-7.7) k/uL Metamyelocytes # (Man) (0) k/uL Nucleated RBCs (0-0) /100 WBC D-Dimer (<0.60) mg/L FEU ABG pH (7.35-7.45) ABG pCO2 (35-45) mmHg ABG pO2 (83-108) mmHg ABG HCO3 (21-25) mmol/L ABG Total CO2 (19-24) mmol/L Potassium (3.5-5.1) mmol/L Chloride (98-107) mmol/L BUN (9-20) mg/dL Creatinine (0.66-1.25) mg/dL Glucose (74-99) mg/dL POC Glucose (mg/dL) 153 H 177 H (75-99) mg/dL Calcium (8.4-10.2) mg/dL AST (17-59) U/L ALT (4-49) U/L Alkaline Phosphatase (38-126) U/L C-Reactive Protein (<10.0) mg/L Total Protein (6.3-8.2) g/dL Albumin (3.5-5.0) g/dL Procalcitonin 0.65 H (0.02-0.09) ng/mL 06/05/20 06/05/20 06/05/20 Range/Units 12:38 13:47 15:12 WBC (3.8-10.6) k/uL RBC (4.30-5.90) m/uL Hgb (13.0-17.5) gm/dL Hct (39.0-53.0) % MCV (80.0-100.0) fL MCHC (31.0-37.0) g/dL Neutrophils # (Manual) (1.3-7.7) k/uL Metamyelocytes # (Man) (0) k/uL Nucleated RBCs (0-0) /100 WBC D-Dimer (<0.60) mg/L FEU ABG pH 7.23 L (7.35-7.45) ABG pCO2 73 H* (35-45) mmHg ABG pO2 82 L (83-108) mmHg ABG HCO3 31 H (21-25) mmol/L ABG Total CO2 33 H (19-24) mmol/L Potassium (3.5-5.1) mmol/L Chloride (98-107) mmol/L BUN (9-20) mg/dL Creatinine (0.66-1.25) mg/dL Glucose (74-99) mg/dL POC Glucose (mg/dL) 135 H 192 H (75-99) mg/dL Calcium (8.4-10.2) mg/dL AST (17-59) U/L ALT (4-49) U/L Alkaline Phosphatase (38-126) U/L C-Reactive Protein (<10.0) mg/L Total Protein (6.3-8.2) g/dL Albumin (3.5-5.0) g/dL Procalcitonin (0.02-0.09) ng/mL 06/05/20 06/05/20 06/05/20 Range/Units 16:25 17:45 20:59 WBC (3.8-10.6) k/uL RBC (4.30-5.90) m/uL Hgb (13.0-17.5) gm/dL Hct (39.0-53.0) % MCV (80.0-100.0) fL MCHC (31.0-37.0) g/dL Neutrophils # (Manual) (1.3-7.7) k/uL Metamyelocytes # (Man) (0) k/uL Nucleated RBCs (0-0) /100 WBC D-Dimer (<0.60) mg/L FEU ABG pH (7.35-7.45) ABG pCO2 (35-45) mmHg ABG pO2 (83-108) mmHg ABG HCO3 (21-25) mmol/L ABG Total CO2 (19-24) mmol/L Potassium (3.5-5.1) mmol/L Chloride (98-107) mmol/L BUN (9-20) mg/dL Creatinine (0.66-1.25) mg/dL Glucose (74-99) mg/dL POC Glucose (mg/dL) 179 H 151 H 114 H (75-99) mg/dL Calcium (8.4-10.2) mg/dL AST (17-59) U/L ALT (4-49) U/L Alkaline Phosphatase (38-126) U/L C-Reactive Protein (<10.0) mg/L Total Protein (6.3-8.2) g/dL Albumin (3.5-5.0) g/dL Procalcitonin (0.02-0.09) ng/mL 06/05/20 06/06/20 06/06/20 Range/Units 22:36 00:35 02:42 WBC (3.8-10.6) k/uL RBC (4.30-5.90) m/uL Hgb (13.0-17.5) gm/dL Hct (39.0-53.0) % MCV (80.0-100.0) fL MCHC (31.0-37.0) g/dL Neutrophils # (Manual) (1.3-7.7) k/uL Metamyelocytes # (Man) (0) k/uL Nucleated RBCs (0-0) /100 WBC D-Dimer (<0.60) mg/L FEU ABG pH (7.35-7.45) ABG pCO2 (35-45) mmHg ABG pO2 (83-108) mmHg ABG HCO3 (21-25) mmol/L ABG Total CO2 (19-24) mmol/L Potassium (3.5-5.1) mmol/L Chloride (98-107) mmol/L BUN (9-20) mg/dL Creatinine (0.66-1.25) mg/dL Glucose (74-99) mg/dL POC Glucose (mg/dL) 123 H 151 H 193 H (75-99) mg/dL Calcium (8.4-10.2) mg/dL AST (17-59) U/L ALT (4-49) U/L Alkaline Phosphatase (38-126) U/L C-Reactive Protein (<10.0) mg/L Total Protein (6.3-8.2) g/dL Albumin (3.5-5.0) g/dL Procalcitonin (0.02-0.09) ng/mL 06/06/20 06/06/20 06/06/20 Range/Units 03:01 03:01 03:01 WBC 17.5 H (3.8-10.6) k/uL RBC 2.91 L (4.30-5.90) m/uL Hgb 9.4 L (13.0-17.5) gm/dL Hct 30.9 L (39.0-53.0) % MCV 106.0 H (80.0-100.0) fL MCHC 30.3 L (31.0-37.0) g/dL Neutrophils # (Manual) 15.00 H (1.3-7.7) k/uL Metamyelocytes # (Man) 0.70 H (0) k/uL Nucleated RBCs 3 H (0-0) /100 WBC D-Dimer 4.11 H (<0.60) mg/L FEU ABG pH (7.35-7.45) ABG pCO2 (35-45) mmHg ABG pO2 (83-108) mmHg ABG HCO3 (21-25) mmol/L ABG Total CO2 (19-24) mmol/L Potassium (3.5-5.1) mmol/L Chloride 112 H (98-107) mmol/L BUN 149 H* (9-20) mg/dL Creatinine 2.32 H (0.66-1.25) mg/dL Glucose 184 H (74-99) mg/dL POC Glucose (mg/dL) (75-99) mg/dL Calcium 8.1 L (8.4-10.2) mg/dL AST 101 H (17-59) U/L ALT 87 H (4-49) U/L Alkaline Phosphatase 35 L (38-126) U/L C-Reactive Protein 15.7 H (<10.0) mg/L Total Protein 5.4 L (6.3-8.2) g/dL Albumin 2.8 L (3.5-5.0) g/dL Procalcitonin (0.02-0.09) ng/mL 06/06/20 06/06/20 06/06/20 Range/Units 04:32 05:32 05:50 WBC (3.8-10.6) k/uL RBC (4.30-5.90) m/uL Hgb (13.0-17.5) gm/dL Hct (39.0-53.0) % MCV (80.0-100.0) fL MCHC (31.0-37.0) g/dL Neutrophils # (Manual) (1.3-7.7) k/uL Metamyelocytes # (Man) (0) k/uL Nucleated RBCs (0-0) /100 WBC D-Dimer (<0.60) mg/L FEU ABG pH 7.27 L (7.35-7.45) ABG pCO2 66 H (35-45) mmHg ABG pO2 69 L (83-108) mmHg ABG HCO3 30 H (21-25) mmol/L ABG Total CO2 32 H (19-24) mmol/L Potassium (3.5-5.1) mmol/L Chloride (98-107) mmol/L BUN (9-20) mg/dL Creatinine (0.66-1.25) mg/dL Glucose (74-99) mg/dL POC Glucose (mg/dL) 210 H 200 H (75-99) mg/dL Calcium (8.4-10.2) mg/dL AST (17-59) U/L ALT (4-49) U/L Alkaline Phosphatase (38-126) U/L C-Reactive Protein (<10.0) mg/L Total Protein (6.3-8.2) g/dL Albumin (3.5-5.0) g/dL Procalcitonin (0.02-0.09) ng/mL 06/06/20 06/06/20 Range/Units 06:07 09:02 WBC (3.8-10.6) k/uL RBC (4.30-5.90) m/uL Hgb (13.0-17.5) gm/dL Hct (39.0-53.0) % MCV (80.0-100.0) fL MCHC (31.0-37.0) g/dL Neutrophils # (Manual) (1.3-7.7) k/uL Metamyelocytes # (Man) (0) k/uL Nucleated RBCs (0-0) /100 WBC D-Dimer (<0.60) mg/L FEU ABG pH (7.35-7.45) ABG pCO2 (35-45) mmHg ABG pO2 (83-108) mmHg ABG HCO3 (21-25) mmol/L ABG Total CO2 (19-24) mmol/L Potassium 5.2 H (3.5-5.1) mmol/L Chloride (98-107) mmol/L BUN (9-20) mg/dL Creatinine (0.66-1.25) mg/dL Glucose (74-99) mg/dL POC Glucose (mg/dL) 169 H (75-99) mg/dL Calcium (8.4-10.2) mg/dL AST (17-59) U/L ALT (4-49) U/L Alkaline Phosphatase (38-126) U/L C-Reactive Protein (<10.0) mg/L Total Protein (6.3-8.2) g/dL Albumin (3.5-5.0) g/dL Procalcitonin (0.02-0.09) ng/mL Microbiology - Last 24 Hours (Table) 06/04/20 09:25 Urine Culture - Final Urine,Catheterized 06/04/20 16:08 Blood Culture - Preliminary Blood No Growth after 24 hours 06/03/20 12:58 Blood Culture - Preliminary Blood No Growth after 48 hours 06/03/20 12:50 Blood Culture - Preliminary Blood No Growth after 48 hours 05/31/20 12:30 Blood Culture - Preliminary Blood No Growth after 120 hours 06/04/20 09:05 Blood Culture - Preliminary Blood No Growth after 24 hours 06/03/20 13:00 Gram Stain - Final Sputum Sputum Culture - Final Litzy albicans 06/05/20 01:15 Blood Fungal Culture - Preliminary Blood 06/04/20 09:00 Gram Stain - Preliminary Sputum Sputum Culture - Preliminary Assessment and Plan Plan: Assessment: 1. Acute kidney injury secondary to ATN secondary to COVID-19 infection. Nonoliguric. Renal function stable. 2. Disproportionally elevated BUN secondary to hypercatabolic state from infection as well as use of steroids. No evidence of GI bleed. 3. Hypernatremia secondary to free water deficit. Improved. 4. Acute hypoxic respiratory failure secondary to ARDS requiring high amounts of PEEP. Currently on 50% FiO2. 5. Chronic kidney disease stage III with baseline creatinine in the range of 1.5-1.7 secondary to nephrosclerosis and diabetic kidney disease. 6. Septic shock secondary to COVID-19 infection/pneumonia. Levophed currently paused. 7. Diabetes mellitus. 8. Anemia of chronic kidney disease. Plan: D5W discontinued. Decrease free water flushes to 200 mL every 6 hours. I will give him a dose of IV DDAVP due to oozing from the skin breakdown sites. Avoid nephrotoxins. Continue to monitor renal function and urine output. Add Aranesp. Avoid IV iron in the setting of active infection. Wean FiO2.
[2020-06-06 09:56] LABS: INR 0.9 (<1.2); Partial Thromboplastin Time 27.2 sec (22.0-30.0); Prothrombin Time 9.9 sec (9.0-12.0)
[2020-06-06] MEDS ORDERED: DESMOPRESSIN ACETATE IVPB ONE (10:00)
[2020-06-06] MEDS ORDERED: DARBEPOETIN ALFA 25 MCG/0.42 ML SYRINGE SQ SCH (10:00)
[2020-06-06] MEDS ORDERED: SODIUM CHLORIDE 0.9% IVPB ONE (10:00)
[2020-06-06 10:59] LABS: Glucose,Whole Blood 126 mg/dL (75-99)
--- NOTE | 2020-06-06 11:41 | P.PN ---
Subjective Progress Note Date: 06/06/20 This is a 65-year-old male patient was admitted on 05/27/2020 for respiratory failure and pneumonia. The patient has a history of right hemidiaphragmatic paralysis for which she has undergone a diaphragmatic plication at [facility]. The patient also has chronic bronchiectasis involving the right middle lobe and right lower lobe in addition to bronchial asthma. The patient presented to the ED on 05/27/2024 shortness of breath, cough and chills and fever and not feeling well and he was tested positive for coronavirus Covid 19. The patient was initially treated with high flow oxygen along with nonrebreather mask. Unfortunately, he continued to have difficulty breathing and respiratory failure and he required intubation and mechanical ventilation on 05/28/2020. The patient currently is on mechanical ventilation, sedated and he remains on assist control mode at the rate of 36, tidal volume of 450, FiO2 of 80% and PEEP of 15. The patient is also paralyzed with Nimbex at 3.5 g per KG per minute and propofol currently is running at 65 g per KG per minute. The patient is receiving enteral feeding for nutritional support with vital high protein running at 20 mL an hour. The patient is currently on Remdesivir, 2 doses of Tocilizumab and received convelescent plasma and Decadron, pepsid, melatonin and Zinc and the patient is receiving emperic antibiotics with IV Cefepime. . The patient is also on clevidipine drip for blood pressure control. Insulin is being utilized for blood sugar control. the patient has she will the patient has a triple-lumen catheter in the left subclavian. Noted the patient is also receiving intermittent phoning and he was on for a total of 16 hours yesterday and this morning he was still prolonged and I was able to put him back in a supine body position. He had a fever of 100.2 this morning. He is essentially on the same vent setting. His blood gases from today showed a pH of 7.31 with a pCO2 of 57 and pO2 of 63. Peak air pressure was around 42. Static pressure was 35. Based on that, I dropped his tidal volume to 400 and this brought on the static pressure down to 27. A subsequent blood gases showed a pH of 7.25 with a pCO2 of 63 and pO2 of 66. The patient otherwise has diffuse bilateral pulmonary infiltrates consistent with Covid 19 pneumonia. He is on x Cleviprex drip at 4 mg an hour for blood pressure control. The fluid balance is positive around 1.7 L over the past 24 hours. He would benefit from diuresis. Enteral feeding with vital high protein only when the patient is in supine body position. 06/02/2020 the patient is being seen for a follow-up. The patient remains intubated on a mechanical ventilator and his alternating between prone and supine body positioning. He was performed again yesterday evening and he will be placed supine around 2 PM this afternoon. The patient remains on a mechanical ventilator. The patient is sedated and paralyzed. In terms of his sedation, the patient is on propofol at 60 mg per KG per minute, he is on Nimbex at 3 g and he remains on a mechanical ventilator on assist control mode at the rate of 30 with a tidal volume of 400 and FiO2 of 80% with a PEEP of 17. Chest x-ray findings are essentially stable with diffuse bilateral pulmonary infiltrates unchanged compared to yesterday's chest x-ray. I was having difficulties with the patient's elevated potassium level. The patient continued to have some high potassium level due to his underlying metabolic acidosis.note that the highest potassium level is at 6.2. I give the patient bicarb on multiple occasions and form of IV push as him on 50 mEq each, and I also gave the patient D50 with insulin and and he was also given a dose of Kayexalate and the subsequent potassium level came down to 5.5. The patient was also given Lasix. Most recent blood work shows a BUN of 115, creatinine of 2.1, potassium level of 5.5, serum bicarb of 28, and most recent blood his showed a pH of 7.24 with a pCO2 of 67 and pO2 of 64. The patient is hemodynamically stable. The patient does oxygenate better whenever he is switched to a prone body position improvement in the order of 3-4% and his oxygenation on his saturation while being prone. The patient remains on IV cefepime. Blood culture was positive for coagulase-negative staph and he was given a dose of vancomycin that was subsequently discontinued. He remains on Decadron 6 mg IV. I started him on daily Lasix 40 mg IV push to maintain his fluid balance. Otherwise, no other significant events. Enterofeeding is being provided while the patient being in a supine body position. No fever. The white cell count is at 14. The patient's ferritin level was dropping it was down to 2056. Liver function tests are essentially normal and today's evaluation. 06/03/2020, the patient remains intubated on a mechanical ventilator. Earlier this morning the patient was in a prone body position. I noted that the patient was having significant amount of leak around the ET tube and based on that I switch this patient back to a supine body position and made appropriate adjustments on the orotracheal tube to prevent the leak. The patient was subsequently placed on assist control mode at the rate of 36 with a tidal volume of 450 and FiO2 of 80% with a PEEP of 17. The peak airway pressure 32. Static pressure is 28. The morning blood gases were noted and there were somewhat abnormal as the patient was having significant amount of air leak on the o rotracheal tube. The blood gases were repeated and the patient was noted to have a pH of 7.36 with a pCO2 of 56 and pO2 of 67. Chest x-ray still showing diffuse but the pulmonary infiltrates consistent with Covid 19 related pneumonia. The patient was started on daily Lasix. The patient's has an input of a balance of -300 mL over the past 24 hours. Nevertheless, the patient developed some degree of hypotension and the patient was started on pressors after being given a bolus of 500 mL this morning of normal saline without any improvement. Currently norepinephrine is running at 0.07 micrograms per KG per minute. The patient continues to have episodes of fever. The chest x-ray still showing diffuse bilateral pulmonary infiltrates with significant consolidation of the right lower lobe. The patient remains on IV cefepime as an empiric antibiotic coverage. The patient is on IV Decadron 6 mg on a daily basis. Norepinephrine infusion is being is affected the blood pressure control. Sodium level is up to 148. The patient will be given D5 water to replace the free water deficit. C reatinine is up to 2.4 with a BUN of 19. The inflammatory markers show a drop in his CRP level is up to 24, LDH is elevated at 1059 and the patient is still having episodic fever requiring Tylenol for ongoing fever activity. Probable regarding at 65 g per KG per minute and the triglyceride level from today was 2313 patient is receiving vital high protein at the rate of 60 mL an hour 8 hours on a 24 hour.. The patient's CVP of 19 and the triple-lumen catheter was inserted yesterday and the left IJ with adequate positioning. 06/04/2020, the patient remains on a mechanical ventilator. The patient was taken off the propofol infusion because of hypertriglyceridemia and currently Precedex which is running at 0.5 g. The patient is doing well. Suggest a mechanical ventilator. On today's evaluation, the patient was an assist-control mode at the rate of 36 with a tidal volume of 450 and FiO2 of 50% with a PEEP of 17. The blood gases at that point was showing a pH of 7.36 with a pCO2 of 56 and pO2 of 54. Peak air pressure was 32 with a platelet however pressure of 30. I reviewed her chest x-ray and I noted no major interval change. There was significant consolidation of the right lower lobe and some infiltration of the right upper lobe. Infiltrates on the left side seemed to be improved. The patient has been diagnosed having Covid 19 related pneumonia. The patient has completed treatment and this included Remsedivir, Decadron and convalescent immunoglobulins. The patient also received 2 doses of tocilizumab. Based on the morning blood gases and chest x-ray findings, and based on my review of the mechanical ventilator, I did a trial with right lower PEEP and increased FiO2 to assess the patient's ability to maintain oxygenation. To me this did not look like a typical of ARDS. The child failed and the patient became hypoxic. Ultimately I switched him ventilator and put the PEEP back to 17 and The tidal volume of 450. Repeat gases is to follow. Noted the patient continues to be febrile. The patient is is having temperatures all along and repeat cultures will be sent. I'm not sure if this is an infectious/bacterial fever or is related to Covid 19. The patient will have urine and blood culture sent. Sputum culture was sent. The patient is requiring pressors and currently is on levo fed running at 11 g per minute. He is on insulin drip at 10 units an hour. Sodium level is on the rise and septal wall 49 and the patient is on D5 water at the rate of 50 mL an hour and this will be increased up to 100 mL. The patient remains on Lovenox 1 mg subcu every 12 hours. The patient is in a sinus rhythm. Antibiotics coverage has been cefepime all along. He is tolerating his enteral feeding for nutritional support and the patient is on vital high protein running at 70 mL an hour. 06/05/2020, the patient is on Precedex sedated and intubated on a mechanical ventilator. He is on a assist-control mode at a rate of 30 with a tidal volume of 450 and FiO2 of 95% with a PEEP of 19. Blood gases from today showed a pH of 7.25 with a pCO2 of 73 and pO2 of 80. FiO2 was dropped down to 80% and the repeat blood gases showed a pH of 7.24 with a pCO2 of 70 and pO2 of 71. Chest x-ray showing some improvement in the consolidation of the right lower lobe. There is still diffuse bilateral pulmonary infiltration. Precedex is running at 0.07 g. The patient was weaned off the pressors and the patient is currently only on levo fed running at 0.02 mg per KG per minute. Sodium level is on the rise and the patient has also elevation of BUN/creatinine. I placed this patient on D5 water at 100 mL an hour and this will be further increased based on his underlying free water deficit. She'll feeds are running with vital high protein at the rate of 63 mL an hour and the patient is also on insulin drip at 11 units an hour. The patient's antibiotics have been broadened and is currently included IV Merrem. Blood culture been sent and results are still pending for now. He is still having low-grade fever on and off throughout the day.the neck fluid balance is +1.3 L over the past 24 hours. On 06/06/2020, the patient is still being on a mechanical ventilator. The patient is sedated with Precedex at 0.6 g. The patient remains on a mechanical ventilator on assist control mode of ventilation with a tidal volume of 450 and FiO2 of 60% with a PEEP of 19 and a respiratory rate of 30. Blood gases from today showed a pH of 7.27 and a pCO2 of 66 and pO2 of 69. The patient's chest x-ray shows no interval change. The patient remains on IV Decadron 6 mg on a daily basis. The patient is also on therapeutic dose of Lovenox 1 mg subcu e very 12 hours. He is on insulin drip for blood sugar control. IV antibiotics include meropenem 2 g every 12 hours and the patient's repeat blood cultures came back negative. Sputum culture came back negative. Fever has defervesced and the patient has not spiked a temperature over the past 12 hours. 4 calcitonin level was nonelevated or slightly elevated at 0.65. The sodium level improved and is currently down to 143. Nevertheless, the BUN is elevated at 149 with a creatinine of 2.3. I took the patient off the D5 water. We'll continue free water flushes. Nephritis on the case. Bilirubin is nonelevated. LFTs are mildly elevated with a AST of 11 and ALT of 87. Objective - Vital Signs Vital signs: Vital Signs Temp 99.1 F 06/06/20 08:00 Pulse 91 06/06/20 11:00 Resp 26 H 06/06/20 11:00 BP 122/63 06/06/20 11:00 Pulse Ox 88 L 06/06/20 11:00 Intake & Output 06/05/20 06/06/20 06/06/20 18:59 06:59 18:59 Intake Total 3430.567 2808.976 935.643 Output Total 697 745 470 Balance 2733.567 2063.976 465.643 Weight 111.7 kg Intake: IV 1800 1800 370 Dextrose 5% in Water 1, 1700 1800 150 000 ml @ 150 mls/hr IV . Q6H40M [facility] Rx#:[id number] Meropenem 2 gm In Sodium 100 100 Chloride 0.9% 100 ml @ 33 .3 mls/hr IVPB Q12HR [facility] Rx#:[id number] Sodium Chloride 0.9% 1, 120 000 ml @ 40 mls/hr IV . Q24H [facility] Rx#:[id number] Intake, IV Titration 365.567 398.976 145.643 Amount Dexmedetomidine/0.9% NaCl 148.638 212.170 87.433 (Pmx) 400 mcg In Empty Bag 1 bag @ Titrate IV . Q0M [facility] Rx#:[id number] Insulin Regular 100 unit 95.597 80.682 58.210 In Sodium Chloride 0.9% 100 ml @ Per Protocol IV .Q0M [facility] Rx#:[id number] Meropenem 2 gm In Sodium 100 Chloride 0.9% 100 ml @ 33 .3 mls/hr IVPB Q12HR [facility] Rx#:[id number] Norepinephrine 8 mg In 121.332 6.124 Sodium Chloride 0.9% 250 ml @ 0.05 MCG/KG/MIN 10. 807 mls/hr IV .[id number] [facility] Rx#:[id number] Oral 60 Tube Feeding 635 280 160 Other 630 330 200 Output: Urine 497 545 470 Stool 200 200 Other: Voiding Method Indwelling Catheter Indwelling Catheter # Bowel Movements 1 ABP, PAP, CO, CI - Last Documented Arterial Blood Pressure 154/53 - Exam Gen. appearance the patient is calm and comfortable sedated with Precedex on her stress synchronous with the mechanical ventilator. Earlier this morning the patient was in a prone body position and the patient was subsequently switched to supine. The patient has developed a skin abrasion from being positioned in a prone body position and this has on his left cheek. Noted the patient is currently off paralytics. Head exam was generally normal. There was no scleral icterus or corneal arcus. Mucous membranes were moist. Neck was supple and without jugular venous distension, thyromegaly, or carotid bruits. Carotids were easily palpable bilaterally. There was no adenopathy.Orogastric and orotracheal tube are both in place. The patient has a left IJ triple-lumen catheter in place Lungs sounds are diminished and the patient has some crackles in lung bases bilaterally. Cardiac exam revealed the PMI to be normally situated and sized. The rhythm was regular and no extrasystoles were noted during several minutes of auscultation. The first and second heart sounds were normal and physiologic splitting of the second heart sound was noted. There were no murmurs, rubs, clicks, or gallops. Abdominal exam revealed normal bowel sounds. The abdomen was soft, non-tender, and without masses, organomegaly, or appreciable enlargement of the abdominal aorta. Examination of the extremities revealed easily palpable radial, femoral and pedal pulses. There was no cyanosis, clubbing or edema. Examination of the skin revealed no evidence of significant rashes, suspicious appearing nevi or other concerning lesions. Neurologically the patient sedated and the patient is calm and comfortable synchronous with the mechanical ventilator. - Labs CBC & Chem 7: 06/06/20 03:01 06/06/20 06:07 Labs: Abnormal Lab Results - Last 24 Hours (Table) 06/05/20 06/05/20 06/05/20 Range/Units 04:00 11:41 12:38 WBC (3.8-10.6) k/uL RBC (4.30-5.90) m/uL Hgb (13.0-17.5) gm/dL Hct (39.0-53.0) % MCV (80.0-100.0) fL MCHC (31.0-37.0) g/dL Neutrophils # (Manual) (1.3-7.7) k/uL Metamyelocytes # (Man) (0) k/uL Nucleated RBCs (0-0) /100 WBC D-Dimer (<0.60) mg/L FEU ABG pH 7.23 L (7.35-7.45) ABG pCO2 73 H* (35-45) mmHg ABG pO2 82 L (83-108) mmHg ABG HCO3 31 H (21-25) mmol/L ABG Total CO2 33 H (19-24) mmol/L Potassium (3.5-5.1) mmol/L Chloride (98-107) mmol/L BUN (9-20) mg/dL Creatinine (0.66-1.25) mg/dL Glucose (74-99) mg/dL POC Glucose (mg/dL) 177 H (75-99) mg/dL Calcium (8.4-10.2) mg/dL AST (17-59) U/L ALT (4-49) U/L Alkaline Phosphatase (38-126) U/L C-Reactive Protein (<10.0) mg/L Total Protein (6.3-8.2) g/dL Albumin (3.5-5.0) g/dL Procalcitonin 0.65 H (0.02-0.09) ng/mL 06/05/20 06/05/20 06/05/20 Range/Units 13:47 15:12 16:25 WBC (3.8-10.6) k/uL RBC (4.30-5.90) m/uL Hgb (13.0-17.5) gm/dL Hct (39.0-53.0) % MCV (80.0-100.0) fL MCHC (31.0-37.0) g/dL Neutrophils # (Manual) (1.3-7.7) k/uL Metamyelocytes # (Man) (0) k/uL Nucleated RBCs (0-0) /100 WBC D-Dimer (<0.60) mg/L FEU ABG pH (7.35-7.45) ABG pCO2 (35-45) mmHg ABG pO2 (83-108) mmHg ABG HCO3 (21-25) mmol/L ABG Total CO2 (19-24) mmol/L Potassium (3.5-5.1) mmol/L Chloride (98-107) mmol/L BUN (9-20) mg/dL Creatinine (0.66-1.25) mg/dL Glucose (74-99) mg/dL POC Glucose (mg/dL) 135 H 192 H 179 H (75-99) mg/dL Calcium (8.4-10.2) mg/dL AST (17-59) U/L ALT (4-49) U/L Alkaline Phosphatase (38-126) U/L C-Reactive Protein (<10.0) mg/L Total Protein (6.3-8.2) g/dL Albumin (3.5-5.0) g/dL Procalcitonin (0.02-0.09) ng/mL 06/05/20 06/05/20 06/05/20 Range/Units 17:45 20:59 22:36 WBC (3.8-10.6) k/uL RBC (4.30-5.90) m/uL Hgb (13.0-17.5) gm/dL Hct (39.0-53.0) % MCV (80.0-100.0) fL MCHC (31.0-37.0) g/dL Neutrophils # (Manual) (1.3-7.7) k/uL Metamyelocytes # (Man) (0) k/uL Nucleated RBCs (0-0) /100 WBC D-Dimer (<0.60) mg/L FEU ABG pH (7.35-7.45) ABG pCO2 (35-45) mmHg ABG pO2 (83-108) mmHg ABG HCO3 (21-25) mmol/L ABG Total CO2 (19-24) mmol/L Potassium (3.5-5.1) mmol/L Chloride (98-107) mmol/L BUN (9-20) mg/dL Creatinine (0.66-1.25) mg/dL Glucose (74-99) mg/dL POC Glucose (mg/dL) 151 H 114 H 123 H (75-99) mg/dL Calcium (8.4-10.2) mg/dL AST (17-59) U/L ALT (4-49) U/L Alkaline Phosphatase (38-126) U/L C-Reactive Protein (<10.0) mg/L Total Protein (6.3-8.2) g/dL Albumin (3.5-5.0) g/dL Procalcitonin (0.02-0.09) ng/mL 06/06/20 06/06/20 06/06/20 Range/Units 00:35 02:42 03:01 WBC 17.5 H (3.8-10.6) k/uL RBC 2.91 L (4.30-5.90) m/uL Hgb 9.4 L (13.0-17.5) gm/dL Hct 30.9 L (39.0-53.0) % MCV 106.0 H (80.0-100.0) fL MCHC 30.3 L (31.0-37.0) g/dL Neutrophils # (Manual) 15.00 H (1.3-7.7) k/uL Metamyelocytes # (Man) 0.70 H (0) k/uL Nucleated RBCs 3 H (0-0) /100 WBC D-Dimer (<0.60) mg/L FEU ABG pH (7.35-7.45) ABG pCO2 (35-45) mmHg ABG pO2 (83-108) mmHg ABG HCO3 (21-25) mmol/L ABG Total CO2 (19-24) mmol/L Potassium (3.5-5.1) mmol/L Chloride (98-107) mmol/L BUN (9-20) mg/dL Creatinine (0.66-1.25) mg/dL Glucose (74-99) mg/dL POC Glucose (mg/dL) 151 H 193 H (75-99) mg/dL Calcium (8.4-10.2) mg/dL AST (17-59) U/L ALT (4-49) U/L Alkaline Phosphatase (38-126) U/L C-Reactive Protein (<10.0) mg/L Total Protein (6.3-8.2) g/dL Albumin (3.5-5.0) g/dL Procalcitonin (0.02-0.09) ng/mL 06/06/20 06/06/20 06/06/20 Range/Units 03:01 03:01 04:32 WBC (3.8-10.6) k/uL RBC (4.30-5.90) m/uL Hgb (13.0-17.5) gm/dL Hct (39.0-53.0) % MCV (80.0-100.0) fL MCHC (31.0-37.0) g/dL Neutrophils # (Manual) (1.3-7.7) k/uL Metamyelocytes # (Man) (0) k/uL Nucleated RBCs (0-0) /100 WBC D-Dimer 4.11 H (<0.60) mg/L FEU ABG pH (7.35-7.45) ABG pCO2 (35-45) mmHg ABG pO2 (83-108) mmHg ABG HCO3 (21-25) mmol/L ABG Total CO2 (19-24) mmol/L Potassium (3.5-5.1) mmol/L Chloride 112 H (98-107) mmol/L BUN 149 H* (9-20) mg/dL Creatinine 2.32 H (0.66-1.25) mg/dL Glucose 184 H (74-99) mg/dL POC Glucose (mg/dL) 210 H (75-99) mg/dL Calcium 8.1 L (8.4-10.2) mg/dL AST 101 H (17-59) U/L ALT 87 H (4-49) U/L Alkaline Phosphatase 35 L (38-126) U/L C-Reactive Protein 15.7 H (<10.0) mg/L Total Protein 5.4 L (6.3-8.2) g/dL Albumin 2.8 L (3.5-5.0) g/dL Procalcitonin (0.02-0.09) ng/mL 06/06/20 06/06/20 06/06/20 Range/Units 05:32 05:50 06:07 WBC (3.8-10.6) k/uL RBC (4.30-5.90) m/uL Hgb (13.0-17.5) gm/dL Hct (39.0-53.0) % MCV (80.0-100.0) fL MCHC (31.0-37.0) g/dL Neutrophils # (Manual) (1.3-7.7) k/uL Metamyelocytes # (Man) (0) k/uL Nucleated RBCs (0-0) /100 WBC D-Dimer (<0.60) mg/L FEU ABG pH 7.27 L (7.35-7.45) ABG pCO2 66 H (35-45) mmHg ABG pO2 69 L (83-108) mmHg ABG HCO3 30 H (21-25) mmol/L ABG Total CO2 32 H (19-24) mmol/L Potassium 5.2 H (3.5-5.1) mmol/L Chloride (98-107) mmol/L BUN (9-20) mg/dL Creatinine (0.66-1.25) mg/dL Glucose (74-99) mg/dL POC Glucose (mg/dL) 200 H (75-99) mg/dL Calcium (8.4-10.2) mg/dL AST (17-59) U/L ALT (4-49) U/L Alkaline Phosphatase (38-126) U/L C-Reactive Protein (<10.0) mg/L Total Protein (6.3-8.2) g/dL Albumin (3.5-5.0) g/dL Procalcitonin (0.02-0.09) ng/mL 06/06/20 06/06/20 Range/Units 09:02 10:57 WBC (3.8-10.6) k/uL RBC (4.30-5.90) m/uL Hgb (13.0-17.5) gm/dL Hct (39.0-53.0) % MCV (80.0-100.0) fL MCHC (31.0-37.0) g/dL Neutrophils # (Manual) (1.3-7.7) k/uL Metamyelocytes # (Man) (0) k/uL Nucleated RBCs (0-0) /100 WBC D-Dimer (<0.60) mg/L FEU ABG pH (7.35-7.45) ABG pCO2 (35-45) mmHg ABG pO2 (83-108) mmHg ABG HCO3 (21-25) mmol/L ABG Total CO2 (19-24) mmol/L Potassium (3.5-5.1) mmol/L Chloride (98-107) mmol/L BUN (9-20) mg/dL Creatinine (0.66-1.25) mg/dL Glucose (74-99) mg/dL POC Glucose (mg/dL) 169 H 126 H (75-99) mg/dL Calcium (8.4-10.2) mg/dL AST (17-59) U/L ALT (4-49) U/L Alkaline Phosphatase (38-126) U/L C-Reactive Protein (<10.0) mg/L Total Protein (6.3-8.2) g/dL Albumin (3.5-5.0) g/dL Procalcitonin (0.02-0.09) ng/mL Microbiology - Last 24 Hours (Table) 06/04/20 17:58 Nasal Screen MRSA/MSSA - Final Nasopharyngeal Swab 06/04/20 09:25 Urine Culture - Final Urine,Catheterized 06/04/20 16:08 Blood Culture - Preliminary Blood No Growth after 24 hours 06/03/20 12:58 Blood Culture - Preliminary Blood No Growth after 48 hours 06/03/20 12:50 Blood Culture - Preliminary Blood No Growth after 48 hours 05/31/20 12:30 Blood Culture - Preliminary Blood No Growth after 120 hours 06/04/20 09:05 Blood Culture - Preliminary Blood No Growth after 24 hours 06/03/20 13:00 Gram Stain - Final Sputum Sputum Culture - Final Litzy albicans 06/05/20 01:15 Blood Fungal Culture - Preliminary Blood 06/04/20 09:00 Gram Stain - Preliminary Sputum Sputum Culture - Preliminary Assessment and Plan Plan: 1 acute hypoxic respiratory failure secondary to Covid 19 pneumonitis with secondary ARDS.. The patient remains intubated on a mechanical ventilator. The patient was intubated on 05/28/2020. The patient remains intubated on a mechanical ventilator utilizing prone positioning episodically during the day. The chest x-ray findings are essentially stable. There is a dense consolidation right lower lobe. The patient continues to require high levels of PEEP and the patient is a FiO2 Cardizem 60%. Blood given her chest x-ray from today has been noted. There is not a lot of room for weaning at this point in time. The peak airway pressures around 32 static pressures around 30. 2 acute Covid 19 pneumonitis, completed Remdesivir and Tocilizumab, and currently the patient is on IV Decadron, zinc sulfate, melatonin, and vitamin C. 3 chronic right hemidiaphragmatic paralysis post plication 4 chronic bronchial asthma 5 history of right middle lobe/right lower lobe bronchiectasis 6 coronary artery disease 7 obstructive sleep apnea 8 AAA with a previous endovascular stent grafting that was done 2011 9 chronic back pain 10 RLS 11 hyperlipidemia, and the patient has developed severe hypertriglyceridemia secondary to propofol infusion 12 abnormal LFTs, the LFTs are stable for now. No significant hyperbilirubinemia. 13 coagulase-negative staph in the blood likely contaminant and vancomycin were discontinued 14 hyperlipidemia with significant rise and a triglyceride level and the patient was taken off the propofol infusion. Currently is on Precedex. 15 persistent fever, under investigation. Repeat blood cultures of been sent and the results are still negative for now. The patient remains on IV Merrem. The patient has been afebrile over the past 12 hours. 16 acute kidney injury with a creatinine being stable at 2.3, unchanged compared to yesterday. BUN remains elevated and this probably related to systemic steroids. Plan Continue ventilator support and vent setting will be kept at a tidal volume of 450 with a rate of 30 and wrapped FiO2 down to 50% drop the PEEP down to 18 and repeated blood gases around noontime and see if there is any further room for weaning at least FiO2 over the PEEP. The patient is currently on a minimal amount of pressor that can be weaned IV Merrem for a broad antibiotic coverage sputum and blood cultures and urine cultures are still pending for now Continue Precedex for sedation Continue Decadron 6 mg by mouth on a daily basis Discontinue the free water, D5 infusion Supportive care with prone positioning if needed for any further action desaturation Enteral feeding for nutritional support Tylenol for fever We'll continue to follow Continue Lovenox and the patient is currently at therapeutic doses. I reviewed the most recent d-dimer which is currently at 4.1. The patient is not on any active DVT. I'm going to cut down the Lovenox dosing to half and provide this patient 50 mg subcu every 12 hours. Nephrology has been involved in regards to his acute kidney injury Unable to tolerate tracheostomy tube yet because of his high FiO2 and PEEP requirement Condition remains critical. The family will be updated in the condition and will make further recommendations based on his progress. There is a critically care evaluation that was done more than 30 minutes.
[2020-06-06 12:25] LABS: Glucose,Whole Blood 202 mg/dL (75-99)
[2020-06-06 12:26] LABS: ABG Base Excess 4.8 mmol/L; ABG HCO3 32 mmol/L (21-25); ABG Oxygen Saturation 89.6 % (94-97); ABG PCO2 68 mmHg (35-45); ABG PH 7.28 (7.35-7.45); ABG TCO2 34 mmol/L (19-24); Allen Test Performed? Yes
[2020-06-06 12:29] LABS: ABG PO2 59 mmHg (83-108)
[2020-06-06 12:45] LABS: Glucose,Whole Blood 197 mg/dL (75-99)
[2020-06-06] MEDS: HYDROmorphone 1 MG/ML 1 ML SYRINGE IVP PRN ×2 (13:13→18:52)
[2020-06-06 14:42] LABS: Glucose,Whole Blood 180 mg/dL (75-99)
[2020-06-06] MEDS: NACL IV SCH ×2 (15:36→22:04)
[2020-06-06] MEDS: DEXMEDETOMIDINE IV SCH ×2 (15:36→22:04)
[2020-06-06 15:40] LABS: Glucose,Whole Blood 166 mg/dL (75-99)
[2020-06-06 16:06] LABS: ABG Base Excess 4.5 mmol/L; ABG HCO3 31 mmol/L (21-25); ABG Oxygen Saturation 94.1 % (94-97); ABG PCO2 64 mmHg (35-45); ABG PH 7.29 (7.35-7.45); ABG PO2 69 mmHg (83-108); ABG TCO2 33 mmol/L (19-24); Allen Test Performed? Yes
[2020-06-06 17:39] LABS: Glucose,Whole Blood 129 mg/dL (75-99)
[2020-06-06] MEDS: MELATONIN 5 MG TABLET PO SCH (20:44)
[2020-06-06] MEDS: ENOXAPARIN 60 MG/0.6 ML SYRINGE SQ SCH (21:09)
[2020-06-06 21:13] LABS: Glucose,Whole Blood 200 mg/dL (75-99)
--- NOTE | 2020-06-06 21:59 | P.PN ---
Progress Note - Text Progress Note Date: 06/06/20 chief Complaint: Shortness of breath History of presenting complaint: This is a 65-year-old patient of Dr. Demond Harper. Chronic stable medical conditions include coronary artery disease, diabetes, GERD, hypertension, obstructive sleep apnea, chronic back pain, restless leg syndrome, history of diaphragmatic analysis. Patient presented to the ER with shortness of breath. Symptoms started about 24 hours ago. Also chills. He had no obvious cold exposure travel or contact with sick people. He's had a cough. She was febrile in the ER and hypoxic. No nausea vomiting or diarrhea. Has a history of diaphragmatic plication. He also has known bronchiectasis of the right middle and lower lobe. Patient was initially put on a nonrebreather mask start antibiotics steroids and over the ICU. Placed on Airvo Patient admitted with COVID 19 pneumonia, acute hypoxic respiratory failure- intubated. On IV Nimbex and propofol. Prone position. ARDS. He received Remdesivir, Decadron and convalescent immunoglobulin. Today-ICU. On the ventilator with FiO2 59. 18. Telemetry shows sinus rhythm. Drips include insulin and Precedex. 2 feeding at 40 mL an hour. Patient has an OG tube and FMS in place. Prone positioning has been discontinued. Review of systems-patient intubated Active Medications Acetaminophen (Acetaminophen Tab 325 Mg Tab) 650 mg PO Q4HR PRN PRN Reason: Fever and/or Mild Pain Last Admin: 06/04/20 14:28 Dose: 650 mg Documented by: Ascorbic Acid (Ascorbic Acid 500 Mg Tab) 1,000 mg PO DAILY [facility] Last Admin: 06/06/20 08:17 Dose: 1,000 mg Documented by: Chlorhexidine Gluconate (Chlorhexidine Gluconate 15 Ml Cup) 15 ml MUCOUS MEM BID [facility] Last Admin: 06/06/20 20:42 Dose: 15 ml Documented by: Cholecalciferol (Cholecalciferol 400 Unit Tab) 400 unit PO DAILY [facility] Last Admin: 06/06/20 08:17 Dose: 400 unit Documented by: Darbepoetin Ketan (Darbepoetin Ketan 25 Mcg/0.42 Ml Syringe) 25 mcg SQ Q7D [facility] Last Admin: 06/06/20 10:37 Dose: 25 mcg Documented by: Dexamethasone Sodium Phosphate (Dexamethasone Sod Phosphate 4 Mg/Ml 1 Ml Vial) 6 mg IV DAILY [facility] Last Admin: 06/06/20 08:17 Dose: 6 mg Documented by: Enoxaparin Sodium (Enoxaparin 60 Mg/0.6 Ml Syringe) 50 mg SQ Q12HR [facility] Last Admin: 06/06/20 21:09 Dose: 50 mg Documented by: Famotidine (Famotidine 20 Mg Tab) 20 mg PO DAILY [facility] Hydromorphone HCl (Hydromorphone 1 Mg/Ml 1 Ml Syringe) 1 mg IVP Q3H PRN PRN Reason: Pain Last Admin: 06/06/20 18:52 Dose: 1 mg Documented by: Propofol 1,000 mg/ IV Solution 100 mls @ 0 mls/hr IV .Q0M [facility]; Protocol Last Titration: 06/03/20 14:59 Dose: 0 mcg/kg/min, 0 mls/hr Documented by: Insulin Human Regular 100 unit (/ Sodium Chloride) 101 mls @ 0 mls/hr IV .Q0M [facility]; Protocol Last Titration: 06/06/20 20:58 Dose: 14 units/hr, 14.14 mls/hr Documented by: Meropenem 2 gm/ Sodium (Chloride) 100 mls @ 33.3 mls/hr IVPB Q12HR [facility]; Protocol Last Admin: 06/06/20 20:44 Dose: 33.3 mls/hr Documented by: Norepinephrine Bitartrate 8 mg (/ Sodium Chloride) 258 mls @ 10.807 mls/hr IV .[id number] [facility]; Protocol Last Titration: 06/05/20 19:12 Dose: 0 mcg/kg/min, 0 mls/hr Documented by: Dexmedetomidine HCl 200 mcg/ (IV Solution) 50 mls @ 0 mls/hr IV .Q0M [facility]; Protocol Last Admin: 06/06/20 15:36 Dose: 0.6 mcg/kg/hr, 18.675 mls/hr Documented by: Lactulose (Lactulose 20 Gm/30 Ml Cup) 30 gm PO BID [facility] Last Admin: 06/06/20 20:42 Dose: 30 gm Documented by: Melatonin (Melatonin 5 Mg Tablet) 5 mg PO HS [facility] Last Admin: 06/06/20 20:44 Dose: 5 mg Documented by: Naloxone HCl (Naloxone 0.4 Mg/Ml 1 Ml Vial) 0.2 mg IV Q2M PRN PRN Reason: Opioid Reversal Zinc Sulfate (Zinc Sulfate 220 Mg Cap) 220 mg PO DAILY [facility] Last Admin: 06/06/20 08:49 Dose: 220 mg Documented by: Physical examination: VITAL SIGNS: 100.3, 85, 30, 94/55, before percent on the ventilator GENERAL: Laying in bed, intubated, OG tube, FMS Initial physical examination as per pulmonary EYES: Pupils equal. Conjunctiva normal. NECK: JVD unable to assess; masses not palpable. HEART: Heart sounds distant; no edema. LUNGS: Respiratory rate increased, decreased breath sounds. ABDOMEN: Soft, nontender, liver spleen not palpable, no masses palpable. PSYCH: Sedated INVESTIGATIONS, reviewed in the clinical context: White count 7.5 hemoglobin 9.4 platelets 164 bun phone 49 creatinine 2.3 to AST 101 ALT 87 pro-calcitonin 0.62 Sputum culture from June 03-Litzy albicans. Nasal swab from 1029--negative for MSSA Blood and urine culture from June 04 both negative Chest x-ray June 04-worsening infiltrate Admission testing: White count 6.5 hemoglobin 14.8 platelets 2:30 Potassium 4.7 bun 30 creatinine 1.76 lactic acid 2.4 ferritin 2053 AST 73 ALT 59 LDH 1056 CRP 333 Influenza type A and type B both negative COVID 19 PCR present EKG tracing personally reviewed by me-normal sinus rhythm Chest x-ray film personally reviewed by me-extensive bilateral infiltrates Assessment: -Bilateral pneumonia, COVID 19 pneumonia, cannot rule out bacterial infection especially gram-negative slow to respond -Moderate to severe ARDS-slow to respond -Acute hypoxic respiratory failure severe from above-requiring ventilator support-slow to respond -Severe sepsis from pneumonia -Moderate persistent asthma with acute exacerbation-slow to respond -Coronary artery disease -Diabetes mellitus type 2 -GERD -Essential hypertension -Obstructive sleep apnea -History of right diaphragm paralysis with plication -Restless leg syndrome -Hypernatremia-from free water- improved -acute kidney injury from ATN from sepsis -Patient can history of fevers. Only thing positive is Litzy albicans. Which could be colonization. Given that nasal swab was negative for MRSA would not entertain treatment for the same. We'll try adding Diflucan and see that helps. Plan: Give Diflucan 200 mg 1 dose now then 100 mg from tomorrow. Sodium is coming down. Fungal cultures are pending. We'll discuss with Dr. Hobson about deep tracheal aspirate for cultures.
[2020-06-06] MEDS ORDERED: FLUCONAZOLE 100 MG TAB PO ONE (22:00)
[2020-06-06 22:31] LABS: Glucose,Whole Blood 192 mg/dL (75-99)
[2020-06-07 00:33] LABS: Glucose,Whole Blood 154 mg/dL (75-99)
[2020-06-07] MEDS: ACETAMINOPHEN TAB 325 MG TAB PO PRN ×2 (01:25→18:06)
[2020-06-07] MEDS: DEXMEDETOMIDINE IV SCH ×8 (01:30→21:06)
[2020-06-07] MEDS: NACL IV SCH ×8 (01:30→21:06)
[2020-06-07] MEDS: INSULIN REGULAR 100 UNIT in SODIUM CHLORIDE 0.9% 100 ML IV SCH ×2 (01:40→15:47)
[2020-06-07] MEDS: HYDROmorphone 1 MG/ML 1 ML SYRINGE IVP PRN ×3 (04:13→17:09)
[2020-06-07 04:19] LABS: Glucose,Whole Blood 105 mg/dL (75-99)
[2020-06-07 04:32] LABS: HGB 9.1 gm/dL (13.0-17.5); Hypochromasia Marked; MCH 32.8 pg (25.0-35.0); MCHC 31.4 g/dL (31.0-37.0); MCV 104.6 fL (80.0-100.0); Macrocytosis Moderate; Mean Platelet Volume 11.6; Platelet Count 190 k/uL (150-450); RBC 2.77 m/uL (4.30-5.90); RDW 14.6 % (11.5-15.5)
[2020-06-07 04:43] LABS: Albumin 2.8 g/dL (3.5-5.0); C Reactive Protein 13.4 mg/L (<10.0); Calcium 8.8 mg/dL (8.4-10.2); Total Bilirubin 0.6 mg/dL (0.2-1.3); Total Protein 5.3 g/dL (6.3-8.2)
[2020-06-07 04:53] LABS: ABG Base Excess 5.8 mmol/L; ABG HCO3 31 mmol/L (21-25); ABG Oxygen Saturation 89.4 % (94-97); ABG PCO2 58 mmHg (35-45); ABG PH 7.35 (7.35-7.45); ABG TCO2 33 mmol/L (19-24); Allen Test Performed? Yes
[2020-06-07 04:56] LABS: ABG PO2 55 mmHg (83-108)
[2020-06-07 05:31] LABS: Band Neutrophils % 14 %; Eosinophils # (M) 0.46 k/uL (0-0.7); Lymphocytes # (M) 1.39 k/uL (1.0-4.8); Metamyelocytes # (M) 0.31 k/uL (0); Metamyelocytes % 2 %; Monocytes # (M) 0.31 k/uL (0-1.0); Myelocytes # (M) 0.15 k/uL (0); Myelocytes % 1 %; Neutrophils % (M) 71 %; Nucleated Red Blood Cells 4 /100 WBC (0-0); Total Cells Counted 200; WBC 15.4 k/uL (3.8-10.6)
[2020-06-07 05:32] LABS: Anisocytosis (M) Present; Polychromasia Present
[2020-06-07 05:45] LABS: Large Platelets Present
[2020-06-07 06:13] LABS: Glucose,Whole Blood 169 mg/dL (75-99)
--- NOTE | 2020-06-07 07:24 | XR ---
EXAMINATION TYPE: XR chest 1V portable DATE OF EXAM: 06/07/2020 COMPARISON: 06/06/2020 INDICATION: Assess lungs TECHNIQUE: Single frontal view of the chest is obtained. FINDINGS: The heart size is normal. The pulmonary vasculature is normal. There is patchy infiltrate within the right lower lung field. Milder infiltrate in the medial lung ap ices bilaterally. Findings may be slightly denser than the comparison study. Endotracheal tube tip is above the chencho. Nasogastric tube tip is within the abdomen out of the fiel d-of-view. Left central venous catheter tip is in the region of the brachiocephalic vein. IMPRESSION: 1. Increasing density of the lung infiltrates. Distribution appears similar to prior study. 2. Improving pulmonary vascular markings. 3. Lines and catheters discussed above.
[2020-06-07] MEDS: LACTULOSE 20 GM/30 ML CUP PO SCH ×2 (08:11→20:33)
[2020-06-07] MEDS: ASCORBIC ACID 500 MG TAB PO SCH (08:11)
[2020-06-07] MEDS: FAMOTIDINE 20 MG TAB PO SCH (08:11)
[2020-06-07] MEDS: CHLORHEXIDINE GLUCONATE 15 ML CUP MUCOUS MEM SCH ×2 (08:11→20:33)
[2020-06-07] MEDS: ENOXAPARIN 60 MG/0.6 ML SYRINGE SQ SCH ×2 (08:11→20:34)
[2020-06-07] MEDS: FLUCONAZOLE 100 MG TAB PO SCH (08:12)
[2020-06-07] MEDS: CHOLECALCIFEROL 400 UNIT TAB PO SCH (08:12)
[2020-06-07] MEDS: ZINC SULFATE 220 MG CAP PO SCH (08:13)
[2020-06-07] MEDS ORDERED: DEXTROSE 5% IN WATER 1,000 ML IV ONE (08:15)
[2020-06-07 08:16] LABS: Glucose,Whole Blood 146 mg/dL (75-99)
[2020-06-07] MEDS: methylPREDNISolone SOD SUCCI 40 MG/ML 1 ML VIAL IV SCH ×3 (08:43→23:54)
[2020-06-07 09:20] LABS: ABG Base Excess 4.7 mmol/L; ABG HCO3 32 mmol/L (21-25); ABG Oxygen Saturation 92.3 % (94-97); ABG PH 7.25 (7.35-7.45); ABG PO2 69 mmHg (83-108); ABG TCO2 34 mmol/L (19-24); Allen Test Performed? Yes
[2020-06-07 09:23] LABS: ABG PCO2 72 mmHg (35-45)
[2020-06-07] MEDS: MEROPENEM 2 GM in SODIUM CHLORIDE 0.9% 100 ML IVPB SCH ×2 (09:23→20:34)
--- NOTE | 2020-06-07 10:18 | P.PN ---
Subjective Patient is seen in follow-up for acute kidney injury on chronic kidney disease. Intubated. Currently on 60% FiO2 and 20 of PEEP. Off Levophed. Nonoliguric. Sodium level 147 this morning. Being treated for COVID-19 pneumonia. Vital signs are stable. Continues to require high amounts of PEEP. Currently intubated. No gross edema noted. Discussed with the nurse. Objective - Vital Signs Vital signs: Vital Signs Temp 100.3 F H 06/07/20 08:00 Pulse 89 06/07/20 09:00 Resp 26 H 06/07/20 09:00 BP 131/60 06/07/20 09:00 Pulse Ox 90 L 06/07/20 09:00 Intake & Output 06/06/20 06/07/20 06/07/20 19:59 06:59 18:59 Intake Total 402.624 Output Total 275 Balance 127.624 Weight Intake: IV 40 Desmopressin Acetate 23. 28 mcg In Sodium Chloride 0.9% 50 ml @ 200 mls/hr IVPB ONCE ONE Rx#: [id number] Dextrose 5% in Water 1, 000 ml @ 150 mls/hr IV . Q6H40M [facility] Rx#:[id number] Meropenem 2 gm In Sodium Chloride 0.9% 100 ml @ 33 .3 mls/hr IVPB Q12HR [facility] Rx#:[id number] Sodium Chloride 0.9% 1, 40 000 ml @ 40 mls/hr IV . Q24H [facility] Rx#:[id number] Intake, IV Titration 22.624 Amount Dexmedetomidine/0.9% NaCl (Pmx) 200 mcg In Empty Bag 1 bag @ Titrate IV . Q0M [facility] Rx#:[id number] Dexmedetomidine/0.9% NaCl (Pmx) 400 mcg In Empty Bag 1 bag @ Titrate IV . Q0M [facility] Rx#:[id number] Insulin Regular 100 unit 22.624 In Sodium Chloride 0.9% 100 ml @ Per Protocol IV .Q0M [facility] Rx#:[id number] Oral 60 Tube Feeding 80 Other 200 Output: Urine 275 Stool Other: Voiding Method ABP, PAP, CO, CI - Last Documented Arterial Blood Pressure 123/45 - Labs CBC & Chem 7: 06/07/20 03:58 06/07/20 03:58 Labs: Abnormal Lab Results - Last 24 Hours (Table) 06/06/20 06/06/20 06/06/20 Range/Units 03:01 12:23 12:24 WBC (3.8-10.6) k/uL RBC (4.30-5.90) m/uL Hgb (13.0-17.5) gm/dL Hct (39.0-53.0) % MCV (80.0-100.0) fL Neutrophils # (Manual) (1.3-7.7) k/uL Metamyelocytes # (Man) (0) k/uL Myelocytes # (Manual) (0) k/uL Nucleated RBCs (0-0) /100 WBC D-Dimer (<0.60) mg/L FEU ABG pH 7.28 L (7.35-7.45) ABG pCO2 68 H (35-45) mmHg ABG pO2 59 L* (83-108) mmHg ABG HCO3 32 H (21-25) mmol/L ABG Total CO2 34 H (19-24) mmol/L ABG O2 Saturation 89.6 L (94-97) % Sodium (137-145) mmol/L Chloride (98-107) mmol/L Carbon Dioxide (22-30) mmol/L BUN (9-20) mg/dL Creatinine (0.66-1.25) mg/dL Glucose (74-99) mg/dL POC Glucose (mg/dL) 202 H (75-99) mg/dL AST (17-59) U/L ALT (4-49) U/L C-Reactive Protein (<10.0) mg/L Total Protein (6.3-8.2) g/dL Albumin (3.5-5.0) g/dL Procalcitonin 0.62 H (0.02-0.09) ng/mL 06/06/20 06/06/20 06/06/20 Range/Units 12:43 14:20 15:39 WBC (3.8-10.6) k/uL RBC (4.30-5.90) m/uL Hgb (13.0-17.5) gm/dL Hct (39.0-53.0) % MCV (80.0-100.0) fL Neutrophils # (Manual) (1.3-7.7) k/uL Metamyelocytes # (Man) (0) k/uL Myelocytes # (Manual) (0) k/uL Nucleated RBCs (0-0) /100 WBC D-Dimer (<0.60) mg/L FEU ABG pH (7.35-7.45) ABG pCO2 (35-45) mmHg ABG pO2 (83-108) mmHg ABG HCO3 (21-25) mmol/L ABG Total CO2 (19-24) mmol/L ABG O2 Saturation (94-97) % Sodium (137-145) mmol/L Chloride (98-107) mmol/L Carbon Dioxide (22-30) mmol/L BUN (9-20) mg/dL Creatinine (0.66-1.25) mg/dL Glucose (74-99) mg/dL POC Glucose (mg/dL) 197 H 180 H 166 H (75-99) mg/dL AST (17-59) U/L ALT (4-49) U/L C-Reactive Protein (<10.0) mg/L Total Protein (6.3-8.2) g/dL Albumin (3.5-5.0) g/dL Procalcitonin (0.02-0.09) ng/mL 06/06/20 06/06/20 06/06/20 Range/Units 16:04 17:38 20:54 WBC (3.8-10.6) k/uL RBC (4.30-5.90) m/uL Hgb (13.0-17.5) gm/dL Hct (39.0-53.0) % MCV (80.0-100.0) fL Neutrophils # (Manual) (1.3-7.7) k/uL Metamyelocytes # (Man) (0) k/uL Myelocytes # (Manual) (0) k/uL Nucleated RBCs (0-0) /100 WBC D-Dimer (<0.60) mg/L FEU ABG pH 7.29 L (7.35-7.45) ABG pCO2 64 H (35-45) mmHg ABG pO2 69 L (83-108) mmHg ABG HCO3 31 H (21-25) mmol/L ABG Total CO2 33 H (19-24) mmol/L ABG O2 Saturation (94-97) % Sodium (137-145) mmol/L Chloride (98-107) mmol/L Carbon Dioxide (22-30) mmol/L BUN (9-20) mg/dL Creatinine (0.66-1.25) mg/dL Glucose (74-99) mg/dL POC Glucose (mg/dL) 129 H 200 H (75-99) mg/dL AST (17-59) U/L ALT (4-49) U/L C-Reactive Protein (<10.0) mg/L Total Protein (6.3-8.2) g/dL Albumin (3.5-5.0) g/dL Procalcitonin (0.02-0.09) ng/mL 06/06/20 06/07/20 06/07/20 Range/Units 22:27 00:31 03:58 WBC 15.4 H (3.8-10.6) k/uL RBC 2.77 L (4.30-5.90) m/uL Hgb 9.1 L (13.0-17.5) gm/dL Hct 29.0 L (39.0-53.0) % MCV 104.6 H (80.0-100.0) fL Neutrophils # (Manual) 13.00 H (1.3-7.7) k/uL Metamyelocytes # (Man) 0.31 H (0) k/uL Myelocytes # (Manual) 0.15 H (0) k/uL Nucleated RBCs 4 H (0-0) /100 WBC D-Dimer (<0.60) mg/L FEU ABG pH (7.35-7.45) ABG pCO2 (35-45) mmHg ABG pO2 (83-108) mmHg ABG HCO3 (21-25) mmol/L ABG Total CO2 (19-24) mmol/L ABG O2 Saturation (94-97) % Sodium (137-145) mmol/L Chloride (98-107) mmol/L Carbon Dioxide (22-30) mmol/L BUN (9-20) mg/dL Creatinine (0.66-1.25) mg/dL Glucose (74-99) mg/dL POC Glucose (mg/dL) 192 H 154 H (75-99) mg/dL AST (17-59) U/L ALT (4-49) U/L C-Reactive Protein (<10.0) mg/L Total Protein (6.3-8.2) g/dL Albumin (3.5-5.0) g/dL Procalcitonin (0.02-0.09) ng/mL 06/07/20 06/07/20 06/07/20 Range/Units 03:58 03:58 04:00 WBC (3.8-10.6) k/uL RBC (4.30-5.90) m/uL Hgb (13.0-17.5) gm/dL Hct (39.0-53.0) % MCV (80.0-100.0) fL Neutrophils # (Manual) (1.3-7.7) k/uL Metamyelocytes # (Man) (0) k/uL Myelocytes # (Manual) (0) k/uL Nucleated RBCs (0-0) /100 WBC D-Dimer 4.69 H (<0.60) mg/L FEU ABG pH (7.35-7.45) ABG pCO2 (35-45) mmHg ABG pO2 (83-108) mmHg ABG HCO3 (21-25) mmol/L ABG Total CO2 (19-24) mmol/L ABG O2 Saturation (94-97) % Sodium 147 H (137-145) mmol/L Chloride 115 H (98-107) mmol/L Carbon Dioxide 33 H (22-30) mmol/L BUN 146 H* (9-20) mg/dL Creatinine 2.16 H (0.66-1.25) mg/dL Glucose 101 H (74-99) mg/dL POC Glucose (mg/dL) 105 H (75-99) mg/dL AST 79 H (17-59) U/L ALT 97 H (4-49) U/L C-Reactive Protein 13.4 H (<10.0) mg/L Total Protein 5.3 L (6.3-8.2) g/dL Albumin 2.8 L (3.5-5.0) g/dL Procalcitonin (0.02-0.09) ng/mL 06/07/20 06/07/20 06/07/20 Range/Units 04:50 06:11 08:14 WBC (3.8-10.6) k/uL RBC (4.30-5.90) m/uL Hgb (13.0-17.5) gm/dL Hct (39.0-53.0) % MCV (80.0-100.0) fL Neutrophils # (Manual) (1.3-7.7) k/uL Metamyelocytes # (Man) (0) k/uL Myelocytes # (Manual) (0) k/uL Nucleated RBCs (0-0) /100 WBC D-Dimer (<0.60) mg/L FEU ABG pH (7.35-7.45) ABG pCO2 58 H (35-45) mmHg ABG pO2 55 L* (83-108) mmHg ABG HCO3 31 H (21-25) mmol/L ABG Total CO2 33 H (19-24) mmol/L ABG O2 Saturation 89.4 L (94-97) % Sodium (137-145) mmol/L Chloride (98-107) mmol/L Carbon Dioxide (22-30) mmol/L BUN (9-20) mg/dL Creatinine (0.66-1.25) mg/dL Glucose (74-99) mg/dL POC Glucose (mg/dL) 169 H 146 H (75-99) mg/dL AST (17-59) U/L ALT (4-49) U/L C-Reactive Protein (<10.0) mg/L Total Protein (6.3-8.2) g/dL Albumin (3.5-5.0) g/dL Procalcitonin (0.02-0.09) ng/mL 06/07/20 Range/Units 09:19 WBC (3.8-10.6) k/uL RBC (4.30-5.90) m/uL Hgb (13.0-17.5) gm/dL Hct (39.0-53.0) % MCV (80.0-100.0) fL Neutrophils # (Manual) (1.3-7.7) k/uL Metamyelocytes # (Man) (0) k/uL Myelocytes # (Manual) (0) k/uL Nucleated RBCs (0-0) /100 WBC D-Dimer (<0.60) mg/L FEU ABG pH 7.25 L (7.35-7.45) ABG pCO2 72 H* (35-45) mmHg ABG pO2 69 L (83-108) mmHg ABG HCO3 32 H (21-25) mmol/L ABG Total CO2 34 H (19-24) mmol/L ABG O2 Saturation 92.3 L (94-97) % Sodium (137-145) mmol/L Chloride (98-107) mmol/L Carbon Dioxide (22-30) mmol/L BUN (9-20) mg/dL Creatinine (0.66-1.25) mg/dL Glucose (74-99) mg/dL POC Glucose (mg/dL) (75-99) mg/dL AST (17-59) U/L ALT (4-49) U/L C-Reactive Protein (<10.0) mg/L Total Protein (6.3-8.2) g/dL Albumin (3.5-5.0) g/dL Procalcitonin (0.02-0.09) ng/mL Microbiology - Last 24 Hours (Table) 06/04/20 16:08 Blood Culture - Preliminary Blood No Growth after 48 hours 06/03/20 12:58 Blood Culture - Preliminary Blood No Growth after 72 hours 06/03/20 12:50 Blood Culture - Preliminary Blood No Growth after 72 hours 05/31/20 12:30 Blood Culture - Final Blood No Growth after 144 hours 06/04/20 09:00 Gram Stain - Final Sputum Sputum Culture - Final Litzy albicans 06/04/20 09:05 Blood Culture - Preliminary Blood No Growth after 48 hours 06/04/20 17:58 Nasal Screen MRSA/MSSA - Final Nasopharyngeal Swab Assessment and Plan Plan: Assessment: 1. Acute kidney injury secondary to ATN secondary to COVID-19 infection. Nonoliguric. Renal function slightly better. 2. Disproportionally elevated BUN secondary to hypercatabolic state from infection as well as use of steroids. No evidence of GI bleed. 3. Hypernatremia secondary to free water deficit. 4. Acute hypoxic respiratory failure secondary to ARDS requiring high amounts of PEEP. Currently on 60% FiO2. 5. Chronic kidney disease stage III with baseline creatinine in the range of 1.5-1.7 secondary to nephrosclerosis and diabetic kidney disease. 6. Septic shock secondary to COVID-19 infection/pneumonia. Levophed discontinued. 7. Diabetes mellitus. 8. Anemia of chronic kidney disease maintained on Aranesp. Plan: Increase free water flushes to 300 mL every 4 hours. Avoid nephrotoxins. Continue to monitor renal function and urine output. Avoid IV iron in the setting of active infection. Wean FiO2.
[2020-06-07] MEDS: fentaNYL (PF) 1,000 MCG in SODIUM CHLORIDE 0.9% 80 ML IV SCH ×2 (10:21→23:59)
[2020-06-07 10:28] LABS: Glucose,Whole Blood 138 mg/dL (75-99)
--- NOTE | 2020-06-07 11:47 | P.PN ---
Subjective Progress Note Date: 06/07/20 This is a 65-year-old male patient was admitted on 05/27/2020 for respiratory failure and pneumonia. The patient has a history of right hemidiaphragmatic paralysis for which she has undergone a diaphragmatic plication at [facility]. The patient also has chronic bronchiectasis involving the right middle lobe and right lower lobe in addition to bronchial asthma. The patient presented to the ED on 05/27/2024 shortness of breath, cough and chills and fever and not feeling well and he was tested positive for coronavirus Covid 19. The patient was initially treated with high flow oxygen along with nonrebreather mask. Unfortunately, he continued to have difficulty breathing and respiratory failure and he required intubation and mechanical ventilation on 05/28/2020. The patient currently is on mechanical ventilation, sedated and he remains on assist control mode at the rate of 36, tidal volume of 450, FiO2 of 80% and PEEP of 15. The patient is also paralyzed with Nimbex at 3.5 g per KG per minute and propofol currently is running at 65 g per KG per minute. The patient is receiving enteral feeding for nutritional support with vital high protein running at 20 mL an hour. The patient is currently on Remdesivir, 2 doses of Tocilizumab and received convelescent plasma and Decadron, pepsid, melatonin and Zinc and the patient is receiving emperic antibiotics with IV Cefepime. . The patient is also on clevidipine drip for blood pressure control. Insulin is being utilized for blood sugar control. the patient has she will the patient has a triple-lumen catheter in the left subclavian. Noted the patient is also receiving intermittent phoning and he was on for a total of 16 hours yesterday and this morning he was still prolonged and I was able to put him back in a supine body position. He had a fever of 100.2 this morning. He is essentially on the same vent setting. His blood gases from today showed a pH of 7.31 with a pCO2 of 57 and pO2 of 63. Peak air pressure was around 42. Static pressure was 35. Based on that, I dropped his tidal volume to 400 and this brought on the static pressure down to 27. A subsequent blood gases showed a pH of 7.25 with a pCO2 of 63 and pO2 of 66. The patient otherwise has diffuse bilateral pulmonary infiltrates consistent with Covid 19 pneumonia. He is on x Cleviprex drip at 4 mg an hour for blood pressure control. The fluid balance is positive around 1.7 L over the past 24 hours. He would benefit from diuresis. Enteral feeding with vital high protein only when the patient is in supine body position. 06/02/2020 the patient is being seen for a follow-up. The patient remains intubated on a mechanical ventilator and his alternating between prone and supine body positioning. He was performed again yesterday evening and he will be placed supine around 2 PM this afternoon. The patient remains on a mechanical ventilator. The patient is sedated and paralyzed. In terms of his sedation, the patient is on propofol at 60 mg per KG per minute, he is on Nimbex at 3 g and he remains on a mechanical ventilator on assist control mode at the rate of 30 with a tidal volume of 400 and FiO2 of 80% with a PEEP of 17. Chest x-ray findings are essentially stable with diffuse bilateral pulmonary infiltrates unchanged compared to yesterday's chest x-ray. I was having difficulties with the patient's elevated potassium level. The patient continued to have some high potassium level due to his underlying metabolic acidosis.note that the highest potassium level is at 6.2. I give the patient bicarb on multiple occasions and form of IV push as him on 50 mEq each, and I also gave the patient D50 with insulin and and he was also given a dose of Kayexalate and the subsequent potassium level came down to 5.5. The patient was also given Lasix. Most recent blood work shows a BUN of 115, creatinine of 2.1, potassium level of 5.5, serum bicarb of 28, and most recent blood his showed a pH of 7.24 with a pCO2 of 67 and pO2 of 64. The patient is hemodynamically stable. The patient does oxygenate better whenever he is switched to a prone body position improvement in the order of 3-4% and his oxygenation on his saturation while being prone. The patient remains on IV cefepime. Blood culture was positive for coagulase-negative staph and he was given a dose of vancomycin that was subsequently discontinued. He remains on Decadron 6 mg IV. I started him on daily Lasix 40 mg IV push to maintain his fluid balance. Otherwise, no other significant events. Enterofeeding is being provided while the patient being in a supine body position. No fever. The white cell count is at 14. The patient's ferritin level was dropping it was down to 2056. Liver function tests are essentially normal and today's evaluation. 06/03/2020, the patient remains intubated on a mechanical ventilator. Earlier this morning the patient was in a prone body position. I noted that the patient was having significant amount of leak around the ET tube and based on that I switch this patient back to a supine body position and made appropriate adjustments on the orotracheal tube to prevent the leak. The patient was subsequently placed on assist control mode at the rate of 36 with a tidal volume of 450 and FiO2 of 80% with a PEEP of 17. The peak airway pressure 32. Static pressure is 28. The morning blood gases were noted and there were somewhat abnormal as the patient was having significant amount of air leak on the o rotracheal tube. The blood gases were repeated and the patient was noted to have a pH of 7.36 with a pCO2 of 56 and pO2 of 67. Chest x-ray still showing diffuse but the pulmonary infiltrates consistent with Covid 19 related pneumonia. The patient was started on daily Lasix. The patient's has an input of a balance of -300 mL over the past 24 hours. Nevertheless, the patient developed some degree of hypotension and the patient was started on pressors after being given a bolus of 500 mL this morning of normal saline without any improvement. Currently norepinephrine is running at 0.07 micrograms per KG per minute. The patient continues to have episodes of fever. The chest x-ray still showing diffuse bilateral pulmonary infiltrates with significant consolidation of the right lower lobe. The patient remains on IV cefepime as an empiric antibiotic coverage. The patient is on IV Decadron 6 mg on a daily basis. Norepinephrine infusion is being is affected the blood pressure control. Sodium level is up to 148. The patient will be given D5 water to replace the free water deficit. C reatinine is up to 2.4 with a BUN of 19. The inflammatory markers show a drop in his CRP level is up to 24, LDH is elevated at 1059 and the patient is still having episodic fever requiring Tylenol for ongoing fever activity. Probable regarding at 65 g per KG per minute and the triglyceride level from today was 2313 patient is receiving vital high protein at the rate of 60 mL an hour 8 hours on a 24 hour.. The patient's CVP of 19 and the triple-lumen catheter was inserted yesterday and the left IJ with adequate positioning. 06/04/2020, the patient remains on a mechanical ventilator. The patient was taken off the propofol infusion because of hypertriglyceridemia and currently Precedex which is running at 0.5 g. The patient is doing well. Suggest a mechanical ventilator. On today's evaluation, the patient was an assist-control mode at the rate of 36 with a tidal volume of 450 and FiO2 of 50% with a PEEP of 17. The blood gases at that point was showing a pH of 7.36 with a pCO2 of 56 and pO2 of 54. Peak air pressure was 32 with a platelet however pressure of 30. I reviewed her chest x-ray and I noted no major interval change. There was significant consolidation of the right lower lobe and some infiltration of the right upper lobe. Infiltrates on the left side seemed to be improved. The patient has been diagnosed having Covid 19 related pneumonia. The patient has completed treatment and this included Remsedivir, Decadron and convalescent immunoglobulins. The patient also received 2 doses of tocilizumab. Based on the morning blood gases and chest x-ray findings, and based on my review of the mechanical ventilator, I did a trial with right lower PEEP and increased FiO2 to assess the patient's ability to maintain oxygenation. To me this did not look like a typical of ARDS. The child failed and the patient became hypoxic. Ultimately I switched him ventilator and put the PEEP back to 17 and The tidal volume of 450. Repeat gases is to follow. Noted the patient continues to be febrile. The patient is is having temperatures all along and repeat cultures will be sent. I'm not sure if this is an infectious/bacterial fever or is related to Covid 19. The patient will have urine and blood culture sent. Sputum culture was sent. The patient is requiring pressors and currently is on levo fed running at 11 g per minute. He is on insulin drip at 10 units an hour. Sodium level is on the rise and septal wall 49 and the patient is on D5 water at the rate of 50 mL an hour and this will be increased up to 100 mL. The patient remains on Lovenox 1 mg subcu every 12 hours. The patient is in a sinus rhythm. Antibiotics coverage has been cefepime all along. He is tolerating his enteral feeding for nutritional support and the patient is on vital high protein running at 70 mL an hour. 06/05/2020, the patient is on Precedex sedated and intubated on a mechanical ventilator. He is on a assist-control mode at a rate of 30 with a tidal volume of 450 and FiO2 of 95% with a PEEP of 19. Blood gases from today showed a pH of 7.25 with a pCO2 of 73 and pO2 of 80. FiO2 was dropped down to 80% and the repeat blood gases showed a pH of 7.24 with a pCO2 of 70 and pO2 of 71. Chest x-ray showing some improvement in the consolidation of the right lower lobe. There is still diffuse bilateral pulmonary infiltration. Precedex is running at 0.07 g. The patient was weaned off the pressors and the patient is currently only on levo fed running at 0.02 mg per KG per minute. Sodium level is on the rise and the patient has also elevation of BUN/creatinine. I placed this patient on D5 water at 100 mL an hour and this will be further increased based on his underlying free water deficit. She'll feeds are running with vital high protein at the rate of 63 mL an hour and the patient is also on insulin drip at 11 units an hour. The patient's antibiotics have been broadened and is currently included IV Merrem. Blood culture been sent and results are still pending for now. He is still having low-grade fever on and off throughout the day.the neck fluid balance is +1.3 L over the past 24 hours. On 06/06/2020, the patient is still being on a mechanical ventilator. The patient is sedated with Precedex at 0.6 g. The patient remains on a mechanical ventilator on assist control mode of ventilation with a tidal volume of 450 and FiO2 of 60% with a PEEP of 19 and a respiratory rate of 30. Blood gases from today showed a pH of 7.27 and a pCO2 of 66 and pO2 of 69. The patient's chest x-ray shows no interval change. The patient remains on IV Decadron 6 mg on a daily basis. The patient is also on therapeutic dose of Lovenox 1 mg subcu e very 12 hours. He is on insulin drip for blood sugar control. IV antibiotics include meropenem 2 g every 12 hours and the patient's repeat blood cultures came back negative. Sputum culture came back negative. Fever has defervesced and the patient has not spiked a temperature over the past 12 hours. 4 calcitonin level was nonelevated or slightly elevated at 0.65. The sodium level improved and is currently down to 143. Nevertheless, the BUN is elevated at 149 with a creatinine of 2.3. I took the patient off the D5 water. We'll continue free water flushes. Nephritis on the case. Bilirubin is nonelevated. LFTs are mildly elevated with a AST of 11 and ALT of 87. 06/07/2020, patient remains on a mechanical ventilator. And the patient is on Precedex running at 0.6 g. At times, the patient becomes asynchronous with a mechanical ventilator. He has required Dilaudid and furthermore on recommending a fentanyl drip at a low rate to improve his restlessness and agitation and synchrony with the mechanical ventilator. The patient this morning is an assist-control mode at the rate of 30 with a tidal volume of 450 and FiO2 of 50% with a PEEP of 18. Blood gases showed some hypoxemia with a pH of 7.35 and a pCO2 50 and pO2 of 55. Based on that, I increased the FiO2 of 60%. Drop the tidal volume to 400 and increased the PEEP up to 20. Current peak airway pressures around 35. Static pressures around 32. The patient has a stable chest x-ray. Decadron will be discontinued and the patient will placed on IV Solu-Medrol 40 mg every 8 hours. There is no hemodynamic instability. The patient is off pressors. The patient is on Diflucan for some oral candidiasis and the patient is also receiving IV Merrem as spectrum antibiotic coverage. He continues to have low-grade fever and T-max 100.9 from midnight. Tolerating tube feed which is in the form of vital high protein at the rate of 40 mL an hour which is at goal. The patient is still running on insulin 12 units an hour. The renal function is stable. Creatinine is down to 2.1. The BUN remains elevated. Objective - Vital Signs Vital signs: Vital Signs Temp 100.3 F H 06/07/20 08:00 Pulse 82 06/07/20 10:00 Resp 31 H 06/07/20 11:02 BP 110/54 06/07/20 10:00 Pulse Ox 92 L 06/07/20 10:00 Intake & Output 06/06/20 06/07/20 06/07/20 19:59 06:59 18:59 Intake Total 767.251 Output Total 475 Balance 292.251 Weight Intake: IV 210 Desmopressin Acetate 23. 28 mcg In Sodium Chloride 0.9% 50 ml @ 200 mls/hr IVPB ONCE ONE Rx#: [id number] Dextrose 5% in Water 1, 000 ml @ 150 mls/hr IV . Q6H40M MARCELINO Rx#:[id number] KVO 20 Meropenem 2 gm In Sodium 100 Chloride 0.9% 100 ml @ 33 .3 mls/hr IVPB Q12HR MARCELINO Rx#:[id number] Sodium Chloride 0.9% 1, 90 000 ml @ 40 mls/hr IV . Q24H MARCELINO Rx#:[id number] Intake, IV Titration 97.251 Amount Dexmedetomidine/0.9% NaCl 50 (Pmx) 200 mcg In Empty Bag 1 bag @ Titrate IV . Q0M MARCELINO Rx#:[id number] Dexmedetomidine/0.9% NaCl (Pmx) 400 mcg In Empty Bag 1 bag @ Titrate IV . Q0M MARCELINO Rx#:[id number] Insulin Regular 100 unit 47.251 In Sodium Chloride 0.9% 100 ml @ Per Protocol IV .Q0M MARCELINO Rx#:[id number] Oral 60 Tube Feeding 200 Other 200 Output: Urine 475 Stool Other: Voiding Method Indwelling Catheter ABP, PAP, CO, CI - Last Documented Arterial Blood Pressure 137/50 - Exam Gen. appearance the patient is calm and comfortable sedated with Precedex on her stress synchronous with the mechanical ventilator. Earlier this morning the patient was in a prone body position and the patient was subsequently switched to supine. The patient has developed a skin abrasion from being positioned in a prone body position and this has on his left cheek. Noted the patient is curren tly off paralytics. Head exam was generally normal. There was no scleral icterus or corneal arcus. M ucous membranes were moist. Neck was supple and without jugular venous distension, thyromegaly, or carotid bruits. Carotids were easily palpable bilaterally. There was no adenopathy.Orogastric and orotracheal tube are both in place. The patient has a left IJ triple-lumen catheter in place Lungs sounds are diminished and the patient has some crackles in lung bases bilaterally. Cardiac exam revealed the PMI to be normally situated and sized. The rhythm was regular and no extrasystoles were noted during several minutes of auscultation. The first and second heart sounds were normal and physiologic splitting of the second heart sound was noted. There were no murmurs, rubs, clicks, or gallops. Abdominal exam revealed normal bowel sounds. The abdomen was soft, non-tender, and without masses, organomegaly, or appreciable enlargement of the abdominal aorta. Examination of the extremities revealed easily palpable radial, femoral and pedal pulses. There was no cyanosis, clubbing or edema. Examination of the skin revealed no evidence of significant rashes, suspicious appearing nevi or other concerning lesions. Neurologically the patient sedated and the patient is calm and comfortable synchronous with the mechanical ventilator. - Labs CBC & Chem 7: 06/07/20 03:58 06/07/20 03:58 Labs: Abnormal Lab Results - Last 24 Hours (Table) 06/06/20 06/06/20 06/06/20 Range/Units 03:01 12:43 14:20 WBC (3.8-10.6) k/uL RBC (4.30-5.90) m/uL Hgb (13.0-17.5) gm/dL Hct (39.0-53.0) % MCV (80.0-100.0) fL Neutrophils # (Manual) (1.3-7.7) k/uL Metamyelocytes # (Man) (0) k/uL Myelocytes # (Manual) (0) k/uL Nucleated RBCs (0-0) /100 WBC D-Dimer (<0.60) mg/L FEU ABG pH (7.35-7.45) ABG pCO2 (35-45) mmHg ABG pO2 (83-108) mmHg ABG HCO3 (21-25) mmol/L ABG Total CO2 (19-24) mmol/L ABG O2 Saturation (94-97) % Sodium (137-145) mmol/L Chloride (98-107) mmol/L Carbon Dioxide (22-30) mmol/L BUN (9-20) mg/dL Creatinine (0.66-1.25) mg/dL Glucose (74-99) mg/dL POC Glucose (mg/dL) 197 H 180 H (75-99) mg/dL AST (17-59) U/L ALT (4-49) U/L C-Reactive Protein (<10.0) mg/L Total Protein (6.3-8.2) g/dL Albumin (3.5-5.0) g/dL Procalcitonin 0.62 H (0.02-0.09) ng/mL 06/06/20 06/06/20 06/06/20 Range/Units 15:39 16:04 17:38 WBC (3.8-10.6) k/uL RBC (4.30-5.90) m/uL Hgb (13.0-17.5) gm/dL Hct (39.0-53.0) % MCV (80.0-100.0) fL Neutrophils # (Manual) (1.3-7.7) k/uL Metamyelocytes # (Man) (0) k/uL Myelocytes # (Manual) (0) k/uL Nucleated RBCs (0-0) /100 WBC D-Dimer (<0.60) mg/L FEU ABG pH 7.29 L (7.35-7.45) ABG pCO2 64 H (35-45) mmHg ABG pO2 69 L (83-108) mmHg ABG HCO3 31 H (21-25) mmol/L ABG Total CO2 33 H (19-24) mmol/L ABG O2 Saturation (94-97) % Sodium (137-145) mmol/L Chloride (98-107) mmol/L Carbon Dioxide (22-30) mmol/L BUN (9-20) mg/dL Creatinine (0.66-1.25) mg/dL Glucose (74-99) mg/dL POC Glucose (mg/dL) 166 H 129 H (75-99) mg/dL AST (17-59) U/L ALT (4-49) U/L C-Reactive Protein (<10.0) mg/L Total Protein (6.3-8.2) g/dL Albumin (3.5-5.0) g/dL Procalcitonin (0.02-0.09) ng/mL 06/06/20 06/06/20 06/07/20 Range/Units 20:54 22:27 00:31 WBC (3.8-10.6) k/uL RBC (4.30-5.90) m/uL Hgb (13.0-17.5) gm/dL Hct (39.0-53.0) % MCV (80.0-100.0) fL Neutrophils # (Manual) (1.3-7.7) k/uL Metamyelocytes # (Man) (0) k/uL Myelocytes # (Manual) (0) k/uL Nucleated RBCs (0-0) /100 WBC D-Dimer (<0.60) mg/L FEU ABG pH (7.35-7.45) ABG pCO2 (35-45) mmHg ABG pO2 (83-108) mmHg ABG HCO3 (21-25) mmol/L ABG Total CO2 (19-24) mmol/L ABG O2 Saturation (94-97) % Sodium (137-145) mmol/L Chloride (98-107) mmol/L Carbon Dioxide (22-30) mmol/L BUN (9-20) mg/dL Creatinine (0.66-1.25) mg/dL Glucose (74-99) mg/dL POC Glucose (mg/dL) 200 H 192 H 154 H (75-99) mg/dL AST (17-59) U/L ALT (4-49) U/L C-Reactive Protein (<10.0) mg/L Total Protein (6.3-8.2) g/dL Albumin (3.5-5.0) g/dL Procalcitonin (0.02-0.09) ng/mL 06/07/20 06/07/20 06/07/20 Range/Units 03:58 03:58 03:58 WBC 15.4 H (3.8-10.6) k/uL RBC 2.77 L (4.30-5.90) m/uL Hgb 9.1 L (13.0-17.5) gm/dL Hct 29.0 L (39.0-53.0) % MCV 104.6 H (80.0-100.0) fL Neutrophils # (Manual) 13.00 H (1.3-7.7) k/uL Metamyelocytes # (Man) 0.31 H (0) k/uL Myelocytes # (Manual) 0.15 H (0) k/uL Nucleated RBCs 4 H (0-0) /100 WBC D-Dimer (<0.60) mg/L FEU ABG pH (7.35-7.45) ABG pCO2 (35-45) mmHg ABG pO2 (83-108) mmHg ABG HCO3 (21-25) mmol/L ABG Total CO2 (19-24) mmol/L ABG O2 Saturation (94-97) % Sodium 147 H (137-145) mmol/L Chloride 115 H (98-107) mmol/L Carbon Dioxide 33 H (22-30) mmol/L BUN 146 H* (9-20) mg/dL Creatinine 2.16 H (0.66-1.25) mg/dL Glucose 101 H (74-99) mg/dL POC Glucose (mg/dL) (75-99) mg/dL AST 79 H (17-59) U/L ALT 97 H (4-49) U/L C-Reactive Protein 13.4 H (<10.0) mg/L Total Protein 5.3 L (6.3-8.2) g/dL Albumin 2.8 L (3.5-5.0) g/dL Procalcitonin 0.77 H (0.02-0.09) ng/mL 06/07/20 06/07/20 06/07/20 Range/Units 03:58 04:00 04:50 WBC (3.8-10.6) k/uL RBC (4.30-5.90) m/uL Hgb (13.0-17.5) gm/dL Hct (39.0-53.0) % MCV (80.0-100.0) fL Neutrophils # (Manual) (1.3-7.7) k/uL Metamyelocytes # (Man) (0) k/uL Myelocytes # (Manual) (0) k/uL Nucleated RBCs (0-0) /100 WBC D-Dimer 4.69 H (<0.60) mg/L FEU ABG pH (7.35-7.45) ABG pCO2 58 H (35-45) mmHg ABG pO2 55 L* (83-108) mmHg ABG HCO3 31 H (21-25) mmol/L ABG Total CO2 33 H (19-24) mmol/L ABG O2 Saturation 89.4 L (94-97) % Sodium (137-145) mmol/L Chloride (98-107) mmol/L Carbon Dioxide (22-30) mmol/L BUN (9-20) mg/dL Creatinine (0.66-1.25) mg/dL Glucose (74-99) mg/dL POC Glucose (mg/dL) 105 H (75-99) mg/dL AST (17-59) U/L ALT (4-49) U/L C-Reactive Protein (<10.0) mg/L Total Protein (6.3-8.2) g/dL Albumin (3.5-5.0) g/dL Procalcitonin (0.02-0.09) ng/mL 06/07/20 06/07/20 06/07/20 Range/Units 06:11 08:14 09:19 WBC (3.8-10.6) k/uL RBC (4.30-5.90) m/uL Hgb (13.0-17.5) gm/dL Hct (39.0-53.0) % MCV (80.0-100.0) fL Neutrophils # (Manual) (1.3-7.7) k/uL Metamyelocytes # (Man) (0) k/uL Myelocytes # (Manual) (0) k/uL Nucleated RBCs (0-0) /100 WBC D-Dimer (<0.60) mg/L FEU ABG pH 7.25 L (7.35-7.45) ABG pCO2 72 H* (35-45) mmHg ABG pO2 69 L (83-108) mmHg ABG HCO3 32 H (21-25) mmol/L ABG Total CO2 34 H (19-24) mmol/L ABG O2 Saturation 92.3 L (94-97) % Sodium (137-145) mmol/L Chloride (98-107) mmol/L Carbon Dioxide (22-30) mmol/L BUN (9-20) mg/dL Creatinine (0.66-1.25) mg/dL Glucose (74-99) mg/dL POC Glucose (mg/dL) 169 H 146 H (75-99) mg/dL AST (17-59) U/L ALT (4-49) U/L C-Reactive Protein (<10.0) mg/L Total Protein (6.3-8.2) g/dL Albumin (3.5-5.0) g/dL Procalcitonin (0.02-0.09) ng/mL 06/07/20 Range/Units 10:27 WBC (3.8-10.6) k/uL RBC (4.30-5.90) m/uL Hgb (13.0-17.5) gm/dL Hct (39.0-53.0) % MCV (80.0-100.0) fL Neutrophils # (Manual) (1.3-7.7) k/uL Metamyelocytes # (Man) (0) k/uL Myelocytes # (Manual) (0) k/uL Nucleated RBCs (0-0) /100 WBC D-Dimer (<0.60) mg/L FEU ABG pH (7.35-7.45) ABG pCO2 (35-45) mmHg ABG pO2 (83-108) mmHg ABG HCO3 (21-25) mmol/L ABG Total CO2 (19-24) mmol/L ABG O2 Saturation (94-97) % Sodium (137-145) mmol/L Chloride (98-107) mmol/L Carbon Dioxide (22-30) mmol/L BUN (9-20) mg/dL Creatinine (0.66-1.25) mg/dL Glucose (74-99) mg/dL POC Glucose (mg/dL) 138 H (75-99) mg/dL AST (17-59) U/L ALT (4-49) U/L C-Reactive Protein (<10.0) mg/L Total Protein (6.3-8.2) g/dL Albumin (3.5-5.0) g/dL Procalcitonin (0.02-0.09) ng/mL Microbiology - Last 24 Hours (Table) 06/04/20 16:08 Blood Culture - Preliminary Blood No Growth after 48 hours 06/03/20 12:58 Blood Culture - Preliminary Blood No Growth after 72 hours 06/03/20 12:50 Blood Culture - Preliminary Blood No Growth after 72 hours 05/31/20 12:30 Blood Culture - Final Blood No Growth after 144 hours 06/04/20 09:00 Gram Stain - Final Sputum Sputum Culture - Final Litzy albicans 06/04/20 09:05 Blood Culture - Preliminary Blood No Growth after 48 hours 06/04/20 17:58 Nasal Screen MRSA/MSSA - Final Nasopharyngeal Swab Assessment and Plan Plan: 1 acute hypoxic respiratory failure secondary to Covid 19 pneumonitis with secondary ARDS.. The patient remains intubated on a mechanical ventilator. The patient was intubated on 05/28/2020. The patient remains intubated on a mechanical ventilator utilizing prone positioning episodically during the day. The chest x-ray findings are essentially stable. The patient continues to be an pneumonia/ARDS. He is running a low-grade fever. Chest x-ray findings are as unchanged. Blood gases was noted and the necessity ventilator changes will be downloaded tidal volume was dropped down to 400 and the PEEP was increased up to 20. We will move the patient to prone positioning again if he continues to show episodic hypoxemia. 2 acute Covid 19 pneumonitis, completed Remdesivir and Tocilizumab, and currently the patient is on IV Decadron, zinc sulfate, melatonin, and vitamin C. the patient is still running a low-grade fever, the CRP is at 13.4, LDH was not checked and the last study from 06/04/2020 was 1315. 3 chronic right hemidiaphragmatic paralysis post plication 4 chronic bronchial asthma 5 history of right middle lobe/right lower lobe bronchiectasis 6 coronary artery disease 7 obstructive sleep apnea 8 AAA with a previous endovascular stent grafting that was done 2011 9 chronic back pain 10 RLS 11 hyperlipidemia, and the patient has developed severe hypertriglyceridemia secondary to propofol infusion, and this was discontinued and the patient was switched to Precedex. 12 abnormal LFTs, the LFTs are stable for now. No significant hyperbi lirubinemia. 13 coagulase-negative staph in the blood likely contaminant and vancomycin were discontinued , repeat cultures were negative 14 hyperlipidemia with significant rise and a triglyceride level and the patient was taken off the propofol infusion. Currently is on Precedex. 15 persistent fever, under investigation. Repeat blood cultures of been sent and the results are still negative for now. The patient remains on IV Merrem. The patient continues to have a low-grade fever 16 acute kidney injury with a creatinine being stable at 2.1, unchanged compared to yesterday. BUN remains elevated and this probably related to systemic steroids. Plan Continue ventilator support and vent setting will be adjusted and brother tidal volume down to 400, increase the PEEP up to 20 and increased FiO2 up to 60%. We'll follow the patient if there is any worsening in the oxygenation. Me anwhile, the patient will be kept sedated with a combination of Precedex and fentanyl drip was also added to improve synchrony with the mechanical ventilator. Not a candidate for tracheostomy because of the high PEEP and FiO2 requirements IV Merrem for a broad antibiotic coverage Continue Precedex for sedation, at fentanyl drip discontinue the Decadron and put the patient on IV Solu Medrol 4 mg every 8 hours restart D5 water at the rate of 50 mL an hour Enteral feeding for nutritional support Tylenol for fever We'll continue to follow Continue Lovenox and the patient is currently at therapeutic doses. I reviewed the most recent d-dimer which is currently at 4.1. The patient is not on any active DVT. I'm going to cut down the Lovenox dosing to half and provide this patient 50 mg subcu every 12 hours. Nephrology has been involved in regards to his acute kidney injury, creatinine is down to 2.1 Condition remains critical. The family will be updated in the condition and will make further recommendations based on his progress. There is a critically care evaluation that was done more than 30 minutes. Time with Patient: Greater than 30
[2020-06-07 12:12] LABS: Glucose,Whole Blood 147 mg/dL (75-99)
[2020-06-07 12:23] LABS: ABG Base Excess 4.4 mmol/L; ABG HCO3 32 mmol/L (21-25); ABG Oxygen Saturation 93.9 % (94-97); ABG PH 7.23 (7.35-7.45); ABG PO2 75 mmHg (83-108); ABG TCO2 34 mmol/L (19-24); Allen Test Performed? Yes
[2020-06-07 12:27] LABS: ABG PCO2 75 mmHg (35-45)
[2020-06-07 12:50] LABS: Glucose,Whole Blood 138 mg/dL (75-99)
[2020-06-07 13:02] LABS: Glucose,Whole Blood 133 mg/dL (75-99)
[2020-06-07] MEDS: NOREPINEPHRINE 8 MG in SODIUM CHLORIDE 0.9% 250 ML IV SCH (13:27)
[2020-06-07 14:02] LABS: Glucose,Whole Blood 139 mg/dL (75-99)
--- NOTE | 2020-06-07 14:25 | P.PN ---
Progress Note - Text Progress Note Date: 06/07/20 chief Complaint: Shortness of breath History of presenting complaint: This is a 65-year-old patient of Dr. Demond Harper. Chronic stable medical conditions include coronary artery disease, diabetes, GERD, hypertension, obstructive sleep apnea, chronic back pain, restless leg syndrome, history of diaphragmatic analysis. Patient presented to the ER with shortness of breath. Symptoms started about 24 hours ago. Also chills. He had no obvious cold exposure travel or contact with sick people. He's had a cough. She was febrile in the ER and hypoxic. No nausea vomiting or diarrhea. Has a history of diaphragmatic plication. He also has known bronchiectasis of the right middle and lower lobe. Patient was initially put on a nonrebreather mask start antibiotics steroids and over the ICU. Placed on Airvo Patient admitted with COVID 19 pneumonia, acute hypoxic respiratory failure- intubated. On IV Nimbex and propofol. Prone position. ARDS. He received Remdesivir, Decadron and convalescent immunoglobulin. Today-ICU. Increased ventilator settings. With FiO2: Up to 60% and a PEEP of 20. Drips include Precedex, fentanyl, insulin. 2 feeding at: 40 mL an hour. Increased stool output with lactulose. Patient has a FMS in place. Review of systems-patient intubated Active Medications Acetaminophen (Acetaminophen Tab 325 Mg Tab) 650 mg PO Q4HR PRN PRN Reason: Fever and/or Mild Pain Last Admin: 06/07/20 01:25 EDT Dose: 650 mg Documented by: Ascorbic Acid (Ascorbic Acid 500 Mg Tab) 1,000 mg PO DAILY [facility] Last Admin: 06/07/20 08:11 Dose: 1,000 mg Documented by: Chlorhexidine Gluconate (Chlorhexidine Gluconate 15 Ml Cup) 15 ml MUCOUS MEM BID [facility] Last Admin: 06/07/20 08:11 Dose: 15 ml Documented by: Cholecalciferol (Cholecalciferol 400 Unit Tab) 400 unit PO DAILY [facility] Last Admin: 06/07/20 08:12 Dose: 400 unit Documented by: Darbepoetin Ketan (Darbepoetin Ketan 25 Mcg/0.42 Ml Syringe) 25 mcg SQ Q7D [facility] Last Admin: 06/06/20 10:37 Dose: 25 mcg Documented by: Enoxaparin Sodium (Enoxaparin 60 Mg/0.6 Ml Syringe) 50 mg SQ Q12HR [facility] Last Admin: 06/07/20 08:11 Dose: 50 mg Documented by: Famotidine (Famotidine 20 Mg Tab) 20 mg PO DAILY [facility] Last Admin: 06/07/20 08:11 Dose: 20 mg Documented by: Fluconazole (Fluconazole 100 Mg Tab) 100 mg PO DAILY [facility] Last Admin: 06/07/20 08:12 Dose: 100 mg Documented by: Hydromorphone HCl (Hydromorphone 1 Mg/Ml 1 Ml Syringe) 1 mg IVP Q3H PRN PRN Reason: Pain Last Admin: 06/07/20 08:00 Dose: 1 mg Documented by: Propofol 1,000 mg/ IV Solution 100 mls @ 0 mls/hr IV .Q0M [facility]; Protocol Last Titration: 06/03/20 14:59 Dose: 0 mcg/kg/min, 0 mls/hr Documented by: Insulin Human Regular 100 unit (/ Sodium Chloride) 101 mls @ 0 mls/hr IV .Q0M [facility]; Protocol Last Titration: 06/07/20 13:46 Dose: 0 units/hr, 0 mls/hr Documented by: Meropenem 2 gm/ Sodium (Chloride) 100 mls @ 33.3 mls/hr IVPB Q12HR [facility]; Protocol Last Admin: 06/07/20 09:23 Dose: 33.3 mls/hr Documented by: Norepinephrine Bitartrate 8 mg (/ Sodium Chloride) 258 mls @ 10.807 mls/hr IV .[id number] [facility]; Protocol Last Admin: 06/07/20 13:27 Dose: Not Given Documented by: Dexmedetomidine HCl 200 mcg/ (IV Solution) 50 mls @ 0 mls/hr IV .Q0M [facility]; Protocol Last Admin: 06/07/20 12:47 Dose: 0.6 mcg/kg/hr, 18.15 mls/hr Documented by: Fentanyl Citrate 1,000 mcg/ (Sodium Chloride) 100 mls @ 0 mls/hr IV .Q0M [facility]; Protocol Last Admin: 06/07/20 10:21 Dose: 50 mcg/hr, 5 mls/hr Documented by: Lactulose (Lactulose 20 Gm/30 Ml Cup) 20 gm PO BID [facility] Melatonin (Melatonin 5 Mg Tablet) 5 mg PO HS [facility] Last Admin: 06/06/20 20:44 Dose: 5 mg Documented by: Methylprednisolone Sodium Succinate (Methylprednisolone Sod Succi 40 Mg/Ml 1 Ml Vial) 40 mg IV Q8HR [facility] Last Admin: 06/07/20 08:43 Dose: 40 mg Documented by: Naloxone HCl (Naloxone 0.4 Mg/Ml 1 Ml Vial) 0.2 mg IV Q2M PRN PRN Reason: Opioid Reversal Zinc Sulfate (Zinc Sulfate 220 Mg Cap) 220 mg PO DAILY [facility] Last Admin: 06/07/20 08:13 Dose: 220 mg Documented by: Physical examination: VITAL SIGNS: 100.4, 84, 31, 120/54, 94% on the ventilator GENERAL: Laying in bed, intubated, OG tube, FMS-liquid stools Initial physical examination as per pulmonary EYES: Pupils equal. Conjunctiva normal. NECK: JVD unable to assess; masses not palpable. HEART: Heart sounds distant; no edema. LUNGS: Respiratory rate increased, decreased breath sounds. ABDOMEN: Soft, nontender, liver spleen not palpable, no masses palpable. PSYCH: Sedated INVESTIGATIONS, reviewed in the clinical context: White count 15.4 hemoglobin 9.1 platelets 190 sodium 147 chloride 115 bun 146 creatinine 2.16 pro-calcitonin 0.77 albumin 2.8 Sputum culture from June 03-Litzy albicans. Nasal swab from 1029--negative for MSSA Blood and urine culture from June 04 both negative Chest x-ray June 04-worsening infiltrate Admission testing: White count 6.5 hemoglobin 14.8 platelets 2:30 Potassium 4.7 bun 30 creatinine 1.76 lactic acid 2.4 ferritin 2053 AST 73 ALT 59 LDH 1056 CRP 333 Influenza type A and type B both negative COVID 19 PCR present EKG tracing personally reviewed by me-normal sinus rhythm Chest x-ray film personally reviewed by me-extensive bilateral infiltrates Assessment: -Bilateral pneumonia, COVID 19 pneumonia, cannot rule out bacterial infection especially gram-negative slow to respond -Moderate to severe ARDS-slow to respond -Acute hypoxic respiratory failure severe from above-requiring ventilator worsening -Severe sepsis from pneumonia -Moderate persistent asthma with acute exacerbation-slow to respond -Coronary artery disease -Diabetes mellitus type 2, uncontrolled from hyperglycemia requiring insulin drip -GERD -Essential hypertension -Obstructive sleep apnea -History of right diaphragm paralysis with plication -Restless leg syndrome -Hypernatremia-from free water- improved -acute kidney injury from ATN from sepsis -Patient can history of fevers. Only thing positive is Litzy albicans. Which could be colonization. Given that nasal swab was negative for MRSA would not entertain treatment for the same. We'll try adding Diflucan and see that helps. Plan: Patient started IV Solu-Medrol per Dr. Hobson today. Decadron discontinued. D5W at 50 mL an hour. And free water. Prognosis guarded. IV meropenem in place.
[2020-06-07 15:10] LABS: Glucose,Whole Blood 164 mg/dL (75-99)
[2020-06-07 15:45] LABS: Glucose,Whole Blood 164 mg/dL (75-99)
[2020-06-07] MEDS: INSULIN ASPART (NovoLOG) 100 UNIT/ML VIAL SQ SCH (16:01)
[2020-06-07 18:18] LABS: Glucose,Whole Blood 146 mg/dL (75-99)
[2020-06-07] MEDS: MELATONIN 5 MG TABLET PO SCH (20:34)
[2020-06-07 21:04] LABS: Glucose,Whole Blood 140 mg/dL (75-99)
[2020-06-07 22:24] LABS: Glucose,Whole Blood 119 mg/dL (75-99)
[2020-06-08] MEDS: NACL IV SCH ×7 (00:01→18:28)
[2020-06-08] MEDS: DEXMEDETOMIDINE IV SCH ×7 (00:01→18:28)
[2020-06-08 00:05] LABS: Glucose,Whole Blood 171 mg/dL (75-99)
[2020-06-08 02:18] LABS: Glucose,Whole Blood 187 mg/dL (75-99)
[2020-06-08] MEDS: INSULIN REGULAR 100 UNIT in SODIUM CHLORIDE 0.9% 100 ML IV SCH ×3 (02:18→22:24)
[2020-06-08 04:25] LABS: Glucose,Whole Blood 165 mg/dL (75-99)
[2020-06-08 05:45] LABS: ABG Base Excess 5.9 mmol/L; ABG HCO3 33 mmol/L (21-25); ABG Oxygen Saturation 98.3 % (94-97); ABG PH 7.27 (7.35-7.45); ABG PO2 104 mmHg (83-108); ABG TCO2 35 mmol/L (19-24); Allen Test Performed? Yes
[2020-06-08 05:50] LABS: ABG PCO2 73 mmHg (35-45)
[2020-06-08 06:08] LABS: Glucose,Whole Blood 161 mg/dL (75-99)
[2020-06-08 06:35] LABS: HCT 28.1 % (39.0-53.0); HGB 8.4 gm/dL (13.0-17.5); Hypochromasia Marked; MCH 31.9 pg (25.0-35.0); MCV 106.6 fL (80.0-100.0); Macrocytosis Moderate; Mean Platelet Volume 11.6; Platelet Count 200 k/uL (150-450); RBC 2.64 m/uL (4.30-5.90); RDW 15.3 % (11.5-15.5)
[2020-06-08 06:51] LABS: Albumin 2.9 g/dL (3.5-5.0); C Reactive Protein 8.5 mg/L (<10.0); Calcium 8.9 mg/dL (8.4-10.2); Total Bilirubin 0.6 mg/dL (0.2-1.3); Total Protein 5.2 g/dL (6.3-8.2)
[2020-06-08 06:58] LABS: Band Neutrophils % 10 %; Lymphocytes # (M) 0.75 k/uL (1.0-4.8); Metamyelocytes % 2 %; Monocytes # (M) 0.15 k/uL (0-1.0); Neutrophils % (M) 82 %; Nucleated Red Blood Cells 1 /100 WBC (0-0); Total Cells Counted 200
[2020-06-08 07:00] LABS: Potassium 6.6 mmol/L (3.5-5.1)
[2020-06-08] MEDS ORDERED: SODIUM POLYSTYRENE SULFONATE 15 GM/60 ML BOTTLE PO STA (07:10)
[2020-06-08] MEDS ORDERED: SODIUM BICARB 8.4% 50 ML SYR (1 MEQ/ML) IV STA (07:10)
[2020-06-08] MEDS: methylPREDNISolone SOD SUCCI 40 MG/ML 1 ML VIAL IV SCH ×3 (08:16→23:46)
[2020-06-08] MEDS: CHOLECALCIFEROL 400 UNIT TAB PO SCH (08:16)
[2020-06-08] MEDS: ASCORBIC ACID 500 MG TAB PO SCH (08:16)
[2020-06-08] MEDS: CHLORHEXIDINE GLUCONATE 15 ML CUP MUCOUS MEM SCH ×2 (08:16→20:02)
[2020-06-08] MEDS: FLUCONAZOLE 100 MG TAB PO SCH (08:17)
[2020-06-08] MEDS: ZINC SULFATE 220 MG CAP PO SCH (08:17)
[2020-06-08] MEDS: MEROPENEM 2 GM in SODIUM CHLORIDE 0.9% 100 ML IVPB SCH ×2 (08:17→20:27)
[2020-06-08] MEDS: LACTULOSE 20 GM/30 ML CUP PO SCH ×2 (08:17→20:02)
[2020-06-08] MEDS: FAMOTIDINE 20 MG TAB PO SCH (08:17)
[2020-06-08] MEDS: ACETAMINOPHEN TAB 325 MG TAB PO PRN (08:22)
[2020-06-08] MEDS ORDERED: FUROSEMIDE 10 MG/ML 4 ML VIAL ONE (08:35)
[2020-06-08] MEDS ORDERED: FUROSEMIDE 10 MG/ML 4 ML VIAL IV STA (08:36)
[2020-06-08] MEDS ORDERED: CALCIUM GLUCONATE 1 GM in SODIUM CHLORIDE 0.9% 100 ML IVPB ONE ×2 (08:37→13:30)
[2020-06-08 08:43] LABS: Glucose,Whole Blood 129 mg/dL (75-99)
--- NOTE | 2020-06-08 09:17 | P.PN ---
Subjective Patient is seen in follow-up for acute kidney injury on chronic kidney disease. Intubated. Remains on 60% FiO2 and 20 of PEEP. Off Levophed. Nonoliguric. Sodium level 150 this morning. Potassium elevated at 6.6 this morning. He is currently on it. Being treated for COVID-19 pneumonia. Vital signs are stable. Continues to require high amounts of PEEP. Currently intubated. No gross edema noted. Regular rhythm noted on heart monitor. Discussed with the nurse. Objective - Vital Signs Vital signs: Vital Signs Temp 100.8 F H 06/08/20 04:00 Pulse 84 06/08/20 07:00 Resp 30 H 06/08/20 07:00 BP 107/53 06/08/20 00:00 Pulse Ox 95 06/08/20 07:00 Intake & Output 06/07/20 06/08/20 06/08/20 18:59 06:59 18:59 Intake Total 2138.169 2042.400 131.818 Output Total 1540 1385 100 Balance 598.169 657.400 31.818 Weight 109.7 kg Intake: IV 394 412 26 Meropenem 2 gm In Sodium 100 100 Chloride 0.9% 100 ml @ 33 .3 mls/hr IVPB Q12HR [facility] Rx#:[id number] Normal Saline @ KVO 180 240 20 Normal Saline Pressure 24 72 6 Bags Sodium Chloride 0.9% 1, 90 000 ml @ 40 mls/hr IV . Q24H [facility] Rx#:[id number] Intake, IV Titration 304.169 330.400 65.818 Amount Dexmedetomidine/0.9% NaCl 195.98 200 (Pmx) 200 mcg In Empty Bag 1 bag @ Titrate IV . Q0M [facility] Rx#:[id number] Insulin Regular 100 unit 87.989 57.183 65.818 In Sodium Chloride 0.9% 100 ml @ Per Protocol IV .Q0M [facility] Rx#:[id number] fentaNYL (PF) 1,000 mcg 20.20 73.217 In Sodium Chloride 0.9% 80 ml @ Per Protocol IV . Q0M [facility] Rx#:[id number] Oral 60 Tube Feeding 520 400 40 Other 860 900 Output: Urine 1540 1185 100 Stool 200 Other: Voiding Method Indwelling Catheter Indwelling Catheter ABP, PAP, CO, CI - Last Documented Arterial Blood Pressure 117/51 - Labs CBC & Chem 7: 06/08/20 06:00 06/08/20 06:00 Labs: Abnormal Lab Results - Last 24 Hours (Table) 06/07/20 06/07/20 06/07/20 Range/Units 03:58 09:19 10:27 WBC (3.8-10.6) k/uL RBC (4.30-5.90) m/uL Hgb (13.0-17.5) gm/dL Hct (39.0-53.0) % MCV (80.0-100.0) fL MCHC (31.0-37.0) g/dL Neutrophils # (Manual) (1.3-7.7) k/uL Lymphocytes # (Manual) (1.0-4.8) k/uL Metamyelocytes # (Man) (0) k/uL Nucleated RBCs (0-0) /100 WBC D-Dimer (<0.60) mg/L FEU ABG pH 7.25 L (7.35-7.45) ABG pCO2 72 H* (35-45) mmHg ABG pO2 69 L (83-108) mmHg ABG HCO3 32 H (21-25) mmol/L ABG Total CO2 34 H (19-24) mmol/L ABG O2 Saturation 92.3 L (94-97) % Sodium (137-145) mmol/L Potassium (3.5-5.1) mmol/L Chloride (98-107) mmol/L Carbon Dioxide (22-30) mmol/L BUN (9-20) mg/dL Creatinine (0.66-1.25) mg/dL Glucose (74-99) mg/dL POC Glucose (mg/dL) 138 H (75-99) mg/dL AST (17-59) U/L ALT (4-49) U/L Total Protein (6.3-8.2) g/dL Albumin (3.5-5.0) g/dL Procalcitonin 0.77 H (0.02-0.09) ng/mL 06/07/20 06/07/20 06/07/20 Range/Units 12:11 12:21 12:49 WBC (3.8-10.6) k/uL RBC (4.30-5.90) m/uL Hgb (13.0-17.5) gm/dL Hct (39.0-53.0) % MCV (80.0-100.0) fL MCHC (31.0-37.0) g/dL Neutrophils # (Manual) (1.3-7.7) k/uL Lymphocytes # (Manual) (1.0-4.8) k/uL Metamyelocytes # (Man) (0) k/uL Nucleated RBCs (0-0) /100 WBC D-Dimer (<0.60) mg/L FEU ABG pH 7.23 L (7.35-7.45) ABG pCO2 75 H* (35-45) mmHg ABG pO2 75 L (83-108) mmHg ABG HCO3 32 H (21-25) mmol/L ABG Total CO2 34 H (19-24) mmol/L ABG O2 Saturation 93.9 L (94-97) % Sodium (137-145) mmol/L Potassium (3.5-5.1) mmol/L Chloride (98-107) mmol/L Carbon Dioxide (22-30) mmol/L BUN (9-20) mg/dL Creatinine (0.66-1.25) mg/dL Glucose (74-99) mg/dL POC Glucose (mg/dL) 147 H 138 H (75-99) mg/dL AST (17-59) U/L ALT (4-49) U/L Total Protein (6.3-8.2) g/dL Albumin (3.5-5.0) g/dL Procalcitonin (0.02-0.09) ng/mL 06/07/20 06/07/20 06/07/20 Range/Units 13:01 14:00 15:06 WBC (3.8-10.6) k/uL RBC (4.30-5.90) m/uL Hgb (13.0-17.5) gm/dL Hct (39.0-53.0) % MCV (80.0-100.0) fL MCHC (31.0-37.0) g/dL Neutrophils # (Manual) (1.3-7.7) k/uL Lymphocytes # (Manual) (1.0-4.8) k/uL Metamyelocytes # (Man) (0) k/uL Nucleated RBCs (0-0) /100 WBC D-Dimer (<0.60) mg/L FEU ABG pH (7.35-7.45) ABG pCO2 (35-45) mmHg ABG pO2 (83-108) mmHg ABG HCO3 (21-25) mmol/L ABG Total CO2 (19-24) mmol/L ABG O2 Saturation (94-97) % Sodium (137-145) mmol/L Potassium (3.5-5.1) mmol/L Chloride (98-107) mmol/L Carbon Dioxide (22-30) mmol/L BUN (9-20) mg/dL Creatinine (0.66-1.25) mg/dL Glucose (74-99) mg/dL POC Glucose (mg/dL) 133 H 139 H 164 H (75-99) mg/dL AST (17-59) U/L ALT (4-49) U/L Total Protein (6.3-8.2) g/dL Albumin (3.5-5.0) g/dL Procalcitonin (0.02-0.09) ng/mL 06/07/20 06/07/20 06/07/20 Range/Units 15:42 18:15 21:03 WBC (3.8-10.6) k/uL RBC (4.30-5.90) m/uL Hgb (13.0-17.5) gm/dL Hct (39.0-53.0) % MCV (80.0-100.0) fL MCHC (31.0-37.0) g/dL Neutrophils # (Manual) (1.3-7.7) k/uL Lymphocytes # (Manual) (1.0-4.8) k/uL Metamyelocytes # (Man) (0) k/uL Nucleated RBCs (0-0) /100 WBC D-Dimer (<0.60) mg/L FEU ABG pH (7.35-7.45) ABG pCO2 (35-45) mmHg ABG pO2 (83-108) mmHg ABG HCO3 (21-25) mmol/L ABG Total CO2 (19-24) mmol/L ABG O2 Saturation (94-97) % Sodium (137-145) mmol/L Potassium (3.5-5.1) mmol/L Chloride (98-107) mmol/L Carbon Dioxide (22-30) mmol/L BUN (9-20) mg/dL Creatinine (0.66-1.25) mg/dL Glucose (74-99) mg/dL POC Glucose (mg/dL) 164 H 146 H 140 H (75-99) mg/dL AST (17-59) U/L ALT (4-49) U/L Total Protein (6.3-8.2) g/dL Albumin (3.5-5.0) g/dL Procalcitonin (0.02-0.09) ng/mL 06/07/20 06/08/20 06/08/20 Range/Units 22:22 00:04 02:16 WBC (3.8-10.6) k/uL RBC (4.30-5.90) m/uL Hgb (13.0-17.5) gm/dL Hct (39.0-53.0) % MCV (80.0-100.0) fL MCHC (31.0-37.0) g/dL Neutrophils # (Manual) (1.3-7.7) k/uL Lymphocytes # (Manual) (1.0-4.8) k/uL Metamyelocytes # (Man) (0) k/uL Nucleated RBCs (0-0) /100 WBC D-Dimer (<0.60) mg/L FEU ABG pH (7.35-7.45) ABG pCO2 (35-45) mmHg ABG pO2 (83-108) mmHg ABG HCO3 (21-25) mmol/L ABG Total CO2 (19-24) mmol/L ABG O2 Saturation (94-97) % Sodium (137-145) mmol/L Potassium (3.5-5.1) mmol/L Chloride (98-107) mmol/L Carbon Dioxide (22-30) mmol/L BUN (9-20) mg/dL Creatinine (0.66-1.25) mg/dL Glucose (74-99) mg/dL POC Glucose (mg/dL) 119 H 171 H 187 H (75-99) mg/dL AST (17-59) U/L ALT (4-49) U/L Total Protein (6.3-8.2) g/dL Albumin (3.5-5.0) g/dL Procalcitonin (0.02-0.09) ng/mL 06/08/20 06/08/20 06/08/20 Range/Units 04:24 05:40 06:00 WBC 15.0 H (3.8-10.6) k/uL RBC 2.64 L (4.30-5.90) m/uL Hgb 8.4 L (13.0-17.5) gm/dL Hct 28.1 L (39.0-53.0) % MCV 106.6 H (80.0-100.0) fL MCHC 30.0 L (31.0-37.0) g/dL Neutrophils # (Manual) 13.80 H (1.3-7.7) k/uL Lymphocytes # (Manual) 0.75 L (1.0-4.8) k/uL Metamyelocytes # (Man) 0.30 H (0) k/uL Nucleated RBCs 1 H (0-0) /100 WBC D-Dimer (<0.60) mg/L FEU ABG pH 7.27 L (7.35-7.45) ABG pCO2 73 H* (35-45) mmHg ABG pO2 (83-108) mmHg ABG HCO3 33 H (21-25) mmol/L ABG Total CO2 35 H (19-24) mmol/L ABG O2 Saturation 98.3 H (94-97) % Sodium (137-145) mmol/L Potassium (3.5-5.1) mmol/L Chloride (98-107) mmol/L Carbon Dioxide (22-30) mmol/L BUN (9-20) mg/dL Creatinine (0.66-1.25) mg/dL Glucose (74-99) mg/dL POC Glucose (mg/dL) 165 H (75-99) mg/dL AST (17-59) U/L ALT (4-49) U/L Total Protein (6.3-8.2) g/dL Albumin (3.5-5.0) g/dL Procalcitonin (0.02-0.09) ng/mL 06/08/20 06/08/20 06/08/20 Range/Units 06:00 06:00 06:07 WBC (3.8-10.6) k/uL RBC (4.30-5.90) m/uL Hgb (13.0-17.5) gm/dL Hct (39.0-53.0) % MCV (80.0-100.0) fL MCHC (31.0-37.0) g/dL Neutrophils # (Manual) (1.3-7.7) k/uL Lymphocytes # (Manual) (1.0-4.8) k/uL Metamyelocytes # (Man) (0) k/uL Nucleated RBCs (0-0) /100 WBC D-Dimer 4.01 H (<0.60) mg/L FEU ABG pH (7.35-7.45) ABG pCO2 (35-45) mmHg ABG pO2 (83-108) mmHg ABG HCO3 (21-25) mmol/L ABG Total CO2 (19-24) mmol/L ABG O2 Saturation (94-97) % Sodium 150 H (137-145) mmol/L Potassium 6.6 H* (3.5-5.1) mmol/L Chloride 116 H (98-107) mmol/L Carbon Dioxide 35 H (22-30) mmol/L BUN 140 H* (9-20) mg/dL Creatinine 2.25 H (0.66-1.25) mg/dL Glucose 145 H (74-99) mg/dL POC Glucose (mg/dL) 161 H (75-99) mg/dL AST 98 H (17-59) U/L ALT 117 H (4-49) U/L Total Protein 5.2 L (6.3-8.2) g/dL Albumin 2.9 L (3.5-5.0) g/dL Procalcitonin (0.02-0.09) ng/mL 06/08/20 Range/Units 08:42 WBC (3.8-10.6) k/uL RBC (4.30-5.90) m/uL Hgb (13.0-17.5) gm/dL Hct (39.0-53.0) % MCV (80.0-100.0) fL MCHC (31.0-37.0) g/dL Neutrophils # (Manual) (1.3-7.7) k/uL Lymphocytes # (Manual) (1.0-4.8) k/uL Metamyelocytes # (Man) (0) k/uL Nucleated RBCs (0-0) /100 WBC D-Dimer (<0.60) mg/L FEU ABG pH (7.35-7.45) ABG pCO2 (35-45) mmHg ABG pO2 (83-108) mmHg ABG HCO3 (21-25) mmol/L ABG Total CO2 (19-24) mmol/L ABG O2 Saturation (94-97) % Sodium (137-145) mmol/L Potassium (3.5-5.1) mmol/L Chloride (98-107) mmol/L Carbon Dioxide (22-30) mmol/L BUN (9-20) mg/dL Creatinine (0.66-1.25) mg/dL Glucose (74-99) mg/dL POC Glucose (mg/dL) 129 H (75-99) mg/dL AST (17-59) U/L ALT (4-49) U/L Total Protein (6.3-8.2) g/dL Albumin (3.5-5.0) g/dL Procalcitonin (0.02-0.09) ng/mL Microbiology - Last 24 Hours (Table) 06/04/20 16:08 Blood Culture - Preliminary Blood No Growth after 72 hours 06/03/20 12:58 Blood Culture - Preliminary Blood No Growth after 96 hours 06/03/20 12:50 Blood Culture - Preliminary Blood No Growth after 96 hours 06/04/20 09:05 Blood Culture - Preliminary Blood No Growth after 72 hours Assessment and Plan Plan: Assessment: 1. Acute kidney injury secondary to ATN secondary to COVID-19 infection. Nonoliguric. Renal function stable. 2. Disproportionally elevated BUN secondary to hypercatabolic state from infec tion as well as use of steroids. No evidence of GI bleed. 3. Hypernatremia secondary to free water deficit. 4. Acute hypoxic respiratory failure secondary to ARDS requiring high amounts of PEEP. Currently on 60% FiO2. 5. Chronic kidney disease stage III with baseline creatinine in the range of 1.5-1.7 secondary to nephrosclerosis and diabetic kidney disease. 6. Septic shock secondary to COVID-19 infection/pneumonia. Levophed discontinued. 7. Diabetes mellitus. 8. Anemia of chronic kidney disease maintained on Aranesp. 9. Hyperkalemia secondary to acute kidney injury. No evidence of metabolic acidosis or significant hyperglycemia. Also on Lovenox which can induce hyperkalemia. Plan: Increase free water flushes to 400 mL every 4 hours. Patient received Kayexalate as well as IV bicarb this morning. I will give him 40 mg IV Lasix once now as well as 1 g IV calcium gluconate. Change tube feedings to Nepro. Consider decreasing dose of Lovenox or using alternative. Avoid nephrotoxins. Continue to monitor renal function and urine output. Avoid IV iron in the setting of active infection. Wean FiO2. Consult vascular surgery for dialysis catheter placement. Plan for hemodialysis today. Will obtain consent from the family. Case discussed with the concrete stone fabricating supervisor. Overall prognosis guarded. Repeat BMP this evening.
[2020-06-08] MEDS: ENOXAPARIN 60 MG/0.6 ML SYRINGE SQ SCH ×2 (09:25→20:02)
[2020-06-08] MEDS: HYDROmorphone 1 MG/ML 1 ML SYRINGE IVP PRN ×2 (09:26→12:39)
[2020-06-08] MEDS: DEXTROSE 5% IN WATER 1,000 ML IV SCH ×2 (09:27→18:26)
--- NOTE | 2020-06-08 09:48 | XR ---
EXAMINATION TYPE: XR chest 1V portable DATE OF EXAM: 06/08/2020 COMPARISON: 06/07/2020 HISTORY: Shortness of breath TECHNIQUE: Single frontal view of the chest is obtained. FINDINGS: Bilateral airspace disease with pleural effusion noted. ET and NG tube noted. Left-sided c entral line noted. Postsurgical change overlying the cervical spine. IMPRESSION: 1. Multifocal airspace disease with pleural effusion. Correlate for multifocal pneumonia versus CHF.
[2020-06-08] MEDS ORDERED: LIDOCAINE 1% INJ 10MG/ML (20 ML MDV) ONE (10:28)
[2020-06-08] MEDS ORDERED: HEPARIN SODIUM 1,000 UN/ML (10ML VL) ONE (10:28)
[2020-06-08 11:08] LABS: Glucose,Whole Blood 180 mg/dL (75-99)
[2020-06-08 12:24] LABS: ABG HCO3 36 mmol/L (21-25); ABG Oxygen Saturation 63.6 % (94-97); ABG PH 7.27 (7.35-7.45); ABG TCO2 38 mmol/L (19-24)
[2020-06-08 12:26] LABS: ABG PCO2 78 mmHg (35-45); ABG PO2 36 mmHg (83-108); Allen Test Performed? no
[2020-06-08 12:50] LABS: Glucose,Whole Blood 208 mg/dL (75-99)
--- NOTE | 2020-06-08 13:46 | P.PN ---
Subjective Progress Note Date: 06/08/20 Principal diagnosis: Acute hypoxic respiratory failure secondary to covid 19 pneumonitis with ARDS 06/07/2020, patient remains on a mechanical ventilator. And the patient is on P recedex running at 0.6 g. At times, the patient becomes asynchronous with a mechanical ventilator. He has required Dilaudid and furthermore on recommending a fentanyl drip at a low rate to improve his restlessness and agitation and synchrony with the mechanical ventilator. The patient this morning is an assist-control mode at the rate of 30 with a tidal volume of 450 and FiO2 of 50% with a PEEP of 18. Blood gases showed some hypoxemia with a pH of 7.35 and a pCO2 50 and pO2 of 55. Based on that, I increased the FiO2 of 60%. Drop the tidal volume to 400 and increased the PEEP up to 20. Current peak airway pressures around 35. Static pressures around 32. The patient has a stable ches t x-ray. Decadron will be discontinued and the patient will placed on IV Solu- Medrol 40 mg every 8 hours. There is no hemodynamic instability. The patient is off pressors. The patient is on Diflucan for some oral candidiasis and the patient is also receiving IV Merrem as spectrum antibiotic coverage. He continues to have low-grade fever and T-max 100.9 from midnight. Tolerating tube feed which is in the form of vital high protein at the rate of 40 mL an hour which is at goal. The patient is still running on insulin 12 units an hour. The renal function is stable. Creatinine is down to 2.1. The BUN remains elevated. Patient was reevaluated today on 06/08/20, remains intubated and mechanically ventilated. Patient is doing very poorly. His ventilator settings are assist control rate of 30 tidal volume is 400 FiO2 is 60% PEEP is 20. ABG showed a pO2 of 106 pCO2 of 73 pH of 7.27, hence I cut down his FiO2 to 50%, and The remaining vent settings the same. Patient is on Precedex drip, on fentanyl drip, and on 19 normal saline at KVO. He is also on tube feeding, he is receiving free water for hypernatremia, and he received a treatment for hyperkalemia as per nephrology, and the patient is being considered seriously for hemodialysis. His peak airway pressure on the ventilator is 36, plateau pressure is 31. Vascular surgery is being consulted for possible dialysis catheter placement. Potassium this morning was 6.6 and sodium was 150. Chest x-ray continues to show multifocal airspace disease/multifocal pneumonia Objective - Vital Signs Vital signs: Vital Signs Temp 101.1 F H 06/08/20 12:00 Pulse 76 06/08/20 13:00 Resp 0 L 06/08/20 13:00 BP 107/53 06/08/20 00:00 Pulse Ox 91 L 06/08/20 13:00 Intake & Output 06/07/20 06/08/20 06/08/20 18:59 06:59 18:59 Intake Total 2138.169 2042.400 1704.890 Output Total 1540 1385 950 Balance 598.169 657.400 754.890 Weight 109.7 kg 109.7 kg Intake: IV 394 412 253 Meropenem 2 gm In Sodium 100 100 100 Chloride 0.9% 100 ml @ 33 .3 mls/hr IVPB Q12HR [facility] Rx#:[id number] Normal Saline @ KVO 180 240 120 Normal Saline Pressure 24 72 33 Bags Sodium Chloride 0.9% 1, 90 000 ml @ 40 mls/hr IV . Q24H [facility] Rx#:[id number] Intake, IV Titration 304.169 330.400 534.890 Amount Calcium Gluconate 1 gm In 100 Sodium Chloride 0.9% 100 ml @ 100 mls/hr IVPB ONCE ONE Rx#:[id number] Dexmedetomidine/0.9% NaCl 195.98 200 100 (Pmx) 200 mcg In Empty Bag 1 bag @ Titrate IV . Q0M [facility] Rx#:[id number] Dextrose 5% in Water 1, 250 000 ml @ 100 mls/hr IV . Q10H [facility] Rx#:[id number] Insulin Regular 100 unit 87.989 57.183 84.890 In Sodium Chloride 0.9% 100 ml @ Per Protocol IV .Q0M [facility] Rx#:[id number] fentaNYL (PF) 1,000 mcg 20.20 73.217 In Sodium Chloride 0.9% 80 ml @ Per Protocol IV . Q0M [facility] Rx#:[id number] Oral 60 Tube Feeding 520 400 117 Other 860 900 800 Output: Urine 1540 1185 950 Stool 200 Other: Voiding Method Indwelling Catheter Indwelling Catheter Indwelling Catheter ABP, PAP, CO, CI - Last Documented Arterial Blood Pressure 128/53 - Exam Physical Exam: Revealed a 65-year-old white male, sedated, calm, on Precedex and on fentanyl. Synchronous with mechanical ventilation, Head: Atraumatic, normocephalic. HEENT:[Neck is supple.] [No neck masses.] [No thyromegaly.] [No JVD.] PERRLA, EOMI, no icterus. Moist mucous membranes. Chest: [Crackles at the bases bilaterally..] Symmetrical chest expansion bilaterally. Cardiac Exam: [Normal S1 and S2, no S3 gallop. No murmur. Abdomen: [Soft, nontender, no megaly, no rebound, no guarding, normal bowel sounds.] Extremities: No clubbing edema or cyanosis, trace of bipedal edema noted. Neurological Exam: Could not be examined, patient is sedated, calm and comfortable synchronous with mechanical ventilator. Psychiatric: Could not be assessed. - Labs CBC & Chem 7: 06/08/20 06:00 06/08/20 10:50 Labs: Abnormal Lab Results - Last 24 Hours (Table) 06/07/20 06/07/20 06/07/20 Range/Units 14:00 15:06 15:42 WBC (3.8-10.6) k/uL RBC (4.30-5.90) m/uL Hgb (13.0-17.5) gm/dL Hct (39.0-53.0) % MCV (80.0-100.0) fL MCHC (31.0-37.0) g/dL Neutrophils # (Manual) (1.3-7.7) k/uL Lymphocytes # (Manual) (1.0-4.8) k/uL Metamyelocytes # (Man) (0) k/uL Nucleated RBCs (0-0) /100 WBC D-Dimer (<0.60) mg/L FEU ABG pH (7.35-7.45) ABG pCO2 (35-45) mmHg ABG pO2 (83-108) mmHg ABG HCO3 (21-25) mmol/L ABG Total CO2 (19-24) mmol/L ABG O2 Saturation (94-97) % Sodium (137-145) mmol/L Potassium (3.5-5.1) mmol/L Chloride (98-107) mmol/L Carbon Dioxide (22-30) mmol/L BUN (9-20) mg/dL Creatinine (0.66-1.25) mg/dL Glucose (74-99) mg/dL POC Glucose (mg/dL) 139 H 164 H 164 H (75-99) mg/dL AST (17-59) U/L ALT (4-49) U/L Total Protein (6.3-8.2) g/dL Albumin (3.5-5.0) g/dL 06/07/20 06/07/20 06/07/20 Range/Units 18:15 21:03 22:22 WBC (3.8-10.6) k/uL RBC (4.30-5.90) m/uL Hgb (13.0-17.5) gm/dL Hct (39.0-53.0) % MCV (80.0-100.0) fL MCHC (31.0-37.0) g/dL Neutrophils # (Manual) (1.3-7.7) k/uL Lymphocytes # (Manual) (1.0-4.8) k/uL Metamyelocytes # (Man) (0) k/uL Nucleated RBCs (0-0) /100 WBC D-Dimer (<0.60) mg/L FEU ABG pH (7.35-7.45) ABG pCO2 (35-45) mmHg ABG pO2 (83-108) mmHg ABG HCO3 (21-25) mmol/L ABG Total CO2 (19-24) mmol/L ABG O2 Saturation (94-97) % Sodium (137-145) mmol/L Potassium (3.5-5.1) mmol/L Chloride (98-107) mmol/L Carbon Dioxide (22-30) mmol/L BUN (9-20) mg/dL Creatinine (0.66-1.25) mg/dL Glucose (74-99) mg/dL POC Glucose (mg/dL) 146 H 140 H 119 H (75-99) mg/dL AST (17-59) U/L ALT (4-49) U/L Total Protein (6.3-8.2) g/dL Albumin (3.5-5.0) g/dL 06/08/20 06/08/20 06/08/20 Range/Units 00:04 02:16 04:24 WBC (3.8-10.6) k/uL RBC (4.30-5.90) m/uL Hgb (13.0-17.5) gm/dL Hct (39.0-53.0) % MCV (80.0-100.0) fL MCHC (31.0-37.0) g/dL Neutrophils # (Manual) (1.3-7.7) k/uL Lymphocytes # (Manual) (1.0-4.8) k/uL Metamyelocytes # (Man) (0) k/uL Nucleated RBCs (0-0) /100 WBC D-Dimer (<0.60) mg/L FEU ABG pH (7.35-7.45) ABG pCO2 (35-45) mmHg ABG pO2 (83-108) mmHg ABG HCO3 (21-25) mmol/L ABG Total CO2 (19-24) mmol/L ABG O2 Saturation (94-97) % Sodium (137-145) mmol/L Potassium (3.5-5.1) mmol/L Chloride (98-107) mmol/L Carbon Dioxide (22-30) mmol/L BUN (9-20) mg/dL Creatinine (0.66-1.25) mg/dL Glucose (74-99) mg/dL POC Glucose (mg/dL) 171 H 187 H 165 H (75-99) mg/dL AST (17-59) U/L ALT (4-49) U/L Total Protein (6.3-8.2) g/dL Albumin (3.5-5.0) g/dL 06/08/20 06/08/20 06/08/20 Range/Units 05:40 06:00 06:00 WBC 15.0 H (3.8-10.6) k/uL RBC 2.64 L (4.30-5.90) m/uL Hgb 8.4 L (13.0-17.5) gm/dL Hct 28.1 L (39.0-53.0) % MCV 106.6 H (80.0-100.0) fL MCHC 30.0 L (31.0-37.0) g/dL Neutrophils # (Manual) 13.80 H (1.3-7.7) k/uL Lymphocytes # (Manual) 0.75 L (1.0-4.8) k/uL Metamyelocytes # (Man) 0.30 H (0) k/uL Nucleated RBCs 1 H (0-0) /100 WBC D-Dimer (<0.60) mg/L FEU ABG pH 7.27 L (7.35-7.45) ABG pCO2 73 H* (35-45) mmHg ABG pO2 (83-108) mmHg ABG HCO3 33 H (21-25) mmol/L ABG Total CO2 35 H (19-24) mmol/L ABG O2 Saturation 98.3 H (94-97) % Sodium 150 H (137-145) mmol/L Potassium 6.6 H* (3.5-5.1) mmol/L Chloride 116 H (98-107) mmol/L Carbon Dioxide 35 H (22-30) mmol/L BUN 140 H* (9-20) mg/dL Creatinine 2.25 H (0.66-1.25) mg/dL Glucose 145 H (74-99) mg/dL POC Glucose (mg/dL) (75-99) mg/dL AST 98 H (17-59) U/L ALT 117 H (4-49) U/L Total Protein 5.2 L (6.3-8.2) g/dL Albumin 2.9 L (3.5-5.0) g/dL 06/08/20 06/08/20 06/08/20 Range/Units 06:00 06:07 08:42 WBC (3.8-10.6) k/uL RBC (4.30-5.90) m/uL Hgb (13.0-17.5) gm/dL Hct (39.0-53.0) % MCV (80.0-100.0) fL MCHC (31.0-37.0) g/dL Neutrophils # (Manual) (1.3-7.7) k/uL Lymphocytes # (Manual) (1.0-4.8) k/uL Metamyelocytes # (Man) (0) k/uL Nucleated RBCs (0-0) /100 WBC D-Dimer 4.01 H (<0.60) mg/L FEU ABG pH (7.35-7.45) ABG pCO2 (35-45) mmHg ABG pO2 (83-108) mmHg ABG HCO3 (21-25) mmol/L ABG Total CO2 (19-24) mmol/L ABG O2 Saturation (94-97) % Sodium (137-145) mmol/L Potassium (3.5-5.1) mmol/L Chloride (98-107) mmol/L Carbon Dioxide (22-30) mmol/L BUN (9-20) mg/dL Creatinine (0.66-1.25) mg/dL Glucose (74-99) mg/dL POC Glucose (mg/dL) 161 H 129 H (75-99) mg/dL AST (17-59) U/L ALT (4-49) U/L Total Protein (6.3-8.2) g/dL Albumin (3.5-5.0) g/dL 06/08/20 06/08/20 06/08/20 Range/Units 10:50 11:05 12:19 WBC (3.8-10.6) k/uL RBC (4.30-5.90) m/uL Hgb (13.0-17.5) gm/dL Hct (39.0-53.0) % MCV (80.0-100.0) fL MCHC (31.0-37.0) g/dL Neutrophils # (Manual) (1.3-7.7) k/uL Lymphocytes # (Manual) (1.0-4.8) k/uL Metamyelocytes # (Man) (0) k/uL Nucleated RBCs (0-0) /100 WBC D-Dimer (<0.60) mg/L FEU ABG pH 7.27 L (7.35-7.45) ABG pCO2 78 H* (35-45) mmHg ABG pO2 36 L* (83-108) mmHg ABG HCO3 36 H (21-25) mmol/L ABG Total CO2 38 H (19-24) mmol/L ABG O2 Saturation 63.6 L (94-97) % Sodium (137-145) mmol/L Potassium 6.6 H* (3.5-5.1) mmol/L Chloride (98-107) mmol/L Carbon Dioxide (22-30) mmol/L BUN (9-20) mg/dL Creatinine (0.66-1.25) mg/dL Glucose (74-99) mg/dL POC Glucose (mg/dL) 180 H (75-99) mg/dL AST (17-59) U/L ALT (4-49) U/L Total Protein (6.3-8.2) g/dL Albumin (3.5-5.0) g/dL 06/08/20 Range/Units 12:48 WBC (3.8-10.6) k/uL RBC (4.30-5.90) m/uL Hgb (13.0-17.5) gm/dL Hct (39.0-53.0) % MCV (80.0-100.0) fL MCHC (31.0-37.0) g/dL Neutrophils # (Manual) (1.3-7.7) k/uL Lymphocytes # (Manual) (1.0-4.8) k/uL Metamyelocytes # (Man) (0) k/uL Nucleated RBCs (0-0) /100 WBC D-Dimer (<0.60) mg/L FEU ABG pH (7.35-7.45) ABG pCO2 (35-45) mmHg ABG pO2 (83-108) mmHg ABG HCO3 (21-25) mmol/L ABG Total CO2 (19-24) mmol/L ABG O2 Saturation (94-97) % Sodium (137-145) mmol/L Potassium (3.5-5.1) mmol/L Chloride (98-107) mmol/L Carbon Dioxide (22-30) mmol/L BUN (9-20) mg/dL Creatinine (0.66-1.25) mg/dL Glucose (74-99) mg/dL POC Glucose (mg/dL) 208 H (75-99) mg/dL AST (17-59) U/L ALT (4-49) U/L Total Protein (6.3-8.2) g/dL Albumin (3.5-5.0) g/dL Microbiology - Last 24 Hours (Table) 06/04/20 09:05 Blood Culture - Preliminary Blood No Growth after 96 hours 06/04/20 16:08 Blood Culture - Preliminary Blood No Growth after 72 hours 06/03/20 12:58 Blood Culture - Preliminary Blood No Growth after 96 hours 06/03/20 12:50 Blood Culture - Preliminary Blood No Growth after 96 hours Assessment and Plan Assessment: Impression: Acute hypoxic failure secondary to Covid 19 pneumonitis and secondary ARDS. Acute pneumonitis secondary to Covid 19, patient required intubation on 05/28, and so far he received remdesivir,tocilizumab, convalescent plasma, IV Decadron, zinc, and so far the patient is not making or showing any sort of improvement. Chronic right hemidiaphragm paralysis previous plication. History of chronic bronchial asthma. History of bronchiectasis History of coronary artery disease. History of obstructive sleep apnea syndrome. History of abdominal aortic aneurysm and previous endovascular stent grafting in 2011. History of restless leg syndrome. Dyslipidemia. Acute kidney injury with azotemia, and hyperkalemia, patient is scheduled for possible dialysis today. Coagulase-negative bacteremia, resolved. Hypernatremia and hyperkalemia, being addressed by nephrology. May consider dialysis Recommendation: Continue ventilatory support. Ventilatory settings were adjusted Continue high PEEP. Decrease FiO2 to 50% again. Continue nutritional support. Continue GI and DVT prophylaxis. Discussed with the nephrology, patient may undergo hemodialysis today. Continue free water via nasogastric tube. And monitor hypernatremia and correct accordingly. Continue fentanyl and Precedex. Patient is nowhere near to be weaned or extubated at this point, Prognosis is extremely poor, and I updated his on his condition. We'll continue to follow. Critical care time is 40 minutes. Time with Patient: Greater than 30
--- NOTE | 2020-06-08 14:01 | P.GSCN ---
History of Present Illness History of present illness: 60-year-old gentleman, patient has history of acute chronic renal failure with high potassium I was consulted for placement of urgent dialysis catheter. Patient has history of 4, but positive patient on ventilator patient also has history of 4 coronary artery disease and hypertension On examination patient was seen in his room patient has been intubated abdomen soft femorals are palpable bilateral Plan is placement of the dialysis catheter risk and complication discussed Past Medical History Past Medical History: Asthma, Coronary Artery Disease (CAD), Diabetes Mellitus, GERD/Reflux, Hypertension, Sleep Apnea/CPAP/BIPAP Additional Past Medical History / Comment(s): HX OF AAA WITH STENT (2011), BACK PAIN, RLS, SOB, HX OF PARALYSIS OF DIAPHRAM WITH PLICATION. History of Any Multi-Drug Resistant Organisms: None Reported Past Surgical History: Back Surgery Additional Past Surgical History / Comment(s): BACK AND NECK SURGERY, AAA WITH 3 PIECE STENT (2011), LUNG SURGERY. PLICATION OF DIAPHRAM Past Anesthesia/Blood Transfusion Reactions: No Reported Reaction Past Psychological History: No Psychological Hx Reported Smoking Status: Former smoker Past Alcohol Use History: None Reported Past Drug Use History: None Reported - Past Family History Mother Family Medical History: No Reported History Medications and Allergies Home Medications Medication Instructions Recorded Confirmed Type Acetaminophen-Codeine 300-30mg 1 tab PO Q6H PRN 12/31/19 05/27/20 History [Tylenol w/codeine #3] Aspirin 325 mg PO BID 12/31/19 05/27/20 History Atorvastatin [Lipitor] 20 mg PO HS 12/31/19 05/27/20 History Budesonide-Formot 160-4.5 Mcg 2 puff INHALATION RT-BID 12/31/19 05/27/20 History [Symbicort 160-4.5 Mcg Inhaler] Citalopram Hydrobromide 20 mg PO DAILY 12/31/19 05/27/20 History [Citalopram HBr] Ergocalciferol [Vitamin D2] 50,000 unit PO QMONTH 12/31/19 05/27/20 History Fenofibrate,Micronized 200 mg PO HS 12/31/19 05/27/20 History [Fenofibrate] Gabapentin [Neurontin] 100 mg PO HS 12/31/19 05/27/20 History Montelukast [Singulair] 10 mg PO DAILY 12/31/19 05/27/20 History Niacin [Niaspan] 1,000 mg PO DAILY 12/31/19 05/27/20 History Omeprazole 20 mg PO DAILY 12/31/19 05/27/20 History Tiotropium [place] [Spiriva] 1 cap INHALATION RT-DAILY 12/31/19 05/27/20 History amLODIPine [Norvasc] 10 mg PO DAILY 12/31/19 05/27/20 History carvediloL [Coreg] 12.5 mg PO BID 12/31/19 05/27/20 History metFORMIN HCL [Glucophage] 1,000 mg PO BID 12/31/19 05/27/20 History rOPINIRole HCL [Requip] 5 mg PO HS 12/31/19 05/27/20 History Allergies Allergy/AdvReac Type Severity Reaction Status Date / Time No Known Allergies Allergy Verified 05/27/20 12:34 Surgical - Exam Vital Signs Temp Pulse Resp BP Pulse Ox 102.2 F H 115 H 24 165/98 54 L 05/27/20 12:01 05/27/20 12:01 05/27/20 12:01 05/27/20 12:01 05/27/20 12:01 Results - Labs 06/08/20 06:00 06/08/20 10:50 Abnormal Lab Results - Last 24 Hours (Table) 06/07/20 06/07/20 06/07/20 Range/Units 14:00 15:06 15:42 WBC (3.8-10.6) k/uL RBC (4.30-5.90) m/uL Hgb (13.0-17.5) gm/dL Hct (39.0-53.0) % MCV (80.0-100.0) fL MCHC (31.0-37.0) g/dL Neutrophils # (Manual) (1.3-7.7) k/uL Lymphocytes # (Manual) (1.0-4.8) k/uL Metamyelocytes # (Man) (0) k/uL Nucleated RBCs (0-0) /100 WBC D-Dimer (<0.60) mg/L FEU ABG pH (7.35-7.45) ABG pCO2 (35-45) mmHg ABG pO2 (83-108) mmHg ABG HCO3 (21-25) mmol/L ABG Total CO2 (19-24) mmol/L ABG O2 Saturation (94-97) % Sodium (137-145) mmol/L Potassium (3.5-5.1) mmol/L Chloride (98-107) mmol/L Carbon Dioxide (22-30) mmol/L BUN (9-20) mg/dL Creatinine (0.66-1.25) mg/dL Glucose (74-99) mg/dL POC Glucose (mg/dL) 139 H 164 H 164 H (75-99) mg/dL AST (17-59) U/L ALT (4-49) U/L Total Protein (6.3-8.2) g/dL Albumin (3.5-5.0) g/dL 06/07/20 06/07/20 06/07/20 Range/Units 18:15 21:03 22:22 WBC (3.8-10.6) k/uL RBC (4.30-5.90) m/uL Hgb (13.0-17.5) gm/dL Hct (39.0-53.0) % MCV (80.0-100.0) fL MCHC (31.0-37.0) g/dL Neutrophils # (Manual) (1.3-7.7) k/uL Lymphocytes # (Manual) (1.0-4.8) k/uL Metamyelocytes # (Man) (0) k/uL Nucleated RBCs (0-0) /100 WBC D-Dimer (<0.60) mg/L FEU ABG pH (7.35-7.45) ABG pCO2 (35-45) mmHg ABG pO2 (83-108) mmHg ABG HCO3 (21-25) mmol/L ABG Total CO2 (19-24) mmol/L ABG O2 Saturation (94-97) % Sodium (137-145) mmol/L Potassium (3.5-5.1) mmol/L Chloride (98-107) mmol/L Carbon Dioxide (22-30) mmol/L BUN (9-20) mg/dL Creatinine (0.66-1.25) mg/dL Glucose (74-99) mg/dL POC Glucose (mg/dL) 146 H 140 H 119 H (75-99) mg/dL AST (17-59) U/L ALT (4-49) U/L Total Protein (6.3-8.2) g/dL Albumin (3.5-5.0) g/dL 06/08/20 06/08/20 06/08/20 Range/Units 00:04 02:16 04:24 WBC (3.8-10.6) k/uL RBC (4.30-5.90) m/uL Hgb (13.0-17.5) gm/dL Hct (39.0-53.0) % MCV (80.0-100.0) fL MCHC (31.0-37.0) g/dL Neutrophils # (Manual) (1.3-7.7) k/uL Lymphocytes # (Manual) (1.0-4.8) k/uL Metamyelocytes # (Man) (0) k/uL Nucleated RBCs (0-0) /100 WBC D-Dimer (<0.60) mg/L FEU ABG pH (7.35-7.45) ABG pCO2 (35-45) mmHg ABG pO2 (83-108) mmHg ABG HCO3 (21-25) mmol/L ABG Total CO2 (19-24) mmol/L ABG O2 Saturation (94-97) % Sodium (137-145) mmol/L Potassium (3.5-5.1) mmol/L Chloride (98-107) mmol/L Carbon Dioxide (22-30) mmol/L BUN (9-20) mg/dL Creatinine (0.66-1.25) mg/dL Glucose (74-99) mg/dL POC Glucose (mg/dL) 171 H 187 H 165 H (75-99) mg/dL AST (17-59) U/L ALT (4-49) U/L Total Protein (6.3-8.2) g/dL Albumin (3.5-5.0) g/dL 06/08/20 06/08/20 06/08/20 Range/Units 05:40 06:00 06:00 WBC 15.0 H (3.8-10.6) k/uL RBC 2.64 L (4.30-5.90) m/uL Hgb 8.4 L (13.0-17.5) gm/dL Hct 28.1 L (39.0-53.0) % MCV 106.6 H (80.0-100.0) fL MCHC 30.0 L (31.0-37.0) g/dL Neutrophils # (Manual) 13.80 H (1.3-7.7) k/uL Lymphocytes # (Manual) 0.75 L (1.0-4.8) k/uL Metamyelocytes # (Man) 0.30 H (0) k/uL Nucleated RBCs 1 H (0-0) /100 WBC D-Dimer (<0.60) mg/L FEU ABG pH 7.27 L (7.35-7.45) ABG pCO2 73 H* (35-45) mmHg ABG pO2 (83-108) mmHg ABG HCO3 33 H (21-25) mmol/L ABG Total CO2 35 H (19-24) mmol/L ABG O2 Saturation 98.3 H (94-97) % Sodium 150 H (137-145) mmol/L Potassium 6.6 H* (3.5-5.1) mmol/L Chloride 116 H (98-107) mmol/L Carbon Dioxide 35 H (22-30) mmol/L BUN 140 H* (9-20) mg/dL Creatinine 2.25 H (0.66-1.25) mg/dL Glucose 145 H (74-99) mg/dL POC Glucose (mg/dL) (75-99) mg/dL AST 98 H (17-59) U/L ALT 117 H (4-49) U/L Total Protein 5.2 L (6.3-8.2) g/dL Albumin 2.9 L (3.5-5.0) g/dL 06/08/20 06/08/20 06/08/20 Range/Units 06:00 06:07 08:42 WBC (3.8-10.6) k/uL RBC (4.30-5.90) m/uL Hgb (13.0-17.5) gm/dL Hct (39.0-53.0) % MCV (80.0-100.0) fL MCHC (31.0-37.0) g/dL Neutrophils # (Manual) (1.3-7.7) k/uL Lymphocytes # (Manual) (1.0-4.8) k/uL Metamyelocytes # (Man) (0) k/uL Nucleated RBCs (0-0) /100 WBC D-Dimer 4.01 H (<0.60) mg/L FEU ABG pH (7.35-7.45) ABG pCO2 (35-45) mmHg ABG pO2 (83-108) mmHg ABG HCO3 (21-25) mmol/L ABG Total CO2 (19-24) mmol/L ABG O2 Saturation (94-97) % Sodium (137-145) mmol/L Potassium (3.5-5.1) mmol/L Chloride (98-107) mmol/L Carbon Dioxide (22-30) mmol/L BUN (9-20) mg/dL Creatinine (0.66-1.25) mg/dL Glucose (74-99) mg/dL POC Glucose (mg/dL) 161 H 129 H (75-99) mg/dL AST (17-59) U/L ALT (4-49) U/L Total Protein (6.3-8.2) g/dL Albumin (3.5-5.0) g/dL 06/08/20 06/08/20 06/08/20 Range/Units 10:50 11:05 12:19 WBC (3.8-10.6) k/uL RBC (4.30-5.90) m/uL Hgb (13.0-17.5) gm/dL Hct (39.0-53.0) % MCV (80.0-100.0) fL MCHC (31.0-37.0) g/dL Neutrophils # (Manual) (1.3-7.7) k/uL Lymphocytes # (Manual) (1.0-4.8) k/uL Metamyelocytes # (Man) (0) k/uL Nucleated RBCs (0-0) /100 WBC D-Dimer (<0.60) mg/L FEU ABG pH 7.27 L (7.35-7.45) ABG pCO2 78 H* (35-45) mmHg ABG pO2 36 L* (83-108) mmHg ABG HCO3 36 H (21-25) mmol/L ABG Total CO2 38 H (19-24) mmol/L ABG O2 Saturation 63.6 L (94-97) % Sodium (137-145) mmol/L Potassium 6.6 H* (3.5-5.1) mmol/L Chloride (98-107) mmol/L Carbon Dioxide (22-30) mmol/L BUN (9-20) mg/dL Creatinine (0.66-1.25) mg/dL Glucose (74-99) mg/dL POC Glucose (mg/dL) 180 H (75-99) mg/dL AST (17-59) U/L ALT (4-49) U/L Total Protein (6.3-8.2) g/dL Albumin (3.5-5.0) g/dL 06/08/20 Range/Units 12:48 WBC (3.8-10.6) k/uL RBC (4.30-5.90) m/uL Hgb (13.0-17.5) gm/dL Hct (39.0-53.0) % MCV (80.0-100.0) fL MCHC (31.0-37.0) g/dL Neutrophils # (Manual) (1.3-7.7) k/uL Lymphocytes # (Manual) (1.0-4.8) k/uL Metamyelocytes # (Man) (0) k/uL Nucleated RBCs (0-0) /100 WBC D-Dimer (<0.60) mg/L FEU ABG pH (7.35-7.45) ABG pCO2 (35-45) mmHg ABG pO2 (83-108) mmHg ABG HCO3 (21-25) mmol/L ABG Total CO2 (19-24) mmol/L ABG O2 Saturation (94-97) % Sodium (137-145) mmol/L Potassium (3.5-5.1) mmol/L Chloride (98-107) mmol/L Carbon Dioxide (22-30) mmol/L BUN (9-20) mg/dL Creatinine (0.66-1.25) mg/dL Glucose (74-99) mg/dL POC Glucose (mg/dL) 208 H (75-99) mg/dL AST (17-59) U/L ALT (4-49) U/L Total Protein (6.3-8.2) g/dL Albumin (3.5-5.0) g/dL Microbiology - Last 24 Hours (Table) 06/04/20 09:05 Blood Culture - Preliminary Blood No Growth after 96 hours 06/04/20 16:08 Blood Culture - Preliminary Blood No Growth after 72 hours 06/03/20 12:58 Blood Culture - Preliminary Blood No Growth after 96 hours 06/03/20 12:50 Blood Culture - Preliminary Blood No Growth after 96 hours Diabetes panel 06/08/20 06/08/20 Range/Units 06:00 10:50 Sodium 150 H (137-145) mmol/L Potassium 6.6 H* 6.6 H* (3.5-5.1) mmol/L Chloride 116 H (98-107) mmol/L Carbon Dioxide 35 H (22-30) mmol/L BUN 140 H* (9-20) mg/dL Creatinine 2.25 H (0.66-1.25) mg/dL Glucose 145 H (74-99) mg/dL Calcium 8.9 (8.4-10.2) mg/dL AST 98 H (17-59) U/L ALT 117 H (4-49) U/L Alkaline Phosphatase 46 (38-126) U/L Total Protein 5.2 L (6.3-8.2) g/dL Albumin 2.9 L (3.5-5.0) g/dL Calcium panel 06/08/20 Range/Units 06:00 Calcium 8.9 (8.4-10.2) mg/dL Albumin 2.9 L (3.5-5.0) g/dL Pituitary panel 06/08/20 06/08/20 Range/Units 06:00 10:50 Sodium 150 H (137-145) mmol/L Potassium 6.6 H* 6.6 H* (3.5-5.1) mmol/L Chloride 116 H (98-107) mmol/L Carbon Dioxide 35 H (22-30) mmol/L BUN 140 H* (9-20) mg/dL Creatinine 2.25 H (0.66-1.25) mg/dL Glucose 145 H (74-99) mg/dL Calcium 8.9 (8.4-10.2) mg/dL Adrenal panel 06/08/20 06/08/20 Range/Units 06:00 10:50 Sodium 150 H (137-145) mmol/L Potassium 6.6 H* 6.6 H* (3.5-5.1) mmol/L Chloride 116 H (98-107) mmol/L Carbon Dioxide 35 H (22-30) mmol/L BUN 140 H* (9-20) mg/dL Creatinine 2.25 H (0.66-1.25) mg/dL Glucose 145 H (74-99) mg/dL Calcium 8.9 (8.4-10.2) mg/dL Total Bilirubin 0.6 (0.2-1.3) mg/dL AST 98 H (17-59) U/L ALT 117 H (4-49) U/L Alkaline Phosphatase 46 (38-126) U/L Total Protein 5.2 L (6.3-8.2) g/dL Albumin 2.9 L (3.5-5.0) g/dL
--- NOTE | 2020-06-08 14:03 | P.PCN ---
Date of Procedure: 06/08/20 Description of Procedure: Preoperative diagnoses is acute chronic failure covered positive with the high potassium posterior gravis same Procedure placement of dialysis catheter right femoral approach Right groin was prepped and draped applied sterile manner 1% lidocaine were infiltrated right groin area and micropuncture introduced right common femoral vein micropuncture guidewire was passed and 4-Portuguese dilator advanced top the guidewire this patient had a hernia repair done in the past it was a difficult to pass the catheter we dilated with the dilator and then place a double-lumen dialysis catheter flushed with heparin saline and Hep-Lock dressing applied patient are to the procedure well
[2020-06-08 14:15] LABS: Glucose,Whole Blood 166 mg/dL (75-99)
[2020-06-08 15:21] LABS: Hepatitis B Surface AB- Quant 3.5 mIU/mL; Hepatitis B Surface Antibody Non-Reactive (Non-Reactive); Hepatitis B Surface Antigen Non-Reactive (Non-Reactive)
[2020-06-08] MEDS: NOREPINEPHRINE 8 MG in SODIUM CHLORIDE 0.9% 250 ML IV SCH ×2 (15:29→15:58)
[2020-06-08 16:03] LABS: Glucose,Whole Blood 150 mg/dL (75-99)
--- NOTE | 2020-06-08 16:06 | P.PN ---
Progress Note - Text Progress Note Date: 06/08/20 chief Complaint: Shortness of breath History of presenting complaint: This is a 65-year-old patient of Dr. Demond Harper. Chronic stable medical conditions include coronary artery disease, diabetes, GERD, hypertension, obstructive sleep apnea, chronic back pain, restless leg syndrome, history of diaphragmatic analysis. Patient presented to the ER with shortness of breath. Symptoms started about 24 hours ago. Also chills. He had no obvious cold exposure travel or contact with sick people. He's had a cough. She was febrile in the ER and hypoxic. No nausea vomiting or diarrhea. Has a history of diaphragmatic plication. He also has known bronchiectasis of the right middle and lower lobe. Patient was initially put on a nonrebreather mask start antibiotics steroids and over the ICU. Placed on Airvo Patient admitted with COVID 19 pneumonia, acute hypoxic respiratory failure- intubated. On IV Nimbex and propofol. Prone position. ARDS. He received Remdesivir, Decadron and convalescent immunoglobulin. Today-ICU. On the ventilator with FiO2 59 people 20. Drips include IV Precedex, IV fentanyl, IV insulin. Had a hemodialysis catheter placed by Dr. Bee today. In the right groin. Started on hemodialysis. Telemetry shows sinus rhythm. Review of systems-patient intubated Active Medications Acetaminophen (Acetaminophen Tab 325 Mg Tab) 650 mg PO Q4HR PRN PRN Reason: Fever and/or Mild Pain Last Admin: 06/08/20 08:22 Dose: 650 mg Documented by: Ascorbic Acid (Ascorbic Acid 500 Mg Tab) 1,000 mg PO DAILY [facility] Last Admin: 06/08/20 08:16 Dose: 1,000 mg Documented by: Chlorhexidine Gluconate (Chlorhexidine Gluconate 15 Ml Cup) 15 ml MUCOUS MEM BID [facility] Last Admin: 06/08/20 08:16 Dose: 15 ml Documented by: Cholecalciferol (Cholecalciferol 400 Unit Tab) 400 unit PO DAILY [facility] Last Admin: 06/08/20 08:16 Dose: 400 unit Documented by: Darbepoetin Ketan (Darbepoetin Ketan 25 Mcg/0.42 Ml Syringe) 25 mcg SQ Q7D [facility] Last Admin: 06/06/20 10:37 Dose: 25 mcg Documented by: Enoxaparin Sodium (Enoxaparin 60 Mg/0.6 Ml Syringe) 50 mg SQ Q12HR [facility] Last Admin: 06/08/20 09:25 Dose: 50 mg Documented by: Famotidine (Famotidine 20 Mg Tab) 20 mg PO DAILY [facility] Last Admin: 06/08/20 08:17 Dose: 20 mg Documented by: Fluconazole (Fluconazole 100 Mg Tab) 100 mg PO DAILY [facility] Last Admin: 06/08/20 08:17 Dose: 100 mg Documented by: Hydromorphone HCl (Hydromorphone 1 Mg/Ml 1 Ml Syringe) 1 mg IVP Q3H PRN PRN Reason: Pain Last Admin: 06/08/20 12:39 Dose: 1 mg Documented by: Insulin Human Regular 100 unit (/ Sodium Chloride) 101 mls @ 0 mls/hr IV .Q0M [facility]; Protocol Last Admin: 06/08/20 14:19 Dose: 11 units/hr, 11.11 mls/hr Documented by: Meropenem 2 gm/ Sodium (Chloride) 100 mls @ 33.3 mls/hr IVPB Q12HR [facility]; Protocol Last Admin: 06/08/20 08:17 Dose: 33.3 mls/hr Documented by: Norepinephrine Bitartrate 8 mg (/ Sodium Chloride) 258 mls @ 10.807 mls/hr IV .[id number] [facility]; Protocol Last Titration: 06/08/20 16:00 Dose: 0.07 mcg/kg/min, 15.13 mls/hr Documented by: Dexmedetomidine HCl 200 mcg/ (IV Solution) 50 mls @ 0 mls/hr IV .Q0M [facility]; Protocol Last Admin: 06/08/20 15:30 Dose: 0.6 mcg/kg/hr, 18.15 mls/hr Documented by: Fentanyl Citrate 1,000 mcg/ (Sodium Chloride) 100 mls @ 0 mls/hr IV .Q0M [facility]; Protocol Last Admin: 06/07/20 23:59 Dose: 50 mcg/hr, 5 mls/hr Documented by: Dextrose/Water (Dextrose 5%-Water Iv Soln) 1,000 mls @ 100 mls/hr IV .Q10H [facility] Last Admin: 06/08/20 09:27 Dose: 100 mls/hr Documented by: Lactulose (Lactulose 20 Gm/30 Ml Cup) 20 gm PO BID [facility] Last Admin: 06/08/20 08:17 Dose: 20 gm Documented by: Melatonin (Melatonin 5 Mg Tablet) 5 mg PO HS [facility] Last Admin: 06/07/20 20:34 Dose: 5 mg Documented by: Methylprednisolone Sodium Succinate (Methylprednisolone Sod Succi 40 Mg/Ml 1 Ml Vial) 40 mg IV Q8HR [facility] Last Admin: 06/08/20 15:38 Dose: 40 mg Documented by: Naloxone HCl (Naloxone 0.4 Mg/Ml 1 Ml Vial) 0.2 mg IV Q2M PRN PRN Reason: Opioid Reversal Zinc Sulfate (Zinc Sulfate 220 Mg Cap) 220 mg PO DAILY [facility] Last Admin: 06/08/20 08:17 Dose: 220 mg Documented by: Physical examination: VITAL SIGNS: 100.2, 80, 12, 130/48, 92% on the ventilator GENERAL: Laying in bed, intubated, OG tube, FMS-liquid stools Additional physical examination as per pulmonary and nursing-noted INVESTIGATIONS, reviewed in the clinical context: White count 15 hemoglobin 8.4 platelets 200 sodium 150 potassium 6.6 bun 140 creatinine 2.25 Sputum culture from June 03-Litzy albicans. Nasal swab from 1029--negative for MSSA Blood and urine culture from June 04 both negative Chest x-ray June 04-worsening infiltrate Admission testing: White count 6.5 hemoglobin 14.8 platelets 2:30 Potassium 4.7 bun 30 creatinine 1.76 lactic acid 2.4 ferritin 2053 AST 73 ALT 59 LDH 1056 CRP 333 Influenza type A and type B both negative COVID 19 PCR present EKG tracing personally reviewed by me-normal sinus rhythm Chest x-ray film personally reviewed by me-extensive bilateral infiltrates Assessment: -Bilateral pneumonia, COVID 19 pneumonia, cannot rule out bacterial infection especially gram-negative slow to respond -Moderate to severe ARDS-slow to respond -Acute hypoxic respiratory failure severe from above-requiring ventilator worsening -Severe sepsis from pneumonia -Moderate persistent asthma with acute exacerbation-slow to respond -Coronary artery disease -Diabetes mellitus type 2, uncontrolled from hyperglycemia requiring insulin drip -GERD -Essential hypertension -Obstructive sleep apnea -History of right diaphragm paralysis with plication -Restless leg syndrome -Hypernatremia-from free water-worsening -Severe hyperkalemia from acute kidney injury -acute kidney injury from ATN from sepsis -Patient can history of fevers. Only thing positive is Litzy albicans. Which could be colonization. Given that nasal swab was negative for MRSA would not entertain treatment for the same. We'll try adding Diflucan and see that helps. Plan: Patient given IV gluconate calcium, D5W, IV Lasix, Kayexalate, sodium bicarbonate 1 amp. Continue IV antibiotic. Prognosis remains guarded. [address] On IV meropenem
[2020-06-08 17:57] LABS: Calcium 8.6 mg/dL (8.4-10.2); Potassium 5.5 mmol/L (3.5-5.1)
[2020-06-08] MEDS: fentaNYL (PF) 1,000 MCG in SODIUM CHLORIDE 0.9% 80 ML IV SCH (18:26)
[2020-06-08 18:34] LABS: Glucose,Whole Blood 148 mg/dL (75-99)
[2020-06-08] MEDS ORDERED: DEXTROSE 50% SYRINGE 50 ML IVP ONE (20:00)
[2020-06-08] MEDS ORDERED: INSULIN REGULAR 100 UNIT/ML VIAL IV ONE (20:00)
[2020-06-08] MEDS: MELATONIN 5 MG TABLET PO SCH (20:04)
[2020-06-08 20:17] LABS: Glucose,Whole Blood 165 mg/dL (75-99)
[2020-06-08 22:23] LABS: Glucose,Whole Blood 219 mg/dL (75-99)
[2020-06-08] MEDS: DEXMEDETOMIDINE/0.9% NACL(PMX) 400 MCG in EMPTY BAG 1 BAG IV SCH (22:23)
[2020-06-08 23:55] LABS: Glucose,Whole Blood 215 mg/dL (75-99)
[2020-06-09 00:24] LABS: Calcium 8.6 mg/dL (8.4-10.2); Potassium 5.7 mmol/L (3.5-5.1)
[2020-06-09 02:15] LABS: Glucose,Whole Blood 186 mg/dL (75-99)
[2020-06-09] MEDS: DEXMEDETOMIDINE/0.9% NACL(PMX) 400 MCG in EMPTY BAG 1 BAG IV SCH ×4 (04:29→20:22)
[2020-06-09 04:38] LABS: Glucose,Whole Blood 177 mg/dL (75-99)
[2020-06-09 05:07] LABS: Albumin 2.9 g/dL (3.5-5.0); Calcium 8.6 mg/dL (8.4-10.2); Potassium 5.6 mmol/L (3.5-5.1); Total Bilirubin 0.6 mg/dL (0.2-1.3); Total Protein 5.1 g/dL (6.3-8.2)
[2020-06-09 05:12] LABS: HGB 8.2 gm/dL (13.0-17.5); Hypochromasia Marked; MCH 33.3 pg (25.0-35.0); MCHC 31.4 g/dL (31.0-37.0); MCV 105.9 fL (80.0-100.0); Macrocytosis Moderate; Mean Platelet Volume 11.2; Platelet Count 197 k/uL (150-450); RBC 2.45 m/uL (4.30-5.90)
[2020-06-09] MEDS: INSULIN REGULAR 100 UNIT in SODIUM CHLORIDE 0.9% 100 ML IV SCH ×3 (05:43→20:22)
[2020-06-09 06:32] LABS: Glucose,Whole Blood 183 mg/dL (75-99)
[2020-06-09] MEDS: DEXTROSE 5% IN WATER 1,000 ML IV SCH (06:33)
[2020-06-09] MEDS: HYDROmorphone 1 MG/ML 1 ML SYRINGE IVP PRN ×5 (06:35→21:21)
[2020-06-09 06:53] LABS: Band Neutrophils % 8 %; Metamyelocytes % 1 %; Neutrophils % (M) 80 %; Nucleated Red Blood Cells 6 /100 WBC (0-0); Total Cells Counted 200
[2020-06-09 06:54] LABS: Eosinophils # (M) 0.14 k/uL (0-0.7); Lymphocytes # (M) 1.13 k/uL (1.0-4.8); Metamyelocytes # (M) 0.14 k/uL (0); Monocytes # (M) 0.42 k/uL (0-1.0); WBC 14.1 k/uL (3.8-10.6)
[2020-06-09 07:06] LABS: Anisocytosis (M) Present
[2020-06-09 07:07] LABS: Large Platelets Present
[2020-06-09 07:09] LABS: Polychromasia Present
[2020-06-09 07:13] LABS: Basophilic Stippling Present
[2020-06-09 07:39] LABS: Glucose,Whole Blood 149 mg/dL (75-99)
[2020-06-09 07:59] LABS: ABG Base Excess 6.1 mmol/L; ABG HCO3 33 mmol/L (21-25); ABG Oxygen Saturation 96.8 % (94-97); ABG PCO2 70 mmHg (35-45); ABG PH 7.28 (7.35-7.45); ABG PO2 85 mmHg (83-108); ABG TCO2 35 mmol/L (19-24)
[2020-06-09 08:01] LABS: Allen Test Performed? no
[2020-06-09 08:20] LABS: Glucose,Whole Blood 164 mg/dL (75-99)
--- NOTE | 2020-06-09 08:20 | XR ---
EXAMINATION TYPE: XR chest 1V DATE OF EXAM: 06/09/2020 COMPARISON: Prior chest x-ray 06/08/2020 HISTORY: Intubated TECHNIQUE: Single frontal view of the chest is obtained. FINDINGS: Endotracheal tube, orogastric tube, left jugular central venous catheter are all again not ed overlying stable positions. Distal tip of the gastric tube not included in the exam. Pleural paren chymal changes are similar to prior exam accounting for differences in technique, there is no evident pneumothorax. Heart size is stable. Aorta is dense. Suspect blunting of the costophrenic angles repr esent small effusions. IMPRESSION: Findings are similar to prior exam. Correlate for pneumonia, edema, ARDS
[2020-06-09] MEDS: ASCORBIC ACID 500 MG TAB PO SCH (08:59)
[2020-06-09] MEDS: CHLORHEXIDINE GLUCONATE 15 ML CUP MUCOUS MEM SCH ×2 (08:59→20:37)
[2020-06-09] MEDS: methylPREDNISolone SOD SUCCI 40 MG/ML 1 ML VIAL IV SCH ×2 (08:59→17:26)
[2020-06-09] MEDS: FLUCONAZOLE 100 MG TAB PO SCH (09:00)
[2020-06-09] MEDS: CHOLECALCIFEROL 400 UNIT TAB PO SCH (09:00)
[2020-06-09] MEDS: ZINC SULFATE 220 MG CAP PO SCH (09:00)
[2020-06-09] MEDS: FAMOTIDINE 20 MG TAB PO SCH (09:00)
[2020-06-09] MEDS: ENOXAPARIN 60 MG/0.6 ML SYRINGE SQ SCH ×2 (09:00→20:37)
[2020-06-09] MEDS: LACTULOSE 20 GM/30 ML CUP PO SCH ×2 (09:01→20:37)
[2020-06-09] MEDS: MEROPENEM 2 GM in SODIUM CHLORIDE 0.9% 100 ML IVPB SCH ×2 (09:12→20:21)
[2020-06-09] MEDS ORDERED: DEXTROSE 5% IN WATER 1,000 ML IV SCH (11:30)
[2020-06-09 11:36] LABS: Glucose,Whole Blood 141 mg/dL (75-99)
--- NOTE | 2020-06-09 12:03 | P.PN ---
Subjective Patient is seen in follow-up for acute kidney injury on chronic kidney disease. Intubated. Currently on 50% FiO2 and 16 of PEEP. Off Levophed. Nonoliguric. Sodium level 143 this morning. Being treated for COVID-19 pneumonia. Started on hemodialysis June 08 for hyperkalemia. Potassium level V.6 this morning. Vital signs are stable. Continues to require high amounts of PEEP but less than yesterday. Currently intubated. No gross edema noted. Regular rhythm noted on heart monitor. Discussed with the nurse. Objective - Vital Signs Vital signs: Vital Signs Temp 98.8 F 06/09/20 11:00 Pulse 61 06/09/20 11:30 Resp 30 H 06/09/20 11:30 BP 125/52 06/08/20 15:19 Pulse Ox 100 06/09/20 11:30 Intake & Output 06/08/20 06/09/20 06/09/20 18:59 06:59 18:59 Intake Total 3146.478 3581.594 1523.104 Output Total 1595 550 495 Balance 6880.297 4633.594 1028.104 Weight 109.7 kg 115.6 kg Intake: IV 383 1512 730 Dextrose 5% in Water 1, 1100 500 000 ml @ 100 mls/hr IV . Q10H [facility] Rx#:[id number] Meropenem 2 gm In Sodium 100 100 100 Chloride 0.9% 100 ml @ 33 .3 mls/hr IVPB Q12HR [facility] Rx#:[id number] Normal Saline @ KVO 220 240 100 Normal Saline Pressure 63 72 30 Bags Intake, IV Titration 1261.478 425.594 148.104 Amount Calcium Gluconate 1 gm In 100 Sodium Chloride 0.9% 100 ml @ 100 mls/hr IVPB ONCE ONE Rx#:[id number] Dexmedetomidine/0.9% NaCl 196.887 (Pmx) 200 mcg In Empty Bag 1 bag @ Titrate IV . Q0M [facility] Rx#:[id number] Dexmedetomidine/0.9% NaCl 100 78.161 (Pmx) 400 mcg In Empty Bag 1 bag @ Titrate IV . Q0M [facility] Rx#:[id number] Dextrose 5% in Water 1, 750 100 000 ml @ 100 mls/hr IV . Q10H [facility] Rx#:[id number] Insulin Regular 100 unit 120.072 178.046 69.943 In Sodium Chloride 0.9% 100 ml @ Per Protocol IV .Q0M [facility] Rx#:[id number] Norepinephrine 8 mg In 2.269 47.548 Sodium Chloride 0.9% 250 ml @ 0.05 MCG/KG/MIN 10. 807 mls/hr IV .[id number] [facility] Rx#:[id number] fentaNYL (PF) 1,000 mcg 92.25 In Sodium Chloride 0.9% 80 ml @ Per Protocol IV . Q0M [facility] Rx#:[id number] Tube Feeding 302 444 185 Other 1200 1200 460 Output: Urine 1245 550 295 Stool 200 Hemodialysis 350 Other: Voiding Method Indwelling Catheter Indwelling Catheter Indwelling Catheter ABP, PAP, CO, CI - Last Documented Arterial Blood Pressure 130/48 - Labs CBC & Chem 7: 06/09/20 04:30 06/09/20 04:30 Labs: Abnormal Lab Results - Last 24 Hours (Table) 06/07/20 06/08/20 06/08/20 Range/Units 01:59 EST 12:19 12:48 WBC (3.8-10.6) k/uL RBC (4.30-5.90) m/uL Hgb (13.0-17.5) gm/dL Hct (39.0-53.0) % MCV (80.0-100.0) fL Neutrophils # (Manual) (1.3-7.7) k/uL Metamyelocytes # (Man) (0) k/uL Nucleated RBCs (0-0) /100 WBC ABG pH 7.27 L (7.35-7.45) ABG pCO2 78 H* (35-45) mmHg ABG pO2 36 L* (83-108) mmHg ABG HCO3 36 H (21-25) mmol/L ABG Total CO2 38 H (19-24) mmol/L ABG O2 Saturation 63.6 L (94-97) % Potassium (3.5-5.1) mmol/L Chloride (98-107) mmol/L Carbon Dioxide (22-30) mmol/L BUN (9-20) mg/dL Creatinine (0.66-1.25) mg/dL Glucose (74-99) mg/dL POC Glucose (mg/dL) 149 H 208 H (75-99) mg/dL Ferritin (22.0-322.0) ng/mL AST (17-59) U/L ALT (4-49) U/L Lactate Dehydrogenase (313-618) U/L Total Protein (6.3-8.2) g/dL Albumin (3.5-5.0) g/dL 06/08/20 06/08/20 06/08/20 Range/Units 14:12 16:02 17:10 WBC (3.8-10.6) k/uL RBC (4.30-5.90) m/uL Hgb (13.0-17.5) gm/dL Hct (39.0-53.0) % MCV (80.0-100.0) fL Neutrophils # (Manual) (1.3-7.7) k/uL Metamyelocytes # (Man) (0) k/uL Nucleated RBCs (0-0) /100 WBC ABG pH (7.35-7.45) ABG pCO2 (35-45) mmHg ABG pO2 (83-108) mmHg ABG HCO3 (21-25) mmol/L ABG Total CO2 (19-24) mmol/L ABG O2 Saturation (94-97) % Potassium 5.5 H (3.5-5.1) mmol/L Chloride 110 H (98-107) mmol/L Carbon Dioxide 34 H (22-30) mmol/L BUN 114 H* (9-20) mg/dL Creatinine 2.00 H (0.66-1.25) mg/dL Glucose 144 H (74-99) mg/dL POC Glucose (mg/dL) 166 H 150 H (75-99) mg/dL Ferritin (22.0-322.0) ng/mL AST (17-59) U/L ALT (4-49) U/L Lactate Dehydrogenase (313-618) U/L Total Protein (6.3-8.2) g/dL Albumin (3.5-5.0) g/dL 06/08/20 06/08/20 06/08/20 Range/Units 18:33 20:16 22:21 WBC (3.8-10.6) k/uL RBC (4.30-5.90) m/uL Hgb (13.0-17.5) gm/dL Hct (39.0-53.0) % MCV (80.0-100.0) fL Neutrophils # (Manual) (1.3-7.7) k/uL Metamyelocytes # (Man) (0) k/uL Nucleated RBCs (0-0) /100 WBC ABG pH (7.35-7.45) ABG pCO2 (35-45) mmHg ABG pO2 (83-108) mmHg ABG HCO3 (21-25) mmol/L ABG Total CO2 (19-24) mmol/L ABG O2 Saturation (94-97) % Potassium (3.5-5.1) mmol/L Chloride (98-107) mmol/L Carbon Dioxide (22-30) mmol/L BUN (9-20) mg/dL Creatinine (0.66-1.25) mg/dL Glucose (74-99) mg/dL POC Glucose (mg/dL) 148 H 165 H 219 H (75-99) mg/dL Ferritin (22.0-322.0) ng/mL AST (17-59) U/L ALT (4-49) U/L Lactate Dehydrogenase (313-618) U/L Total Protein (6.3-8.2) g/dL Albumin (3.5-5.0) g/dL 06/08/20 06/08/20 06/09/20 Range/Units 23:54 23:57 02:13 WBC (3.8-10.6) k/uL RBC (4.30-5.90) m/uL Hgb (13.0-17.5) gm/dL Hct (39.0-53.0) % MCV (80.0-100.0) fL Neutrophils # (Manual) (1.3-7.7) k/uL Metamyelocytes # (Man) (0) k/uL Nucleated RBCs (0-0) /100 WBC ABG pH (7.35-7.45) ABG pCO2 (35-45) mmHg ABG pO2 (83-108) mmHg ABG HCO3 (21-25) mmol/L ABG Total CO2 (19-24) mmol/L ABG O2 Saturation (94-97) % Potassium 5.7 H (3.5-5.1) mmol/L Chloride 108 H (98-107) mmol/L Carbon Dioxide 36 H (22-30) mmol/L BUN 120 H* (9-20) mg/dL Creatinine 2.31 H (0.66-1.25) mg/dL Glucose 201 H (74-99) mg/dL POC Glucose (mg/dL) 215 H 186 H (75-99) mg/dL Ferritin (22.0-322.0) ng/mL AST (17-59) U/L ALT (4-49) U/L Lactate Dehydrogenase (313-618) U/L Total Protein (6.3-8.2) g/dL Albumin (3.5-5.0) g/dL 06/09/20 06/09/20 06/09/20 Range/Units 04:30 04:30 04:36 WBC 14.1 H (3.8-10.6) k/uL RBC 2.45 L (4.30-5.90) m/uL Hgb 8.2 L (13.0-17.5) gm/dL Hct 26.0 L (39.0-53.0) % MCV 105.9 H (80.0-100.0) fL Neutrophils # (Manual) 12.40 H (1.3-7.7) k/uL Metamyelocytes # (Man) 0.14 H (0) k/uL Nucleated RBCs 6 H (0-0) /100 WBC ABG pH (7.35-7.45) ABG pCO2 (35-45) mmHg ABG pO2 (83-108) mmHg ABG HCO3 (21-25) mmol/L ABG Total CO2 (19-24) mmol/L ABG O2 Saturation (94-97) % Potassium 5.6 H (3.5-5.1) mmol/L Chloride 108 H (98-107) mmol/L Carbon Dioxide 33 H (22-30) mmol/L BUN 120 H* (9-20) mg/dL Creatinine 2.32 H (0.66-1.25) mg/dL Glucose 170 H (74-99) mg/dL POC Glucose (mg/dL) 177 H (75-99) mg/dL Ferritin 1406.0 H (22.0-322.0) ng/mL AST 98 H (17-59) U/L ALT 143 H (4-49) U/L Lactate Dehydrogenase 1233 H (313-618) U/L Total Protein 5.1 L (6.3-8.2) g/dL Albumin 2.9 L (3.5-5.0) g/dL 06/09/20 06/09/20 06/09/20 Range/Units 06:31 07:53 08:18 WBC (3.8-10.6) k/uL RBC (4.30-5.90) m/uL Hgb (13.0-17.5) gm/dL Hct (39.0-53.0) % MCV (80.0-100.0) fL Neutrophils # (Manual) (1.3-7.7) k/uL Metamyelocytes # (Man) (0) k/uL Nucleated RBCs (0-0) /100 WBC ABG pH 7.28 L (7.35-7.45) ABG pCO2 70 H (35-45) mmHg ABG pO2 (83-108) mmHg ABG HCO3 33 H (21-25) mmol/L ABG Total CO2 35 H (19-24) mmol/L ABG O2 Saturation (94-97) % Potassium (3.5-5.1) mmol/L Chloride (98-107) mmol/L Carbon Dioxide (22-30) mmol/L BUN (9-20) mg/dL Creatinine (0.66-1.25) mg/dL Glucose (74-99) mg/dL POC Glucose (mg/dL) 183 H 164 H (75-99) mg/dL Ferritin (22.0-322.0) ng/mL AST (17-59) U/L ALT (4-49) U/L Lactate Dehydrogenase (313-618) U/L Total Protein (6.3-8.2) g/dL Albumin (3.5-5.0) g/dL 06/09/20 Range/Units 11:32 WBC (3.8-10.6) k/uL RBC (4.30-5.90) m/uL Hgb (13.0-17.5) gm/dL Hct (39.0-53.0) % MCV (80.0-100.0) fL Neutrophils # (Manual) (1.3-7.7) k/uL Metamyelocytes # (Man) (0) k/uL Nucleated RBCs (0-0) /100 WBC ABG pH (7.35-7.45) ABG pCO2 (35-45) mmHg ABG pO2 (83-108) mmHg ABG HCO3 (21-25) mmol/L ABG Total CO2 (19-24) mmol/L ABG O2 Saturation (94-97) % Potassium (3.5-5.1) mmol/L Chloride (98-107) mmol/L Carbon Dioxide (22-30) mmol/L BUN (9-20) mg/dL Creatinine (0.66-1.25) mg/dL Glucose (74-99) mg/dL POC Glucose (mg/dL) 141 H (75-99) mg/dL Ferritin (22.0-322.0) ng/mL AST (17-59) U/L ALT (4-49) U/L Lactate Dehydrogenase (313-618) U/L Total Protein (6.3-8.2) g/dL Albumin (3.5-5.0) g/dL Microbiology - Last 24 Hours (Table) 06/04/20 09:05 Blood Culture - Preliminary Blood No Growth after 120 hours 06/04/20 16:08 Blood Culture - Preliminary Blood No Growth after 96 hours 06/03/20 12:58 Blood Culture - Preliminary Blood No Growth after 120 hours 06/03/20 12:50 Blood Culture - Preliminary Blood No Growth after 120 hours Assessment and Plan Plan: Assessment: 1. Acute kidney injury secondary to ATN secondary to COVID-19 infection. Nonoliguric. Renal function stable. Started on hemodialysis June 08 for hyperkalemia. 2. Disproportionally elevated BUN secondary to hypercatabolic state from infection as well as use of steroids. No evidence of GI bleed. 3. Hypernatremia secondary to free water deficit. Better. 4. Acute hypoxic respiratory failure secondary to ARDS requiring high amounts of PEEP. Currently on 50% FiO2. 5. Chronic kidney disease stage III with baseline creatinine in the range of 1.5-1.7 secondary to nephrosclerosis and diabetic kidney disease. 6. Septic shock secondary to COVID-19 infection/pneumonia. Levophed discontinued. 7. Diabetes mellitus. 8. Anemia of chronic kidney disease maintained on Aranesp. High ferritin level noted. 9. Hyperkalemia secondary to acute kidney injury. No evidence of metabolic acidosis or significant hyperglycemia. Also on Lovenox which can induce hyperkalemia. ?ischemia bowel. Plan: Maintain free water flushes 400 mL every 4 hours. Decrease D5W to 50 mL an hour. Tube feeds changed to Nepro. Check lactic acid level. Currently unstable to go for CAT scan. Avoid nephrotoxins. Continue to monitor renal function and urine output. Avoid IV iron in the setting of active infection. Wean FiO2. Currently seen while undergoing hemodialysis. Continue to assess need on daily basis.
[2020-06-09 12:11] LABS: ABG PCO2 73 mmHg (35-45)
[2020-06-09 12:12] LABS: ABG PO2 54 mmHg (83-108)
[2020-06-09 13:59] LABS: Glucose,Whole Blood 159 mg/dL (75-99)
[2020-06-09] MEDS: fentaNYL (PF) 1,000 MCG in SODIUM CHLORIDE 0.9% 80 ML IV SCH (14:00)
[2020-06-09 14:42] LABS: Calcium 8.3 mg/dL (8.4-10.2); Potassium 4.8 mmol/L (3.5-5.1)
--- NOTE | 2020-06-09 14:44 | XR ---
Abdomen HISTORY: Possible ischemia, NG tube, dialysis catheter Frontal view the abdomen submitted on 2 images No comparisons NG tube shows the distal tip in the left upper quadrant. Exam somewhat limited for evaluation. There is no evident pneumoperitoneum. Right femoral catheter shows the distal tip overlying the right sacra l ala. Patient is rotated. Surgical clips present in the groins. Oliveros catheter is likely in place. Q uestion vascular calcifications within the pelvis. Gas-filled loops of colon are present. Aortobi-raffaele ac stent graft is likely thought to be present. IMPRESSION: Nonspecific findings. Exam done with portable technique. Exam is rotated.
--- NOTE | 2020-06-09 15:08 | P.PN ---
Subjective Progress Note Date: 06/09/20 Principal diagnosis: Acute hypoxic respiratory failure secondary to covid 19 pneumonitis with ARDS 06/07/2020, patient remains on a mechanical ventilator. And the patient is on P recedex running at 0.6 g. At times, the patient becomes asynchronous with a mechanical ventilator. He has required Dilaudid and furthermore on recommending a fentanyl drip at a low rate to improve his restlessness and agitation and synchrony with the mechanical ventilator. The patient this morning is an assist-control mode at the rate of 30 with a tidal volume of 450 and FiO2 of 50% with a PEEP of 18. Blood gases showed some hypoxemia with a pH of 7.35 and a pCO2 50 and pO2 of 55. Based on that, I increased the FiO2 of 60%. Drop the tidal volume to 400 and increased the PEEP up to 20. Current peak airway pressures around 35. Static pressures around 32. The patient has a stable ches t x-ray. Decadron will be discontinued and the patient will placed on IV Solu- Medrol 40 mg every 8 hours. There is no hemodynamic instability. The patient is off pressors. The patient is on Diflucan for some oral candidiasis and the patient is also receiving IV Merrem as spectrum antibiotic coverage. He continues to have low-grade fever and T-max 100.9 from midnight. Tolerating tube feed which is in the form of vital high protein at the rate of 40 mL an hour which is at goal. The patient is still running on insulin 12 units an hour. The renal function is stable. Creatinine is down to 2.1. The BUN remains elevated. Patient was reevaluated today on 06/08/20, remains intubated and mechanically ventilated. Patient is doing very poorly. His ventilator settings are assist control rate of 30 tidal volume is 400 FiO2 is 60% PEEP is 20. ABG showed a pO2 of 106 pCO2 of 73 pH of 7.27, hence I cut down his FiO2 to 50%, and The remaining vent settings the same. Patient is on Precedex drip, on fentanyl drip, and on 19 normal saline at KVO. He is also on tube feeding, he is receiving free water for hypernatremia, and he received a treatment for hyperkalemia as per nephrology, and the patient is being considered seriously for hemodialysis. His peak airway pressure on the ventilator is 36, plateau pressure is 31. Vascular surgery is being consulted for possible dialysis catheter placement. Potassium this morning was 6.6 and sodium was 150. Chest x-ray continues to show multifocal airspace disease/multifocal pneumonia Patient was evaluated today on 06/09/20, remains on mechanical ventilation, no major change has been noted in the last few days. Patient remains on venti latory support with assist control rate of 30 volume of 400 FiO2 50% PEEP remains at 20 however after reviewing his ABG today, I cut down the PEEP to 16. ABG today showed a pO2 of 85 pCO2 of 70 pH of 7.28. Patient remains on D5W at 100 mL/h, he is on Precedex at 0.6 and fentanyl at 0.4 mcg/kg/h. Peak airway pressure is 34 plateau pressure is 29. Patient is on enteral feeding using Nepro and he is receiving free water for his hypernatremia. Sodium today is 138. Electrolytes are normal BUN is 88 creatinine is 1.63. Patient is being dialyzed today again. Yesterday, patient required a brief period of norepinephrine but presently off norepinephrine. CBC showed WBC count of 14.1 hemoglobin is 8.2. Chest x-ray continues to show evidence of pneumonia/ARDS. Objective - Vital Signs Vital signs: Vital Signs Temp 98.8 F 06/09/20 12:00 Pulse 66 06/09/20 14:30 Resp 30 H 06/09/20 14:30 BP 127/48 06/09/20 12:00 Pulse Ox 90 L 06/09/20 14:30 Intake & Output 06/08/20 06/09/20 06/09/20 18:59 06:59 18:59 Intake Total 3146.478 3581.594 2045.158 Output Total 5963 498 0572 Balance 4230.599 5655.594 790.158 Weight 109.7 kg 115.6 kg Intake: IV 383 1512 982 Dextrose 5% in Water 1, 1100 700 000 ml @ 100 mls/hr IV . Q10H [facility] Rx#:[id number] Meropenem 2 gm In Sodium 100 100 100 Chloride 0.9% 100 ml @ 33 .3 mls/hr IVPB Q12HR [facility] Rx#:[id number] Normal Saline @ KVO 220 240 140 Normal Saline Pressure 63 72 42 Bags Intake, IV Titration 1261.478 425.594 344.158 Amount Calcium Gluconate 1 gm In 100 Sodium Chloride 0.9% 100 ml @ 100 mls/hr IVPB ONCE ONE Rx#:[id number] Dexmedetomidine/0.9% NaCl 196.887 (Pmx) 200 mcg In Empty Bag 1 bag @ Titrate IV . Q0M [facility] Rx#:[id number] Dexmedetomidine/0.9% NaCl 100 156.048 (Pmx) 400 mcg In Empty Bag 1 bag @ Titrate IV . Q0M [facility] Rx#:[id number] Dextrose 5% in Water 1, 750 100 000 ml @ 100 mls/hr IV . Q10H [facility] Rx#:[id number] Insulin Regular 100 unit 120.072 178.046 90.277 In Sodium Chloride 0.9% 100 ml @ Per Protocol IV .Q0M [facility] Rx#:[id number] Norepinephrine 8 mg In 2.269 47.548 Sodium Chloride 0.9% 250 ml @ 0.05 MCG/KG/MIN 10. 807 mls/hr IV .[id number] [facility] Rx#:[id number] fentaNYL (PF) 1,000 mcg 92.25 97.833 In Sodium Chloride 0.9% 80 ml @ Per Protocol IV . Q0M [facility] Rx#:[id number] Tube Feeding 302 444 259 Other 1200 1200 460 Output: Urine 1245 550 355 Stool 400 Hemodialysis 350 500 Other: Voiding Method Indwelling Catheter Indwelling Catheter Indwelling Catheter ABP, PAP, CO, CI - Last Documented Arterial Blood Pressure 150/54 - Exam Physical Exam: Revealed a 65-year-old white male, remains sedated, on Precedex and on fentanyl. Head: Atraumatic, normocephalic. HEENT:[Neck is supple.] [No neck masses.] [No thyromegaly.] [No JVD.] PERRLA, EOMI, no icterus. Moist mucous membranes. Chest: [Crackles at the bases bilaterally..] Symmetrical chest expansion bilaterally. Cardiac Exam: [Normal S1 and S2, no S3 gallop. No murmur. Abdomen: [Soft, nontender, no megaly, no rebound, no guarding, normal bowel sounds.] Extremities: No clubbing edema or cyanosis, trace of bipedal edema noted. Neurological Exam: Could not be examined, patient is sedated, calm and comfortable synchronous with mechanical ventilator. Psychiatric: Could not be assessed. - Labs CBC & Chem 7: 06/09/20 04:30 06/09/20 13:56 Labs: Abnormal Lab Results - Last 24 Hours (Table) 06/04/20 06/05/20 06/07/20 Range/Units 05:05 05:31 01:59 EST WBC (3.8-10.6) k/uL RBC (4.30-5.90) m/uL Hgb (13.0-17.5) gm/dL Hct (39.0-53.0) % MCV (80.0-100.0) fL Neutrophils # (Manual) (1.3-7.7) k/uL Metamyelocytes # (Man) (0) k/uL Nucleated RBCs (0-0) /100 WBC ABG pH (7.35-7.45) ABG pCO2 73 H* (35-45) mmHg ABG pO2 54 L* (83-108) mmHg ABG HCO3 (21-25) mmol/L ABG Total CO2 (19-24) mmol/L Potassium (3.5-5.1) mmol/L Chloride (98-107) mmol/L Carbon Dioxide (22-30) mmol/L BUN (9-20) mg/dL Creatinine (0.66-1.25) mg/dL Glucose (74-99) mg/dL POC Glucose (mg/dL) 149 H (75-99) mg/dL Calcium (8.4-10.2) mg/dL Ferritin (22.0-322.0) ng/mL AST (17-59) U/L ALT (4-49) U/L Lactate Dehydrogenase (313-618) U/L Total Protein (6.3-8.2) g/dL Albumin (3.5-5.0) g/dL 06/08/20 06/08/20 06/08/20 Range/Units 16:02 17:10 18:33 WBC (3.8-10.6) k/uL RBC (4.30-5.90) m/uL Hgb (13.0-17.5) gm/dL Hct (39.0-53.0) % MCV (80.0-100.0) fL Neutrophils # (Manual) (1.3-7.7) k/uL Metamyelocytes # (Man) (0) k/uL Nucleated RBCs (0-0) /100 WBC ABG pH (7.35-7.45) ABG pCO2 (35-45) mmHg ABG pO2 (83-108) mmHg ABG HCO3 (21-25) mmol/L ABG Total CO2 (19-24) mmol/L Potassium 5.5 H (3.5-5.1) mmol/L Chloride 110 H (98-107) mmol/L Carbon Dioxide 34 H (22-30) mmol/L BUN 114 H* (9-20) mg/dL Creatinine 2.00 H (0.66-1.25) mg/dL Glucose 144 H (74-99) mg/dL POC Glucose (mg/dL) 150 H 148 H (75-99) mg/dL Calcium (8.4-10.2) mg/dL Ferritin (22.0-322.0) ng/mL AST (17-59) U/L ALT (4-49) U/L Lactate Dehydrogenase (313-618) U/L Total Protein (6.3-8.2) g/dL Albumin (3.5-5.0) g/dL 06/08/20 06/08/20 06/08/20 Range/Units 20:16 22:21 23:54 WBC (3.8-10.6) k/uL RBC (4.30-5.90) m/uL Hgb (13.0-17.5) gm/dL Hct (39.0-53.0) % MCV (80.0-100.0) fL Neutrophils # (Manual) (1.3-7.7) k/uL Metamyelocytes # (Man) (0) k/uL Nucleated RBCs (0-0) /100 WBC ABG pH (7.35-7.45) ABG pCO2 (35-45) mmHg ABG pO2 (83-108) mmHg ABG HCO3 (21-25) mmol/L ABG Total CO2 (19-24) mmol/L Potassium (3.5-5.1) mmol/L Chloride (98-107) mmol/L Carbon Dioxide (22-30) mmol/L BUN (9-20) mg/dL Creatinine (0.66-1.25) mg/dL Glucose (74-99) mg/dL POC Glucose (mg/dL) 165 H 219 H 215 H (75-99) mg/dL Calcium (8.4-10.2) mg/dL Ferritin (22.0-322.0) ng/mL AST (17-59) U/L ALT (4-49) U/L Lactate Dehydrogenase (313-618) U/L Total Protein (6.3-8.2) g/dL Albumin (3.5-5.0) g/dL 06/08/20 06/09/20 06/09/20 Range/Units 23:57 02:13 04:30 WBC 14.1 H (3.8-10.6) k/uL RBC 2.45 L (4.30-5.90) m/uL Hgb 8.2 L (13.0-17.5) gm/dL Hct 26.0 L (39.0-53.0) % MCV 105.9 H (80.0-100.0) fL Neutrophils # (Manual) 12.40 H (1.3-7.7) k/uL Metamyelocytes # (Man) 0.14 H (0) k/uL Nucleated RBCs 6 H (0-0) /100 WBC ABG pH (7.35-7.45) ABG pCO2 (35-45) mmHg ABG pO2 (83-108) mmHg ABG HCO3 (21-25) mmol/L ABG Total CO2 (19-24) mmol/L Potassium 5.7 H (3.5-5.1) mmol/L Chloride 108 H (98-107) mmol/L Carbon Dioxide 36 H (22-30) mmol/L BUN 120 H* (9-20) mg/dL Creatinine 2.31 H (0.66-1.25) mg/dL Glucose 201 H (74-99) mg/dL POC Glucose (mg/dL) 186 H (75-99) mg/dL Calcium (8.4-10.2) mg/dL Ferritin (22.0-322.0) ng/mL AST (17-59) U/L ALT (4-49) U/L Lactate Dehydrogenase (313-618) U/L Total Protein (6.3-8.2) g/dL Albumin (3.5-5.0) g/dL 06/09/20 06/09/20 06/09/20 Range/Units 04:30 04:36 06:31 WBC (3.8-10.6) k/uL RBC (4.30-5.90) m/uL Hgb (13.0-17.5) gm/dL Hct (39.0-53.0) % MCV (80.0-100.0) fL Neutrophils # (Manual) (1.3-7.7) k/uL Metamyelocytes # (Man) (0) k/uL Nucleated RBCs (0-0) /100 WBC ABG pH (7.35-7.45) ABG pCO2 (35-45) mmHg ABG pO2 (83-108) mmHg ABG HCO3 (21-25) mmol/L ABG Total CO2 (19-24) mmol/L Potassium 5.6 H (3.5-5.1) mmol/L Chloride 108 H (98-107) mmol/L Carbon Dioxide 33 H (22-30) mmol/L BUN 120 H* (9-20) mg/dL Creatinine 2.32 H (0.66-1.25) mg/dL Glucose 170 H (74-99) mg/dL POC Glucose (mg/dL) 177 H 183 H (75-99) mg/dL Calcium (8.4-10.2) mg/dL Ferritin 1406.0 H (22.0-322.0) ng/mL AST 98 H (17-59) U/L ALT 143 H (4-49) U/L Lactate Dehydrogenase 1233 H (313-618) U/L Total Protein 5.1 L (6.3-8.2) g/dL Albumin 2.9 L (3.5-5.0) g/dL 06/09/20 06/09/20 06/09/20 Range/Units 07:53 08:18 11:32 WBC (3.8-10.6) k/uL RBC (4.30-5.90) m/uL Hgb (13.0-17.5) gm/dL Hct (39.0-53.0) % MCV (80.0-100.0) fL Neutrophils # (Manual) (1.3-7.7) k/uL Metamyelocytes # (Man) (0) k/uL Nucleated RBCs (0-0) /100 WBC ABG pH 7.28 L (7.35-7.45) ABG pCO2 70 H (35-45) mmHg ABG pO2 (83-108) mmHg ABG HCO3 33 H (21-25) mmol/L ABG Total CO2 35 H (19-24) mmol/L Potassium (3.5-5.1) mmol/L Chloride (98-107) mmol/L Carbon Dioxide (22-30) mmol/L BUN (9-20) mg/dL Creatinine (0.66-1.25) mg/dL Glucose (74-99) mg/dL POC Glucose (mg/dL) 164 H 141 H (75-99) mg/dL Calcium (8.4-10.2) mg/dL Ferritin (22.0-322.0) ng/mL AST (17-59) U/L ALT (4-49) U/L Lactate Dehydrogenase (313-618) U/L Total Protein (6.3-8.2) g/dL Albumin (3.5-5.0) g/dL 06/09/20 06/09/20 Range/Units 13:56 13:56 WBC (3.8-10.6) k/uL RBC (4.30-5.90) m/uL Hgb (13.0-17.5) gm/dL Hct (39.0-53.0) % MCV (80.0-100.0) fL Neutrophils # (Manual) (1.3-7.7) k/uL Metamyelocytes # (Man) (0) k/uL Nucleated RBCs (0-0) /100 WBC ABG pH (7.35-7.45) ABG pCO2 (35-45) mmHg ABG pO2 (83-108) mmHg ABG HCO3 (21-25) mmol/L ABG Total CO2 (19-24) mmol/L Potassium (3.5-5.1) mmol/L Chloride (98-107) mmol/L Carbon Dioxide 32 H (22-30) mmol/L BUN 88 H (9-20) mg/dL Creatinine 1.63 H (0.66-1.25) mg/dL Glucose 148 H (74-99) mg/dL POC Glucose (mg/dL) 159 H (75-99) mg/dL Calcium 8.3 L (8.4-10.2) mg/dL Ferritin (22.0-322.0) ng/mL AST (17-59) U/L ALT (4-49) U/L Lactate Dehydrogenase (313-618) U/L Total Protein (6.3-8.2) g/dL Albumin (3.5-5.0) g/dL Microbiology - Last 24 Hours (Table) 06/04/20 09:05 Blood Culture - Preliminary Blood No Growth after 120 hours 06/04/20 16:08 Blood Culture - Preliminary Blood No Growth after 96 hours 06/03/20 12:58 Blood Culture - Preliminary Blood No Growth after 120 hours 06/03/20 12:50 Blood Culture - Preliminary Blood No Growth after 120 hours Assessment and Plan Assessment: Impression: Acute hypoxic failure secondary to Covid 19 pneumonitis and secondary ARDS. Acute pneumonitis secondary to Covid 19, patient required intubation on 05/28, and so far he received remdesivir,tocilizumab, convalescent plasma, IV Decadron, zinc, and so far the patient is not making or showing any sort of improvement. Except for the fact today I was able to cut down the PEEP from 20-16. And he remained maintaining O2 saturation above 90%. Chronic right hemidiaphragm paralysis previous plication. History of chronic bronchial asthma. History of bronchiectasis History of coronary artery disease. History of obstructive sleep apnea syndrome. History of abdominal aortic aneurysm and previous endovascular stent grafting in 2011. History of restless leg syndrome. Dyslipidemia. Acute kidney injury with azotemia, and hyperkalemia, still undergoing dialysis today. Coagulase-negative bacteremia, resolved. Hypernatremia and hyperkalemia, resolved. Recommendation: Continue ventilatory support. Cut down PEEP to 16 and continue FiO2 at 50%. Continue FiO2 at 50%. Continue nutritional support. Patient is on enteral feeding/Nepro Continue GI and DVT prophylaxis. Continue free water via nasogastric tube. Continue to monitor sodium.. Continue fentanyl and Precedex. Patient is nowhere near to be weaned or extubated at this point, Prognosis is extremely poor, We'll continue to follow. Critical care time is 34 minutes Time with Patient: Greater than 30
[2020-06-09 17:35] LABS: Glucose,Whole Blood 136 mg/dL (75-99)
[2020-06-09 18:33] LABS: Glucose,Whole Blood 150 mg/dL (75-99)
[2020-06-09] MEDS: NOREPINEPHRINE 8 MG in SODIUM CHLORIDE 0.9% 250 ML IV SCH (18:34)
[2020-06-09 19:57] LABS: Glucose,Whole Blood 147 mg/dL (75-99)
[2020-06-09] MEDS: MELATONIN 5 MG TABLET PO SCH (20:20)
[2020-06-09] MEDS: CLEVIDIPINE BUTYRATE 25 MG in EMPTY BAG 1 BAG IV SCH (20:20)
[2020-06-09] MEDS: CISATRACURIUM 200 MG in SODIUM CHLORIDE 0.9% 180 ML IV SCH (22:13)
[2020-06-09 22:14] LABS: Glucose,Whole Blood 126 mg/dL (75-99)
[2020-06-09] MEDS ORDERED: CISATRACURIUM 2 MG/ML 5 ML VIAL IV ONE (22:22)
--- NOTE | 2020-06-09 23:07 | P.PN ---
Progress Note - Text Progress Note Date: 06/09/20 chief Complaint: Shortness of breath History of presenting complaint: This is a 65-year-old patient of Dr. Demond Harper. Chronic stable medical conditions include coronary artery disease, diabetes, GERD, hypertension, obstructive sleep apnea, chronic back pain, restless leg syndrome, history of diaphragmatic analysis. Patient presented to the ER with shortness of breath. Symptoms started about 24 hours ago. Also chills. He had no obvious cold exposure travel or contact with sick people. He's had a cough. She was febrile in the ER and hypoxic. No nausea vomiting or diarrhea. Has a history of diaphragmatic plication. He also has known bronchiectasis of the right middle and lower lobe. Patient was initially put on a nonrebreather mask start antibiotics steroids and over the ICU. Placed on Airvo Patient admitted with COVID 19 pneumonia, acute hypoxic respiratory failure- intubated. On IV Nimbex and propofol. Prone position. ARDS. He received Remdesivir, Decadron and convalescent immunoglobulin. Today-ICU. On the ventilator with FiO2 70% and a PEEP of 20. Drips include Nimbex and propofol. 2 feeding at 30 mL an hour. Sinus rhythm Review of systems-patient intubated Active Medications Acetaminophen (Acetaminophen Tab 325 Mg Tab) 650 mg PO Q4HR PRN PRN Reason: Fever and/or Mild Pain Last Admin: 06/08/20 08:22 Dose: 650 mg Documented by: Ascorbic Acid (Ascorbic Acid 500 Mg Tab) 1,000 mg PO DAILY [facility] Last Admin: 06/09/20 08:59 Dose: 1,000 mg Documented by: Chlorhexidine Gluconate (Chlorhexidine Gluconate 15 Ml Cup) 15 ml MUCOUS MEM BID [facility] Last Admin: 06/09/20 20:37 Dose: 15 ml Documented by: Cholecalciferol (Cholecalciferol 400 Unit Tab) 400 unit PO DAILY [facility] Last Admin: 06/09/20 09:00 Dose: 400 unit Documented by: Darbepoetin Ketan (Darbepoetin Ketan 25 Mcg/0.42 Ml Syringe) 25 mcg SQ Q7D [facility] Last Admin: 06/06/20 10:37 Dose: 25 mcg Documented by: Enoxaparin Sodium (Enoxaparin 60 Mg/0.6 Ml Syringe) 50 mg SQ Q12HR [facility] Last Admin: 06/09/20 20:37 Dose: 50 mg Documented by: Famotidine (Famotidine 20 Mg Tab) 20 mg PO DAILY [facility] Last Admin: 06/09/20 09:00 Dose: 20 mg Documented by: Fluconazole (Fluconazole 100 Mg Tab) 100 mg PO DAILY [facility] Last Admin: 06/09/20 09:00 Dose: 100 mg Documented by: Hydromorphone HCl (Hydromorphone 1 Mg/Ml 1 Ml Syringe) 1 mg IVP Q3H PRN PRN Reason: Pain Last Admin: 06/09/20 21:21 Dose: 1 mg Documented by: Insulin Human Regular 100 unit (/ Sodium Chloride) 101 mls @ 0 mls/hr IV .Q0M [facility]; Protocol Last Titration: 06/09/20 22:12 Dose: 0 units/hr, 0 mls/hr Documented by: Meropenem 2 gm/ Sodium (Chloride) 100 mls @ 33.3 mls/hr IVPB Q12HR [facility]; Protocol Last Admin: 06/09/20 20:21 Dose: 33.3 mls/hr Documented by: Norepinephrine Bitartrate 8 mg (/ Sodium Chloride) 258 mls @ 10.807 mls/hr IV .[id number] [facility]; Protocol Last Admin: 06/09/20 18:34 Dose: Not Given Documented by: Fentanyl Citrate 1,000 mcg/ (Sodium Chloride) 100 mls @ 0 mls/hr IV .Q0M [facility]; Protocol Last Titration: 06/09/20 20:44 Dose: 75 mcg/hr, 7.5 mls/hr Documented by: Clevidipine 25 mg/ IV Solution 50 mls @ 2 mls/hr IV .Q24H [facility]; Protocol Last Titration: 06/09/20 21:40 Dose: 8 mg/hr, 16 mls/hr Documented by: Cisatracurium Besylate 200 mg/ (Sodium Chloride) 200 mls @ 6.936 mls/hr IV .Q24H [facility]; Protocol Last Admin: 06/09/20 22:13 Dose: 1 mcg/kg/min, 6.936 mls/hr Documented by: Lactulose (Lactulose 20 Gm/30 Ml Cup) 20 gm PO BID [facility] Last Admin: 06/09/20 20:37 Dose: 20 gm Documented by: Melatonin (Melatonin 5 Mg Tablet) 5 mg PO HS [facility] Last Admin: 06/09/20 20:20 Dose: 5 mg Documented by: Methylprednisolone Sodium Succinate (Methylprednisolone Sod Succi 40 Mg/Ml 1 Ml Vial) 40 mg IV Q8HR [facility] Last Admin: 06/09/20 17:26 Dose: 40 mg Documented by: Naloxone HCl (Naloxone 0.4 Mg/Ml 1 Ml Vial) 0.2 mg IV Q2M PRN PRN Reason: Opioid Reversal Zinc Sulfate (Zinc Sulfate 220 Mg Cap) 220 mg PO DAILY [facility] Last Admin: 06/09/20 09:00 Dose: 220 mg Documented by: Physical examination: VITAL SIGNS: 98.8, 60, 20, 126/48, 100% on the ventilator GENERAL: Laying in bed, intubated, OG tube, FMS-liquid stools Additional physical examination as per pulmonary and nursing-noted INVESTIGATIONS, reviewed in the clinical context: White count 14.1 hemoglobin 8.2 platelets 197 potassium 5.6 bun 120 creatinine 2.3 to CRP 6 Sputum culture from June 03-Litzy albicans. Nasal swab from 1029--negative for MSSA Blood and urine culture from June 04 both negative Chest x-ray June 04-worsening infiltrate Admission testing: White count 6.5 hemoglobin 14.8 platelets 2:30 Potassium 4.7 bun 30 creatinine 1.76 lactic acid 2.4 ferritin 2053 AST 73 ALT 59 LDH 1056 CRP 333 Influenza type A and type B both negative COVID 19 PCR present EKG tracing personally reviewed by me-normal sinus rhythm Chest x-ray film personally reviewed by me-extensive bilateral infiltrates Assessment: -Bilateral pneumonia, COVID 19 pneumonia, cannot rule out bacterial infection especially gram-negative slow to respond -Moderate to severe ARDS-slow to respond -Acute hypoxic respiratory failure severe from above-requiring ventilator worsening -Severe sepsis from pneumonia -Moderate persistent asthma with acute exacerbation-slow to respond -Coronary artery disease -Diabetes mellitus type 2, uncontrolled from hyperglycemia requiring insulin drip -GERD -Essential hypertension -Obstructive sleep apnea -History of right diaphragm paralysis with plication -Restless leg syndrome -Hypernatremia-from free water-worsening -Severe hyperkalemia from acute kidney injury -acute kidney injury from ATN from sepsis -Patient can history of fevers. Only thing positive is Litzy albicans. Which could be colonization. Given that nasal swab was negative for MRSA would not entertain treatment for the same. Diflucan added Plan: Patient currently on Precedex, clevidipine, IV fentanyl, insulin drip, IV meropenem, prognosis guarded.
--- NOTE | 2020-06-09 23:33 | XR ---
EXAMINATION TYPE: XR chest 1V DATE OF EXAM: 06/09/2020 COMPARISON: 06/09/2020 HISTORY: Hypoxemia TECHNIQUE: FINDINGS: Endotracheal tube is 5 cm from the chencho. There is nasogastric tube in the stomach. There is left jugular catheter with tip in the superior vena cava. There are bilateral pulmonary airspace consolidation and atelectasis. There is pulmonary vascular con gestion. Heart appears enlarged. IMPRESSION: Compared to exam this morning there is increasing infiltrate right lower lobe. There is p robably congestive heart failure. Pulmonary congestion unchanged.
[2020-06-10] MEDS: methylPREDNISolone SOD SUCCI 40 MG/ML 1 ML VIAL IV SCH ×3 (00:01→15:43)
[2020-06-10] MEDS: CLEVIDIPINE BUTYRATE 25 MG in EMPTY BAG 1 BAG IV SCH ×9 (00:01→20:00)
[2020-06-10 00:08] LABS: Glucose,Whole Blood 146 mg/dL (75-99)
[2020-06-10] MEDS: fentaNYL (PF) 1,000 MCG in SODIUM CHLORIDE 0.9% 80 ML IV SCH ×3 (01:28→18:44)
[2020-06-10 01:57] LABS: Glucose,Whole Blood 164 mg/dL (75-99)
[2020-06-10] MEDS: HYDROmorphone 1 MG/ML 1 ML SYRINGE IVP PRN (03:49)
[2020-06-10 04:22] LABS: Glucose,Whole Blood 169 mg/dL (75-99)
[2020-06-10 04:33] LABS: HGB 9.4 gm/dL (13.0-17.5); Hypochromasia Slight; MCH 33.8 pg (25.0-35.0); MCHC 32.5 g/dL (31.0-37.0); Macrocytosis Slight; Mean Platelet Volume 11.1; Platelet Count 232 k/uL (150-450); RBC 2.78 m/uL (4.30-5.90); RDW 15.2 % (11.5-15.5)
[2020-06-10 04:45] LABS: ALT 170 U/L (4-49); AST 120 U/L (17-59); African American GFR (CKD) 43 (>60 ml/min/1.73 sqM); Albumin 2.9 g/dL (3.5-5.0); Alkaline Phosphatase 51 U/L (38-126); Anion Gap 3 mmol/L; C Reactive Protein <5.0 mg/L (<10.0); Calcium 8.5 mg/dL (8.4-10.2); Carbon Dioxide 31 mmol/L (22-30); Chloride 104 mmol/L (98-107); Glucose 165 mg/dL (74-99); LDH 1477 U/L (313-618); Non-African American GFR(CKD) 37 (>60 ml/min/1.73 sqM); Potassium 4.9 mmol/L (3.5-5.1); Sodium 138 mmol/L (137-145); Total Bilirubin 0.8 mg/dL (0.2-1.3); Total Protein 5.2 g/dL (6.3-8.2)
[2020-06-10 04:51] LABS: Blood Urea Nitrogen 103 mg/dL (9-20)
[2020-06-10] MEDS: INSULIN REGULAR 100 UNIT in SODIUM CHLORIDE 0.9% 100 ML IV SCH ×3 (05:08→18:00)
[2020-06-10] MEDS: CISATRACURIUM 200 MG in SODIUM CHLORIDE 0.9% 180 ML IV SCH ×2 (05:08→12:00)
[2020-06-10 05:25] LABS: Band Neutrophils % 7 %; Lymphocytes # (M) 1.12 k/uL (1.0-4.8); Monocytes # (M) 0.56 k/uL (0-1.0); Myelocytes # (M) 0.19 k/uL (0); Myelocytes % 1 %; Neutrophils % (M) 84 %; Nucleated Red Blood Cells 6 /100 WBC (0-0); Polychromasia Present; Total Cells Counted 200; WBC 18.6 k/uL (3.8-10.6)
[2020-06-10 06:08] LABS: Glucose,Whole Blood 165 mg/dL (75-99)
[2020-06-10 07:21] LABS: ABG Base Excess 3.1 mmol/L; ABG HCO3 31 mmol/L (21-25); ABG Oxygen Saturation 97.2 % (94-97); ABG PH 7.23 (7.35-7.45); ABG PO2 99 mmHg (83-108); ABG TCO2 33 mmol/L (19-24)
[2020-06-10 07:26] LABS: ABG PCO2 74 mmHg (35-45); Allen Test Performed? NO
[2020-06-10] MEDS: ASCORBIC ACID 500 MG TAB PO SCH (08:24)
[2020-06-10] MEDS: CHLORHEXIDINE GLUCONATE 15 ML CUP MUCOUS MEM SCH ×2 (08:24→21:19)
[2020-06-10] MEDS: LACTULOSE 20 GM/30 ML CUP PO SCH ×2 (08:24→21:19)
[2020-06-10] MEDS: ENOXAPARIN 60 MG/0.6 ML SYRINGE SQ SCH ×2 (08:24→21:18)
[2020-06-10] MEDS: FAMOTIDINE 20 MG TAB PO SCH (08:25)
[2020-06-10] MEDS: CHOLECALCIFEROL 400 UNIT TAB PO SCH (08:25)
[2020-06-10] MEDS: FLUCONAZOLE 100 MG TAB PO SCH (08:25)
[2020-06-10] MEDS: ZINC SULFATE 220 MG CAP PO SCH (08:25)
[2020-06-10] MEDS: MEROPENEM 2 GM in SODIUM CHLORIDE 0.9% 100 ML IVPB SCH ×2 (08:27→21:27)
[2020-06-10 08:44] LABS: Glucose,Whole Blood 185 mg/dL (75-99)
[2020-06-10] MEDS ORDERED: FUROSEMIDE 10 MG/ML 4 ML VIAL IV STA (10:35)
[2020-06-10 10:44] LABS: Glucose,Whole Blood 196 mg/dL (75-99)
--- NOTE | 2020-06-10 11:01 | XR ---
EXAMINATION TYPE: XR chest 1V DATE OF EXAM: 06/10/2020 COMPARISON: Prior chest x-ray 06/09/2020 HISTORY: Intubated TECHNIQUE: Single frontal view of the chest is obtained. FINDINGS: Endotracheal tube, NG tube, left jugular central venous catheter are stable, distal tip of the NG tube is not included on exam. There is interval improved visualization of the right hemidiaph ragm. Left hemidiaphragm is obscured, bibasilar density is present, suspect bilateral airspace diseas e. Heart size is likely unchanged. No evident pneumothorax. IMPRESSION: Correlate for congestive heart failure, pneumonia, difficult to exclude small effusion, ARDS
[2020-06-10] MEDS: amLODIPine 5 MG TAB PO SCH ×2 (11:19→21:19)
--- NOTE | 2020-06-10 11:32 | PN ---
PROGRESS NOTE Patient is seen for followup for acute kidney injury, hyperkalemia. Patient associated with ATN, COVID-19 pneumonia and underlying ARDS. Patient was dialyzed yesterday as his potassium remained elevated. He currently has good urine output at about 40-60 mL an hour. Patient's blood pressure was elevated. He has been started on Cleviprex drip which is at 10 mg an hour now. Patient remains on FiO2 at 70% with PEEP of 18. He is maintained on Nimbex and the case is discussed with nursing staff. Vital signs are reviewed. Blood pressure 127/51, heart rate 93 per minute, he is afebrile. Patient has some lower extremity edema. He is tolerating his tube feeds. He is paralyzed and maintained on fentanyl for sedation. LABS: Show sodium of 138, potassium 4.9, chloride 104, CO2 is 31, BUN 103, serum creatinine 1.83, hemoglobin 9.4 g/dL. ASSESSMENT: 1. Acute kidney injury ATN associated with underlying COVID infection and sepsis with fair urine output. Patient is mildly volume overloaded. I will give him 1 dose of Lasix. We will hold off on dialysis as his potassium is improved. 2. Hyperkalemia refractory associated with underlying acute renal failure, improved after one treatment of hemodialysis. 3. Acute hypoxic respiratory failure associated with underlying COVID-19 pneumonia and ARDS. FiO2 is at 70%. 4. Disproportionately elevated BUN associated with underlying hyper catabolic state and steroids. 5. Hypertension, currently on Cleviprex drip. Patient is tolerating oral intake. I will add oral antihypertensive medications. 6. Hypotension, septic shock, currently resolved. Levophed is discontinued. Blood pressure is actually high. 7. Hypernatremia associated with free water deficit, currently improved. PLAN: IV Lasix x1, add Norvasc and Coreg for blood pressure controlled. Try to wean down the Cleviprex drip and repeat labs in a.m. Lasix will also help with the hyperkalemia. We will continue to monitor on a daily basis for need for dialysis. MMODL / IJN: [id number] /
--- NOTE | 2020-06-10 12:21 | P.PN ---
Subjective Progress Note Date: 06/10/20 Principal diagnosis: Acute hypoxic respiratory failure secondary to covid 19 pneumonitis with ARDS 06/07/2020, patient remains on a mechanical ventilator. And the patient is on P recedex running at 0.6 g. At times, the patient becomes asynchronous with a mechanical ventilator. He has required Dilaudid and furthermore on recommending a fentanyl drip at a low rate to improve his restlessness and agitation and synchrony with the mechanical ventilator. The patient this morning is an assist-control mode at the rate of 30 with a tidal volume of 450 and FiO2 of 50% with a PEEP of 18. Blood gases showed some hypoxemia with a pH of 7.35 and a pCO2 50 and pO2 of 55. Based on that, I increased the FiO2 of 60%. Drop the tidal volume to 400 and increased the PEEP up to 20. Current peak airway pressures around 35. Static pressures around 32. The patient has a stable ches t x-ray. Decadron will be discontinued and the patient will placed on IV Solu- Medrol 40 mg every 8 hours. There is no hemodynamic instability. The patient is off pressors. The patient is on Diflucan for some oral candidiasis and the patient is also receiving IV Merrem as spectrum antibiotic coverage. He continues to have low-grade fever and T-max 100.9 from midnight. Tolerating tube feed which is in the form of vital high protein at the rate of 40 mL an hour which is at goal. The patient is still running on insulin 12 units an hour. The renal function is stable. Creatinine is down to 2.1. The BUN remains elevated. Patient was reevaluated today on 06/08/20, remains intubated and mechanically ventilated. Patient is doing very poorly. His ventilator settings are assist control rate of 30 tidal volume is 400 FiO2 is 60% PEEP is 20. ABG showed a pO2 of 106 pCO2 of 73 pH of 7.27, hence I cut down his FiO2 to 50%, and The remaining vent settings the same. Patient is on Precedex drip, on fentanyl drip, and on 19 normal saline at KVO. He is also on tube feeding, he is receiving free water for hypernatremia, and he received a treatment for hyperkalemia as per nephrology, and the patient is being considered seriously for hemodialysis. His peak airway pressure on the ventilator is 36, plateau pressure is 31. Vascular surgery is being consulted for possible dialysis catheter placement. Potassium this morning was 6.6 and sodium was 150. Chest x-ray continues to show multifocal airspace disease/multifocal pneumonia Patient was evaluated today on 06/09/20, remains on mechanical ventilation, no major change has been noted in the last few days. Patient remains on venti latory support with assist control rate of 30 volume of 400 FiO2 50% PEEP remains at 20 however after reviewing his ABG today, I cut down the PEEP to 16. ABG today showed a pO2 of 85 pCO2 of 70 pH of 7.28. Patient remains on D5W at 100 mL/h, he is on Precedex at 0.6 and fentanyl at 0.4 mcg/kg/h. Peak airway pressure is 34 plateau pressure is 29. Patient is on enteral feeding using Nepro and he is receiving free water for his hypernatremia. Sodium today is 138. Electrolytes are normal BUN is 88 creatinine is 1.63. Patient is being dialyzed today again. Yesterday, patient required a brief period of norepinephrine but presently off norepinephrine. CBC showed WBC count of 14.1 hemoglobin is 8.2. Chest x-ray continues to show evidence of pneumonia/ARDS. Patient was reevaluated today on 06/10/20, remains in the ICU intubated and mechanically ventilated. Patient had to be switched to Nimbex yesterday as he was getting more agitated and he was desaturating yesterday down to the 80s and I had to increase his FiO2 to 100% and titrated down again today I increased his PEEP up to 18 from 16. Patient is now on fentanyl at 0.993 mcg/kg/h. He is also on Nimbex , clevidipine at 10 mg per hour he is also on insulin at 12 units per hour. Remains on meropenem and he remains on Nepro enteral feeding. ABG today showed a pO2 of 99 pCO2 of 74 pH of 7.23. His ventilator settings today are assist control rate of 30 tidal volume is 400 FiO2 80% and PEEP of 16. Chest x-ray continues to show multilobar infiltrates, ARDS picture. WBC count is 18.6, hemoglobin is 9.4,d-dimer is 2.93. He elects lites are normal BUN is 103 creatinine is 1.83. LDH is 1477 C-reactive protein is less than 5 transaminases remains elevated with AST of 120 and ALT of 170. Objective - Vital Signs Vital signs: Vital Signs Temp 97.0 F L 06/10/20 12:00 Pulse 93 06/10/20 12:00 Resp 30 H 06/10/20 12:00 BP 127/48 06/09/20 12:00 Pulse Ox 92 L 06/10/20 12:00 Intake & Output 06/09/20 06/10/20 06/10/20 18:59 06:59 18:59 Intake Total 3259.158 2730.962 530.648 Output Total 1225 710 410 Balance 2034.158 2020.962 120.648 Weight 120.2 kg Intake: IV 1611 496 130 Dextrose 5% in Water 1, 1200 000 ml @ 100 mls/hr IV . Q10H [facility] Rx#:[id number] Meropenem 2 gm In Sodium 100 100 Chloride 0.9% 100 ml @ 33 .3 mls/hr IVPB Q12HR [facility] Rx#:[id number] Normal Saline @ KVO 240 330 100 Normal Saline Pressure 71 66 30 Bags Intake, IV Titration 344.158 627.962 178.648 Amount Cisatracurium 200 mg In 106.236 Sodium Chloride 0.9% 180 ml @ 1 MCG/KG/MIN 6.936 mls/hr IV .Q24H [facility] Rx#: [id number] Clevidipine Butyrate 25 142.467 80 mg In Empty Bag 1 bag @ 1 MG/HR 2 mls/hr IV .Q24H [facility] Rx#:[id number] Dexmedetomidine/0.9% NaCl 156.048 100 (Pmx) 400 mcg In Empty Bag 1 bag @ Titrate IV . Q0M [facility] Rx#:[id number] Insulin Regular 100 unit 90.277 159.967 45.248 In Sodium Chloride 0.9% 100 ml @ Per Protocol IV .Q0M [facility] Rx#:[id number] fentaNYL (PF) 1,000 mcg 97.833 119.292 53.4 In Sodium Chloride 0.9% 80 ml @ Per Protocol IV . Q0M [facility] Rx#:[id number] Tube Feeding 444 407 222 Other 860 1200 Output: Urine 725 710 410 Hemodialysis 500 Other: Voiding Method Indwelling Catheter Indwelling Catheter Indwelling Catheter ABP, PAP, CO, CI - Last Documented Arterial Blood Pressure 130/52 - Exam Physical Exam: Revealed a 65-year-old white male, remains sedated, on Nimbex and fentanyl.off Precedex. Head: Atraumatic, normocephalic. HEENT:[Neck is supple.] [No neck masses.] [No thyromegaly.] [No JVD.] PERRLA, EOMI, no icterus. Moist mucous membranes. Chest: [Crackles at the bases bilaterally..] Symmetrical chest expansion bilaterally. Cardiac Exam: [Normal S1 and S2, no S3 gallop. No murmur. Abdomen: [Soft, nontender, no megaly, no rebound, no guarding, normal bowel sounds.] Extremities: No clubbing edema or cyanosis, trace of bipedal edema noted. Neurological Exam: Could not be examined, patient is sedated, calm and com fortable synchronous with mechanical ventilator. Psychiatric: Could not be assessed. lymphatics: No cervical or supraclavicular lymphadenopathy. Skin: No areas of cellulitis or rashes. - Labs CBC & Chem 7: 06/10/20 04:25 06/10/20 04:25 Labs: Abnormal Lab Results - Last 24 Hours (Table) 06/09/20 06/09/20 06/09/20 Range/Units 13:56 13:56 17:34 WBC (3.8-10.6) k/uL RBC (4.30-5.90) m/uL Hgb (13.0-17.5) gm/dL Hct (39.0-53.0) % MCV (80.0-100.0) fL Neutrophils # (Manual) (1.3-7.7) k/uL Myelocytes # (Manual) (0) k/uL Nucleated RBCs (0-0) /100 WBC D-Dimer (<0.60) mg/L FEU ABG pH (7.35-7.45) ABG pCO2 (35-45) mmHg ABG HCO3 (21-25) mmol/L ABG Total CO2 (19-24) mmol/L ABG O2 Saturation (94-97) % Carbon Dioxide 32 H (22-30) mmol/L BUN 88 H (9-20) mg/dL Creatinine 1.63 H (0.66-1.25) mg/dL Glucose 148 H (74-99) mg/dL POC Glucose (mg/dL) 159 H 136 H (75-99) mg/dL Calcium 8.3 L (8.4-10.2) mg/dL Ferritin (22.0-322.0) ng/mL AST (17-59) U/L ALT (4-49) U/L Lactate Dehydrogenase (313-618) U/L CK-MB (CK-2) (0.0-2.4) ng/mL Total Protein (6.3-8.2) g/dL Albumin (3.5-5.0) g/dL 06/09/20 06/09/20 06/09/20 Range/Units 18:32 19:55 22:12 WBC (3.8-10.6) k/uL RBC (4.30-5.90) m/uL Hgb (13.0-17.5) gm/dL Hct (39.0-53.0) % MCV (80.0-100.0) fL Neutrophils # (Manual) (1.3-7.7) k/uL Myelocytes # (Manual) (0) k/uL Nucleated RBCs (0-0) /100 WBC D-Dimer (<0.60) mg/L FEU ABG pH (7.35-7.45) ABG pCO2 (35-45) mmHg ABG HCO3 (21-25) mmol/L ABG Total CO2 (19-24) mmol/L ABG O2 Saturation (94-97) % Carbon Dioxide (22-30) mmol/L BUN (9-20) mg/dL Creatinine (0.66-1.25) mg/dL Glucose (74-99) mg/dL POC Glucose (mg/dL) 150 H 147 H 126 H (75-99) mg/dL Calcium (8.4-10.2) mg/dL Ferritin (22.0-322.0) ng/mL AST (17-59) U/L ALT (4-49) U/L Lactate Dehydrogenase (313-618) U/L CK-MB (CK-2) (0.0-2.4) ng/mL Total Protein (6.3-8.2) g/dL Albumin (3.5-5.0) g/dL 06/10/20 06/10/20 06/10/20 Range/Units 00:07 01:56 04:19 WBC (3.8-10.6) k/uL RBC (4.30-5.90) m/uL Hgb (13.0-17.5) gm/dL Hct (39.0-53.0) % MCV (80.0-100.0) fL Neutrophils # (Manual) (1.3-7.7) k/uL Myelocytes # (Manual) (0) k/uL Nucleated RBCs (0-0) /100 WBC D-Dimer (<0.60) mg/L FEU ABG pH (7.35-7.45) ABG pCO2 (35-45) mmHg ABG HCO3 (21-25) mmol/L ABG Total CO2 (19-24) mmol/L ABG O2 Saturation (94-97) % Carbon Dioxide (22-30) mmol/L BUN (9-20) mg/dL Creatinine (0.66-1.25) mg/dL Glucose (74-99) mg/dL POC Glucose (mg/dL) 146 H 164 H 169 H (75-99) mg/dL Calcium (8.4-10.2) mg/dL Ferritin (22.0-322.0) ng/mL AST (17-59) U/L ALT (4-49) U/L Lactate Dehydrogenase (313-618) U/L CK-MB (CK-2) (0.0-2.4) ng/mL Total Protein (6.3-8.2) g/dL Albumin (3.5-5.0) g/dL 06/10/20 06/10/20 06/10/20 Range/Units 04:25 04:25 04:25 WBC 18.6 H (3.8-10.6) k/uL RBC 2.78 L (4.30-5.90) m/uL Hgb 9.4 L (13.0-17.5) gm/dL Hct 29.0 L (39.0-53.0) % MCV 104.0 H (80.0-100.0) fL Neutrophils # (Manual) 16.90 H (1.3-7.7) k/uL Myelocytes # (Manual) 0.19 H (0) k/uL Nucleated RBCs 6 H (0-0) /100 WBC D-Dimer (<0.60) mg/L FEU ABG pH (7.35-7.45) ABG pCO2 (35-45) mmHg ABG HCO3 (21-25) mmol/L ABG Total CO2 (19-24) mmol/L ABG O2 Saturation (94-97) % Carbon Dioxide 31 H (22-30) mmol/L BUN 103 H* (9-20) mg/dL Creatinine 1.83 H (0.66-1.25) mg/dL Glucose 165 H (74-99) mg/dL POC Glucose (mg/dL) (75-99) mg/dL Calcium (8.4-10.2) mg/dL Ferritin 1440.0 H (22.0-322.0) ng/mL AST 120 H (17-59) U/L ALT 170 H (4-49) U/L Lactate Dehydrogenase 1477 H (313-618) U/L CK-MB (CK-2) 2.8 H (0.0-2.4) ng/mL Total Protein 5.2 L (6.3-8.2) g/dL Albumin 2.9 L (3.5-5.0) g/dL 06/10/20 06/10/20 06/10/20 Range/Units 04:25 06:07 07:15 WBC (3.8-10.6) k/uL RBC (4.30-5.90) m/uL Hgb (13.0-17.5) gm/dL Hct (39.0-53.0) % MCV (80.0-100.0) fL Neutrophils # (Manual) (1.3-7.7) k/uL Myelocytes # (Manual) (0) k/uL Nucleated RBCs (0-0) /100 WBC D-Dimer 2.93 H (<0.60) mg/L FEU ABG pH 7.23 L (7.35-7.45) ABG pCO2 74 H* (35-45) mmHg ABG HCO3 31 H (21-25) mmol/L ABG Total CO2 33 H (19-24) mmol/L ABG O2 Saturation 97.2 H (94-97) % Carbon Dioxide (22-30) mmol/L BUN (9-20) mg/dL Creatinine (0.66-1.25) mg/dL Glucose (74-99) mg/dL POC Glucose (mg/dL) 165 H (75-99) mg/dL Calcium (8.4-10.2) mg/dL Ferritin (22.0-322.0) ng/mL AST (17-59) U/L ALT (4-49) U/L Lactate Dehydrogenase (313-618) U/L CK-MB (CK-2) (0.0-2.4) ng/mL Total Protein (6.3-8.2) g/dL Albumin (3.5-5.0) g/dL 06/10/20 06/10/20 Range/Units 08:42 10:43 WBC (3.8-10.6) k/uL RBC (4.30-5.90) m/uL Hgb (13.0-17.5) gm/dL Hct (39.0-53.0) % MCV (80.0-100.0) fL Neutrophils # (Manual) (1.3-7.7) k/uL Myelocytes # (Manual) (0) k/uL Nucleated RBCs (0-0) /100 WBC D-Dimer (<0.60) mg/L FEU ABG pH (7.35-7.45) ABG pCO2 (35-45) mmHg ABG HCO3 (21-25) mmol/L ABG Total CO2 (19-24) mmol/L ABG O2 Saturation (94-97) % Carbon Dioxide (22-30) mmol/L BUN (9-20) mg/dL Creatinine (0.66-1.25) mg/dL Glucose (74-99) mg/dL POC Glucose (mg/dL) 185 H 196 H (75-99) mg/dL Calcium (8.4-10.2) mg/dL Ferritin (22.0-322.0) ng/mL AST (17-59) U/L ALT (4-49) U/L Lactate Dehydrogenase (313-618) U/L CK-MB (CK-2) (0.0-2.4) ng/mL Total Protein (6.3-8.2) g/dL Albumin (3.5-5.0) g/dL Microbiology - Last 24 Hours (Table) 06/04/20 09:05 Blood Culture - Final Blood No Growth after 144 hours 06/04/20 16:08 Blood Culture - Preliminary Blood No Growth after 120 hours 06/03/20 12:58 Blood Culture - Final Blood No Growth after 144 hours 06/03/20 12:50 Blood Culture - Final Blood No Growth after 144 hours Assessment and Plan Assessment: Impression: Acute hypoxic failure secondary to Covid 19 pneumonitis and secondary ARDS. Acute pneumonitis secondary to Covid 19, patient required intubation on 05/28, and so far he received remdesivir,tocilizumab, convalescent plasma, IV Decadron, zinc, and so far the patient is not making or showing any sort of improvement.patient had be placed back on high PEEP and high FiO2 late in the afternoon yesterday. Chronic right hemidiaphragm paralysis previous plication. History of chronic bronchial asthma. History of bronchiectasis History of coronary artery disease. History of obstructive sleep apnea syndrome. History of abdominal aortic aneurysm and previous endovascular stent grafting in 2011. History of restless leg syndrome. Dyslipidemia. Acute kidney injury with azotemia, and hyperkalemia.being addressed by nephrology. Coagulase-negative bacteremia, resolved. Hypernatremia and hyperkalemia, resolved. Recommendation: Continue ventilatory support. increase PEEP back up to 18 cut down her FiO2 to 60% if tolerated.titrate accordingly Continue nutritional support. Patient is on enteral feeding/Nepro Continue GI and DVT prophylaxis. Continue fentanyl and Nimbex. not ready for any weaning trials. Prognosis is extremely poor, continue Merrem. We'll continue to follow. Critical care time is 35 minutes Time with Patient: Greater than 30
[2020-06-10 12:24] LABS: Glucose,Whole Blood 198 mg/dL (75-99)
[2020-06-10 14:14] VITALS: BMI 35.9
[2020-06-10] MEDS ORDERED: ARTIFICIAL TEARS-HYPROMELLOSE DROPS 15 ML BTL BOTH EYES PRN (14:50)
[2020-06-10] MEDS: carvediloL 6.25 MG TAB PO SCH (15:42)
[2020-06-10] MEDS: NOREPINEPHRINE 8 MG in SODIUM CHLORIDE 0.9% 250 ML IV SCH (15:52)
[2020-06-10 15:53] LABS: Glucose,Whole Blood 188 mg/dL (75-99)
[2020-06-10 18:09] LABS: Glucose,Whole Blood 182 mg/dL (75-99)
[2020-06-10 20:07] LABS: Glucose,Whole Blood 190 mg/dL (75-99)
[2020-06-10] MEDS: MELATONIN 5 MG TABLET PO SCH (21:19)
[2020-06-10 21:47] LABS: Glucose,Whole Blood 171 mg/dL (75-99)
--- NOTE | 2020-06-10 22:24 | P.PN ---
Progress Note - Text Progress Note Date: 06/10/20 chief Complaint: Shortness of breath History of presenting complaint: This is a 65-year-old patient of Dr. Demond Harper. Chronic stable medical conditions include coronary artery disease, diabetes, GERD, hypertension, obstructive sleep apnea, chronic back pain, restless leg syndrome, history of diaphragmatic analysis. Patient presented to the ER with shortness of breath. Symptoms started about 24 hours ago. Also chills. He had no obvious cold exposure travel or contact with sick people. He's had a cough. She was febrile in the ER and hypoxic. No nausea vomiting or diarrhea. Has a history of diaphragmatic plication. He also has known bronchiectasis of the right middle and lower lobe. Patient was initially put on a nonrebreather mask start antibiotics steroids and over the ICU. Placed on Airvo Patient admitted with COVID 19 pneumonia, acute hypoxic respiratory failure- intubated. On IV Nimbex and propofol. Prone position. ARDS. He received Remdesivir, Decadron and convalescent immunoglobulin. Today-ICU. Ventilator-FiO2 70 PEEP of 18. Drips include cleviprex, Nimbex, fentanyl, insulin. Tube feeding. Review of systems-patient intubated Active Medications Acetaminophen (Acetaminophen Tab 325 Mg Tab) 650 mg PO Q4HR PRN PRN Reason: Fever and/or Mild Pain Last Admin: 06/08/20 08:22 Dose: 650 mg Documented by: Amlodipine Besylate (Amlodipine 5 Mg Tab) 5 mg PO BID [facility] Last Admin: 06/10/20 21:19 Dose: 5 mg Documented by: Artificial Tears (Artificial Tears-Hypromellose Drops 15 Ml Btl) 1 drops BOTH EYES TID PRN PRN Reason: Dry Eye(s) Ascorbic Acid (Ascorbic Acid 500 Mg Tab) 1,000 mg PO DAILY [facility] Last Admin: 06/10/20 08:24 Dose: 1,000 mg Documented by: Carvedilol (Carvedilol 6.25 Mg Tab) 6.25 mg PO BID-W/MEALS [facility] Last Admin: 06/10/20 15:42 Dose: 6.25 mg Documented by: Chlorhexidine Gluconate (Chlorhexidine Gluconate 15 Ml Cup) 15 ml MUCOUS MEM BID [facility] Last Admin: 06/10/20 21:19 Dose: 15 ml Documented by: Cholecalciferol (Cholecalciferol 400 Unit Tab) 400 unit PO DAILY [facility] Last Admin: 06/10/20 08:25 Dose: 400 unit Documented by: Darbepoetin Ketan (Darbepoetin Ketan 25 Mcg/0.42 Ml Syringe) 25 mcg SQ Q7D [facility] Last Admin: 06/06/20 10:37 Dose: 25 mcg Documented by: Enoxaparin Sodium (Enoxaparin 60 Mg/0.6 Ml Syringe) 50 mg SQ Q12HR [facility] Last Admin: 06/10/20 21:18 Dose: 50 mg Documented by: Famotidine (Famotidine 20 Mg Tab) 20 mg PO DAILY [facility] Last Admin: 06/10/20 08:25 Dose: 20 mg Documented by: Fluconazole (Fluconazole 100 Mg Tab) 100 mg PO DAILY [facility] Last Admin: 06/10/20 08:25 Dose: 100 mg Documented by: Hydromorphone HCl (Hydromorphone 1 Mg/Ml 1 Ml Syringe) 1 mg IVP Q3H PRN PRN Reason: Pain Last Admin: 06/10/20 03:49 Dose: 1 mg Documented by: Insulin Human Regular 100 unit (/ Sodium Chloride) 101 mls @ 0 mls/hr IV .Q0M [facility]; Protocol Last Titration: 06/10/20 21:59 Dose: 12 units/hr, 12.12 mls/hr Documented by: Meropenem 2 gm/ Sodium (Chloride) 100 mls @ 33.3 mls/hr IVPB Q12HR [facility]; Protocol Last Admin: 06/10/20 21:27 Dose: 33.3 mls/hr Documented by: Norepinephrine Bitartrate 8 mg (/ Sodium Chloride) 258 mls @ 10.807 mls/hr IV .[id number] [facility]; Protocol Last Admin: 06/10/20 15:52 Dose: Not Given Documented by: Fentanyl Citrate 1,000 mcg/ (Sodium Chloride) 100 mls @ 0 mls/hr IV .Q0M [facility]; Protocol Last Admin: 06/10/20 18:44 Dose: 120 mcg/hr, 12 mls/hr Documented by: Clevidipine 25 mg/ IV Solution 50 mls @ 2 mls/hr IV .Q24H [facility]; Protocol Last Admin: 06/10/20 20:00 Dose: 8 mg/hr, 16 mls/hr Documented by: Cisatracurium Besylate 200 mg/ (Sodium Chloride) 200 mls @ 6.936 mls/hr IV .Q24H [facility]; Protocol Last Titration: 06/10/20 15:54 Dose: 4 mcg/kg/min, 27.744 mls/hr Documented by: Lactulose (Lactulose 20 Gm/30 Ml Cup) 20 gm PO BID [facility] Last Admin: 06/10/20 21:19 Dose: 20 gm Documented by: Melatonin (Melatonin 5 Mg Tablet) 5 mg PO HS [facility] Last Admin: 06/10/20 21:19 Dose: 5 mg Documented by: Methylprednisolone Sodium Succinate (Methylprednisolone Sod Succi 40 Mg/Ml 1 Ml Vial) 40 mg IV Q8HR [facility] Last Admin: 06/10/20 15:43 Dose: 40 mg Documented by: Naloxone HCl (Naloxone 0.4 Mg/Ml 1 Ml Vial) 0.2 mg IV Q2M PRN PRN Reason: Opioid Reversal Zinc Sulfate (Zinc Sulfate 220 Mg Cap) 220 mg PO DAILY [facility] Last Admin: 06/10/20 08:25 Dose: 220 mg Documented by: Physical examination: VITAL SIGNS: 97, 93, 30, 130/52, 92% on the ventilator GENERAL: Laying in bed, intubated, OG tube, FMS-liquid stools Additional physical examination as per pulmonary and nursing-noted INVESTIGATIONS, reviewed in the clinical context: White count 8.6 hemoglobin 9.4 platelets 232 potassium 4.9 bun 103 creatinine 1.83, CRP less than 5 Previous testing Sputum culture from June 03-Litzy albicans. Nasal swab from 1029--negative for MSSA Blood and urine culture from June 04 both negative Chest x-ray June 04-worsening infiltrate Admission testing: White count 6.5 hemoglobin 14.8 platelets 2:30 Potassium 4.7 bun 30 creatinine 1.76 lactic acid 2.4 ferritin 2053 AST 73 ALT 59 LDH 1056 CRP 333 Influenza type A and type B both negative COVID 19 PCR present EKG tracing personally reviewed by me-normal sinus rhythm Chest x-ray film personally reviewed by me-extensive bilateral infiltrates Assessment: -Bilateral pneumonia, COVID 19 pneumonia, cannot rule out bacterial infection especially gram-negative slow to respond -Moderate to severe ARDS-slow to respond -Acute hypoxic respiratory failure severe from above-requiring ventilator slow to respond -Severe sepsis from pneumonia -Moderate persistent asthma with acute exacerbation-slow to respond -Coronary artery disease -Diabetes mellitus type 2, uncontrolled from hyperglycemia requiring insulin drip -GERD -Essential hypertension -Obstructive sleep apnea -History of right diaphragm paralysis with plication -Restless leg syndrome -Hypernatremia-from free water-worsening -Severe hyperkalemia from acute kidney injury -acute kidney injury from ATN from sepsis - fevers. Only thing positive is Litzy albicans. Which could be colonization. Given that nasal swab was negative for MRSA would not entertain treatment for the same.Diflucan added Plan: Continue Precedex, clevidipine, IV fentanyl, insulin drip, IV meropenem, prognosis guarded. No sign informed be that patient's family is looking at terminal extubation/hospice tomorrow. Which is rather appropriate given the current clinical situation.
[2020-06-11] MEDS: CLEVIDIPINE BUTYRATE 25 MG in EMPTY BAG 1 BAG IV SCH ×3 (00:20→06:36)
[2020-06-11] MEDS: methylPREDNISolone SOD SUCCI 40 MG/ML 1 ML VIAL IV SCH ×2 (00:35→09:20)
[2020-06-11] MEDS: INSULIN REGULAR 100 UNIT in SODIUM CHLORIDE 0.9% 100 ML IV SCH ×2 (00:48→08:41)
[2020-06-11] MEDS: CISATRACURIUM 200 MG in SODIUM CHLORIDE 0.9% 180 ML IV SCH ×2 (01:03→06:53)
[2020-06-11 02:37] LABS: Glucose,Whole Blood 151 mg/dL (75-99)
[2020-06-11] MEDS: fentaNYL (PF) 1,000 MCG in SODIUM CHLORIDE 0.9% 80 ML IV SCH (03:15)
[2020-06-11 04:26] LABS: Glucose,Whole Blood 173 mg/dL (75-99)
[2020-06-11 04:29] LABS: HCT 27.8 % (39.0-53.0); Hypochromasia Slight; MCH 33.4 pg (25.0-35.0); MCHC 32.2 g/dL (31.0-37.0); MCV 103.8 fL (80.0-100.0); Macrocytosis Slight; Mean Platelet Volume 10.6; Platelet Count 224 k/uL (150-450); RBC 2.68 m/uL (4.30-5.90)
[2020-06-11 04:39] LABS: Albumin 2.9 g/dL (3.5-5.0); Calcium 8.3 mg/dL (8.4-10.2); Potassium 5.4 mmol/L (3.5-5.1); Total Bilirubin 0.9 mg/dL (0.2-1.3); Total Protein 5.1 g/dL (6.3-8.2)
[2020-06-11 05:16] LABS: Band Neutrophils % 10 %; Lymphocytes # (M) 0.78 k/uL (1.0-4.8); Monocytes # (M) 0.97 k/uL (0-1.0); Neutrophils % (M) 82 %; Nucleated Red Blood Cells 4 /100 WBC (0-0); Total Cells Counted 200; WBC 19.4 k/uL (3.8-10.6)
[2020-06-11 05:17] LABS: Basophilic Stippling Present; Large Platelets Present; Polychromasia Present
[2020-06-11 06:25] LABS: Glucose,Whole Blood 166 mg/dL (75-99)
[2020-06-11] MEDS: carvediloL 6.25 MG TAB PO SCH (07:20)
[2020-06-11 07:31] LABS: ABG Base Excess 3.2 mmol/L; ABG HCO3 31 mmol/L (21-25); ABG Oxygen Saturation 95.8 % (94-97); ABG PH 7.24 (7.35-7.45); ABG PO2 86 mmHg (83-108); ABG TCO2 33 mmol/L (19-24)
[2020-06-11 07:35] LABS: Allen Test Performed? No
[2020-06-11 08:38] LABS: Glucose,Whole Blood 149 mg/dL (75-99)
[2020-06-11 08:40] VITALS: TEMP 98.1
[2020-06-11] MEDS: CHOLECALCIFEROL 400 UNIT TAB PO SCH (09:21)
[2020-06-11] MEDS: amLODIPine 5 MG TAB PO SCH (09:21)
[2020-06-11] MEDS: ASCORBIC ACID 500 MG TAB PO SCH (09:21)
[2020-06-11] MEDS: CHLORHEXIDINE GLUCONATE 15 ML CUP MUCOUS MEM SCH (09:21)
[2020-06-11] MEDS: FLUCONAZOLE 100 MG TAB PO SCH (09:21)
[2020-06-11] MEDS: FAMOTIDINE 20 MG TAB PO SCH (09:21)
[2020-06-11] MEDS: LACTULOSE 20 GM/30 ML CUP PO SCH (09:21)
[2020-06-11] MEDS: ENOXAPARIN 60 MG/0.6 ML SYRINGE SQ SCH (09:21)
[2020-06-11] MEDS: ZINC SULFATE 220 MG CAP PO SCH (09:22)
[2020-06-11] MEDS: MEROPENEM 2 GM in SODIUM CHLORIDE 0.9% 100 ML IVPB SCH (09:22)
--- NOTE | 2020-06-11 09:50 | XR ---
EXAMINATION TYPE: XR chest 1V DATE OF EXAM: 06/11/2020 COMPARISON: 06/10/2020 HISTORY: Shortness of breath TECHNIQUE: Single frontal view of the chest is obtained. FINDINGS: ET and NG tube stable. Central line seen with the tip near the level of the left subclavia n vein. Diffuse bilateral infiltrate and pleural effusion with cardiomegaly stable. No pneumothorax. IMPRESSION: 1. Stable diffuse pleural-parenchymal changes correlate for ARDS, diffuse pneumonia or pulmonary deny a.
[2020-06-11 10:55] LABS: Glucose,Whole Blood 124 mg/dL (75-99)
[2020-06-11] MEDS ORDERED: LORazepam 2 MG/ML INJ IV PRN (11:10)
[2020-06-11] MEDS ORDERED: ATROPINE OPHTH SOLN 1% 5ML BTL SUBLINGUAL PRN (11:10)
[2020-06-11] MEDS ORDERED: MORPHINE SULFATE 2 MG/ML SYRINGE IV PRN (11:10)
[2020-06-11] MEDS ORDERED: DRY MOUTH SPRAY 44.3 SPRAY/44.3 ML SPRAY MUCOUS MEM PRN (11:10)
[2020-06-11] MEDS ORDERED: MORPHINE SULFATE (100 MG/2 ML) 100 MG in SODIUM CHLORIDE 0.9% 100 ML IV SCH (11:15)
[2020-06-11 11:17] VITALS: BP 157/54
[2020-06-11 12:09] VITALS: PULSE 84; RESP 18
--- NOTE | 2020-06-11 14:11 | P.PN ---
Subjective Progress Note Date: 06/11/20 Principal diagnosis: Acute hypoxic respiratory failure secondary to covid 19 pneumonitis with ARDS 06/07/2020, patient remains on a mechanical ventilator. And the patient is on P recedex running at 0.6 g. At times, the patient becomes asynchronous with a mechanical ventilator. He has required Dilaudid and furthermore on recommending a fentanyl drip at a low rate to improve his restlessness and agitation and synchrony with the mechanical ventilator. The patient this morning is an assist-control mode at the rate of 30 with a tidal volume of 450 and FiO2 of 50% with a PEEP of 18. Blood gases showed some hypoxemia with a pH of 7.35 and a pCO2 50 and pO2 of 55. Based on that, I increased the FiO2 of 60%. Drop the tidal volume to 400 and increased the PEEP up to 20. Current peak airway pressures around 35. Static pressures around 32. The patient has a stable ches t x-ray. Decadron will be discontinued and the patient will placed on IV Solu- Medrol 40 mg every 8 hours. There is no hemodynamic instability. The patient is off pressors. The patient is on Diflucan for some oral candidiasis and the patient is also receiving IV Merrem as spectrum antibiotic coverage. He continues to have low-grade fever and T-max 100.9 from midnight. Tolerating tube feed which is in the form of vital high protein at the rate of 40 mL an hour which is at goal. The patient is still running on insulin 12 units an hour. The renal function is stable. Creatinine is down to 2.1. The BUN remains elevated. Patient was reevaluated today on 06/08/20, remains intubated and mechanically ventilated. Patient is doing very poorly. His ventilator settings are assist control rate of 30 tidal volume is 400 FiO2 is 60% PEEP is 20. ABG showed a pO2 of 106 pCO2 of 73 pH of 7.27, hence I cut down his FiO2 to 50%, and The remaining vent settings the same. Patient is on Precedex drip, on fentanyl drip, and on 19 normal saline at KVO. He is also on tube feeding, he is receiving free water for hypernatremia, and he received a treatment for hyperkalemia as per nephrology, and the patient is being considered seriously for hemodialysis. His peak airway pressure on the ventilator is 36, plateau pressure is 31. Vascular surgery is being consulted for possible dialysis catheter placement. Potassium this morning was 6.6 and sodium was 150. Chest x-ray continues to show multifocal airspace disease/multifocal pneumonia Patient was evaluated today on 06/09/20, remains on mechanical ventilation, no major change has been noted in the last few days. Patient remains on venti latory support with assist control rate of 30 volume of 400 FiO2 50% PEEP remains at 20 however after reviewing his ABG today, I cut down the PEEP to 16. ABG today showed a pO2 of 85 pCO2 of 70 pH of 7.28. Patient remains on D5W at 100 mL/h, he is on Precedex at 0.6 and fentanyl at 0.4 mcg/kg/h. Peak airway pressure is 34 plateau pressure is 29. Patient is on enteral feeding using Nepro and he is receiving free water for his hypernatremia. Sodium today is 138. Electrolytes are normal BUN is 88 creatinine is 1.63. Patient is being dialyzed today again. Yesterday, patient required a brief period of norepinephrine but presently off norepinephrine. CBC showed WBC count of 14.1 hemoglobin is 8.2. Chest x-ray continues to show evidence of pneumonia/ARDS. Patient was reevaluated today on 06/10/20, remains in the ICU intubated and mechanically ventilated. Patient had to be switched to Nimbex yesterday as he was getting more agitated and he was desaturating yesterday down to the 80s and I had to increase his FiO2 to 100% and titrated down again today I increased his PEEP up to 18 from 16. Patient is now on fentanyl at 0.993 mcg/kg/h. He is also on Nimbex , clevidipine at 10 mg per hour he is also on insulin at 12 units per hour. Remains on meropenem and he remains on Nepro enteral feeding. ABG today showed a pO2 of 99 pCO2 of 74 pH of 7.23. His ventilator settings today are assist control rate of 30 tidal volume is 400 FiO2 80% and PEEP of 16. Chest x-ray continues to show multilobar infiltrates, ARDS picture. WBC count is 18.6, hemoglobin is 9.4,d-dimer is 2.93. He elects lites are normal BUN is 103 creatinine is 1.83. LDH is 1477 C-reactive protein is less than 5 transaminases remains elevated with AST of 120 and ALT of 170. Reevaluated today on 06/11/20, patient is basically about the same, had to increase his PEEP again yesterday to 18, and his FiO2 remained at 60% overnight. ABG today showed a pO2 of 86 pCO2 of 71 pH of 7.24. His vent settings are assist control rate of 30M volume is 400 FiO2 is 70% and I cut it down to 60% is also on a PEEP of 18. Patient remains on Nimbex, clevidipine, fentanyl, insulin, he is also on meropenem. Chest x-ray continues to show evidence of ARDS. No significant improvement noted since admission, and a few days ago, discussed his status with the , and she basically felt if no improvement in few days, she would fail to have the patient go on comfort care measures. Today the is planning to come in and with comfort care measures which I believe is not inappropriate considering the patient's overall prognostic picture and the fact that he is not making much progress. Remains on high FiO2 remains on high PEEP, and the patient received different treatments for his covid 19 pneumonitis and ARDS Objective - Vital Signs Vital signs: Vital Signs Temp 98.1 F 06/11/20 08:00 Pulse 84 06/11/20 12:00 Resp 18 06/11/20 12:00 BP 157/54 06/11/20 11:00 Pulse Ox 94 L 06/11/20 11:00 Intake & Output 06/10/20 06/11/20 06/11/20 18:59 06:59 18:59 Intake Total 2505.120 1675.475 199.635 Output Total 1100 1296 200 Balance 1405.120 379.475 -0.365 Weight 120.2 kg 128.3 kg Intake: IV 312 518 144 Meropenem 2 gm In Sodium 100 Chloride 0.9% 100 ml @ 33 .3 mls/hr IVPB Q12HR [facility] Rx#:[id number] Normal Saline @ KVO 240 340 120 Normal Saline Pressure 72 78 24 Bags Intake, IV Titration 801.120 519.475 55.635 Amount Cisatracurium 200 mg In 377.805 161.84 3.237 Sodium Chloride 0.9% 180 ml @ 1 MCG/KG/MIN 6.936 mls/hr IV .Q24H [facility] Rx#: [id number] Clevidipine Butyrate 25 123.667 99.234 1.133 mg In Empty Bag 1 bag @ 1 MG/HR 2 mls/hr IV .Q24H [facility] Rx#:[id number] Insulin Regular 100 unit 146.248 158.401 50.466 In Sodium Chloride 0.9% 100 ml @ Per Protocol IV .Q0M [facility] Rx#:[id number] Morphine Sulfate (100 mg/ 0.799 2 ml) 100 mg In Sodium Chloride 0.9% 100 ml @ 1 MG/HR 1.02 mls/hr IV . Q24H [facility] Rx#:[id number] fentaNYL (PF) 1,000 mcg 153.4 100 In Sodium Chloride 0.9% 80 ml @ Per Protocol IV . Q0M [facility] Rx#:[id number] Tube Feeding 592 518 0 Other 800 120 Output: Urine 900 1296 200 Stool 200 Other: Voiding Method Indwelling Catheter Indwelling Catheter Indwelling Catheter ABP, PAP, CO, CI - Last Documented Arterial Blood Pressure 145/56 - Exam Patient was not examined today, but all his drips and medications were reviewed, and the family is planning comfort care measures which would be initiated in the next couple of hours in the meantime we'll discontinue Nimbex. - Labs CBC & Chem 7: 06/11/20 04:13 06/11/20 04:13 Labs: Abnormal Lab Results - Last 24 Hours (Table) 06/10/20 06/10/20 06/10/20 Range/Units 15:49 18:07 20:04 WBC (3.8-10.6) k/uL RBC (4.30-5.90) m/uL Hgb (13.0-17.5) gm/dL Hct (39.0-53.0) % MCV (80.0-100.0) fL RDW (11.5-15.5) % Neutrophils # (Manual) (1.3-7.7) k/uL Lymphocytes # (Manual) (1.0-4.8) k/uL Nucleated RBCs (0-0) /100 WBC ABG pH (7.35-7.45) ABG pCO2 (35-45) mmHg ABG HCO3 (21-25) mmol/L ABG Total CO2 (19-24) mmol/L Potassium (3.5-5.1) mmol/L Carbon Dioxide (22-30) mmol/L BUN (9-20) mg/dL Creatinine (0.66-1.25) mg/dL Glucose (74-99) mg/dL POC Glucose (mg/dL) 188 H 182 H 190 H (75-99) mg/dL Calcium (8.4-10.2) mg/dL AST (17-59) U/L ALT (4-49) U/L Total Protein (6.3-8.2) g/dL Albumin (3.5-5.0) g/dL 06/10/20 06/11/20 06/11/20 Range/Units 21:47 02:34 04:13 WBC 19.4 H (3.8-10.6) k/uL RBC 2.68 L (4.30-5.90) m/uL Hgb 9.0 L (13.0-17.5) gm/dL Hct 27.8 L (39.0-53.0) % MCV 103.8 H (80.0-100.0) fL RDW 16.0 H (11.5-15.5) % Neutrophils # (Manual) 17.80 H (1.3-7.7) k/uL Lymphocytes # (Manual) 0.78 L (1.0-4.8) k/uL Nucleated RBCs 4 H (0-0) /100 WBC ABG pH (7.35-7.45) ABG pCO2 (35-45) mmHg ABG HCO3 (21-25) mmol/L ABG Total CO2 (19-24) mmol/L Potassium (3.5-5.1) mmol/L Carbon Dioxide (22-30) mmol/L BUN (9-20) mg/dL Creatinine (0.66-1.25) mg/dL Glucose (74-99) mg/dL POC Glucose (mg/dL) 171 H 151 H (75-99) mg/dL Calcium (8.4-10.2) mg/dL AST (17-59) U/L ALT (4-49) U/L Total Protein (6.3-8.2) g/dL Albumin (3.5-5.0) g/dL 06/11/20 06/11/20 06/11/20 Range/Units 04:13 04:24 06:24 WBC (3.8-10.6) k/uL RBC (4.30-5.90) m/uL Hgb (13.0-17.5) gm/dL Hct (39.0-53.0) % MCV (80.0-100.0) fL RDW (11.5-15.5) % Neutrophils # (Manual) (1.3-7.7) k/uL Lymphocytes # (Manual) (1.0-4.8) k/uL Nucleated RBCs (0-0) /100 WBC ABG pH (7.35-7.45) ABG pCO2 (35-45) mmHg ABG HCO3 (21-25) mmol/L ABG Total CO2 (19-24) mmol/L Potassium 5.4 H (3.5-5.1) mmol/L Carbon Dioxide 32 H (22-30) mmol/L BUN 118 H* (9-20) mg/dL Creatinine 1.83 H (0.66-1.25) mg/dL Glucose 161 H (74-99) mg/dL POC Glucose (mg/dL) 173 H 166 H (75-99) mg/dL Calcium 8.3 L (8.4-10.2) mg/dL AST 127 H (17-59) U/L ALT 233 H (4-49) U/L Total Protein 5.1 L (6.3-8.2) g/dL Albumin 2.9 L (3.5-5.0) g/dL 06/11/20 06/11/20 06/11/20 Range/Units 07:29 08:37 10:53 WBC (3.8-10.6) k/uL RBC (4.30-5.90) m/uL Hgb (13.0-17.5) gm/dL Hct (39.0-53.0) % MCV (80.0-100.0) fL RDW (11.5-15.5) % Neutrophils # (Manual) (1.3-7.7) k/uL Lymphocytes # (Manual) (1.0-4.8) k/uL Nucleated RBCs (0-0) /100 WBC ABG pH 7.24 L (7.35-7.45) ABG pCO2 71 H* (35-45) mmHg ABG HCO3 31 H (21-25) mmol/L ABG Total CO2 33 H (19-24) mmol/L Potassium (3.5-5.1) mmol/L Carbon Dioxide (22-30) mmol/L BUN (9-20) mg/dL Creatinine (0.66-1.25) mg/dL Glucose (74-99) mg/dL POC Glucose (mg/dL) 149 H 124 H (75-99) mg/dL Calcium (8.4-10.2) mg/dL AST (17-59) U/L ALT (4-49) U/L Total Protein (6.3-8.2) g/dL Albumin (3.5-5.0) g/dL Microbiology - Last 24 Hours (Table) 06/04/20 16:08 Blood Culture - Final Blood No Growth after 144 hours 06/04/20 09:05 Blood Culture - Final Blood No Growth after 144 hours Assessment and Plan Assessment: Impression: Acute hypoxic failure secondary to Covid 19 pneumonitis and secondary ARDS. Acute pneumonitis secondary to Covid 19, patient required intubation on 05/28, and so far he received remdesivir,tocilizumab, convalescent plasma, IV Decadron, zinc, and so far the patient is not making or showing any sort of improvement.patient had be placed back on high PEEP and high FiO2 late in the afternoon yesterday. Chronic right hemidiaphragm paralysis previous plication. History of chronic bronchial asthma. History of bronchiectasis History of coronary artery disease. History of obstructive sleep apnea syndrome. History of abdominal aortic aneurysm and previous endovascular stent grafting in 2011. History of restless leg syndrome. Dyslipidemia. Acute kidney injury with azotemia, and hyperkalemia.being addressed by nephrology. Coagulase-negative bacteremia, resolved. Hypernatremia and hyperkalemia, resolved. Recommendation: Discussed his condition with nursing staff, and I believe it is appropriate to proceed with comfort care measures as per family's wishes. Will discontinue Nimbex, and proceed to comfort care measures and possibly extubate the patient in the next few hours. Patient will pass in peace comfort and dignity. Time with Patient: Less than 30
--- NOTE | 2020-06-11 23:59 | P.DS ---
Providers Date of admission: 05/27/20 14:33 Expected date of discharge: 06/11/20 Attending physician: Sammy Hinds Consults: 05/27/20 14:33 Consult Physician Stat Consulting Provider: Yonathan Carlson Consult Reason/Comments: acute hypoxic resp failure, suspected covid pna Do you want consulting provider notified?: Already Contacted 06/04/20 17:15 Consult Physician Routine Consulting Provider: Jozef Penn Consult Reason/Comments: ATN Do you want consulting provider notified?: Yes 06/08/20 08:47 Consult Physician Stat Consulting Provider: Mina Bliss Consult Reason/Comments: hemodialysis catheter placement Do you want consulting provider notified?: Yes Primary care physician: Demnod Harper MD Hospital Course: chief Complaint: Shortness of breath History of presenting complaint: This is a 65-year-old patient of Dr. Demond Harper. Chronic stable medical conditions include coronary artery disease, diabetes, GERD, hypertension, obstructive sleep apnea, chronic back pain, restless leg syndrome, history of diaphragmatic analysis. Patient presented to the ER with shortness of breath. Symptoms started about 24 hours ago. Also chills. He had no obvious cold exposure travel or contact with sick people. He's had a cough. She was febrile in the ER and hypoxic. No nausea vomiting or diarrhea. Has a history of diaphragmatic plication. He also has known bronchiectasis of the right middle and lower lobe. Patient was initially put on a nonrebreather mask start antibiotics steroids and over the ICU. Placed on Airvo Patient admitted with COVID 19 pneumonia, acute hypoxic respiratory failure- intubated. On IV Nimbex and propofol. Prone position. ARDS. He received Remdesivir, Decadron and convalescent immunoglobulin. Today-ICU. Per family patient was terminally weaned. Patient succumbed to the same. Consultation: Dr. Schuler in partners from critical care Nephrology Dr. Bee from vascular Physical examination: Patient INVESTIGATIONS, reviewed in the clinical context: White count 8.6 hemoglobin 9.4 platelets 232 potassium 4.9 bun 103 creatinine 1.83, CRP less than 5 Previous testing Sputum culture from June 03-Litzy albicans. Nasal swab from 1029--negative for MSSA Blood and urine culture from June 04 both negative Chest x-ray June 04-worsening infiltrate Admission testing: White count 6.5 hemoglobin 14.8 platelets 2:30 Potassium 4.7 bun 30 creatinine 1.76 lactic acid 2.4 ferritin 2053 AST 73 ALT 59 LDH 1056 CRP 333 Influenza type A and type B both negative COVID 19 PCR present EKG tracing personally reviewed by me-normal sinus rhythm Chest x-ray film personally reviewed by me-extensive bilateral infiltrates Assessment: -Bilateral pneumonia, COVID 19 pneumonia, cannot rule out bacterial infection especially gram-negative slow to respond -Moderate to severe ARDS-slow to respond -Acute hypoxic respiratory failure severe from above-requiring ventilator slow to respond -Severe sepsis from pneumonia -Moderate persistent asthma with acute exacerbation-slow to respond -Coronary artery disease -Diabetes mellitus type 2, uncontrolled from hyperglycemia requiring insulin drip -GERD -Essential hypertension -Obstructive sleep apnea -History of right diaphragm paralysis with plication -Restless leg syndrome -Hypernatremia-from free water-worsening -Severe hyperkalemia from acute kidney injury -acute kidney injury from ATN from sepsis - fevers. Only thing positive is Litzy albicans. Which could be colonization. Given that nasal swab was negative for MRSA would not entertain treatment for the same.Diflucan added Cause of : COVID 19 pneumonia Disposition: Patient Plan - Discharge Summary New Discharge Prescriptions: No Action carvediloL [Coreg] 12.5 mg PO BID metFORMIN HCL [Glucophage] 1,000 mg PO BID Citalopram Hydrobromide [Citalopram HBr] 20 mg PO DAILY Niacin [Niaspan] 1,000 mg PO DAILY Fenofibrate,Micronized [Fenofibrate] 200 mg PO HS Montelukast [Singulair] 10 mg PO DAILY Gabapentin [Neurontin] 100 mg PO HS Atorvastatin [Lipitor] 20 mg PO HS Aspirin 325 mg PO BID Ergocalciferol [Vitamin D2] 50,000 unit PO QMONTH Omeprazole 20 mg PO DAILY Tiotropium [place] [Spiriva] 1 cap INHALATION RT-DAILY Budesonide-Formot 160-4.5 Mcg [Symbicort 160-4.5 Mcg Inhaler] 2 puff INHALATION RT-BID rOPINIRole HCL [Requip] 5 mg PO HS Acetaminophen-Codeine 300-30mg [Tylenol w/codeine #3] 1 tab PO Q6H PRN PRN Reason: Pain amLODIPine [Norvasc] 10 mg PO DAILY Discharge Medication List Acetaminophen-Codeine 300-30mg [Tylenol w/codeine #3] 1 tab PO Q6H PRN 12/31/19 [History] Aspirin 325 mg PO BID 12/31/19 [History] Atorvastatin [Lipitor] 20 mg PO HS 12/31/19 [History] Budesonide-Formot 160-4.5 Mcg [Symbicort 160-4.5 Mcg Inhaler] 2 puff INHALATION RT-BID 12/31/19 [History] Citalopram Hydrobromide [Citalopram HBr] 20 mg PO DAILY 12/31/19 [History] Ergocalciferol [Vitamin D2] 50,000 unit PO QMONTH 12/31/19 [History] Fenofibrate,Micronized [Fenofibrate] 200 mg PO HS 12/31/19 [History] Gabapentin [Neurontin] 100 mg PO HS 12/31/19 [History] Montelukast [Singulair] 10 mg PO DAILY 12/31/19 [History] Niacin [Niaspan] 1,000 mg PO DAILY 12/31/19 [History] Omeprazole 20 mg PO DAILY 12/31/19 [History] Tiotropium [place] [Spiriva] 1 cap INHALATION RT-DAILY 12/31/19 [History] amLODIPine [Norvasc] 10 mg PO DAILY 12/31/19 [History] carvediloL [Coreg] 12.5 mg PO BID 12/31/19 [History] metFORMIN HCL [Glucophage] 1,000 mg PO BID 12/31/19 [History] rOPINIRole HCL [Requip] 5 mg PO HS 12/31/19 [History] Follow up Appointment(s)/Referral(s): Demond Harper MD [Primary Care Provider] - 1-2 days Discharge Disposition: - Preliminary Cause of Preliminary Cause of : COVID 19 pneumonia
[2020-06-15 05:15] LABS: ABG PCO2 71 mmHg (35-45)
--- NOTE | 2020-06-16 12:54 | CDI ---
Documentation Clarification Form Mortality Review Date: 06/16/2020 12:35:36 PM From: Rachel Magallanes RN, CCDS Admit Date: 05/27/2020 02:33:00 PM Patient Name: Jovi Booth Visit Number: [id number] Discharge Date: 06/11/2020 02:30:00 PM ATTENTION: The Clinical Documentation Specialists (CDI) and [facility] Coding Staff appreciate your assistance in clarifying documentation. Please respond to the clarification below the line at the bottom and electronically sign. The CDI & [facility] Coding staff will review the response and follow-up if needed. Please note: Queries are made part of the Legal Health Record. If you have any questions, please contact the author of this message via ITS. Dr. Sammy Hinds NSTEMI is documented in the ED notes and requires clarification. Patient History/Risk Factors: Covid 19 pneumonia, Sepsis, Acute hypoxic respiratory failure, ARDS, Moderate persistent asthma, CAD, DM2, HTN, Severe hyperkalemia, AB with ATN Clinical Indicators: 05/27 ED Note: "Shortness of breath, Suspected COVID-19 virus infection, Hypoxia, NSTEMI (non- ST elevated myocardial infarction), Asthma 05/27 Pulmonary Consult: "Elevated troponin, possibly related to severe hypoxemia." Troponin: .107/.112/.029 05/27 EKG Results: Sinus Tachycardia Treatment: Consult: No Cardiology Consult 06/01-06/05 Norvasc 10 mg Po Daily, Coreg 12.5 mg PO BID with meals 06/10-06/11 Norvasc 5 mg Po Daily, Coreg 6.25 mg PO BID with meals Lovenox SQ Several one-time doses of IVP Lasix 40 mg For accurate documentation of patients SOI/ROM, please indicate if the patient had a coronary event: NSTEMI Type 2 AR (please specify cause) Sepsis Shock Anemia CHF Arrhythmia Unable to determine Other Condition, please specify (Last Revision: August 2019) type II AR due to sepsis MTDD
--- NOTE | 2020-06-16 13:04 | CDI ---
Documentation Clarification Form Mortality Review Date: 06/16/2020 12:54:45 PM From: Rachel Magallanes RN, CCDS Admit Date: 05/27/2020 02:33:00 PM Patient Name: Jovi Booth Visit Number: [id number] Discharge Date: 06/11/2020 02:30:00 PM ATTENTION: The Clinical Documentation Specialists (CDI) and [facility] Coding Staff appreciate your assistance in clarifying documentation. Please respond to the clarification below the line at the bottom and electronically sign. The CDI & [facility] Coding staff will review the response and follow-up if needed. Please note: Queries are made part of the Legal Health Record. If you have any questions, please contact the author of this message via ITS. Dr. Sammy Hinds A pressure ulcer was documented in the Nursing assessments beginning 06/03/2020 @ 1756 with supporting photos. History/Risk Factors: Patient was proned for 16 hrs. r/t ARDS and severe hypoxia with ARDS related to COVID 19 pneumonia, sepsis, DM2, HTN, AB with ATN, hypotension with pressors started 06/03 Clinical Indicators: Photo dated 06/03 2020 left cheek Initial documentation of stage 2, all subsequent nursing documentation is "unstageable" Location: Left Cheek Wound description: Pressure injury from [place] ETT olmos device from prone positioning Treatment: Saline irrigant Elements for accurate and compliant documentation of an ulcer: *The location/laterality of the ulcer *Etiology (decubitus/pressure, diabetic, PVD) *Stage I-IV, Unstageable, Suspected Deep Tissue Injury (To the deepest stage) *If the ulcer was present at admission (POA) or occurred after admission In your professional opinion, can you please clarify the diagnosis, location, laterality and whether present on admission (POA): Stage 1 Pressure/Decubitus Ulcer (intact skin, non-blanching redness of local area) Stage 2 Pressure/Decubitus Ulcer (Partial thickness, loss of dermis, pink wound bed) Stage 3 Pressure/Decubitus Ulcer (Full thickness tissue loss) Stage 4 Pressure/Decubitus Ulcer (Full thickness tissue loss with exposed bone, tendon, or muscle. May have slough or eschar present) Unstageable Other condition, please specify Unable to determine Please indicate etiology of pressure ulcer (if known). (Last Revision: May 2017) unstageablewound-left buttock cheek, possible POA MTDD
== END 2020-06-11 14:30 | disposition expired | DRG 870 ==
LOC: EC 11:51 → 2SICU 14:33 → UNDODISIN 06-11 14:51
PROVIDERS: ADMIT Hospitalist; ATTEND Hospitalist
PROC: 5A1955Z Respiratory Ventilation, Greater than 96 Consecutive Hours (ICD-10-PCS; principal; 2020-05-27)
PROC: 0BH17EZ Insertion of Endotracheal Airway into Trachea, Via Natural or Artificial Opening (ICD-10-PCS; 2020-05-27)
PROC: 0DH67UZ Insertion of Feeding Device into Stomach, Via Natural or Artificial Opening (ICD-10-PCS; 2020-05-27)
PROC: 03HY32Z Insertion of Monitoring Device into Upper Artery, Percutaneous Approach (ICD-10-PCS; 2020-05-28)
PROC: 4A133B1 Monitoring of Arterial Pressure, Peripheral, Percutaneous Approach (ICD-10-PCS; 2020-05-28)
PROC: 4A133J1 Monitoring of Arterial Pulse, Peripheral, Percutaneous Approach (ICD-10-PCS; 2020-05-28)
PROC: 02H633Z Insertion of Infusion Device into Right Atrium, Percutaneous Approach (ICD-10-PCS; 2020-05-28)
PROC: 3E0G76Z Introduction of Nutritional Substance into Upper GI, Via Natural or Artificial Opening (ICD-10-PCS; 2020-05-28)
PROC: XW033E5 Introduction of Remdesivir Anti-infective into Peripheral Vein, Percutaneous Approach, New Technology Group 5 (ICD-10-PCS; 2020-05-28)
PROC: XW13325 Transfusion of Convalescent Plasma (Nonautologous) into Peripheral Vein, Percutaneous Approach, New Technology Group 5 (ICD-10-PCS; 2020-05-29)
PROC: XW033H5 Introduction of Tocilizumab into Peripheral Vein, Percutaneous Approach, New Technology Group 5 (ICD-10-PCS; 2020-05-30)
PROC: 02HV33Z Insertion of Infusion Device into Superior Vena Cava, Percutaneous Approach (ICD-10-PCS; 2020-06-02)
PROC: 3E033XZ Introduction of Vasopressor into Peripheral Vein, Percutaneous Approach (ICD-10-PCS; 2020-06-02)
PROC: 06HM33Z Insertion of Infusion Device into Right Femoral Vein, Percutaneous Approach (ICD-10-PCS; 2020-06-08)
PROC: 5A1D70Z Performance of Urinary Filtration, Intermittent, Less than 6 Hours Per Day (ICD-10-PCS; 2020-06-08)
DX: A41.89 Other specified sepsis (principal); U07.1 COVID-19; N17.0 Acute kidney failure with tubular necrosis; J80 Acute respiratory distress syndrome; J12.89 Other viral pneumonia; R65.21 Severe sepsis with septic shock; J15.6 Pneumonia due to other Gram-negative bacteria; I21.A1 Myocardial infarction type 2; E87.2 Acidosis; E87.0 Hyperosmolality and hypernatremia; J45.41 Moderate persistent asthma with (acute) exacerbation; E87.1 Hypo-osmolality and hyponatremia; J93.82 Other air leak; B37.0 Candidal stomatitis; J47.0 Bronchiectasis with acute lower respiratory infection; L89.320 Pressure ulcer of left buttock, unstageable; D63.1 Anemia in chronic kidney disease; N18.30 Chronic kidney disease, stage 3 unspecified; E11.22 Type 2 diabetes mellitus with diabetic chronic kidney disease; Z51.5 Encounter for palliative care; Z66 Do not resuscitate; E11.65 Type 2 diabetes mellitus with hyperglycemia; G47.33 Obstructive sleep apnea (adult) (pediatric); I12.9 Hypertensive chronic kidney disease with stage 1 through stage 4 chronic kidney disease, or unspecified chronic kidney disease; I25.10 Atherosclerotic heart disease of native coronary artery without angina pectoris; K21.9 Gastro-esophageal reflux disease without esophagitis; G89.29 Other chronic pain; M54.9 Dorsalgia, unspecified; G25.81 Restless legs syndrome; E87.5 Hyperkalemia; E83.42 Hypomagnesemia; D72.810 Lymphocytopenia; I71.4 Abdominal aortic aneurysm, without rupture; E78.1 Pure hyperglyceridemia; E78.5 Hyperlipidemia, unspecified; R45.1 Restlessness and agitation; E87.70 Fluid overload, unspecified; E66.9 Obesity, unspecified; T38.0X5A Adverse effect of glucocorticoids and synthetic analogues, initial encounter; Z71.3 Dietary counseling and surveillance; Z68.32 Body mass index [BMI] 32.0-32.9, adult; Z79.82 Long term (current) use of aspirin; Z79.899 Other long term (current) drug therapy; Z79.51 Long term (current) use of inhaled steroids; Z79.84 Long term (current) use of oral hypoglycemic drugs; Z86.79 Personal history of other diseases of the circulatory system; Z98.890 Other specified postprocedural states; Z87.891 Personal history of nicotine dependence; Z87.39 Personal history of other diseases of the musculoskeletal system and connective tissue; Z95.828 Presence of other vascular implants and grafts
CPT/HCPCS: 36415; 36600; 71045; 74018; 80048; 80053; 81001; 82150; 82550; 82553; 82728; 82805; 83036; 83520; 83605; 83615; 83690; 83735; 83880; 84132; 84145; 84478; 84484; 85025; 85379; 85384; 85610; 85730; 86140; 86704; 86706; 86850; 86900; 86901; 87040; 87070; 87077; 87086; 87103; 87186; 87205; 87340; 87449; 87502; 90935; 93005; 94002; 94003; 94640; 96374; 99291